=== PATIENT | male | born 1960 | race Caucasian/White ===

== ENCOUNTER 2020-11-11 14:54 | Outpatient (REF) | payer MEDICARE, SELFPAY ==
[2020-11-11 15:47] LABS: Influenza A PCR NEGATIVE (Negative); Influenza B PCR NEGATIVE (Negative); Resp Syncy Virus RNA Qual PCR NEGATIVE (Negative)
[2020-11-11 15:54] LABS: SARS COV2 PCR INHOUSE POSITIVE (Negative)
== END 2020-11-11 14:55 | disposition home or self-care (01) ==
LOC: HO.LNP 14:54
PROVIDERS: Visit Provider Internal Medicine
DX: Z20.822 Contact with and (suspected) exposure to COVID-19 (principal); R05 Cough; R68.83 Chills (without fever); J02.9 Acute pharyngitis, unspecified
CPT/HCPCS: 0241U

== ENCOUNTER 2020-11-14 13:08 | Emergency (ER) | payer MEDICARE, SELFPAY ==
[2020-11-14 13:40] VITALS: BP 114/63; PULSE 97; RESP 20; TEMP 36.8; O2SAT 96; BMI 54.2
[2020-11-14 13:42] VITALS: O2SAT 96
--- NOTE | 2020-11-14 13:46 | XR_ITS ---
EXAMINATION: XR CHEST CLINICAL INFORMATION: Covid 19. Cough COMPARISON: June 06, 2020 TECHNIQUE: Frontal view of the chest was obtained. FINDINGS: Film is lordotic and underpenetrated due to large body habitus. There is some patchy density seen at the left base and laterally however this may represent superimposition of shadows. There is some prominence of the superior left hilum but likely related to vasculature. Right hemithorax unremarkable. No pneumothorax or pleural effusion. Heart normal size. No evidence of pulmonary edema. XR/XR chest 1V IMPRESSION: No confluent parenchymal disease. Patchy density seen about the left hemithorax as described.
--- NOTE | 2020-11-14 14:14 | ECG_ITS ---
Test Reason : SOB Blood Pressure : / mmHG Vent. Rate : 087 BPM Atrial Rate : 087 BPM P-R Int : 124 ms QRS Dur : 088 ms QT Int : 360 ms P-R-T Axes : 008 032 042 degrees QTc Int : 433 ms Normal sinus rhythm Normal ECG When compared with ECG of 06-JUN-2020 15:17, Premature ventricular complexes are no longer Present Referred By: Lizette Leon Electronically Signed By:JEREMY SCHMID MD
--- NOTE | 2020-11-14 14:43 | ED.GENADULT ---
HPI - General Adult General Chief complaint: General Medical Stated complaint: covid+ Time Seen by Provider: 11/14/20 13:46 Source: patient Mode of arrival: wheelchair Limitations: no limitations History of Present Illness HPI narrative: 60 y/o male with history of morbid obesity, EPI on CPAP, DM on insulin, asthma, CHF, GERD, venous stasis who presents with SOB, N/V, abdominal pain, fatigue and malaise for the last 5 days. He was diagnosed with COVID-19 on 11/11/2020. He reports he has a finger pulse ox at home and his O2 levels have been dipping into the 80's, as low as 85% at home. He has to take several deep breaths to get his oxygen to come up to 90%. He reports with compliance with CPAP. He also reports chest discomfort, worse with deep inspiration. He has been unable to eat anything the last 2 days due to vomiting and nausea. He reports subjective fevers and chills at home. MD complaint: COVID symptoms Onset (ago): day(s) (5) Location: head, chest and back Radiation: non-radiation Severity: severe Quality: aching Pain Consistency: constant Relieving factors: rest Exacerbating factors: movement Associated symptoms: denies other symptoms, chest pain, cough, fever/chills, headaches, loss of appetite, malaise, nausea/vomiting, shortness of breath and weakness Treatments prior to arrival: none Related Data Previous Rx's Medication Instructions Recorded azithromycin [Zithromax Z-Yifan] See Rx Instructions .ROUTE 11/14/20 .COMPLEX #6 tab ondansetron HCl [Zofran] 4 mg PO Q8H PRN #15 tab 11/14/20 prednisone 60 mg PO DAILY #15 tab 11/14/20 Allergies Allergy/AdvReac Type Severity Reaction Status Date / Time vancomycin [VANCOMYCIN] AdvReac Severe RENAL Unverified 07/18/20 14:43 FAILURE, RASH Pt states no food/medication Allergy Unknown Uncoded 09/08/17 00:00 a Review of Systems Review of Systems: Constitutional: + Fever, + Chills ENT/Mouth: No sore throat, No Rhinorrhea, No Swallowing Difficulty Eyes: No Eye Pain, No Swelling, No Redness Cardiovascular: No Chest Pain, + SOB, + Orthopnea, + Edema Respiratory: + Cough, No Sputum, No Wheezing, + dyspnea Gastrointestinal: + Nausea, + Vomiting, No Diarrhea, + abdominal Pain, No Hematochezia, No Melena Genitourinary: No Dysuria, No Urinary Frequency, No Hematuria Musculoskeletal: No joint pain, + Myalgias Skin: No Skin Lesions, No rash Neuro: + Weakness, No Numbness, No Dizziness, + Headache Psych: No Anxiety/Panic, No Depression Heme/Lymph: No Bruising, No Lymphadenopathy Endocrine: No Polyuria, No Polydipsia [facility] Past Medical History Medical History (Updated 11/14/20 @ 18:34 by HOMAR Hawkins) Diabetes High cholesterol Social History Social History Alcohol intake: never Smoked in Last 30 Days: No Use of substances other than those prescribed or required for medical reasons: No Advance Directives: No Advance Directives Information Provided: Yes Physical Exam Vital Signs: Vital Signs: Last Vital Signs Temp 98.8 F 11/14/20 16:01 Pulse 77 11/14/20 16:01 Resp 18 11/14/20 16:01 BP 107/77 11/14/20 16:01 Pulse Ox 94 11/14/20 16:01 Body Mass Index 54.2 Appearance: Alert. Oriented X3. Morbidly obese male laying on his side, appears uncomfortable. Eyes: Pupils equal, round and reactive to light. ENT: Pharynx normal. Neck: Normal inspection. Neck supple. CVS: Normal heart rate and rhythm. Pulses normal. Respiratory: No respiratory distress. Breath sounds normal. Abdomen: Obese, Soft with mild epigastric tenderness, +BS x4 Skin: Skin warm and dry. Normal skin color. Normal skin turgor. No rashes. Extremities: 2+ LE edema with chronic venous stasis changes Neuro: Oriented X 3. Non-focal. Unable to assess gait due to generalized weakness. Course Course Course Narrative: 60 y/o male with recent dx of COVID-19 presenting with SOB, hypoxic episodes at home, N/V and abdominal pain. Vital signs are normal on arrival. SPO2 96% on room air. CXR and labs pending. Will need to get ambulatory pulse oximetry. Reevaluation(s) Reevaluation #1: Lactic acid 2.2 - IVF ordered. DDIMER mildly elevated 307 with normal troponin and BNP. DDIMER checked as inflammatory marker for COVID-19 which clinically correlates with mildly elevated CRP. Low suspicion for PE. His biggest complaint is body aches. Nausea has improved after Zofran. Ambulatory pulse oximetry remained normal without desaturations per nursing. Anticipate d/c home. Reevaluation #2: Repeat lactic acid normalize. Patient now tolerating PO. Given he his not hypoxic here,even with ambulation there is no indication for inpatient admission to the hospital at this time. He is stable for discharge with strict return precautions. He will monitor his SpO2 at home and wear his CPAP as directed. Will d/c with prednisone and azitromycin given his history of asthma. He has been counseled extensively on warning symptoms to return, he expressed verbal understanding. Medical Decision Making Lab Data Result diagrams: 11/14/20 15:36 11/14/20 15:36 Labs: Lab Results 11/14/20 11/14/20 11/14/20 Range/Units 15:36 15:36 15:36 WBC 5.5 (4.8-10.8) X10*3/uL RBC 5.61 (4.60-5.80) X10*6/uL Hgb 14.2 (14.0-18.0) g/dl Hct 46.3 (42-52) % MCV 82.5 (80-98) fL MCH 25.3 L (27.0-33.0) pg MCHC 30.7 L (31.0-36.0) g/dl RDW 15.3 (11.0-16.0) % Plt Count 137 L (160-400) X10*3/uL MPV 10.7 (9.4-12.4) fL Immature Gran % (Auto) 0.4 (0.0-0.4) % Neut % (Auto) 65.5 (45-73) % Lymph % (Auto) 24.5 (20-40) % [place] % (Auto) 9.4 (2-11) % Eos % (Auto) 0.0 (0-4) % Baso % (Auto) 0.2 (0-2) % Lymph # (Auto) 1.4 (1.2-4.9) X10*3/uL [place] # (Auto) 0.5 (0.1-1.2) X10*3/uL Eos # (Auto) 0.0 (0.0-0.4) X10*3/uL Baso # (Auto) 0.0 (0.0-0.2) X10*3/uL Abs Immat Gran (auto) 0.02 (0.00-0.03) X10*3/uL Absolute Neuts (auto) 3.6 (2.0-8.3) X10*3/uL Absolute Nucleated RBC 0.000 (0.0-0.012) X10*3/uL Nucleated RBC % (auto) 0.0 (0.0-0.2) /100WBC PT (10.8-13.0) SEC INR (0.9-1.1) APTT (24.1-38.0) SEC D-Dimer NG/ML Sodium 138 (135-145) mmol/L Potassium 4.2 (3.3-5.1) mmol/l Chloride 104 (96-108) mmol/L Carbon Dioxide 23 (22-29) mmol/L Anion Gap 15 (12-20) BUN 18 H (9-16) mg/dL Creatinine 1.03 (0.5-1.4) mg/dL Estim Creat Clear Calc 126.9 Estimated GFR > 60 Random Glucose 153 H (60-115) mg/dL Lactic Acid 2.2 H* (0.5-2.0) mmol/L Lactic Acid Fup @ 2Hr (0.5-2.0) mmol/L Calcium 7.7 L (8.4-10.2) mg/dL Magnesium 2.1 (1.6-2.6) mg/dL Total Bilirubin 0.5 (0.0-1.0) mg/dL Direct Bilirubin 0.3 (0.0-0.5) mg/dL AST 28 (5-37) U/L ALT 21 (0-40) U/L Alkaline Phosphatase 95 (39-117) U/L Troponin I High Sens (<3.5-35.0) ng/L C-Reactive Protein 2.81 H (< or = 0.50) mg/dL B-Natriuretic Peptide (<100) pg/mL Total Protein 6.5 (6.5-8.0) g/dL Albumin 3.6 (3.5-5.0) g/dL Procalcitonin ng/mL 11/14/20 11/14/2011/14/21 Range/Units 15:36 15:36 15:36 WBC (4.8-10.8) X10*3/uL RBC (4.60-5.80) X10*6/uL Hgb (14.0-18.0) g/dl Hct (42-52) % MCV (80-98) fL MCH (27.0-33.0) pg MCHC (31.0-36.0) g/dl RDW (11.0-16.0) % Plt Count (160-400) X10*3/uL MPV (9.4-12.4) fL Immature Gran % (Auto) (0.0-0.4) % Neut % (Auto) (45-73) % Lymph % (Auto) (20-40) % [place] % (Auto) (2-11) % Eos % (Auto) (0-4) % Baso % (Auto) (0-2) % Lymph # (Auto) (1.2-4.9) X10*3/uL [place] # (Auto) (0.1-1.2) X10*3/uL Eos # (Auto) (0.0-0.4) X10*3/uL Baso # (Auto) (0.0-0.2) X10*3/uL Abs Immat Gran (auto) (0.00-0.03) X10*3/uL Absolute Neuts (auto) (2.0-8.3) X10*3/uL Absolute Nucleated RBC (0.0-0.012) X10*3/uL Nucleated RBC % (auto) (0.0-0.2) /100WBC PT 14.5 H (10.8-13.0) SEC INR 1.2 H (0.9-1.1) APTT 34.5 (24.1-38.0) SEC D-Dimer 307 NG/ML Sodium (135-145) mmol/L Potassium (3.3-5.1) mmol/l Chloride (96-108) mmol/L Carbon Dioxide (22-29) mmol/L Anion Gap (12-20) BUN (9-16) mg/dL Creatinine (0.5-1.4) mg/dL Estim Creat Clear Calc Estimated GFR Random Glucose (60-115) mg/dL Lactic Acid (0.5-2.0) mmol/L Lactic Acid Fup @ 2Hr (0.5-2.0) mmol/L Calcium (8.4-10.2) mg/dL Magnesium (1.6-2.6) mg/dL Total Bilirubin (0.0-1.0) mg/dL Direct Bilirubin (0.0-0.5) mg/dL AST (5-37) U/L ALT (0-40) U/L Alkaline Phosphatase (39-117) U/L Troponin I High Sens < 3.5 (<3.5-35.0) ng/L C-Reactive Protein (< or = 0.50) mg/dL B-Natriuretic Peptide 11 (<100) pg/mL Total Protein (6.5-8.0) g/dL Albumin (3.5-5.0) g/dL Procalcitonin 0.06 ng/mL 11/14/20 Range/Units 17:49 WBC (4.8-10.8) X10*3/uL RBC (4.60-5.80) X10*6/uL Hgb (14.0-18.0) g/dl Hct (42-52) % MCV (80-98) fL MCH (27.0-33.0) pg MCHC (31.0-36.0) g/dl RDW (11.0-16.0) % Plt Count (160-400) X10*3/uL MPV (9.4-12.4) fL Immature Gran % (Auto) (0.0-0.4) % Neut % (Auto) (45-73) % Lymph % (Auto) (20-40) % [place] % (Auto) (2-11) % Eos % (Auto) (0-4) % Baso % (Auto) (0-2) % Lymph # (Auto) (1.2-4.9) X10*3/uL [place] # (Auto) (0.1-1.2) X10*3/uL Eos # (Auto) (0.0-0.4) X10*3/uL Baso # (Auto) (0.0-0.2) X10*3/uL Abs Immat Gran (auto) (0.00-0.03) X10*3/uL Absolute Neuts (auto) (2.0-8.3) X10*3/uL Absolute Nucleated RBC (0.0-0.012) X10*3/uL Nucleated RBC % (auto) (0.0-0.2) /100WBC PT (10.8-13.0) SEC INR (0.9-1.1) APTT (24.1-38.0) SEC D-Dimer NG/ML Sodium (135-145) mmol/L Potassium (3.3-5.1) mmol/l Chloride (96-108) mmol/L Carbon Dioxide (22-29) mmol/L Anion Gap (12-20) BUN (9-16) mg/dL Creatinine (0.5-1.4) mg/dL Estim Creat Clear Calc Estimated GFR Random Glucose (60-115) mg/dL Lactic Acid (0.5-2.0) mmol/L Lactic Acid Fup @ 2Hr 1.1 (0.5-2.0) mmol/L Calcium (8.4-10.2) mg/dL Magnesium (1.6-2.6) mg/dL Total Bilirubin (0.0-1.0) mg/dL Direct Bilirubin (0.0-0.5) mg/dL AST (5-37) U/L ALT (0-40) U/L Alkaline Phosphatase (39-117) U/L Troponin I High Sens (<3.5-35.0) ng/L C-Reactive Protein (< or = 0.50) mg/dL B-Natriuretic Peptide (<100) pg/mL Total Protein (6.5-8.0) g/dL Albumin (3.5-5.0) g/dL Procalcitonin ng/mL ECG Data Attestation: I personally reviewed and interpreted this ECG as follows: Interpretation: normal sinus rhythm, HR 87 bpm, normal [place] interval, normal QTc Discharge Plan Discharge Clinical Impression: COVID-19 Patient Disposition: Home, Self-Care Instructions: COVID-19 (Coronavirus Disease 2019) (ED) Additional Instructions: Your vital signs are normal, including walking oxygen level. It is important to closely monitor your temperature and oxygen saturations at home. Use your CPAP at home when you sleep and nap. Take Tylenol and Motrin as needed for fever and body aches. Take over the counter cold and flu medications for your symptoms. If you develop worsening shortness of breath, difficulty breathing or notice your oxygen levels drop into the 80's come back to the ER right away for further evaluation. Take the prescribed medications for your lungs and nausea. Follow up with your doctor this week. Prescriptions: New ondansetron HCl [Zofran] 4 mg tablet 4 mg PO Q8H PRN (Reason: nausea and vomiting) Qty: 15 RF: 0 prednisone 20 mg tablet 60 mg PO DAILY Qty: 15 RF: 0 azithromycin [Zithromax Z-Yifan] 250 mg tablet See Rx Instructions .ROUTE .COMPLEX Qty: 6 RF: 0
[2020-11-14] MEDS: 0.9 % Sodium Chloride 1,000 ML 999 ML IVCONT (15:07)
[2020-11-14] MEDS: ondansetron HCL 4 MG/2 ML VIAL IVPUSH (15:32)
[2020-11-14 15:54] LABS: MANUAL DIFF FLAG NO
[2020-11-14 15:58] LABS: Basophils Percent Auto 0.2 % (0-2); Hematocrit 46.3 % (42-52); Hemoglobin 14.2 g/dl (14.0-18.0); Imm Gran Abs Auto 0.02 X10*3/uL (0.00-0.03); Imm Gran Pct Auto 0.4 % (0.0-0.4); Lymphocytes Absolute Auto 1.4 X10*3/uL (1.2-4.9); Lymphocytes Percent Auto 24.5 % (20-40); Mean Corpuscular HGB Conc 30.7 g/dl (31.0-36.0); Mean Corpuscular Hemoglobin 25.3 pg (27.0-33.0); Mean Corpuscular Volume 82.5 fL (80-98); Mean Platelet Volume 10.7 fL (9.4-12.4); Monocytes Absolute Auto 0.5 X10*3/uL (0.1-1.2); Monocytes Percent Auto 9.4 % (2-11); Neutrophils Absolute Auto 3.6 X10*3/uL (2.0-8.3); Neutrophils Percent Auto 65.5 % (45-73); Platelet Count 137 X10*3/uL (160-400); Red Blood Count 5.61 X10*6/uL (4.60-5.80); Red Cell Distribution Width 15.3 % (11.0-16.0); White Blood Count 5.5 X10*3/uL (4.8-10.8)
[2020-11-14 16:01] VITALS: BP 107/77; PULSE 77; RESP 18; TEMP 37.1; O2SAT 94
[2020-11-14 16:09] LABS: INTERNATIONAL NORM RATIO 1.2 (0.9-1.1); Prothrombin Time 14.5 SEC (10.8-13.0)
[2020-11-14 16:12] LABS: D Dimer 307 NG/ML; Partial Thromboplastin Time 34.5 SEC (24.1-38.0)
[2020-11-14 16:21] LABS: Alanine Aminotransferase 21 U/L (0-40); Albumin Level 3.6 g/dL (3.5-5.0); Alkaline Phosphatase 95 U/L (39-117); Anion Gap 15 (12-20); Aspartate Amino Transferase 28 U/L (5-37); Bilirubin Direct 0.3 mg/dL (0.0-0.5); Bilirubin Total 0.5 mg/dL (0.0-1.0); Blood Urea Nitrogen 18 mg/dL (9-16); C Reactive Protein 2.81 mg/dL (< or = 0.50); Calcium 7.7 mg/dL (8.4-10.2); Carbon Dioxide 23 mmol/L (22-29); Chloride 104 mmol/L (96-108); Creatinine Clr Calc Pharmacy 126.9; Estimated Glomerular Filt Rate > 60; Glucose Random 153 mg/dL (60-115); Magnesium 2.1 mg/dL (1.6-2.6); Potassium 4.2 mmol/l (3.3-5.1); Sodium 138 mmol/L (135-145); Total Protein 6.5 g/dL (6.5-8.0)
[2020-11-14 16:24] LABS: Lactic Acid 2.2 mmol/L (0.5-2.0)
[2020-11-14 16:26] LABS: B Type Natriuretic Peptide 11 pg/mL (<100); Troponin-I High Sensitivity < 3.5 ng/L (<3.5-35.0)
[2020-11-14 16:39] LABS: Procalcitonin 0.06 ng/mL
--- NOTE | 2020-11-14 17:18 | PC.NURSE ---
pt maintained oxygenation while ambulating. riya trimble made aware
[2020-11-14 17:45] LABS: Reflex Lactate? Lactic Acid Added
[2020-11-14 18:22] LABS: ~Lactic Acid-LAB USE ONLY 1.1 mmol/L (0.5-2.0)
--- NOTE | 2020-11-14 18:45 | PC.NURSE ---
po challenge at this time then d.c
== END 2020-11-14 20:32 | disposition home or self-care (01) ==
PROVIDERS: Physician Assistant; Emergency Provider Emergency Medicine Emergency Medical Services; PCP Internal Medicine
DX: U07.1 COVID-19 (principal); Z79.899 Other long term (current) drug therapy
CPT/HCPCS: 36415; 71045; 80048; 80076; 83605; 83735; 83880; 84145; 84484; 85025; 85379; 85610; 85730; 86140; 87040; 93005; 96361; 96374; 99284; 99285; J2405

== ENCOUNTER 2020-11-17 00:04 | Emergency (ER) | payer MEDICARE, SELFPAY ==
[2020-11-17 00:17] VITALS: BP 135/65; PULSE 97; RESP 20; TEMP 36.3; O2SAT 92; BMI 52.3
--- NOTE | 2020-11-17 00:29 | XR_ITS ---
EXAMINATION: XR CHEST CLINICAL INFORMATION: Cough COMPARISON: 11/14/2020 TECHNIQUE: Frontal view of the chest was obtained. FINDINGS: Patchy airspace opacities in both lungs are more pronounced as compared to prior, left side greater than right. Lung volumes are low. No pneumothorax or pleural effusion. Cardiac and mediastinal contours are normal. No acute osseous findings. XR/XR chest 1V IMPRESSION: Increased patchy peripheral airspace opacities in both lungs, left greater than right, as can be seen with viral pneumonia.
--- NOTE | 2020-11-17 00:52 | ED_ITS ---
HPI - General Adult General Chief complaint: General Medical Stated complaint: see stated Time Seen by Provider: 11/17/20 00:24 History of Present Illness HPI narrative: 60-year-old male with history of diabetes who presents for complaints shortness of breath and persistent nausea and vomiting over the past 3 days with the inability to take his medications. He states he continues to rene ve body aches, nausea, vomiting, intermittent episodes nonbloody diarrhea, but otherwise denies chest pain/palpitations or dysuria. Related Data Previous Rx's Medication Instructions Recorded azithromycin [Zithromax Z-Yifan] See Rx Instructions .ROUTE 11/14/20 .COMPLEX #6 tab ondansetron HCl [Zofran] 4 mg PO Q8H PRN #15 tab 11/14/20 prednisone 60 mg PO DAILY #15 tab 11/14/20 diphenhydramine HCl [Benadryl] 25 mg PO Q8H 2 Days #6 cap 11/17/20 metoclopramide HCl [Reglan] 10 mg PO .Q8 2 Days #6 tab 11/17/20 Allergies Allergy/AdvReac Type Severity Reaction Status Date / Time vancomycin [VANCOMYCIN] AdvReac Severe RENAL Verified 11/17/20 00:16 FAILURE, RASH Review of Systems Review of Systems: Pertinent positives and negatives as stated in HPI 10 point review of systems is otherwise negative. PMFSH Past Medical History Source: nursing notes reviewed Medical History Diabetes High cholesterol Social History Social History Alcohol intake: never Advance Directives: No Physical Exam 2 Vital Signs: Vital Signs: Last Vital Signs Temp 96.9 F 11/17/20 04:00 Pulse 82 11/17/20 04:00 Resp 20 11/17/20 04:00 BP 145/75 H 11/17/20 04:00 Pulse Ox 97 11/17/20 04:00 Body Mass Index 52.3 VITAL SIGNS: Reviewed. GENERAL: Well developed, well nourished, in no acute distress. HEAD: Normocephalic/atraumatic, EYES: PERRLA, EOMI intact without pain, no nystagmus/pallor/icterus noted EARS: Ext canals without abnormality NOSE: Nares patent bilateral OROPHARYNX: no oral lesions noted, posterior pharynx clear, and oral mucosa is dry NECK: Supple, no adenopathy LUNGS: Normal breath sounds. No adventitious sounds or accessory muscle use. SpO2<92-97> CARDIOVASCULAR: Regular rate and rhythm without noted murmurs, no JVD or lower extremity edema. ABDOMEN: Obese, Soft, non-tender, non-distended with bowel sounds. No rigidity. EXTREMITIES: No cyanosis, clubbing or edema. SKIN: Inspection of the skin reveals no rashes NEUROLOGIC: Alert and oriented x 4. Course Course Course Narrative: This is a 60-year-old male with history and clinical presentation consistent with significant dehydration in the context of known COVID-19 infection and some concerns for possible component gastroparesis versus symptoms associated with COVID-19. Patient will receive 2 L of IV fluids as well as Zofran. On re-evaluation the Zofran did not adequately control the nausea so followed this up with a Reglan/Benadryl combination with resolution of the nausea and patient was able to tolerate oral intake. On review of all investigations there are no acute changes when compared to lab work from 11/14. The noted lactic acidosis is secondary to dehydration which is illustrated by complete resolution after receiving IV fluids. In addition the small amount of ketone noted is attributable to the dehydration which resolved. Patient was able to maintain oxygen saturation 94% on room air and did not become hypoxic on walk test. All results and findings were discussed with him a t bedside and he was strongly encouraged to continue with the antiemetics prescribed. Medical Decision Making Lab Data Result diagrams: 11/17/20 01:03 11/17/20 01:03 Labs: Lab Results 11/17/20 11/17/20 11/17/20 Range/Units 00:36 00:38 01:03 WBC 7.3 (4.8-10.8) X10*3/uL RBC 5.74 (4.60-5.80) X10*6/uL Hgb 14.5 (14.0-18.0) g/dl Hct 47.2 (42-52) % MCV 82.2 (80-98) fL MCH 25.3 L (27.0-33.0) pg MCHC 30.7 L (31.0-36.0) g/dl RDW 15.6 (11.0-16.0) % Plt Count 157 L (160-400) X10*3/uL MPV 11.0 (9.4-12.4) fL Immature Gran % (Auto) 0.3 (0.0-0.4) % Neut % (Auto) 71.7 (45-73) % Lymph % (Auto) 19.1 L (20-40) % [place] % (Auto) 8.8 (2-11) % Eos % (Auto) 0.0 (0-4) % Baso % (Auto) 0.1 (0-2) % Lymph # (Auto) 1.4 (1.2-4.9) X10*3/uL [place] # (Auto) 0.6 (0.1-1.2) X10*3/uL Eos # (Auto) 0.0 (0.0-0.4) X10*3/uL Baso # (Auto) 0.0 (0.0-0.2) X10*3/uL Abs Immat Gran (auto) 0.02 (0.00-0.03) X10*3/uL Absolute Neuts (auto) 5.2 (2.0-8.3) X10*3/uL Absolute Nucleated RBC 0.000 (0.0-0.012) X10*3/uL Nucleated RBC % (auto) 0.0 (0.0-0.2) /100WBC PT Cancelled INR Cancelled APTT Cancelled Sodium (135-145) mmol/L Potassium (3.3-5.1) mmol/l Chloride (96-108) mmol/L Carbon Dioxide (22-29) mmol/L Anion Gap (12-20) BUN (9-16) mg/dL Creatinine (0.5-1.4) mg/dL Estim Creat Clear Calc Estimated GFR POC Glucose 189 H (60-115) mg/dL Random Glucose (60-115) mg/dL Lactic Acid (0.5-2.0) mmol/L Lactic Acid Fup @ 2Hr (0.5-2.0) mmol/L Calcium (8.4-10.2) mg/dL Total Bilirubin (0.0-1.0) mg/dL Direct Bilirubin (0.0-0.5) mg/dL AST (5-37) U/L ALT (0-40) U/L Alkaline Phosphatase (39-117) U/L Total Protein (6.5-8.0) g/dL Albumin (3.5-5.0) g/dL Acetone, Qual (Negative) 11/17/20 11/17/20 11/17/20 Range/Units 01:03 01:03 03:28 WBC (4.8-10.8) X10*3/uL RBC (4.60-5.80) X10*6/uL Hgb (14.0-18.0) g/dl Hct (42-52) % MCV (80-98) fL MCH (27.0-33.0) pg MCHC (31.0-36.0) g/dl RDW (11.0-16.0) % Plt Count (160-400) X10*3/uL MPV (9.4-12.4) fL Immature Gran % (Auto) (0.0-0.4) % Neut % (Auto) (45-73) % Lymph % (Auto) (20-40) % [place] % (Auto) (2-11) % Eos % (Auto) (0-4) % Baso % (Auto) (0-2) % Lymph # (Auto) (1.2-4.9) X10*3/uL [place] # (Auto) (0.1-1.2) X10*3/uL Eos # (Auto) (0.0-0.4) X10*3/uL Baso # (Auto) (0.0-0.2) X10*3/uL Abs Immat Gran (auto) (0.00-0.03) X10*3/uL Absolute Neuts (auto) (2.0-8.3) X10*3/uL Absolute Nucleated RBC (0.0-0.012) X10*3/uL Nucleated RBC % (auto) (0.0-0.2) /100WBC PT 15.5 H INR 1.3 H APTT Sodium 140 (135-145) mmol/L Potassium 4.7 (3.3-5.1) mmol/l Chloride 103 (96-108) mmol/L Carbon Dioxide 22 (22-29) mmol/L Anion Gap 20 (12-20) BUN 20 H (9-16) mg/dL Creatinine 1.02 (0.5-1.4) mg/dL Estim Creat Clear Calc 125.4 Estimated GFR > 60 POC Glucose (60-115) mg/dL Random Glucose 184 H (60-115) mg/dL Lactic Acid 2.4 H* (0.5-2.0) mmol/L Lactic Acid Fup @ 2Hr (0.5-2.0) mmol/L Calcium 8.3 L D (8.4-10.2) mg/dL Total Bilirubin 0.8 (0.0-1.0) mg/dL Direct Bilirubin 0.5 (0.0-0.5) mg/dL AST 25 (5-37) U/L ALT 19 (0-40) U/L Alkaline Phosphatase 87 (39-117) U/L Total Protein 7.0 (6.5-8.0) g/dL Albumin 3.7 (3.5-5.0) g/dL Acetone, Qual Small H (Negative) 11/17/20 Range/Units 03:28 WBC (4.8-10.8) X10*3/uL RBC (4.60-5.80) X10*6/uL Hgb (14.0-18.0) g/dl Hct (42-52) % MCV (80-98) fL MCH (27.0-33.0) pg MCHC (31.0-36.0) g/dl RDW (11.0-16.0) % Plt Count (160-400) X10*3/uL MPV (9.4-12.4) fL Immature Gran % (Auto) (0.0-0.4) % Neut % (Auto) (45-73) % Lymph % (Auto) (20-40) % [place] % (Auto) (2-11) % Eos % (Auto) (0-4) % Baso % (Auto) (0-2) % Lymph # (Auto) (1.2-4.9) X10*3/uL [place] # (Auto) (0.1-1.2) X10*3/uL Eos # (Auto) (0.0-0.4) X10*3/uL Baso # (Auto) (0.0-0.2) X10*3/uL Abs Immat Gran (auto) (0.00-0.03) X10*3/uL Absolute Neuts (auto) (2.0-8.3) X10*3/uL Absolute Nucleated RBC (0.0-0.012) X10*3/uL Nucleated RBC % (auto) (0.0-0.2) /100WBC PT INR APTT Sodium (135-145) mmol/L Potassium (3.3-5.1) mmol/l Chloride (96-108) mmol/L Carbon Dioxide (22-29) mmol/L Anion Gap (12-20) BUN (9-16) mg/dL Creatinine (0.5-1.4) mg/dL Estim Creat Clear Calc Estimated GFR POC Glucose (60-115) mg/dL Random Glucose (60-115) mg/dL Lactic Acid (0.5-2.0) mmol/L Lactic Acid Fup @ 2Hr 1.3 (0.5-2.0) mmol/L Calcium (8.4-10.2) mg/dL Total Bilirubin (0.0-1.0) mg/dL Direct Bilirubin (0.0-0.5) mg/dL AST (5-37) U/L ALT (0-40) U/L Alkaline Phosphatase (39-117) U/L Total Protein (6.5-8.0) g/dL Albumin (3.5-5.0) g/dL Acetone, Qual (Negative) Discharge Plan Discharge Clinical Impression: COVID-19, Dehydration Patient Disposition: Home, Self-Care Instructions: Dehydration (ED), COVID-19 (Coronavirus Disease 2019) (ED) Additional Instructions: 1. Resume all home medication as prescribed. 2. STOP Zofran (ondansetron). 3. Recommend combining the prescribed Reglan 1 tablet of Benadryl 25 mg and follow-up with your primary care provider for further evaluation. Please do not hesitate to return to the emergency department should you develop any acute worsening, or recurrence of your symptoms. Prescriptions: New metoclopramide HCl [Reglan] 10 mg tablet 10 mg PO .Q8 2 Days Qty: 6 RF: 0 diphenhydramine HCl [Benadryl] 25 mg capsule 25 mg PO Q8H 2 Days Qty: 6 RF: 0 No Action ondansetron HCl [Zofran] 4 mg tablet 4 mg PO Q8H PRN (Reason: nausea and vomiting) Qty: 15 RF: 0 prednisone 20 mg tablet 60 mg PO DAILY Qty: 15 RF: 0 azithromycin [Zithromax Z-Yifan] 250 mg tablet See Rx Instructions .ROUTE .COMPLEX Qty: 6 RF: 0
[2020-11-17 01:11] LABS: Glucose, Whole Blood 189 mg/dL (60-115)
[2020-11-17 01:12] LABS: MANUAL DIFF FLAG NO
[2020-11-17 01:18] LABS: Basophils Percent Auto 0.1 % (0-2); Hematocrit 47.2 % (42-52); Hemoglobin 14.5 g/dl (14.0-18.0); Imm Gran Abs Auto 0.02 X10*3/uL (0.00-0.03); Imm Gran Pct Auto 0.3 % (0.0-0.4); Lymphocytes Absolute Auto 1.4 X10*3/uL (1.2-4.9); Lymphocytes Percent Auto 19.1 % (20-40); Mean Corpuscular HGB Conc 30.7 g/dl (31.0-36.0); Mean Corpuscular Hemoglobin 25.3 pg (27.0-33.0); Mean Corpuscular Volume 82.2 fL (80-98); Monocytes Absolute Auto 0.6 X10*3/uL (0.1-1.2); Monocytes Percent Auto 8.8 % (2-11); Neutrophils Absolute Auto 5.2 X10*3/uL (2.0-8.3); Neutrophils Percent Auto 71.7 % (45-73); Platelet Count 157 X10*3/uL (160-400); Red Blood Count 5.74 X10*6/uL (4.60-5.80); Red Cell Distribution Width 15.6 % (11.0-16.0); White Blood Count 7.3 X10*3/uL (4.8-10.8)
[2020-11-17] MEDS: 0.9 % Sodium Chloride 1,000 ML 999 ML IV ×2 (01:19→03:53)
[2020-11-17 01:44] LABS: Alanine Aminotransferase 19 U/L (0-40); Albumin Level 3.7 g/dL (3.5-5.0); Alkaline Phosphatase 87 U/L (39-117); Anion Gap 20 (12-20); Aspartate Amino Transferase 25 U/L (5-37); Bilirubin Direct 0.5 mg/dL (0.0-0.5); Bilirubin Total 0.8 mg/dL (0.0-1.0); Blood Urea Nitrogen 20 mg/dL (9-16); Calcium 8.3 mg/dL (8.4-10.2); Carbon Dioxide 22 mmol/L (22-29); Chloride 103 mmol/L (96-108); Creatinine Clr Calc Pharmacy 125.4; Estimated Glomerular Filt Rate > 60; Glucose Random 184 mg/dL (60-115); Potassium 4.7 mmol/l (3.3-5.1); Sodium 140 mmol/L (135-145)
[2020-11-17 01:55] LABS: Lactic Acid 2.4 mmol/L (0.5-2.0)
[2020-11-17 01:57] LABS: Acetone, serum QL Small (Negative)
--- NOTE | 2020-11-17 02:16 | PC.NURSE ---
WALKING O2 SAT 94-95%. DR PICHARDO AWARE. PATIENT REQUESTED A WALKER TO GET UP AND GO FOR WALKING O2 SAT TRIAL. DOES NOT USE A WALKER AT HOME. PATIENT VERY NAUSEOUS WHILE AMBULATING. ZOFRAN ORDERED BY DR PICHARDO.
[2020-11-17 02:18] VITALS: BP 132/79; PULSE 99; RESP 20; TEMP 35.9; O2SAT 92
[2020-11-17] MEDS: ondansetron HCL 4 MG/2 ML VIAL IVPUSH (02:25)
--- NOTE | 2020-11-17 03:06 | PC.NURSE ---
PATIENT STARTING PO TRIAL AT THIS TIME.
[2020-11-17 03:08] LABS: Reflex Lactate? Lactic Acid Added
[2020-11-17 03:47] LABS: INTERNATIONAL NORM RATIO 1.3 (0.9-1.1); Prothrombin Time 15.5 SEC (10.8-13.0)
[2020-11-17] MEDS: Metoclopramide HCl 10 MG/2 ML VIAL IVPUSH (03:53)
[2020-11-17] MEDS: diphenhydrAMINE HCL 50 MG/ML VIAL 25 MG IVPUSH (03:54)
[2020-11-17 04:00] VITALS: BP 145/75; PULSE 82; RESP 20; TEMP 36.1; O2SAT 97
[2020-11-17 04:19] LABS: ~Lactic Acid-LAB USE ONLY 1.3 mmol/L (0.5-2.0)
--- NOTE | 2020-11-17 04:42 | PC.NURSE ---
REPORTS FEELING A LITTLE BETTER AT THIS TIME. GIVEN WATER TO START PO CHALLENGE.
--- NOTE | 2020-11-17 05:42 | PC.NURSE ---
TOLERATING PO FLUIDS AND CRACKERS
== END 2020-11-17 06:38 | disposition home or self-care (01) ==
PROVIDERS: Emergency Provider Student in an Organized Health Care Education/Training Program
DX: U07.1 COVID-19 (principal); E86.0 Dehydration; Z79.899 Other long term (current) drug therapy
CPT/HCPCS: 36415; 71045; 80048; 80076; 82009; 82947; 83605; 85025; 85610; 85730; 87040; 96361; 96374; 96375; 99284; J1200; J2405; J2765

== ENCOUNTER 2020-11-20 11:05 | Inpatient (IN) | payer MEDICARE, SELFPAY ==
--- NOTE | 2020-11-20 11:14 | ECG_ITS ---
Test Reason : SOB Blood Pressure : / mmHG Vent. Rate : 088 BPM Atrial Rate : 088 BPM P-R Int : 140 ms QRS Dur : 086 ms QT Int : 372 ms P-R-T Axes : 033 005 037 degrees QTc Int : 450 ms Normal sinus rhythm Normal ECG When compared with ECG of 14-NOV-2020 14:41, No significant change was found Referred By: Florinda Mariscal Electronically Signed By:BUSHRA OCONNOR
--- NOTE | 2020-11-20 11:14 | CT_ITS ---
EXAMINATION: CT ANGIOGRAM OF THE CHEST WITH AND WITHOUT CONTRAST (CT PULMONARY ANGIOGRAM FOR PE) CLINICAL INFORMATION: Reason for Exam chest pain known COVID hx of blood clots in past COMPARISON: None TECHNIQUE: Prior to contrast administration, noncontrast localization images were obtained. Subsequently, multidetector volumetric imaging was performed from the thoracic inlet to below the diaphragms following the administration of 80 mL Omnipaque 350 intravenous contrast. No contrast reaction reported Sagittal, coronal, and MIP oblique sagittal reformatted images were obtained on the CT workstation, uploaded to PACS, and reviewed. This CT examination was performed using dose optimization techniques as appropriate, variously including the following: *Automated exposure control *Adjustment of mA and/or kV according to patient size (this includes techniques or standardized protocols for targeted exams where dose is matched to indication/reason for exam; i.e. extremities or head) *Use of iterative reconstruction technique Total exam dose-length product 589 mGy-cm FINDINGS: QUALITY OF STUDY/CONTRAST BOLUS: Satisfactory. PULMONARY ARTERIES: No central or segmental pulmonary emboli. THORACIC AORTA: No aneurysm or dissection. LUNG: There is peripheral patchy groundglass opacities seen in all segments of both lungs. Addition there is a right lower lobe consolidation posterior basal segment. PLEURA: There is minimal right posterior pleural thickening MEDIASTINUM: Normal heart size. No pericardial effusion. No hilar or mediastinal lymphadenopathy. No evidence of septal bowing or right heart strain. CHEST WALL/AXILLA: No axillary or internal mammary lymphadenopathy. OSSEOUS STRUCTURES: There is mild spondylosis dorsal spine. No lytic process. UPPER ABDOMEN: The liver and spleen appears unremarkable. The gallbladder is surgically removed. There is a gastric lap band noted in fundal region. There is small cysts in the upper pole right kidney. No reflux of contrast into the hepatic veins to suggest elevated right heart pressures. CT/CT angio chest PE protocol IMPRESSION: No evidence of PE. No evidence of aortic aneurysm or dissection. Right lower lobe consolidation/infiltrate. Scattered peripheral based groundglass attenuation seen throughout both lungs suggestive of multilobar infiltrates. Gastric lap band and a left upper pole renal cyst. VTE: negative
--- NOTE | 2020-11-20 11:16 | ED_ITS ---
HPI - SOB/Dyspnea General Chief Complaint: General Medical Stated Complaint: SOB,+COVID,ON HOME O2 Time Seen by Provider: 11/20/20 11:13 Source: patient, EMS and old records reviewed Mode of arrival: EMS Limitations: no limitations History of Present Illness HPI Narrative: 60 y male with obesit, EPI on CPAP, DM, asthma, insulin, GERD, CHF - here with worsening nausea/vomiting and shortness of breath along with ple uritic chest pain x 2 days DX with COVID 11/11/20 MD elicited complaint: shortness of breath, cough, pain with inspiration and chest pain Pertinent past history: asthma and congestive heart failure Onset (ago): day(s) (2) Context: recent illness Timing: constant Severity: moderate Exacerbating factors: lying flat, exertion, coughing and inspiration Relieving factors: oxygen, rest and bronchodilators Known history of: asthma and congestive heart failure Associated symptoms: pain with inspiration, cough, nausea/vomiting and lightheadedness Treatment prior to arrival: oxygen (RA sat with EMS 93%) Related Data Home Medications Medication Instructions Recorded Confirmed albuterol sulfate [Ventolin HFA] 2 puff INHALATION QID PRN 11/20/20 11/20/20 aspirin 81 mg PO DAILY 11/20/20 11/20/20 carvedilol 12.5 mg PO BID 11/20/20 11/20/20 clopidogrel 75 mg PO DAILY 11/20/20 11/20/20 insulin aspart U-100 [Novolog See Rx Instructions .ROUTE .COMPLEX 11/20/20 11/20/20 Flexpen U-100 Insulin] insulin glargine [Basaglar KwikPen 40 unit SUBCUT BEDTIME 11/20/20 11/20/20 U-100 Insulin] metoclopramide HCl [Reglan] 10 mg PO Q8H PRN 11/20/20 11/20/20 morphine 30 mg PO TID 11/20/20 11/20/20 oxycodone 15 mg PO Q4H PRN 11/20/20 11/20/20 pantoprazole 40 mg PO DAILY 11/20/20 11/20/20 simvastatin 40 mg PO BEDTIME 11/20/20 11/20/20 Previous Rx's Medication Instructions Recorded azithromycin [Zithromax Z-Yifan] See Rx Instructions .ROUTE 11/14/20 .COMPLEX #6 tab ondansetron HCl [Zofran] 4 mg PO Q8H PRN #15 tab 11/14/20 cefuroxime axetil 500 mg PO BID 7 Days #28 tab 11/20/20 ondansetron 4 mg PO Q8H PRN #20 tab 11/20/20 prednisone 40 mg PO DAILY 5 Days #10 tab 11/20/20 Allergies Allergy/AdvReac Type Severity Reaction Status Date / Time vancomycin [VANCOMYCIN] AdvReac Severe RENAL Verified 11/17/20 00:16 FAILURE, RASH Review of Systems Review of Systems: Constitutional : No Fever, No Chills ENT/Mouth : No sore throat, No Rhinorrhea, No Swallowing Difficulty Eyes: No Eye Pain, No Swelling, No Redness Cardiovascular : pos Chest Pain, positive SOB, No Orthopnea, positive Edema Respiratory : No Cough, No Sputum, No Wheezing, positive dyspnea Gastrointestinal : pos Nausea, pos Vomiting, No Diarrhea, No abdominal Pain, No Hematochezia, No Melena Genitourinary : No Dysuria, No Urinary Frequency, No Hematuria Musculoskeletal : No joint pain, No Myalgias Skin : No Skin Lesions, No rash Neuro : No Weakness, No Numbness, No Dizziness, No Headache Psych : No Anxiety/Panic, No Depression Heme/Lymph: No Bruising, No Lymphadenopathy Endocrine : No Polyuria, No Polydipsia All other systems reviewed and are negative [facility] Past Medical History Medical History (Updated 11/20/20 @ 14:27 by Florinda Mariscal DO) Asthma Diabetes High cholesterol Obesity Sleep apnea Social History Social History (Updated 11/20/20 @ 11:21 by Florinda Mariscal DO) Alcohol intake: never Smoking Status: Never smoker Advance Directives: No Advance Directives Information Provided: No Physical Exam Vital Signs: Vital Signs: Last Vital Signs Temp 97.3 F 11/20/20 15:33 Pulse 96 11/20/20 15:33 Resp 18 11/20/20 15:33 BP 111/73 11/20/20 15:33 Pulse Ox 92 11/20/20 15:33 Body Mass Index 49.3 Appearance: Alert. Oriented X3. Anxious, nauseated, mild acute distress. Eyes: Pupils equal, round and reactive to light. ENT: Pharynx normal. Neck: Normal inspection. Neck supple. CVS: Normal heart rate and rhythm. Pulses normal. Respiratory: No respiratory distress. Breath sounds normal. Abdomen: Soft and non-tender. Obese Skin: Skin warm and dry. Normal skin color. Normal skin turgor. Extremities: bilateral 1+ pitting lower extremity edema. No calf ttp Neuro: Oriented X 3. No motor deficit. No sensory deficit. Course Course Course Narrative: failed PO challenge will start on zofran lactic acid cleared, able to keep down his PO pain medications no hypoxia here maintaining sat over 95%, at this time no acute findings to need to inpatient can tolerate PO patient agrees to rehab at this time, he honestly cannot care for himself, he is trying to eat crackers now patient is able to keep crackers and liquid down signed out pending PT/CM MDM - SOB/Dyspnea MDM Narrative Medical decision making narrative: 60 yo male with asthma, EPI, DM, obesity here with known COVID 11/11 notes worsening n/v now 2 days of shortness of breath and pleuritic chest pain at this time will need nausea control, labs, CTA for PE, I hear no wheezes at this time. Dispo per results and findings. Lab Data Result diagrams: 11/20/20 11:20 11/20/20 11:20 Labs: Lab Results 11/20/20 11/20/20 11/20/20 Range/Units 11:20 11:20 11:20 WBC 8.2 (4.8-10.8) X10*3/uL RBC 5.73 (4.60-5.80) X10*6/uL Hgb 14.5 (14.0-18.0) g/dl Hct 47.0 (42-52) % MCV 82.0 (80-98) fL MCH 25.3 L (27.0-33.0) pg MCHC 30.9 L (31.0-36.0) g/dl RDW 15.7 (11.0-16.0) % Plt Count 256 D (160-400) X10*3/uL MPV 9.8 (9.4-12.4) fL Immature Gran % (Auto) 0.4 (0.0-0.4) % Neut % (Auto) 66.7 (45-73) % Lymph % (Auto) 23.7 (20-40) % Cochran % (Auto) 8.8 (2-11) % Eos % (Auto) 0.2 (0-4) % Baso % (Auto) 0.2 (0-2) % Lymph # (Auto) 1.9 (1.2-4.9) X10*3/uL Cochran # (Auto) 0.7 (0.1-1.2) X10*3/uL Eos # (Auto) 0.0 (0.0-0.4) X10*3/uL Baso # (Auto) 0.0 (0.0-0.2) X10*3/uL Abs Immat Gran (auto) 0.03 (0.00-0.03) X10*3/uL Absolute Neuts (auto) 5.5 (2.0-8.3) X10*3/uL Absolute Nucleated RBC 0.000 (0.0-0.012) X10*3/uL Nucleated RBC % (auto) 0.0 (0.0-0.2) /100WBC PT 14.8 H (10.8-13.0) SEC INR 1.2 H (0.9-1.1) APTT 31.0 (24.1-38.0) SEC D-Dimer 936 NG/ML Sodium 141 (135-145) mmol/L Potassium 4.0 (3.3-5.1) mmol/l Chloride 105 (96-108) mmol/L Carbon Dioxide 22 (22-29) mmol/L Anion Gap 18 (12-20) BUN 15 (9-16) mg/dL Creatinine 0.82 (0.5-1.4) mg/dL Estim Creat Clear Calc 154.5 Estimated GFR > 60 Random Glucose 165 H (60-115) mg/dL Lactic Acid (0.5-2.0) mmol/L Lactic Acid Fup @ 2Hr (0.5-2.0) mmol/L Calcium 8.1 L (8.4-10.2) mg/dL Magnesium 2.1 (1.6-2.6) mg/dL Ferritin (20-250) ng/mL Total Bilirubin 1.0 (0.0-1.0) mg/dL Direct Bilirubin 0.5 (0.0-0.5) mg/dL AST 35 (5-37) U/L ALT 21 (0-40) U/L Alkaline Phosphatase 74 (39-117) U/L Lactate Dehydrogenase 317 H (118-273) U/L Troponin I High Sens (<3.5-35.0) ng/L B-Natriuretic Peptide (<100) pg/mL Total Protein 6.9 (6.5-8.0) g/dL Albumin 3.4 L (3.5-5.0) g/dL Lipase (8-78) U/L 11/20/20 11/20/20 11/20/20 Range/Units 11:20 11:20 11:20 WBC (4.8-10.8) X10*3/uL RBC (4.60-5.80) X10*6/uL Hgb (14.0-18.0) g/dl Hct (42-52) % MCV (80-98) fL MCH (27.0-33.0) pg MCHC (31.0-36.0) g/dl RDW (11.0-16.0) % Plt Count (160-400) X10*3/uL MPV (9.4-12.4) fL Immature Gran % (Auto) (0.0-0.4) % Neut % (Auto) (45-73) % Lymph % (Auto) (20-40) % Cochran % (Auto) (2-11) % Eos % (Auto) (0-4) % Baso % (Auto) (0-2) % Lymph # (Auto) (1.2-4.9) X10*3/uL Cochran # (Auto) (0.1-1.2) X10*3/uL Eos # (Auto) (0.0-0.4) X10*3/uL Baso # (Auto) (0.0-0.2) X10*3/uL Abs Immat Gran (auto) (0.00-0.03) X10*3/uL Absolute Neuts (auto) (2.0-8.3) X10*3/uL Absolute Nucleated RBC (0.0-0.012) X10*3/uL Nucleated RBC % (auto) (0.0-0.2) /100WBC PT (10.8-13.0) SEC INR (0.9-1.1) APTT (24.1-38.0) SEC D-Dimer NG/ML Sodium (135-145) mmol/L Potassium (3.3-5.1) mmol/l Chloride (96-108) mmol/L Carbon Dioxide (22-29) mmol/L Anion Gap (12-20) BUN (9-16) mg/dL Creatinine (0.5-1.4) mg/dL Estim Creat Clear Calc Estimated GFR Random Glucose (60-115) mg/dL Lactic Acid 3.0 H* (0.5-2.0) mmol/L Lactic Acid Fup @ 2Hr (0.5-2.0) mmol/L Calcium (8.4-10.2) mg/dL Magnesium (1.6-2.6) mg/dL Ferritin 162 (20-250) ng/mL Total Bilirubin (0.0-1.0) mg/dL Direct Bilirubin (0.0-0.5) mg/dL AST (5-37) U/L ALT (0-40) U/L Alkaline Phosphatase (39-117) U/L Lactate Dehydrogenase (118-273) U/L Troponin I High Sens < 3.5 (<3.5-35.0) ng/L B-Natriuretic Peptide 31 (<100) pg/mL Total Protein (6.5-8.0) g/dL Albumin (3.5-5.0) g/dL Lipase 30 (8-78) U/L 11/20/20 Range/Units 13:49 WBC (4.8-10.8) X10*3/uL RBC (4.60-5.80) X10*6/uL Hgb (14.0-18.0) g/dl Hct (42-52) % MCV (80-98) fL MCH (27.0-33.0) pg MCHC (31.0-36.0) g/dl RDW (11.0-16.0) % Plt Count (160-400) X10*3/uL MPV (9.4-12.4) fL Immature Gran % (Auto) (0.0-0.4) % Neut % (Auto) (45-73) % Lymph % (Auto) (20-40) % Cochran % (Auto) (2-11) % Eos % (Auto) (0-4) % Baso % (Auto) (0-2) % Lymph # (Auto) (1.2-4.9) X10*3/uL Cochran # (Auto) (0.1-1.2) X10*3/uL Eos # (Auto) (0.0-0.4) X10*3/uL Baso # (Auto) (0.0-0.2) X10*3/uL Abs Immat Gran (auto) (0.00-0.03) X10*3/uL Absolute Neuts (auto) (2.0-8.3) X10*3/uL Absolute Nucleated RBC (0.0-0.012) X10*3/uL Nucleated RBC % (auto) (0.0-0.2) /100WBC PT (10.8-13.0) SEC INR (0.9-1.1) APTT (24.1-38.0) SEC D-Dimer NG/ML Sodium (135-145) mmol/L Potassium (3.3-5.1) mmol/l Chloride (96-108) mmol/L Carbon Dioxide (22-29) mmol/L Anion Gap (12-20) BUN (9-16) mg/dL Creatinine (0.5-1.4) mg/dL Estim Creat Clear Calc Estimated GFR Random Glucose (60-115) mg/dL Lactic Acid (0.5-2.0) mmol/L Lactic Acid Fup @ 2Hr 1.6 (0.5-2.0) mmol/L Calcium (8.4-10.2) mg/dL Magnesium (1.6-2.6) mg/dL Ferritin (20-250) ng/mL Total Bilirubin (0.0-1.0) mg/dL Direct Bilirubin (0.0-0.5) mg/dL AST (5-37) U/L ALT (0-40) U/L Alkaline Phosphatase (39-117) U/L Lactate Dehydrogenase (118-273) U/L Troponin I High Sens (<3.5-35.0) ng/L B-Natriuretic Peptide (<100) pg/mL Total Protein (6.5-8.0) g/dL Albumin (3.5-5.0) g/dL Lipase (8-78) U/L ECG Data Attestation: I personally reviewed and interpreted this ECG as follows: ECG interpretation date: 11/20/20 ECG interpretation time: 12:00 Interpretation: Rate: 88 Rhythm: NSR Romulus: normal Normal P waves. Normal OTMER. Normal QRS complex. ST T wave : normal no ANISH qTC: normal prior studies: no acute ischemia The study has been interpreted contemporaneously by me. . Discharge Plan Discharge Clinical Impression: COVID-19 Nausea & vomiting Qualifiers: Vomiting type: unspecified Vomiting Intractability: non-intractable Qualified Code(s): R11.2 - Nausea with vomiting, unspecified Instructions: Acute Nausea and Vomiting (ED), COVID-19 (Coronavirus Disease 2019) (ED) Additional Instructions: return to ED for any worsening symptoms or concerns Prescriptions: New cefuroxime axetil 250 mg tablet 500 mg PO BID 7 Days Qty: 28 RF: 0 prednisone 20 mg tablet 40 mg PO DAILY 5 Days Qty: 10 RF: 0 ondansetron 4 mg tablet,disintegrating 4 mg PO Q8H PRN (Reason: nausea and vomiting) Qty: 20 RF: 0 No Action ondansetron HCl [Zofran] 4 mg tablet 4 mg PO Q8H PRN (Reason: nausea and vomiting) Qty: 15 RF: 0 azithromycin [Zithromax Z-Yifan] 250 mg tablet See Rx Instructions .ROUTE .COMPLEX Qty: 6 RF: 0 carvedilol 12.5 mg tablet 12.5 mg PO BID RF: 0 clopidogrel 75 mg tablet 75 mg PO DAILY RF: 0 morphine 30 mg tablet extended release 30 mg PO TID RF: 0 simvastatin 40 mg tablet 40 mg PO BEDTIME RF: 0 oxycodone 15 mg tablet 15 mg PO Q4H PRN (Reason: Pain) RF: 0 pantoprazole 40 mg tablet,delayed release (DR/EC) 40 mg PO DAILY RF: 0 albuterol sulfate [Ventolin HFA] 90 mcg/actuation HFA aerosol inhaler 2 puff inhalation QID PRN (Reason: Shortness Of Breath Or Wheezing) RF: 0 insulin aspart U-100 [Novolog Flexpen U-100 Insulin] 100 unit/mL (3 mL) insuli n pen See Rx Instructions unit .ROUTE .COMPLEX RF: 0 Basaglar KwikPen U-100 Insulin 100 unit/mL (3 mL) insulin pen 40 unit subcut BEDTIME RF: 0 metoclopramide HCl [Reglan] 10 mg tablet 10 mg PO Q8H PRN (Reason: Nausea) RF: 0 aspirin 81 mg Tablet,Delayed Release (Dr/Ec) 81 mg PO DAILY RF: 0 Referrals: Ganga Stanford MD [Primary Care Provider] - 2 days (if not better) Interventions: ED Discharge Assessment Last Done: 11/20/20 15:09
[2020-11-20 11:28] VITALS: BP 122/75; PULSE 96; RESP 22; TEMP 36.8; O2SAT 93; O2SAT 95; BMI 51.5
[2020-11-20] MEDS: Metoclopramide HCl 10 MG/2 ML VIAL IVPUSH (11:32)
[2020-11-20 11:34] LABS: MANUAL DIFF FLAG NO
[2020-11-20 11:37] LABS: Basophils Percent Auto 0.2 % (0-2); Eosinophils Percent Auto 0.2 % (0-4); Hemoglobin 14.5 g/dl (14.0-18.0); Imm Gran Abs Auto 0.03 X10*3/uL (0.00-0.03); Imm Gran Pct Auto 0.4 % (0.0-0.4); Lymphocytes Absolute Auto 1.9 X10*3/uL (1.2-4.9); Lymphocytes Percent Auto 23.7 % (20-40); Mean Corpuscular HGB Conc 30.9 g/dl (31.0-36.0); Mean Corpuscular Hemoglobin 25.3 pg (27.0-33.0); Mean Platelet Volume 9.8 fL (9.4-12.4); Monocytes Absolute Auto 0.7 X10*3/uL (0.1-1.2); Monocytes Percent Auto 8.8 % (2-11); Neutrophils Absolute Auto 5.5 X10*3/uL (2.0-8.3); Neutrophils Percent Auto 66.7 % (45-73); Platelet Count 256 X10*3/uL (160-400); Red Blood Count 5.73 X10*6/uL (4.60-5.80); Red Cell Distribution Width 15.7 % (11.0-16.0); White Blood Count 8.2 X10*3/uL (4.8-10.8)
[2020-11-20 11:43] LABS: INTERNATIONAL NORM RATIO 1.2 (0.9-1.1); Prothrombin Time 14.8 SEC (10.8-13.0)
[2020-11-20 11:46] LABS: D Dimer 936 NG/ML
[2020-11-20 11:58] LABS: Lipase 30 U/L (8-78)
[2020-11-20 12:00] LABS: Alanine Aminotransferase 21 U/L (0-40); Albumin Level 3.4 g/dL (3.5-5.0); Alkaline Phosphatase 74 U/L (39-117); Anion Gap 18 (12-20); Aspartate Amino Transferase 35 U/L (5-37); Bilirubin Direct 0.5 mg/dL (0.0-0.5); Blood Urea Nitrogen 15 mg/dL (9-16); Calcium 8.1 mg/dL (8.4-10.2); Carbon Dioxide 22 mmol/L (22-29); Chloride 105 mmol/L (96-108); Creatinine Clr Calc Pharmacy 154.5; Estimated Glomerular Filt Rate > 60; Glucose Random 165 mg/dL (60-115); Lactate Dehydrogenase 317 U/L (118-273); Magnesium 2.1 mg/dL (1.6-2.6); Sodium 141 mmol/L (135-145); Total Protein 6.9 g/dL (6.5-8.0)
[2020-11-20 12:04] LABS: B Type Natriuretic Peptide 31 pg/mL (<100); Troponin-I High Sensitivity < 3.5 ng/L (<3.5-35.0)
[2020-11-20] MEDS: 0.9 % Sodium Chloride 500 ML IV (12:08)
[2020-11-20 12:19] LABS: Ferritin 162 ng/mL (20-250)
[2020-11-20 12:44] VITALS: BMI 49.3
[2020-11-20] MEDS: iohexoL 350 MG/ML 100 ML INFUS..BTL IV (12:54)
[2020-11-20 13:23] VITALS: BP 103/79; PULSE 97; RESP 22; O2SAT 98
--- NOTE | 2020-11-20 13:27 | PC.NURSE ---
po challenge failed. aware
[2020-11-20 13:30] LABS: Reflex Lactate? Lactic Acid Added
[2020-11-20] MEDS: ondansetron HCL 4 MG/2 ML VIAL IVPUSH (13:35)
[2020-11-20] MEDS: cefTRIAXone sodium 1 GM in 0.9 % Sodium Chloride 50 ML IV (13:46)
[2020-11-20] MEDS: Morphine Sulfate ER 30 MG TABLET.ER PO ×2 (13:58→20:47)
[2020-11-20] MEDS: oxyCODONE HCl Immed Release 15 MG TABLET PO (13:58)
[2020-11-20 14:14] LABS: ~Lactic Acid-LAB USE ONLY 1.6 mmol/L (0.5-2.0)
[2020-11-20 15:33] VITALS: BP 111/73; PULSE 96; RESP 18; TEMP 36.3; O2SAT 92
--- NOTE | 2020-11-20 15:41 | PC.NURSE ---
spoke to patient regarding rehab option. pt agreeable at this time. pt understands that this will not happen overnight. pt encouraged to take PO at this time but is stating he can't. Dr peralta aware of this.
--- NOTE | 2020-11-20 17:36 | PC.NURSE ---
pt transferred to hospital bed at this time for comfort. not requiring any oxygen. now actual vomit since arrival. pt still agrees to rehab at this time. otherwise patient in nad, vitals wnl.
--- NOTE | 2020-11-20 18:37 | MHC.CM.ED ---
Met with pt. Diagnosed with Covid on 11/11/2020. Pending PT evaluation. Will need to stay over night, as PT is gone for the day. Pt agreeable to STR locally if recommended. Pt aware he will need to go home if PT is not recommended. Pt is unsure of transportation home. Referrals broadcasted by Estephania Garner. Will follow for d/c needs
--- NOTE | 2020-11-20 18:42 | MHC.CM.ED ---
Pt lives alone. Uses CPAP and has a cane and a walker. HCP verified and on file, Nikkie Del Cid,[phone]) Will follow for d/c needs
[2020-11-20 19:31] LABS: Glucose, Whole Blood 117 mg/dL (60-115)
[2020-11-20 20:45] VITALS: BP 102/61; PULSE 89; RESP 18; TEMP 36.9; O2SAT 95
[2020-11-20] MEDS: Atorvastatin Calcium 20 MG TABLET PO (20:47)
[2020-11-20 20:48] VITALS: BP 102/61; PULSE 89
[2020-11-20] MEDS: carvediloL 12.5 MG TABLET PO (20:48)
--- NOTE | 2020-11-20 20:53 | PC.NURSE ---
pt unable to tolerate po at this point. ate no dinner. bs 100. held night time lantus. given odt zofran prior to night time med administration/
[2020-11-20 20:55] LABS: Glucose, Whole Blood 100 mg/dL (60-115)
[2020-11-20] MEDS: 0.9 % Sodium Chloride 1,000 ML 999 ML IVCONT (22:48)
[2020-11-20] MEDS: Prochlorperazine Edisylate 10 MG/2 ML VIAL IVPUSH (22:50)
[2020-11-20] MEDS: Pantoprazole Sodium 40 MG/10 ML VIAL IVPUSH (22:50)
--- NOTE | 2020-11-20 23:27 | PC.NURSE ---
report taken from [facility]. patient instructed to drink contrast for study. patient reports still feeling nausous.
[2020-11-21] VITALS (11 sets, daily range): BP systolic 104–126; BP diastolic 47–65; PULSE 70–106; RESP 18–26; TEMP 36.3–36.6; O2SAT 89–98; BMI 49.3
--- NOTE | 2020-11-21 00:09 | PC.NURSE ---
contact made to overnight pharmacy. patient requesting prn oxycodone. due to timing of morphine ER, patient is now at peak. wait until after 2am to medicate to reduce risk of airway depression.
--- NOTE | 2020-11-21 00:50 | CT_ITS ---
EXAMINATION: CT ABDOMEN AND PELVIS WITHOUT CONTRAST CLINICAL INFORMATION: Vomiting status post gastric band surgery 15 days ago COMPARISON: 11/29/2018 TECHNIQUE: Multidetector volumetric imaging was performed from the superior aspect of the liver through the pubic symphysis. Sagittal and coronal reformatted images were obtained on the technologist's workstation. This CT examination was performed using dose optimization techniques as appropriate, variously including the following: *Automated exposure control *Adjustment of mA and/or kV according to patient size (this includes techniques or standardized protocols for targeted exams where dose is matched to indication/reason for exam; i.e. extremities or head) *Use of iterative reconstruction technique DLP: 1697 mGy-cm FINDINGS: LUNG BASES: Redemonstrated right basilar lower lobe consolidation which appears mildly increased in size from prior though overall similar in configuration, suggesting round atelectasis. There are scattered patchy multifocal groundglass opacities bilaterally with a predominantly peripheral distribution. LIVER, GALLBLADDER, AND BILIARY TREE: The liver is normal in size, shape, and attenuation. No focal hepatic lesion or biliary ductal dilatation is present. Patient is status post cholecystectomy. PANCREAS: There is partial fatty atrophy of the pancreas. SPLEEN: Mildly enlarged. ADRENAL GLANDS: Redemonstrated left adrenal nodule measuring approximately 2.6 cm in diameter. Right adrenal gland is unremarkable. KIDNEYS AND URETERS: No hydronephrosis. Residual excreted contrast is noted in the renal calyces and distal ureters. No obstructing calculi seen. Redemonstrated left renal cyst. BLADDER: Minimally distended with excreted contrast material. GASTROINTESTINAL TRACT: Oral contrast material is present in the distal esophagus which is mildly dilated. Gastric band is present across the proximal stomach. The gastric pouch is nondilated. No evidence of bowel obstruction. No significant bowel wall thickening is seen. The appendix is unremarkable. No free fluid or free air is seen. ABDOMINAL WALL: Gastric band port is present in the anterior abdominal wall, and there is some surrounding subcutaneous stranding, similar to prior. LYMPH NODES: Normal. VASCULAR: Unremarkable. PELVIC VISCERA: Unremarkable. OSSEOUS STRUCTURES: Degenerative changes are noted in the spine. CT/CT abdomen pelvis wo con IMPRESSION: 1. Gastric band in place across the proximal stomach. Mildly dilated distal esophagus containing some contrast material. Gastric pouch is nondilated. 2. Scattered multifocal groundglass opacities at the lung bases, favoring an infectious/inflammatory etiology. Clinical correlation is recommended, as this appearance can be seen with Covid pneumonia. 3. Increased size of a rounded region of dense pulmonary opacification in the right lower lobe, the configuration of which suggests rounded atelectasis. 4. Additional chronic findings as noted above.
--- NOTE | 2020-11-21 01:07 | PC.NURSE ---
Md at bedside to do ambulation trial prect. 94% sitting HR 88 on ra 89% standing HR 95 on ra
[2020-11-21] MEDS: cefTRIAXone sodium 1 GM in 0.9 % Sodium Chloride 50 ML IV ×2 (01:28→05:26)
--- NOTE | 2020-11-21 01:43 | PC.NURSE ---
md aware of bleeding from pelvic area on sheets. Per md post exam, hole was noted in scrotum where drainage is occurred.
[2020-11-21] MEDS: Azithromycin 500 MG in 0.9 % Sodium Chloride 250 ML 125 MG IV ×2 (01:59→21:16)
[2020-11-21 03:45] LABS: Procalcitonin 0.07 ng/mL
[2020-11-21] MEDS: oxyCODONE HCl Immed Release 15 MG TABLET PO ×3 (03:51→21:31)
--- NOTE | 2020-11-21 04:42 | P.HPHOSP_ITS ---
History of Present Illness Date of Service: 11/21/20 Chief Complaint: SOB 60-year-old male with past medical history of EPI, diabetes, obesity, HDL, asthma who presents to the hospital with complaints worsening shortness of breath. Patient was diagnosed with COVID-19 about 9 days ago, reports that his symptoms of shortness of breath have been getting worse. He has been checking his O2 and with exertion drops to 85%. He is also complaining of cough but reports getting better, productive of phlegm, low oral intake, nausea vomiting, diarrhea. He has dizziness, lightheadedness, no headache, no change in vision no chest pain. He has urinary symptoms and no lower extremity edema. He reports that his brother is a diagnosed with COVID-19 but he had no contact with them Review of system otherwise negative Patient temp is 97.3?, heart rate of 96, respiratory rate of 18, blood pressure 111/73, satting 92% on room air and dropping to 89% on minimal ambulation. Labs are significant for WBC count of 8.2, hemoglobin of 14.5, sodium of 141, potassium 4.0, lactic acid initially of 3.0 that improved to 1.6 after fluids, CT angiograms negative for PE, shows right lower lobe consolidation/infiltrate. Past medical history: Hyperlipidemia, diabetes, obesity, EPI on CPAP Past surgical history: Ankle surgery, reports history of DVT in surgery for DVT Family history: Cancer Social history: Comes from home, ambulates independently, denies tobacco alcohol or illicit drugs Review of Systems Review of Systems: Yes all other systems are reviewed and are negative [facility] Medical History Asthma Diabetes High cholesterol Obesity Sleep apnea Social History (Updated 11/20/20 @ 11:21 by Florinda Mariscal DO) Alcohol intake: never Smoking Status: Never smoker Advance Directives: No Advance Directives Information Provided: No Meds Allergies Allergy/AdvReac Type Severity Reaction Status Date / Time vancomycin [VANCOMYCIN] AdvReac Severe RENAL Verified 11/17/20 00:16 FAILURE, RASH Home Medications Medication Instructions Recorded Confirmed Type albuterol sulfate [Ventolin HFA] 2 puff INHALATION QID PRN 11/20/20 11/20/20 History aspirin 81 mg PO DAILY 11/20/20 11/20/20 History carvedilol 12.5 mg PO BID 11/20/20 11/20/20 History clopidogrel 75 mg PO DAILY 11/20/20 11/20/20 History insulin aspart U-100 [Novolog See Rx Instructions .ROUTE .COMPLEX 11/20/20 11/20/20 History Flexpen U-100 Insulin] insulin glargine [Basaglar KwikPen 40 unit SUBCUT BEDTIME 11/20/20 11/20/20 History U-100 Insulin] metoclopramide HCl [Reglan] 10 mg PO Q8H PRN 11/20/20 11/20/20 History morphine 30 mg PO TID 11/20/20 11/20/20 History oxycodone 15 mg PO Q4H PRN 11/20/20 11/20/20 History pantoprazole 40 mg PO DAILY 11/20/20 11/20/20 History simvastatin 40 mg PO BEDTIME 11/20/20 11/20/20 History Physical Exam Vital Signs and Narrative: Vital Signs: Last Vital Signs Temp 98.5 F 11/20/20 20:45 Pulse 70 11/21/20 03:54 Resp 20 11/21/20 03:54 BP 104/65 11/21/20 03:54 Pulse Ox 98 11/21/20 01:29 Body Mass Index 49.3 Const: General: cooperative and no acute distress Orientation/consciousness: patient oriented x3 Eyes: General: appearance normal, both eyes and all related structures Resp: Effort & Inspection: normal respiratory effort, able to speak in complete sentences and abnormal respiratory pattern Cardio: Rate: regular rate Rhythm: regular rhythm GI: Palpation (GI): Soft to palpation Auscultation: normal bowel sounds Skin: General skin exam: no rashes or lesions noted Neuro: General: patient oriented x3 Cognition (Neuro): normal cognition Extrem: General: Yes normal to inspection and Yes no pedal edema Results Labs CBC and Chem 7: 11/20/20 11:20 11/20/20 11:20 Labs: Laboratory Results - last 24 hr 11/20/20 11/20/20 11/20/20 11:20 11:20 11:20 MCV 82.0 MCH 25.3 L MCHC 30.9 L RDW 15.7 Plt Count 256 D MPV 9.8 Immature Gran % (Auto) 0.4 Neut % (Auto) 66.7 Lymph % (Auto) 23.7 [place] % (Auto) 8.8 Eos % (Auto) 0.2 Baso % (Auto) 0.2 Lymph # (Auto) 1.9 [place] # (Auto) 0.7 Eos # (Auto) 0.0 Baso # (Auto) 0.0 Abs Immat Gran (auto) 0.03 Absolute Neuts (auto) 5.5 Absolute Nucleated RBC 0.000 Nucleated RBC % (auto) 0.0 PT 14.8 H INR 1.2 H APTT 31.0 D-Dimer 936 Anion Gap 18 Estim Creat Clear Calc 154.5 Estimated GFR > 60 POC Glucose Random Glucose 165 H Lactic Acid Lactic Acid Fup @ 2Hr Calcium 8.1 L Magnesium 2.1 Ferritin Total Bilirubin 1.0 Direct Bilirubin 0.5 AST 35 ALT 21 Alkaline Phosphatase 74 Lactate Dehydrogenase 317 H Troponin I High Sens B-Natriuretic Peptide Total Protein 6.9 Albumin 3.4 L Lipase Procalcitonin 11/20/20 11/20/20 11/20/20 11:20 11:20 11:20 MCV MCH MCHC RDW Plt Count MPV Immature Gran % (Auto) Neut % (Auto) Lymph % (Auto) [place] % (Auto) Eos % (Auto) Baso % (Auto) Lymph # (Auto) [place] # (Auto) Eos # (Auto) Baso # (Auto) Abs Immat Gran (auto) Absolute Neuts (auto) Absolute Nucleated RBC Nucleated RBC % (auto) PT INR APTT D-Dimer Anion Gap Estim Creat Clear Calc Estimated GFR POC Glucose Random Glucose Lactic Acid 3.0 H* Lactic Acid Fup @ 2Hr Calcium Magnesium Ferritin 162 Total Bilirubin Direct Bilirubin AST ALT Alkaline Phosphatase Lactate Dehydrogenase Troponin I High Sens < 3.5 B-Natriuretic Peptide 31 Total Protein Albumin Lipase 30 Procalcitonin 11/20/20 11/20/20 11/20/20 13:49 16:44 20:43 MCV MCH MCHC RDW Plt Count MPV Immature Gran % (Auto) Neut % (Auto) Lymph % (Auto) [place] % (Auto) Eos % (Auto) Baso % (Auto) Lymph # (Auto) [place] # (Auto) Eos # (Auto) Baso # (Auto) Abs Immat Gran (auto) Absolute Neuts (auto) Absolute Nucleated RBC Nucleated RBC % (auto) PT INR APTT D-Dimer Anion Gap Estim Creat Clear Calc Estimated GFR POC Glucose 117 H 100 Random Glucose Lactic Acid Lactic Acid Fup @ 2Hr 1.6 Calcium Magnesium Ferritin Total Bilirubin Direct Bilirubin AST ALT Alkaline Phosphatase Lactate Dehydrogenase Troponin I High Sens B-Natriuretic Peptide Total Protein Albumin Lipase Procalcitonin 11/21/20 01:37 MCV MCH MCHC RDW Plt Count MPV Immature Gran % (Auto) Neut % (Auto) Lymph % (Auto) [place] % (Auto) Eos % (Auto) Baso % (Auto) Lymph # (Auto) [place] # (Auto) Eos # (Auto) Baso # (Auto) Abs Immat Gran (auto) Absolute Neuts (auto) Absolute Nucleated RBC Nucleated RBC % (auto) PT INR APTT D-Dimer Anion Gap Estim Creat Clear Calc Estimated GFR POC Glucose Random Glucose Lactic Acid Lactic Acid Fup @ 2Hr Calcium Magnesium Ferritin Total Bilirubin Direct Bilirubin AST ALT Alkaline Phosphatase Lactate Dehydrogenase Troponin I High Sens B-Natriuretic Peptide Total Protein Albumin Lipase Procalcitonin 0.07 Imaging Radiologist's Impressions: Impressions Chest CTA 11/20/20 11:14 IMPRESSION: No evidence of PE. No evidence of aortic aneurysm or dissection. Right lower lobe consolidation/infiltrate. Scattered peripheral based groundglass attenuation seen throughout both lungs suggestive of multilobar infiltrates. Gastric lap band and a left upper pole renal cyst. VTE: negative Abdomen/Pelvis CT 11/21/20 00:50 IMPRESSION: 1. Gastric band in place across the proximal stomach. Mildly dilated distal esophagus containing some contrast material. Gastric pouch is nondilated. 2. Scattered multifocal groundglass opacities at the lung bases, favoring an infectious/inflammatory etiology. Clinical correlation is recommended, as this appearance can be seen with Covid pneumonia. 3. Increased size of a rounded region of dense pulmonary opacification in the right lower lobe, the configuration of which suggests rounded atelectasis. 4. Additional chronic findings as noted above. Assessment and Plan (1) Pneumonia due to 2019 novel coronavirus: Status: Acute (2) Nausea & vomiting: Qualifiers: Vomiting Intractability: non-intractable Vomiting type: unspecified Qualified Code(s): R11.2 - Nausea with vomiting, unspecified Status: Acute (3) Hypoxia: Status: Acute (4) Lactic acidosis: Status: Acute 60-year-old male with past medical history of asthma, EPI, diabetes who presents to the hospital with complaints of worsening shortness of breath found to be hypoxic secondary to COVID-19 pneumonia # acute hypoxic respiratory failure - secondary to COVID-19 pneumonia versus bacterial, CT angiogram negative for PE - patient was diagnosed with COVID-19 9 days ago with symptoms worsening, satting 89% on ambulation Plan: - IV antibiotics for the right lower lobe consolidation - IV fluids - follow cultures # pneumonia - bacterial versus viral - COVID-19 positive - will start patient on IV antibiotics given the right-sided infiltrate - follow blood cultures, Legionella and strep antigen levels - negative for influenza and RSV - monitor respiratory status # lactic acidosis - resolve - secondary to infection/hypoxia - IV fluid # nausea vomiting -most likel secondary to COVID-19 infection - start him on IV fluids, supportive measures, antiemetics # diabetes mellitus - will start him on low-dose sliding scale insulin - diabetic diet - POC q.i.d. a.c. # EPI - CPAP at bedtime DVT prophylaxis: Heparin subQ
[2020-11-21] MEDS: Lactated Ringers 1,000 ML 100 ML IVCONT (05:26)
--- NOTE | 2020-11-21 05:30 | PC.NURSE ---
pt dropped omprazole on floor
[2020-11-21] MEDS: Omeprazole 20 MG CAPSULE.DR PO (06:09)
[2020-11-21 08:30] LABS: Glucose, Whole Blood 231 mg/dL (60-115)
[2020-11-21] MEDS: dexAMETHasone sod phosphate 4 MG/ML VIAL 6 MG IVPUSH (08:57)
[2020-11-21] MEDS: Insulin Lispro 100 UNIT/ML 3 ML VIAL SUBCUT ×4 (08:58→21:15)
[2020-11-21] MEDS: Morphine Sulfate ER 30 MG TABLET.ER PO ×2 (08:58→17:32)
[2020-11-21] MEDS: 0.9 % Sodium Chloride Flush 3 ML SYRINGE IVFLUSH ×3 (08:58→21:32)
[2020-11-21] MEDS: Clopidogrel Bisulfate 75 MG TABLET PO (08:59)
[2020-11-21] MEDS: carvediloL 12.5 MG TABLET PO ×2 (08:59→21:14)
[2020-11-21] MEDS: Aspirin Enteric Coated 81 MG TABLET.DR PO (08:59)
[2020-11-21 11:47] LABS: Glucose, Whole Blood 230 mg/dL (60-115)
[2020-11-21] MEDS: ondansetron HCL 4 MG/2 ML VIAL IVPUSH (11:51)
[2020-11-21 16:46] LABS: Glucose, Whole Blood 255 mg/dL (60-115)
[2020-11-21 20:04] LABS: Glucose, Whole Blood 326 mg/dL (60-115)
[2020-11-21] MEDS: Atorvastatin Calcium 20 MG TABLET PO (21:14)
[2020-11-21] MEDS: Insulin Glargine,Hum.rec.anlog 100 UNIT/ML 10 ML VIAL 40 UNIT SUBCUT (21:15)
[2020-11-22] VITALS (9 sets, daily range): BP systolic 94–126; BP diastolic 51–80; PULSE 62–74; RESP 18–20; TEMP 36.4–37.1; O2SAT 92–98
[2020-11-22] MEDS: cefTRIAXone sodium 1 GM in 0.9 % Sodium Chloride 50 ML IV (04:49)
[2020-11-22] MEDS: oxyCODONE HCl Immed Release 15 MG TABLET PO ×3 (04:56→21:11)
[2020-11-22 05:05] LABS: MANUAL DIFF FLAG NO
[2020-11-22 05:07] LABS: Basophils Percent Auto 0.1 % (0-2); Hemoglobin 12.7 g/dl (14.0-18.0); Imm Gran Abs Auto 0.08 X10*3/uL (0.00-0.03); Imm Gran Pct Auto 0.8 % (0.0-0.4); Lymphocytes Absolute Auto 1.2 X10*3/uL (1.2-4.9); Mean Corpuscular Hemoglobin 25.5 pg (27.0-33.0); Mean Corpuscular Volume 82.2 fL (80-98); Mean Platelet Volume 10.1 fL (9.4-12.4); Monocytes Absolute Auto 0.8 X10*3/uL (0.1-1.2); Monocytes Percent Auto 7.8 % (2-11); Neutrophils Absolute Auto 8.2 X10*3/uL (2.0-8.3); Neutrophils Percent Auto 79.3 % (45-73); Platelet Count 253 X10*3/uL (160-400); Red Blood Count 4.99 X10*6/uL (4.60-5.80); Red Cell Distribution Width 15.2 % (11.0-16.0); White Blood Count 10.3 X10*3/uL (4.8-10.8)
[2020-11-22 05:59] LABS: Anion Gap 13 (12-20); Blood Urea Nitrogen 16 mg/dL (9-16); Calcium 7.9 mg/dL (8.4-10.2); Carbon Dioxide 25 mmol/L (22-29); Chloride 107 mmol/L (96-108); Creatinine Clr Calc Pharmacy 145.2; Estimated Glomerular Filt Rate > 60; Glucose Random 309 mg/dL (60-115); Potassium 4.3 mmol/l (3.3-5.1); Sodium 141 mmol/L (135-145)
[2020-11-22] MEDS: Omeprazole 20 MG CAPSULE.DR PO (06:22)
[2020-11-22 07:59] LABS: Glucose, Whole Blood 258 mg/dL (60-115)
[2020-11-22] MEDS: Insulin Lispro 100 UNIT/ML 3 ML VIAL SUBCUT ×4 (08:25→21:10)
[2020-11-22] MEDS: Morphine Sulfate ER 30 MG TABLET.ER PO ×3 (08:26→21:11)
[2020-11-22] MEDS: Clopidogrel Bisulfate 75 MG TABLET PO (08:26)
[2020-11-22] MEDS: Aspirin Enteric Coated 81 MG TABLET.DR PO (08:26)
[2020-11-22] MEDS: 0.9 % Sodium Chloride Flush 3 ML SYRINGE IVFLUSH ×3 (08:26→21:10)
[2020-11-22] MEDS: dexAMETHasone sod phosphate 4 MG/ML VIAL 6 MG IVPUSH (08:26)
[2020-11-22] MEDS: carvediloL 12.5 MG TABLET PO ×2 (08:27→21:12)
[2020-11-22] MEDS: ondansetron HCL 4 MG/2 ML VIAL IVPUSH (10:55)
[2020-11-22 11:53] LABS: Glucose, Whole Blood 334 mg/dL (60-115)
--- NOTE | 2020-11-22 14:02 | MHC.CM.PN ---
Patient is requiring O2 at 3 liters via NC. Also on IV ceftriaxone, IV Zithromax and IV decadron. Discharge plan pending PT momo. CM will continue to follow for discharge needs.
--- NOTE | 2020-11-22 15:30 | HO.PM.IMPN ---
Subjective Subjective Date of Service: 11/22/20 Interval History: Patient seen and examined at bedside Patient was reporting shortness of breath Review of Systems Constitutional : No Fever, No Chills ENT/Mouth : No sore throat, No Rhinorrhea, No Swallowing Difficulty Eyes: No Eye Pain, No Swelling, No Redness Cardiovascular : pos Chest Pain, positive SOB, No Orthopnea, positive Edema Respiratory : No Cough, No Sputum, No Wheezing, positive dyspnea Gastrointestinal : pos Nausea, pos Vomiting, No Diarrhea, No abdominal Pain, No Hematochezia, No Melena Genitourinary : No Dysuria, No Urinary Frequency, No Hematuria Musculoskeletal : No joint pain, No Myalgias Skin : No Skin Lesions, No rash Neuro : No Weakness, No Numbness, No Dizziness, No Headache Psych : No Anxiety/Panic, No Depression Heme/Lymph: No Bruising, No Lymphadenopathy Endocrine : No Polyuria, No Polydipsia All other systems reviewed and are negative Physical Exam Vital Signs: Vital Signs: Last Vital Signs Temp 98.0 F 11/22/20 12:29 Pulse 70 11/22/20 12:29 Resp 20 11/22/20 12:29 BP 112/53 L 11/22/20 12:29 Pulse Ox 94 11/22/20 12:29 Body Mass Index 49.3 Const: General: cooperative and no acute distress Orientation/consciousness: patient oriented x3 Eyes: General: appearance normal, both eyes and all related structures Resp: Effort & Inspection: normal respiratory effort, able to speak in complete sentences and abnormal respiratory pattern Cardio: Rate: regular rate Rhythm: regular rhythm GI: Palpation (GI): Soft to palpation Auscultation: normal bowel sounds Skin: General skin exam: no rashes or lesions noted Neuro: General: patient oriented x3 Cognition (Neuro): normal cognition Extrem: General: Yes normal to inspection and Yes no pedal edema Objective Data Current Medications Generic Name Dose Route Start Last Admin Trade Name Freq PRN Reason Stop Dose Admin Acetaminophen 650 mg 11/21/20 04:40 Acetaminophen 325 Mg Tablet PO Q6H PRN Pain, Mild (Pain Scale 1-3) Albuterol Sulfate 2 puff 11/20/20 15:42 Albuterol Sulfate 90 Mcg 8 Gm Inhaler INHALE QID PRN Shortness Of Breath Or Wheezing Aspirin 81 mg 11/21/20 09:00 11/22/20 08:26 Aspirin Enteric Coated 81 Mg Tablet. PO 81 mg DAILY THADDEUS Administration Atorvastatin Calcium 20 mg 11/20/20 21:00 11/21/20 21:14 Atorvastatin Calcium 20 Mg Tablet PO 20 mg BEDTIME THADDEUS Administration Carvedilol 12.5 mg 11/20/20 21:00 11/22/20 08:27 Carvedilol 12.5 Mg Tablet PO 12.5 mg BID THADDEUS Administration Protocol Clopidogrel Bisulfate 75 mg 11/21/20 09:00 11/22/20 08:26 Clopidogrel Bisulfate 75 Mg Tablet PO 75 mg DAILY THADDEUS Administration Dexamethasone Sodium Phosphate 6 mg 11/21/20 09:00 11/22/20 08:26 Dexamethasone Sod Phosphate 4 Mg/Ml Vial IVPUSH 11/30/20 09:01 6 mg DAILY THADDEUS Administration Docusate Sodium 100 mg 11/21/20 04:40 Docusate Sodium 100 Mg Capsule PO DAILY PRN Constipation Ceftriaxone Sodium 1 gm/ 50 mls @ 100 mls/hr 11/21/20 04:45 11/22/20 05:43 Sodium Chloride IV Infused Q24H THADDEUS Infusion Azithromycin 500 mg/ Sodium 250 mls @ 125 mls/hr 11/21/20 21:00 11/21/20 23:42 Chloride IV Infused Q24H THADDEUS Infusion Insulin Glargine 40 unit 11/20/20 21:00 11/21/20 21:15 Insulin Glargine,Hum.Rec.Anlog 100 Unit/Ml 10 Ml Vial SUBCUT 40 unit BEDTIME THADDEUS Administration Insulin Human Lispro 0 unit 11/21/20 07:30 11/22/20 11:51 Insulin Lispro 100 Unit/Ml 3 Ml Vial SUBCUT 8 unit QIDACHS [facility] Administration Protocol Metoclopramide HCl 10 mg 11/20/20 15:42 Metoclopramide Hcl 10 Mg Tablet PO Q8H PRN Nausea Morphine Sulfate 30 mg 11/20/20 21:00 11/22/20 15:20 Morphine Sulfate Er 30 Mg Tablet.Er PO 30 mg TID THADDEUS Administration Omeprazole 20 mg 11/21/20 06:30 11/22/20 06:22 Omeprazole 20 Mg Capsule. PO 20 mg DAILY@0630 THADDEUS Administration Ondansetron HCl 4 mg 11/20/20 15:42 11/20/20 20:50 Ondansetron Odt 4 Mg Tab.Rapdis TRANSLINGU 4 mg Q8H PRN Administration nausea and vomiting Ondansetron HCl 4 mg 11/21/20 04:40 11/22/20 10:55 Ondansetron Hcl 4 Mg/2 Ml Vial IVPUSH 4 mg Q8H PRN Administration Nausea and Vomiting Oxycodone HCl 15 mg 11/20/20 15:42 11/22/20 10:53 Oxycodone Hcl Immed Release 15 Mg Tablet PO 15 mg Q4H PRN Administration Pain Pharmacy Consult 1 each 11/20/20 11:13 Consult Rx Perform Med Rec MISCELLANE ONCE PRN Consult order Sodium Chloride 3 ml 11/21/20 08:00 11/22/20 15:21 0.9 % Sodium Chloride Flush 3 Ml Syringe IVFLUSH 3 ml QSHIFT THADDEUS Administration Labs CBC & Chem 7: 11/22/20 04:49 11/22/20 04:49 Microbiology Microbiology Results: Microbiology 11/20/20 11:35 Blood - Venous Blood Culture - Preliminary No growth after 48 hours. 11/20/20 11:25 Blood - Venous Blood Culture - Preliminary No growth after 48 hours. Assessment and Plan (1) Pneumonia due to 2019 novel coronavirus: Status: Acute (2) Nausea & vomiting: Status: Acute (3) Hypoxia: Status: Acute (4) Lactic acidosis: Status: Acute Assessment and Plan: 60-year-old male with past medical history of asthma, EPI, diabetes who presents to the hospital with complaints of worsening shortness of breath found to be hypoxic secondary to COVID-19 pneumonia Acute hypoxic respiratory failure secondary to COVID-19 pneumonia versus bacterial, CT angiogram negative for PE Continue oxygen supplementation - COVID-19 positive Continue IV antibiotic follow blood cultures - negative for influenza and RSV Continue supportive management - monitor respiratory status Diiabetes mellitus Continue sliding scale insulin Diabetic diet continue POC q.i.d. a.c. EPI - CPAP at bedtime DVT prophylaxis: Heparin subQ
[2020-11-22 16:36] LABS: Glucose, Whole Blood 388 mg/dL (60-115)
[2020-11-22 20:42] LABS: Glucose, Whole Blood 335 mg/dL (60-115)
[2020-11-22] MEDS: Insulin Glargine,Hum.rec.anlog 100 UNIT/ML 10 ML VIAL 40 UNIT SUBCUT (21:09)
[2020-11-22] MEDS: Azithromycin 500 MG in 0.9 % Sodium Chloride 250 ML 125 MG IV (21:10)
[2020-11-22] MEDS: Atorvastatin Calcium 20 MG TABLET PO (21:11)
[2020-11-23] VITALS (8 sets, daily range): BP systolic 109–159; BP diastolic 54–89; PULSE 69–86; RESP 18–20; TEMP 36–36.6; O2SAT 95–99
[2020-11-23] MEDS: oxyCODONE HCl Immed Release 15 MG TABLET PO ×4 (02:28→21:03)
[2020-11-23] MEDS: cefTRIAXone sodium 1 GM in 0.9 % Sodium Chloride 50 ML IV (04:41)
[2020-11-23] MEDS: Omeprazole 20 MG CAPSULE.DR PO (05:41)
[2020-11-23 08:03] LABS: Glucose, Whole Blood 226 mg/dL (60-115)
[2020-11-23] MEDS: Insulin Lispro 100 UNIT/ML 3 ML VIAL SUBCUT ×4 (08:10→20:39)
[2020-11-23] MEDS: Morphine Sulfate ER 30 MG TABLET.ER PO ×3 (08:11→20:39)
[2020-11-23] MEDS: Aspirin Enteric Coated 81 MG TABLET.DR PO (08:11)
[2020-11-23] MEDS: dexAMETHasone sod phosphate 4 MG/ML VIAL 6 MG IVPUSH (08:11)
[2020-11-23] MEDS: Clopidogrel Bisulfate 75 MG TABLET PO (08:11)
[2020-11-23] MEDS: 0.9 % Sodium Chloride Flush 3 ML SYRINGE IVFLUSH ×3 (08:11→20:40)
[2020-11-23] MEDS: carvediloL 12.5 MG TABLET PO ×2 (08:12→20:38)
[2020-11-23] MEDS: Metoclopramide HCl 10 MG TABLET PO (08:19)
--- NOTE | 2020-11-23 11:45 | HO.PM.IMPN ---
Subjective Subjective Date of Service: 11/23/20 Interval History: the patient was seen and evaluated this morning Laying in bed, feels comfortable overall, on 2 L of oxygen Denies any fever, chills but reports mild shortness of breath No reported other overnight events. Systemic review: No fever, chills or weakness No chest pain, palpitation Exertion in shortness of breath or coughing No abdominal pain, nausea or vomiting No urinary symptoms No any rash or wounds Physical Exam Vital Signs: Vital Signs: Last Vital Signs Temp 97.8 F 11/23/20 08:00 Pulse 86 11/23/20 08:12 Resp 18 11/23/20 08:00 BP 123/74 11/23/20 08:12 Pulse Ox 97 11/23/20 08:00 Body Mass Index 49.3 Const: Other: Constitutional : Alert, oriented, obesity, not in distress Neck : Normal inspection, Supple Cardiovascular : RRR, no lower extremity edema Respiratory : Chest wall moving bilaterally, not in distress, on nasal cannula Gastrointestinal: soft, lax, Normal bowel sounds, Non tender Skin : Warm/Dry, No rash Neurological : Alert & oriented x3, No focal deficit Objective Data Current Medications Generic Name Dose Route Start Last Admin Trade Name Freq PRN Reason Stop Dose Admin Acetaminophen 650 mg 11/21/20 04:40 Acetaminophen 325 Mg Tablet PO Q6H PRN Pain, Mild (Pain Scale 1-3) Albuterol Sulfate 2 puff 11/20/20 15:42 Albuterol Sulfate 90 Mcg 8 Gm Inhaler INHALE QID PRN Shortness Of Breath Or Wheezing Aspirin 81 mg 11/21/20 09:00 11/23/20 08:11 Aspirin Enteric Coated 81 Mg Tablet. PO 81 mg DAILY THADDEUS Administration Atorvastatin Calcium 20 mg 11/20/20 21:00 11/22/20 21:11 Atorvastatin Calcium 20 Mg Tablet PO 20 mg BEDTIME THADDEUS Administration Carvedilol 12.5 mg 11/20/20 21:00 11/23/20 08:12 Carvedilol 12.5 Mg Tablet PO 12.5 mg BID THADDEUS Administration Protocol Clopidogrel Bisulfate 75 mg 11/21/20 09:00 11/23/20 08:11 Clopidogrel Bisulfate 75 Mg Tablet PO 75 mg DAILY THADDEUS Administration Dexamethasone Sodium Phosphate 6 mg 11/21/20 09:00 11/23/20 08:11 Dexamethasone Sod Phosphate 4 Mg/Ml Vial IVPUSH 11/30/20 09:01 6 mg DAILY THADDEUS Administration Docusate Sodium 100 mg 11/21/20 04:40 Docusate Sodium 100 Mg Capsule PO DAILY PRN Constipation Ceftriaxone Sodium 1 gm/ 50 mls @ 100 mls/hr 11/21/20 04:45 11/23/20 05:29 Sodium Chloride IV Infused Q24H THADDEUS Infusion Azithromycin 500 mg/ Sodium 250 mls @ 125 mls/hr 11/21/20 21:00 11/22/20 23:27 Chloride IV Infused Q24H THADDEUS Infusion Insulin Glargine 40 unit 11/20/20 21:00 11/22/20 21:09 Insulin Glargine,Hum.Rec.Anlog 100 Unit/Ml 10 Ml Vial SUBCUT 40 unit BEDTIME [facility] Administration Insulin Human Lispro 0 unit 11/21/20 07:30 11/23/20 08:10 Insulin Lispro 100 Unit/Ml 3 Ml Vial SUBCUT 4 unit QIDACHS [facility] Administration Protocol Metoclopramide HCl 10 mg 11/20/20 15:42 11/23/20 08:19 Metoclopramide Hcl 10 Mg Tablet PO 10 mg Q8H PRN Administration Nausea Morphine Sulfate 30 mg 11/20/20 21:00 11/23/20 08:11 Morphine Sulfate Er 30 Mg Tablet.Er PO 30 mg TID [facility] Administration Omeprazole 20 mg 11/21/20 06:30 11/23/20 05:41 Omeprazole 20 Mg Capsule.Dr PO 20 mg DAILY@0630 [facility] Administration Ondansetron HCl 4 mg 11/20/20 15:42 11/20/20 20:50 Ondansetron Odt 4 Mg Tab.Rapdis TRANSLINGU 4 mg Q8H PRN Administration nausea and vomiting Ondansetron HCl 4 mg 11/21/20 04:40 11/22/20 10:55 Ondansetron Hcl 4 Mg/2 Ml Vial IVPUSH 4 mg Q8H PRN Administration Nausea and Vomiting Oxycodone HCl 15 mg 11/20/20 15:42 11/23/20 09:49 Oxycodone Hcl Immed Release 15 Mg Tablet PO 15 mg Q4H PRN Administration Pain Pharmacy Consult 1 each 11/20/20 11:13 Consult Rx Perform Med Rec MISCELLANE ONCE PRN Consult order Sodium Chloride 3 ml 11/21/20 08:00 11/23/20 08:11 0.9 % Sodium Chloride Flush 3 Ml Syringe IVFLUSH 3 ml QSHIFT THADDEUS Administration Labs CBC & Chem 7: 11/22/20 04:49 11/22/20 04:49 Microbiology Microbiology Results: Microbiology 11/20/20 11:35 Blood - Venous Blood Culture - Preliminary No growth after 48 hours. 11/20/20 11:25 Blood - Venous Blood Culture - Preliminary No growth after 48 hours. Assessment and Plan (1) Pneumonia due to 2019 novel coronavirus: Status: Acute (2) Nausea & vomiting: Status: Acute (3) Hypoxia: Status: Acute (4) Lactic acidosis: Status: Acute (5) Acute respiratory failure with hypoxia: Status: Acute Assessment and Plan: 60-year-old male with past medical history of asthma, EPI, diabetes who presents to the hospital with complaints of worsening shortness of breath found to be hypoxic secondary to COVID-19 pneumonia Acute hypoxic respiratory failure 2/2 COVID-[address] angiogram negative for PE, suspicion for bacterial pneumonia\atelactasis Wean oxygen as tolerated Continue IV dexamethasone day 3 Continue IV azithromycin and ceftriaxone Pending blood cultures Continue supportive management History CAD? Continue carvedilol, aspirin and Plavix Diiabetes mellitus Continue sliding scale insulin Lantus 40 units daily Diabetic diet EPI CPAP at bedtime DVT prophylaxis Lovenox
[2020-11-23 11:47] LABS: Glucose, Whole Blood 262 mg/dL (60-115)
[2020-11-23] MEDS: Enoxaparin Sodium 40 MG/0.4 ML SYRINGE SUBCUT (12:30)
[2020-11-23 16:21] LABS: Glucose, Whole Blood 338 mg/dL (60-115)
[2020-11-23 20:07] LABS: Glucose, Whole Blood 291 mg/dL (60-115)
[2020-11-23] MEDS: Azithromycin 500 MG in 0.9 % Sodium Chloride 250 ML 125 MG IV (20:38)
[2020-11-23] MEDS: Atorvastatin Calcium 20 MG TABLET PO (20:39)
[2020-11-23] MEDS: Insulin Glargine,Hum.rec.anlog 100 UNIT/ML 10 ML VIAL 45 UNIT SUBCUT (20:40)
[2020-11-23 23:33] LABS: Strep Pneumo Ag urine Not Detected (Not Detected)
[2020-11-24] VITALS (8 sets, daily range): BP systolic 107–162; BP diastolic 63–91; PULSE 66–77; RESP 18–20; TEMP 36.1–37.1; O2SAT 95–99
[2020-11-24] MEDS: oxyCODONE HCl Immed Release 15 MG TABLET PO ×4 (01:57→22:25)
[2020-11-24] MEDS: cefTRIAXone sodium 1 GM in 0.9 % Sodium Chloride 50 ML IV (05:00)
[2020-11-24] MEDS: Omeprazole 20 MG CAPSULE.DR PO (05:00)
[2020-11-24 07:09] LABS: Glucose, Whole Blood 198 mg/dL (60-115)
[2020-11-24 07:23] LABS: Hematocrit 41.2 % (42-52); Hemoglobin 12.6 g/dl (14.0-18.0); Mean Corpuscular HGB Conc 30.6 g/dl (31.0-36.0); Mean Corpuscular Hemoglobin 25.3 pg (27.0-33.0); Mean Corpuscular Volume 82.7 fL (80-98); Mean Platelet Volume 10.6 fL (9.4-12.4); Platelet Count 249 X10*3/uL (160-400); Red Blood Count 4.98 X10*6/uL (4.60-5.80); Red Cell Distribution Width 15.4 % (11.0-16.0); White Blood Count 10.2 X10*3/uL (4.8-10.8)
[2020-11-24 07:32] LABS: Anion Gap 15 (12-20); Blood Urea Nitrogen 20 mg/dL (9-16); Calcium 7.9 mg/dL (8.4-10.2); Carbon Dioxide 27 mmol/L (22-29); Chloride 106 mmol/L (96-108); Creatinine Clr Calc Pharmacy 156.3; Estimated Glomerular Filt Rate > 60; Glucose Random 225 mg/dL (60-115); Potassium 4.6 mmol/l (3.3-5.1); Sodium 143 mmol/L (135-145)
[2020-11-24] MEDS: 0.9 % Sodium Chloride Flush 3 ML SYRINGE IVFLUSH ×3 (07:38→21:04)
[2020-11-24] MEDS: Aspirin Enteric Coated 81 MG TABLET.DR PO (07:38)
[2020-11-24] MEDS: Insulin Lispro 100 UNIT/ML 3 ML VIAL SUBCUT ×4 (07:38→21:03)
[2020-11-24] MEDS: Morphine Sulfate ER 30 MG TABLET.ER PO ×3 (07:38→21:02)
[2020-11-24] MEDS: dexAMETHasone sod phosphate 4 MG/ML VIAL 6 MG IVPUSH (07:38)
[2020-11-24] MEDS: carvediloL 12.5 MG TABLET PO ×2 (07:39→21:01)
[2020-11-24] MEDS: Clopidogrel Bisulfate 75 MG TABLET PO (07:39)
[2020-11-24] MEDS: Docusate Sodium 100 MG CAPSULE PO (10:45)
[2020-11-24] MEDS: guaiFENesin LA 600 MG TAB.ER.12H PO ×2 (10:45→21:01)
[2020-11-24 11:40] LABS: Glucose, Whole Blood 312 mg/dL (60-115)
[2020-11-24] MEDS: Enoxaparin Sodium 40 MG/0.4 ML SYRINGE SUBCUT (11:51)
--- NOTE | 2020-11-24 12:17 | P.PNIM_ITS ---
Subjective Subjective Date of Service: 11/24/20 Interval History: the patient was seen and evaluated this morning Laying in bed, feels comfortable overall, complaining mainly of cough, on 2 L of oxygen Denies any fever, chills but reports mild shortness of breath No reported other overnight events. Systemic review: No fever, chills or weakness No chest pain, palpitation Exertion in shortness of breath or coughing No abdominal pain, nausea or vomiting No urinary symptoms No any rash or wounds Physical Exam Vital Signs: Vital Signs: Last Vital Signs Temp 98.7 F 11/24/20 11:47 Pulse 75 11/24/20 11:47 Resp 20 11/24/20 11:47 BP 111/63 11/24/20 11:47 Pulse Ox 97 11/24/20 11:47 Body Mass Index 49.3 Const: Other: Constitutional : Alert, oriented, obesity, not in distress Neck : Normal inspection, Supple Cardiovascular : RRR, no lower extremity edema Respiratory : Chest wall moving bilaterally, not in distress, on nasal cannula Gastrointestinal: soft, lax, Normal bowel sounds, Non tender Skin : Warm/Dry, No rash Neurological : Alert & oriented x3, No focal deficit Objective Data Current Medications Generic Name Dose Route Start Last Admin Trade Name Freq PRN Reason Stop Dose Admin Acetaminophen 650 mg 11/21/20 04:40 Acetaminophen 325 Mg Tablet PO Q6H PRN Pain, Mild (Pain Scale 1-3) Albuterol Sulfate 2 puff 11/20/20 15:42 Albuterol Sulfate 90 Mcg 8 Gm Inhaler INHALE QID PRN Shortness Of Breath Or Wheezing Aspirin 81 mg 11/21/20 09:00 11/24/20 07:38 Aspirin Enteric Coated 81 Mg Tablet. PO 81 mg DAILY TAHDDEUS Administration Atorvastatin Calcium 20 mg 11/20/20 21:00 11/23/20 20:39 Atorvastatin Calcium 20 Mg Tablet PO 20 mg BEDTIME THADDEUS Administration Benzonatate 100 mg 11/24/20 15:00 Benzonatate 100 Mg Capsule PO TID THADDEUS Carvedilol 12.5 mg 11/20/20 21:00 11/24/20 07:39 Carvedilol 12.5 Mg Tablet PO 12.5 mg BID THADDEUS Administration Protocol Clopidogrel Bisulfate 75 mg 11/21/20 09:00 11/24/20 07:39 Clopidogrel Bisulfate 75 Mg Tablet PO 75 mg DAILY THADDEUS Administration Dexamethasone Sodium Phosphate 6 mg 11/21/20 09:00 11/24/20 07:38 Dexamethasone Sod Phosphate 4 Mg/Ml Vial IVPUSH 11/30/20 09:01 6 mg DAILY THADDEUS Administration Docusate Sodium 100 mg 11/21/20 04:40 11/24/20 10:45 Docusate Sodium 100 Mg Capsule PO 100 mg DAILY PRN Administration Constipation Enoxaparin Sodium 40 mg 11/23/20 12:00 11/24/20 11:51 Enoxaparin Sodium 40 Mg/0.4 Ml Syringe SUBCUT 40 mg Q24H THADDEUS Administration Guaifenesin 600 mg 11/24/20 09:35 11/24/20 10:45 Guaifenesin La 600 Mg Tab.Er.12h PO 600 mg BID THADDEUS Administration Ceftriaxone Sodium 1 gm/ 50 mls @ 100 mls/hr 11/21/20 04:45 11/24/20 05:42 Sodium Chloride IV Infused Q24H THADDEUS Infusion Azithromycin 500 mg/ Sodium 250 mls @ 125 mls/hr 11/21/20 21:00 11/23/20 22:43 Chloride IV Infused Q24H THADDEUS Infusion Insulin Glargine 45 unit 11/23/20 21:00 11/23/20 20:40 Insulin Glargine,Hum.Rec.Anlog 100 Unit/Ml 10 Ml Vial SUBCUT 45 unit BEDTIME THADDEUS Administration Insulin Human Lispro 0 unit 11/21/20 07:30 11/24/20 11:50 Insulin Lispro 100 Unit/Ml 3 Ml Vial SUBCUT 8 unit [facility]ACHS [facility] Administration Protocol Metoclopramide HCl 10 mg 11/20/20 15:42 11/23/20 08:19 Metoclopramide Hcl 10 Mg Tablet PO 10 mg Q8H PRN Administration Nausea Morphine Sulfate 30 mg 11/20/20 21:00 11/24/20 07:38 Morphine Sulfate Er 30 Mg Tablet.Er PO 30 mg TID THADDEUS Administration Omeprazole 20 mg 11/21/20 06:30 11/24/20 05:00 Omeprazole 20 Mg Capsule.Dr PO 20 mg DAILY@0630 THADDEUS Administration Ondansetron HCl 4 mg 11/20/20 15:42 11/20/20 20:50 Ondansetron Odt 4 Mg Tab.Rapdis TRANSLINGU 4 mg Q8H PRN Administration nausea and vomiting Ondansetron HCl 4 mg 11/21/20 04:40 11/22/20 10:55 Ondansetron Hcl 4 Mg/2 Ml Vial IVPUSH 4 mg Q8H PRN Administration Nausea and Vomiting Oxycodone HCl 15 mg 11/20/20 15:42 11/24/20 10:45 Oxycodone Hcl Immed Release 15 Mg Tablet PO 15 mg Q4H PRN Administration Pain Pharmacy Consult 1 each 11/20/20 11:13 Consult Rx Perform Med Rec MISCELLANE ONCE PRN Consult order Sodium Chloride 3 ml 11/21/20 08:00 11/24/20 07:38 0.9 % Sodium Chloride Flush 3 Ml Syringe IVFLUSH 3 ml QSHIFT THADDEUS Administration Labs CBC & Chem 7: 11/24/20 06:31 11/24/20 06:31 Microbiology Microbiology Results: Microbiology 11/20/20 11:35 Blood - Venous Blood Culture - Preliminary No growth after 48 hours. 11/20/20 11:25 Blood - Venous Blood Culture - Preliminary No growth after 48 hours. Assessment and Plan (1) Pneumonia due to 2019 novel coronavirus: Status: Acute (2) Nausea & vomiting: Status: Acute (3) Hypoxia: Status: Acute (4) Lactic acidosis: Status: Acute (5) Acute respiratory failure with hypoxia: Status: Acute Assessment and Plan: 60-year-old male with past medical history of asthma, EPI, diabetes who presents to the hospital with complaints of worsening shortness of breath found to be hypoxic secondary to COVID-19 pneumonia Acute hypoxic respiratory failure 2/2 COVID-[address] angiogram negative for PE, suspicion for bacterial pneumonia\atelactasis Wean oxygen as tolerated Continue IV dexamethasone day 4 Continue IV azithromycin and ceftriaxone Pending blood cultures Continue supportive management History CAD? Continue carvedilol, aspirin and Plavix Diiabetes mellitus Continue sliding scale insulin Lantus 40 units daily Diabetic diet EPI CPAP at bedtime DVT prophylaxis Lovenox
[2020-11-24] MEDS: Benzonatate 100 MG CAPSULE PO ×2 (15:35→21:25)
[2020-11-24 16:46] LABS: Glucose, Whole Blood 349 mg/dL (60-115)
[2020-11-24 20:38] LABS: Glucose, Whole Blood 331 mg/dL (60-115)
[2020-11-24] MEDS: Atorvastatin Calcium 20 MG TABLET PO (21:02)
[2020-11-24] MEDS: Insulin Glargine,Hum.rec.anlog 100 UNIT/ML 10 ML VIAL 45 UNIT SUBCUT (21:03)
[2020-11-24] MEDS: Azithromycin 500 MG in 0.9 % Sodium Chloride 250 ML 125 MG IV (21:04)
[2020-11-25 03:54] VITALS: BP 137/78; PULSE 72; RESP 18; TEMP 36.5; O2SAT 98
[2020-11-25] MEDS: cefTRIAXone sodium 1 GM in 0.9 % Sodium Chloride 50 ML IV (04:04)
[2020-11-25] MEDS: oxyCODONE HCl Immed Release 15 MG TABLET PO ×4 (04:04→18:09)
[2020-11-25] MEDS: Omeprazole 20 MG CAPSULE.DR PO (04:51)
[2020-11-25 06:18] LABS: Hematocrit 39.9 % (42-52); Hemoglobin 12.3 g/dl (14.0-18.0); Mean Corpuscular HGB Conc 30.8 g/dl (31.0-36.0); Mean Corpuscular Volume 81.1 fL (80-98); Mean Platelet Volume 10.6 fL (9.4-12.4); Platelet Count 234 X10*3/uL (160-400); Red Blood Count 4.92 X10*6/uL (4.60-5.80); Red Cell Distribution Width 15.3 % (11.0-16.0); White Blood Count 11.6 X10*3/uL (4.8-10.8)
[2020-11-25 06:59] LABS: Anion Gap 14 (12-20); Blood Urea Nitrogen 21 mg/dL (9-16); C Reactive Protein 0.29 mg/dL (< or = 0.50); Carbon Dioxide 26 mmol/L (22-29); Chloride 107 mmol/L (96-108); Creatinine Clr Calc Pharmacy 164.6; Estimated Glomerular Filt Rate > 60; Glucose Random 212 mg/dL (60-115); Lactate Dehydrogenase 231 U/L (118-273); Potassium 4.4 mmol/l (3.3-5.1); Sodium 143 mmol/L (135-145)
[2020-11-25 07:11] VITALS: BP 106/57; PULSE 80; RESP 20; TEMP 36.6; O2SAT 95
[2020-11-25 07:20] LABS: Glucose, Whole Blood 193 mg/dL (60-115)
[2020-11-25] MEDS: dexAMETHasone sod phosphate 4 MG/ML VIAL 6 MG IVPUSH (08:23)
[2020-11-25] MEDS: Aspirin Enteric Coated 81 MG TABLET.DR PO (08:25)
[2020-11-25] MEDS: guaiFENesin LA 600 MG TAB.ER.12H PO ×2 (08:25→21:15)
[2020-11-25] MEDS: Morphine Sulfate ER 30 MG TABLET.ER PO ×3 (08:25→21:15)
[2020-11-25] MEDS: carvediloL 12.5 MG TABLET PO ×2 (08:25→21:15)
[2020-11-25] MEDS: Clopidogrel Bisulfate 75 MG TABLET PO (08:25)
[2020-11-25] MEDS: Insulin Lispro 100 UNIT/ML 3 ML VIAL SUBCUT ×4 (08:25→21:16)
[2020-11-25] MEDS: Benzonatate 100 MG CAPSULE PO ×2 (08:25→13:46)
[2020-11-25] MEDS: Mineral Oil/Petrolatum,White 106 GM Tube 1 APPL TOPICAL (08:27)
[2020-11-25] MEDS: 0.9 % Sodium Chloride Flush 3 ML SYRINGE IVFLUSH ×2 (08:27→17:57)
[2020-11-25 11:00] VITALS: BP 140/66; PULSE 78; RESP 20; TEMP 36.6; O2SAT 95
[2020-11-25 11:23] LABS: Glucose, Whole Blood 278 mg/dL (60-115)
[2020-11-25] MEDS: Enoxaparin Sodium 40 MG/0.4 ML SYRINGE SUBCUT (12:04)
--- NOTE | 2020-11-25 13:02 | MHC.CM.PN ---
Patient is on IV Dexamethasone and IV Azithromax and ceftriaxone for COVID 19 infection. Discharge plan is home no services. Family will provide transport. CM will continue to follow for discharge needs.
--- NOTE | 2020-11-25 13:32 | HO.PM.IMPN ---
Subjective Subjective Date of Service: 11/25/20 Interval History: the patient was seen and evaluated this morning Laying in bed, feels comfortable today, had little of from night Weaned off oxygen this morning, Denies any fever, chills but reports mild shortness of breath with exertion No reported other overnight events. Systemic review: No fever, chills or weakness No chest pain, palpitation Exertion in shortness of breath or coughing No abdominal pain, nausea or vomiting No urinary symptoms No any rash or wounds Physical Exam Vital Signs: Vital Signs: Last Vital Signs Temp 98 F 11/25/20 11:00 Pulse 78 11/25/20 11:00 Resp 20 11/25/20 11:00 BP 140/66 H 11/25/20 11:00 Pulse Ox 95 11/25/20 11:00 Body Mass Index 49.3 Const: Other: Constitutional : Alert, oriented, obesity, not in distress Neck : Normal inspection, Supple Cardiovascular : RRR, no lower extremity edema Respiratory : Chest wall moving bilaterally, not in distress, on room air Gastrointestinal: soft, lax, Normal bowel sounds, Non tender Skin : Warm/Dry, No rash Neurological : Alert & oriented x3, No focal deficit Objective Data Current Medications Generic Name Dose Route Start Last Admin Trade Name Freq PRN Reason Stop Dose Admin Acetaminophen 650 mg 11/21/20 04:40 Acetaminophen 325 Mg Tablet PO Q6H PRN Pain, Mild (Pain Scale 1-3) Albuterol Sulfate 2 puff 11/20/20 15:42 Albuterol Sulfate 90 Mcg 8 Gm Inhaler INHALE QID PRN Shortness Of Breath Or Wheezing Aspirin 81 mg 11/21/20 09:00 11/25/20 08:25 Aspirin Enteric Coated 81 Mg Tablet. PO 81 mg DAILY THADDEUS Administration Atorvastatin Calcium 20 mg 11/20/20 21:00 11/24/20 21:02 Atorvastatin Calcium 20 Mg Tablet PO 20 mg BEDTIME THADDEUS Administration Benzonatate 100 mg 11/24/20 15:00 11/25/20 08:25 Benzonatate 100 Mg Capsule PO 100 mg TID THADDEUS Administration Carvedilol 12.5 mg 11/20/20 21:00 11/25/20 08:25 Carvedilol 12.5 Mg Tablet PO 12.5 mg BID THADDEUS Administration Protocol Clopidogrel Bisulfate 75 mg 11/21/20 09:00 11/25/20 08:25 Clopidogrel Bisulfate 75 Mg Tablet PO 75 mg DAILY THADDEUS Administration Dexamethasone Sodium Phosphate 6 mg 11/21/20 09:00 11/25/20 08:23 Dexamethasone Sod Phosphate 4 Mg/Ml Vial IVPUSH 11/30/20 09:01 6 mg DAILY THADDEUS Administration Docusate Sodium 100 mg 11/21/20 04:40 11/24/20 10:45 Docusate Sodium 100 Mg Capsule PO 100 mg DAILY PRN Administration Constipation Enoxaparin Sodium 40 mg 11/23/20 12:00 11/25/20 12:04 Enoxaparin Sodium 40 Mg/0.4 Ml Syringe SUBCUT 40 mg Q24H THADDEUS Administration Guaifenesin 600 mg 11/24/20 09:35 11/25/20 08:25 Guaifenesin La 600 Mg Tab.Er.12h PO 600 mg BID THADDEUS Administration Ceftriaxone Sodium 1 gm/ 50 mls @ 100 mls/hr 11/21/20 04:45 11/25/20 04:51 Sodium Chloride IV Infused Q24H THADDEUS Infusion Azithromycin 500 mg/ Sodium 250 mls @ 125 mls/hr 11/21/20 21:00 11/24/20 23:00 Chloride IV Infused Q24H THADDEUS Infusion Insulin Glargine 45 unit 11/23/20 21:00 11/24/20 21:03 Insulin Glargine,Hum.Rec.Anlog 100 Unit/Ml 10 Ml Vial SUBCUT 45 unit BEDTIME THADDEUS Administration Insulin Human Lispro 0 unit 11/21/20 07:30 11/25/20 12:04 Insulin Lispro 100 Unit/Ml 3 Ml Vial SUBCUT 6 unit QIDACHS THADDEUS Administration Protocol Metoclopramide HCl 10 mg 11/20/20 15:42 11/23/20 08:19 Metoclopramide Hcl 10 Mg Tablet PO 10 mg Q8H PRN Administration Nausea Morphine Sulfate 30 mg 11/20/20 21:00 11/25/20 08:25 Morphine Sulfate Er 30 Mg Tablet.Er PO 30 mg TID THADDEUS Administration Multi-Ingred Cream/Lotion/Oil/Oint 1 appl 11/24/20 21:00 11/25/20 08:27 Mineral Oil/Petrolatum,White 106 Gm Tube TOPICAL 1 appl BID THADDEUS Administration Omeprazole 20 mg 11/21/20 06:30 11/25/20 04:51 Omeprazole 20 Mg Capsule.Dr PO 20 mg DAILY@0630 THADDEUS Administration Ondansetron HCl 4 mg 11/20/20 15:42 11/20/20 20:50 Ondansetron Odt 4 Mg Tab.Rapdis TRANSLINGU 4 mg Q8H PRN Administration nausea and vomiting Ondansetron HCl 4 mg 11/21/20 04:40 11/22/20 10:55 Ondansetron Hcl 4 Mg/2 Ml Vial IVPUSH 4 mg Q8H PRN Administration Nausea and Vomiting Oxycodone HCl 15 mg 11/20/20 15:42 11/25/20 08:24 Oxycodone Hcl Immed Release 15 Mg Tablet PO 15 mg Q4H PRN Administration Pain Pharmacy Consult 1 each 11/20/20 11:13 Consult Rx Perform Med Rec MISCELLANE ONCE PRN Consult order Sodium Chloride 3 ml 11/21/20 08:00 11/25/20 08:27 0.9 % Sodium Chloride Flush 3 Ml Syringe IVFLUSH 3 ml QSHIFT THADDEUS Administration Labs CBC & Chem 7: 11/25/20 05:43 11/25/20 05:43 Microbiology Microbiology Results: Microbiology 11/20/20 11:35 Blood - Venous Blood Culture - Preliminary No growth after 48 hours. 11/20/20 11:25 Blood - Venous Blood Culture - Preliminary No growth after 48 hours. Assessment and Plan (1) Pneumonia due to 2019 novel coronavirus: Status: Acute (2) Nausea & vomiting: Status: Acute (3) Hypoxia: Status: Acute (4) Lactic acidosis: Status: Acute (5) Acute respiratory failure with hypoxia: Status: Acute Assessment and Plan: 60-year-old male with past medical history of asthma, EPI, diabetes who presents to the hospital with complaints of worsening shortness of breath found to be hypoxic secondary to COVID-19 pneumonia Acute hypoxic respiratory failure 2/2 COVID-[address] angiogram negative for PE, suspicion for bacterial pneumonia\atelactasis Weaned off oxygen this morning, continue to monitor for 24 hours Continue IV dexamethasone day 5 Continue IV azithromycin and ceftriaxone Pending blood cultures Continue supportive management History CAD? Continue carvedilol, aspirin and Plavix Diiabetes mellitus Continue sliding scale insulin Lantus 40 units daily Diabetic diet EPI CPAP at bedtime DVT prophylaxis Lovenox
[2020-11-25] MEDS: Docusate Sodium 100 MG CAPSULE PO (13:49)
[2020-11-25 15:47] VITALS: BP 143/82; PULSE 76; RESP 18; TEMP 36.8; O2SAT 96
[2020-11-25 16:51] LABS: Glucose, Whole Blood 318 mg/dL (60-115)
[2020-11-25 20:00] VITALS: BP 134/68; PULSE 77; RESP 20; TEMP 36.7; O2SAT 96
[2020-11-25 21:00] LABS: Glucose, Whole Blood 319 mg/dL (60-115)
[2020-11-25] MEDS: Azithromycin 500 MG in 0.9 % Sodium Chloride 250 ML 125 MG IV (21:14)
[2020-11-25] MEDS: Insulin Glargine,Hum.rec.anlog 100 UNIT/ML 10 ML VIAL 45 UNIT SUBCUT (21:15)
[2020-11-25] MEDS: Atorvastatin Calcium 20 MG TABLET PO (21:15)
[2020-11-25 23:43] VITALS: BP 138/89; PULSE 67; RESP 18; TEMP 36.5; O2SAT 97
[2020-11-26] MEDS: 0.9 % Sodium Chloride Flush 3 ML SYRINGE IVFLUSH ×3 (00:58→16:08)
[2020-11-26 03:51] VITALS: BP 146/79; PULSE 71; RESP 18; TEMP 36.4; O2SAT 96
[2020-11-26 04:27] LABS: Legionella Ag Urine Not Detected (Not Detected)
[2020-11-26] MEDS: cefTRIAXone sodium 1 GM in 0.9 % Sodium Chloride 50 ML IV (05:50)
[2020-11-26] MEDS: Omeprazole 20 MG CAPSULE.DR PO (05:51)
[2020-11-26] MEDS: oxyCODONE HCl Immed Release 15 MG TABLET PO ×2 (05:54→12:12)
[2020-11-26 07:06] VITALS: BP 158/90; PULSE 76; RESP 19; TEMP 36.1; O2SAT 97
[2020-11-26 07:07] LABS: Anion Gap 12 (12-20); Blood Urea Nitrogen 22 mg/dL (9-16); Calcium 8.1 mg/dL (8.4-10.2); Carbon Dioxide 29 mmol/L (22-29); Chloride 106 mmol/L (96-108); Creatinine Clr Calc Pharmacy 164.6; Estimated Glomerular Filt Rate > 60; Glucose Random 231 mg/dL (60-115); Potassium 5.4 mmol/l (3.3-5.1); Sodium 142 mmol/L (135-145)
[2020-11-26 07:22] LABS: Glucose, Whole Blood 196 mg/dL (60-115)
[2020-11-26] MEDS: guaiFENesin LA 600 MG TAB.ER.12H PO (08:01)
[2020-11-26] MEDS: Aspirin Enteric Coated 81 MG TABLET.DR PO (08:01)
[2020-11-26] MEDS: Benzonatate 100 MG CAPSULE PO ×2 (08:01→16:08)
[2020-11-26] MEDS: Clopidogrel Bisulfate 75 MG TABLET PO (08:01)
[2020-11-26] MEDS: carvediloL 12.5 MG TABLET PO (08:01)
[2020-11-26] MEDS: Morphine Sulfate ER 30 MG TABLET.ER PO ×2 (08:01→16:08)
[2020-11-26] MEDS: dexAMETHasone sod phosphate 4 MG/ML VIAL 6 MG IVPUSH (08:03)
[2020-11-26] MEDS: Mineral Oil/Petrolatum,White 106 GM Tube 1 APPL TOPICAL (08:03)
[2020-11-26] MEDS: Insulin Lispro 100 UNIT/ML 3 ML VIAL SUBCUT ×2 (08:03→12:13)
--- NOTE | 2020-11-26 10:49 | P.DS_ITS ---
DS: Providers Provider Date of Service: 11/26/20 Date of admission: 11/21/20 04:40 Primary care physician: Ganga Stanford MD DS: Diagnosis Discharge Diagnosis (1) Pneumonia due to 2019 novel coronavirus: Status: Acute (2) Nausea & vomiting: Status: Acute (3) Hypoxia: Status: Acute (4) Lactic acidosis: Status: Acute (5) Acute respiratory failure with hypoxia: Status: Acute DS: Medications Discharge Medications Home Medications: Home Medications Medication Instructions Recorded Confirmed Basaglar KwikPen U-100 Insulin 40 unit SUBCUT BEDTIME 11/20/20 11/20/20 albuterol sulfate [Ventolin HFA] 2 puff INHALATION QID PRN 11/20/20 11/20/20 aspirin 81 mg PO DAILY 11/20/20 11/20/20 carvedilol 12.5 mg PO BID 11/20/20 11/20/20 clopidogrel 75 mg PO DAILY 11/20/20 11/20/20 insulin aspart U-100 [Novolog See Rx Instructions .ROUTE .COMPLEX 11/20/20 11/20/20 Flexpen U-100 Insulin] metoclopramide HCl [Reglan] 10 mg PO Q8H PRN 11/20/20 11/20/20 morphine 30 mg PO TID 11/20/20 11/20/20 oxycodone 15 mg PO Q4H PRN 11/20/20 11/20/20 pantoprazole 40 mg PO DAILY 11/20/20 11/20/20 simvastatin 40 mg PO BEDTIME 11/20/20 11/20/20 Previous Rx's Medication Instructions Recorded ondansetron HCl [Zofran] 4 mg PO Q8H PRN #15 tab 11/14/20 ondansetron 4 mg PO Q8H PRN #20 tab 11/20/20 benzonatate 100 mg PO TID #30 cap 11/26/20 dexamethasone 6 mg PO DAILY #4 tab 11/26/20 DS: Summary Hospital Course Hospital Course: Admission note HPI 60-year-old male with past medical history of EPI, diabetes, obesity, HDL, asthma who presents to the hospital with complaints worsening shortness of breath. Patient was diagnosed with COVID-19 about 9 days ago, reports that his symptoms of shortness of breath have been getting worse. He has been checking his O2 and with exertion drops to 85%. He is also complaining of cough but reports getting better, productive of phlegm, low oral intake, nausea vomiting, diarrhea. He has dizziness, lightheadedness, no headache, no change in vision no chest pain. He has urinary symptoms and no lower extremity edema. He reports that his brother is a diagnosed with COVID-19 but he had no contact with them Review of system otherwise negative Patient temp is 97.3?, heart rate of 96, respiratory rate of 18, blood pressure 111/73, satting 92% on room air and dropping to 89% on minimal ambulation. Labs are significant for WBC count of 8.2, hemoglobin of 14.5, sodium of 141, potassium 4.0, lactic acid initially of 3.0 that improved to 1.6 after fluids, CT angiograms negative for PE, shows right lower lobe consolidation/infiltrate. Hospital course Admitted to the hospital for evaluation of acute hypoxic respiratory failure secondary to COVID-19 and suspected underlying pneumonia. He was treated with IV dexamethasone, IV azithromycin and ceftriaxone with cough medicine as CTA was negative for PE but suspicion for atelectasis. Blood cultures remain negative during the hospital stay. He was weaned off the oxygen and tolerated ambulation on room air with maintaining oxygen 90s. He finished total of 5 days of antibiotics. To be discharged on dexamethasone to finish total of 10 days of steroids. Time Spent with Patient Time attestation: Total time spent providing and/or coordinating discharge services: Discharge coordination time: Greater than 30 minutes Physical Exam Vital Signs: Vital Signs: Last Vital Signs Temp 97 F 11/26/20 07:06 Pulse 76 11/26/20 07:06 Resp 19 11/26/20 07:06 BP 158/90 H 11/26/20 07:06 Pulse Ox 97 11/26/20 07:06 Body Mass Index 49.3 Const: Other: Constitutional : Alert, oriented, obesity, not in distress Neck : Normal inspection, Supple Cardiovascular : RRR, no lower extremity edema Respiratory : Chest wall moving bilaterally, not in distress, on room air Gastrointestinal: soft, lax, Normal bowel sounds, Non tender Skin : Warm/Dry, No rash Neurological : Alert & oriented x3, No focal deficit DS: Data Data Completed and Pending Labs on day of discharge: Laboratory Tests 11/20/20 11/20/20 11/20/20 11:20 11:20 11:20 WBC 8.2 RBC 5.73 Hgb 14.5 Hct 47.0 MCV 82.0 MCH 25.3 L MCHC 30.9 L RDW 15.7 Plt Count 256 D MPV 9.8 Immature Gran % (Auto) 0.4 Neut % (Auto) 66.7 Lymph % (Auto) 23.7 [place] % (Auto) 8.8 Eos % (Auto) 0.2 Baso % (Auto) 0.2 Lymph # (Auto) 1.9 [place] # (Auto) 0.7 Eos # (Auto) 0.0 Baso # (Auto) 0.0 Abs Immat Gran (auto) 0.03 Absolute Neuts (auto) 5.5 Absolute Nucleated RBC 0.000 Nucleated RBC % (auto) 0.0 PT 14.8 H INR 1.2 H APTT 31.0 D-Dimer 936 Sodium 141 Potassium 4.0 Chloride 105 Carbon Dioxide 22 Anion Gap 18 BUN 15 Creatinine 0.82 Estim Creat Clear Calc 154.5 Estimated GFR > 60 POC Glucose Random Glucose 165 H Lactic Acid Lactic Acid Fup @ 2Hr Calcium 8.1 L Magnesium 2.1 Ferritin Total Bilirubin 1.0 Direct Bilirubin 0.5 AST 35 ALT 21 Alkaline Phosphatase 74 Lactate Dehydrogenase 317 H Troponin I High Sens C-Reactive Protein B-Natriuretic Peptide Total Protein 6.9 Albumin 3.4 L Lipase Procalcitonin Ur L.pneumophila Ag Ur Strep pneumoniae Ag 11/20/20 11/20/20 11/20/20 11:20 11:20 11:20 WBC RBC Hgb Hct MCV MCH MCHC RDW Plt Count MPV Immature Gran % (Auto) Neut % (Auto) Lymph % (Auto) Hutch[place] % (Auto) Eos % (Auto) Baso % (Auto) Lymph # (Auto) [place] # (Auto) Eos # (Auto) Baso # (Auto) Abs Immat Gran (auto) Absolute Neuts (auto) Absolute Nucleated RBC Nucleated RBC % (auto) PT INR APTT D-Dimer Sodium Potassium Chloride Carbon Dioxide Anion Gap BUN Creatinine Estim Creat Clear Calc Estimated GFR POC Glucose Random Glucose Lactic Acid 3.0 H* Lactic Acid Fup @ 2Hr Calcium Magnesium Ferritin 162 Total Bilirubin Direct Bilirubin AST ALT Alkaline Phosphatase Lactate Dehydrogenase Troponin I High Sens < 3.5 C-Reactive Protein B-Natriuretic Peptide 31 Total Protein Albumin Lipase 30 Procalcitonin Ur L.pneumophila Ag Ur Strep pneumoniae Ag 11/20/20 11/20/20 11/20/20 13:49 16:44 20:43 WBC RBC Hgb Hct MCV MCH MCHC RDW Plt Count MPV Immature Gran % (Auto) Neut % (Auto) Lymph % (Auto) [place] % (Auto) Eos % (Auto) Baso % (Auto) Lymph # (Auto) [place] # (Auto) Eos # (Auto) Baso # (Auto) Abs Immat Gran (auto) Absolute Neuts (auto) Absolute Nucleated RBC Nucleated RBC % (auto) PT INR APTT D-Dimer Sodium Potassium Chloride Carbon Dioxide Anion Gap BUN Creatinine Estim Creat Clear Calc Estimated GFR POC Glucose 117 H 100 Random Glucose Lactic Acid Lactic Acid Fup @ 2Hr 1.6 Calcium Magnesium Ferritin Total Bilirubin Direct Bilirubin AST ALT Alkaline Phosphatase Lactate Dehydrogenase Troponin I High Sens C-Reactive Protein B-Natriuretic Peptide Total Protein Albumin Lipase Procalcitonin Ur L.pneumophila Ag Ur Strep pneumoniae Ag 11/21/20 11/21/20 11/21/20 01:37 08:26 11:40 WBC RBC Hgb Hct MCV MCH MCHC RDW Plt Count MPV Immature Gran % (Auto) Neut % (Auto) Lymph % (Auto) [place] % (Auto) Eos % (Auto) Baso % (Auto) Lymph # (Auto) [place] # (Auto) Eos # (Auto) Baso # (Auto) Abs Immat Gran (auto) Absolute Neuts (auto) Absolute Nucleated RBC Nucleated RBC % (auto) PT INR APTT D-Dimer Sodium Potassium Chloride Carbon Dioxide Anion Gap BUN Creatinine Estim Creat Clear Calc Estimated GFR POC Glucose 231 H 230 H Random Glucose Lactic Acid Lactic Acid Fup @ 2Hr Calcium Magnesium Ferritin Total Bilirubin Direct Bilirubin AST ALT Alkaline Phosphatase Lactate Dehydrogenase Troponin I High Sens C-Reactive Protein B-Natriuretic Peptide Total Protein Albumin Lipase Procalcitonin 0.07 Ur L.pneumophila Ag Ur Strep pneumoniae Ag 11/21/20 11/21/20 11/21/20 15:46 16:42 19:59 WBC RBC Hgb Hct MCV MCH MCHC RDW Plt Count MPV Immature Gran % (Auto) Neut % (Auto) Lymph % (Auto) [place] % (Auto) Eos % (Auto) Baso % (Auto) Lymph # (Auto) [place] # (Auto) Eos # (Auto) Baso # (Auto) Abs Immat Gran (auto) Absolute Neuts (auto) Absolute Nucleated RBC Nucleated RBC % (auto) PT INR APTT D-Dimer Sodium Potassium Chloride Carbon Dioxide Anion Gap BUN Creatinine Estim Creat Clear Calc Estimated GFR POC Glucose 255 H 326 H Random Glucose Lactic Acid Lactic Acid Fup @ 2Hr Calcium Magnesium Ferritin Total Bilirubin Direct Bilirubin AST ALT Alkaline Phosphatase Lactate Dehydrogenase Troponin I High Sens C-Reactive Protein B-Natriuretic Peptide Total Protein Albumin Lipase Procalcitonin Ur L.pneumophila Ag Not Detected Ur Strep pneumoniae Ag Not Detected 11/22/20 11/22/20 11/22/20 04:49 04:49 07:37 WBC 10.3 RBC 4.99 Hgb 12.7 L Hct 41.0 L MCV 82.2 MCH 25.5 L MCHC 31.0 RDW 15.2 Plt Count 253 MPV 10.1 Immature Gran % (Auto) 0.8 H Neut % (Auto) 79.3 H Lymph % (Auto) 12.0 L Hutchinson % (Auto) 7.8 Eos % (Auto) 0.0 Baso % (Auto) 0.1 Lymph # (Auto) 1.2 [place]inson # (Auto) 0.8 Eos # (Auto) 0.0 Baso # (Auto) 0.0 Abs Immat Gran (auto) 0.08 H Absolute Neuts (auto) 8.2 Absolute Nucleated RBC 0.000 Nucleated RBC % (auto) 0.0 PT INR APTT D-Dimer Sodium 141 Potassium 4.3 Chloride 107 Carbon Dioxide 25 Anion Gap 13 BUN 16 Creatinine 0.85 Estim Creat Clear Calc 145.2 Estimated GFR > 60 POC Glucose 258 H Random Glucose 309 H D Lactic Acid Lactic Acid Fup @ 2Hr Calcium 7.9 L Magnesium Ferritin Total Bilirubin Direct Bilirubin AST ALT Alkaline Phosphatase Lactate Dehydrogenase Troponin I High Sens C-Reactive Protein B-Natriuretic Peptide Total Protein Albumin Lipase Procalcitonin Ur L.pneumophila Ag Ur Strep pneumoniae Ag 11/22/20 11/22/20 11/22/20 11:36 16:31 20:33 WBC RBC Hgb Hct MCV MCH MCHC RDW Plt Count MPV Immature Gran % (Auto) Neut % (Auto) Lymph % (Auto) Hutch[place] % (Auto) Eos % (Auto) Baso % (Auto) Lymph # (Auto) [place] # (Auto) Eos # (Auto) Baso # (Auto) Abs Immat Gran (auto) Absolute Neuts (auto) Absolute Nucleated RBC Nucleated RBC % (auto) PT INR APTT D-Dimer Sodium Potassium Chloride Carbon Dioxide Anion Gap BUN Creatinine Estim Creat Clear Calc Estimated GFR POC Glucose 334 H 388 H* 335 H Random Glucose Lactic Acid Lactic Acid Fup @ 2Hr Calcium Magnesium Ferritin Total Bilirubin Direct Bilirubin AST ALT Alkaline Phosphatase Lactate Dehydrogenase Troponin I High Sens C-Reactive Protein B-Natriuretic Peptide Total Protein Albumin Lipase Procalcitonin Ur L.pneumophila Ag Ur Strep pneumoniae Ag 11/23/20 11/23/20 11/23/20 08:00 11:43 16:17 WBC RBC Hgb Hct MCV MCH MCHC RDW Plt Count MPV Immature Gran % (Auto) Neut % (Auto) Lymph % (Auto) [place] % (Auto) Eos % (Auto) Baso % (Auto) Lymph # (Auto) [place] # (Auto) Eos # (Auto) Baso # (Auto) Abs Immat Gran (auto) Absolute Neuts (auto) Absolute Nucleated RBC Nucleated RBC % (auto) PT INR APTT D-Dimer Sodium Potassium Chloride Carbon Dioxide Anion Gap BUN Creatinine Estim Creat Clear Calc Estimated GFR POC Glucose 226 H 262 H 338 H Random Glucose Lactic Acid Lactic Acid Fup @ 2Hr Calcium Magnesium Ferritin Total Bilirubin Direct Bilirubin AST ALT Alkaline Phosphatase Lactate Dehydrogenase Troponin I High Sens C-Reactive Protein B-Natriuretic Peptide Total Protein Albumin Lipase Procalcitonin Ur L.pneumophila Ag Ur Strep pneumoniae Ag 11/23/20 11/24/20 11/24/20 20:03 06:31 06:31 WBC 10.2 RBC 4.98 Hgb 12.6 L Hct 41.2 L MCV 82.7 MCH 25.3 L MCHC 30.6 L RDW 15.4 Plt Count 249 MPV 10.6 Immature Gran % (Auto) Neut % (Auto) Lymph % (Auto) [place] % (Auto) Eos % (Auto) Baso % (Auto) Lymph # (Auto) [place] # (Auto) Eos # (Auto) Baso # (Auto) Abs Immat Gran (auto) Absolute Neuts (auto) Absolute Nucleated RBC 0.000 Nucleated RBC % (auto) 0.0 PT INR APTT D-Dimer Sodium 143 Potassium 4.6 Chloride 106 Carbon Dioxide 27 Anion Gap 15 BUN 20 H Creatinine 0.79 Estim Creat Clear Calc 156.3 Estimated GFR > 60 POC Glucose 291 H Random Glucose 225 H Lactic Acid Lactic Acid Fup @ 2Hr Calcium 7.9 L Magnesium Ferritin Total Bilirubin Direct Bilirubin AST ALT Alkaline Phosphatase Lactate Dehydrogenase Troponin I High Sens C-Reactive Protein B-Natriuretic Peptide Total Protein Albumin Lipase Procalcitonin Ur L.pneumophila Ag Ur Strep pneumoniae Ag 11/24/20 11/24/20 11/24/20 07:01 11:36 16:35 WBC RBC Hgb Hct MCV MCH MCHC RDW Plt Count MPV Immature Gran % (Auto) Neut % (Auto) Lymph % (Auto) [place] % (Auto) Eos % (Auto) Baso % (Auto) Lymph # (Auto) [place] # (Auto) Eos # (Auto) Baso # (Auto) Abs Immat Gran (auto) Absolute Neuts (auto) Absolute Nucleated RBC Nucleated RBC % (auto) PT INR APTT D-Dimer Sodium Potassium Chloride Carbon Dioxide Anion Gap BUN Creatinine Estim Creat Clear Calc Estimated GFR POC Glucose 198 H 312 H 349 H Random Glucose Lactic Acid Lactic Acid Fup @ 2Hr Calcium Magnesium Ferritin Total Bilirubin Direct Bilirubin AST ALT Alkaline Phosphatase Lactate Dehydrogenase Troponin I High Sens C-Reactive Protein B-Natriuretic Peptide Total Protein Albumin Lipase Procalcitonin Ur L.pneumophila Ag Ur Strep pneumoniae Ag 11/24/20 11/25/20 11/25/20 20:29 05:43 05:43 WBC 11.6 H RBC 4.92 Hgb 12.3 L Hct 39.9 L MCV 81.1 MCH 25.0 L MCHC 30.8 L RDW 15.3 Plt Count 234 MPV 10.6 Immature Gran % (Auto) Neut % (Auto) Lymph % (Auto) [place] % (Auto) Eos % (Auto) Baso % (Auto) Lymph # (Auto) [place] # (Auto) Eos # (Auto) Baso # (Auto) Abs Immat Gran (auto) Absolute Neuts (auto) Absolute Nucleated RBC 0.000 Nucleated RBC % (auto) 0.0 PT INR APTT D-Dimer Sodium 143 Potassium 4.4 Chloride 107 Carbon Dioxide 26 Anion Gap 14 BUN 21 H Creatinine 0.75 Estim Creat Clear Calc 164.6 Estimated GFR > 60 POC Glucose 331 H Random Glucose 212 H Lactic Acid Lactic Acid Fup @ 2Hr Calcium 8.0 L Magnesium Ferritin Total Bilirubin Direct Bilirubin AST ALT Alkaline Phosphatase Lactate Dehydrogenase 231 Troponin I High Sens C-Reactive Protein 0.29 B-Natriuretic Peptide Total Protein Albumin Lipase Procalcitonin Ur L.pneumophila Ag Ur Strep pneumoniae Ag 11/25/20 11/25/20 11/25/20 07:11 11:00 16:40 WBC RBC Hgb Hct MCV MCH MCHC RDW Plt Count MPV Immature Gran % (Auto) Neut % (Auto) Lymph % (Auto) [place] % (Auto) Eos % (Auto) Baso % (Auto) Lymph # (Auto) [place] # (Auto) Eos # (Auto) Baso # (Auto) Abs Immat Gran (auto) Absolute Neuts (auto) Absolute Nucleated RBC Nucleated RBC % (auto) PT INR APTT D-Dimer Sodium Potassium Chloride Carbon Dioxide Anion Gap BUN Creatinine Estim Creat Clear Calc Estimated GFR POC Glucose 193 H 278 H 318 H Random Glucose Lactic Acid Lactic Acid Fup @ 2Hr Calcium Magnesium Ferritin Total Bilirubin Direct Bilirubin AST ALT Alkaline Phosphatase Lactate Dehydrogenase Troponin I High Sens C-Reactive Protein B-Natriuretic Peptide Total Protein Albumin Lipase Procalcitonin Ur L.pneumophila Ag Ur Strep pneumoniae Ag 11/25/20 11/26/20 11/26/20 20:56 05:42 07:05 WBC RBC Hgb Hct MCV MCH MCHC RDW Plt Count MPV Immature Gran % (Auto) Neut % (Auto) Lymph % (Auto) [place] % (Auto) Eos % (Auto) Baso % (Auto) Lymph # (Auto) [place] # (Auto) Eos # (Auto) Baso # (Auto) Abs Immat Gran (auto) Absolute Neuts (auto) Absolute Nucleated RBC Nucleated RBC % (auto) PT INR APTT D-Dimer Sodium 142 Potassium 5.4 H D Chloride 106 Carbon Dioxide 29 Anion Gap 12 BUN 22 H Creatinine 0.75 Estim Creat Clear Calc 164.6 Estimated GFR > 60 POC Glucose 319 H 196 H Random Glucose 231 H Lactic Acid Lactic Acid Fup @ 2Hr Calcium 8.1 L Magnesium Ferritin Total Bilirubin Direct Bilirubin AST ALT Alkaline Phosphatase Lactate Dehydrogenase Troponin I High Sens C-Reactive Protein B-Natriuretic Peptide Total Protein Albumin Lipase Procalcitonin Ur L.pneumophila Ag Ur Strep pneumoniae Ag Discharge Plan Discharge Patient Disposition: Home, Self-Care Referrals: Ganga Stanford MD [Primary Care Provider] - 2 days (if not better) Discharge Medications: New ondansetron 4 mg tablet,disintegrating 4 mg PO Q8H PRN (Reason: nausea and vomiting) Qty: 20 RF: 0 benzonatate 100 mg Capsule 100 mg PO TID Qty: 30 RF: 0 dexamethasone 6 mg tablet 6 mg PO DAILY Qty: 4 RF: 0 Continued ondansetron HCl [Zofran] 4 mg tablet 4 mg PO Q8H PRN (Reason: nausea and vomiting) Qty: 15 RF: 0 carvedilol 12.5 mg tablet 12.5 mg PO BID RF: 0 clopidogrel 75 mg tablet 75 mg PO DAILY RF: 0 morphine 30 mg tablet extended release 30 mg PO TID RF: 0 simvastatin 40 mg tablet 40 mg PO BEDTIME RF: 0 oxycodone 15 mg tablet 15 mg PO Q4H PRN (Reason: Pain) RF: 0 pantoprazole 40 mg tablet,delayed release (DR/EC) 40 mg PO DAILY RF: 0 albuterol sulfate [Ventolin HFA] 90 mcg/actuation HFA aerosol inhaler 2 puff inhalation QID PRN (Reason: Shortness Of Breath Or Wheezing) RF: 0 insulin aspart U-100 [Novolog Flexpen U-100 Insulin] 100 unit/mL (3 mL) insulin pen See Rx Instructions unit .ROUTE .COMPLEX RF: 0 Basaglar KwikPen U-100 Insulin 100 unit/mL (3 mL) insulin pen 40 unit subcut BEDTIME RF: 0 metoclopramide HCl [Reglan] 10 mg tablet 10 mg PO Q8H PRN (Reason: Nausea) RF: 0 aspirin 81 mg Tablet,Delayed Release (Dr/Ec) 81 mg PO DAILY RF: 0 Discontinued azithromycin [Zithromax Z-Yifan] 250 mg tablet See Rx Instructions .ROUTE .COMPLEX Qty: 6 RF: 0 Discharge Orders: Discharge Order (Routine); Ordered 11/26/20 Ordered By: Grecia Felder Diet: advance to usual diet Activity on Discharge: As tolerated Patient Instructions: Acute Nausea and Vomiting (ED), COVID-19 (Coronavirus Disease 2019) (ED) Stand Alone Forms: Patient Portal Discharge page Visit Report Forms: Patient Portal Discharge page Care Plan Goals: Read below Health Concerns: Read below Plan of Treatment: You were admitted to the hospital for treatment of COVID-19 infection. Your requiring oxygen at time of presentation which has improved over the course of treatment in the hospital as you were able to ambulate on room air. You were treated with IV steroids, IV antibiotics and bronchodilator treatment with good response over the course of hospital stay. You finished antibiotic treatment. Continue dexamethasone as prescribed Use cough medication as needed Keep yourself isolated for the next week
--- NOTE | 2020-11-26 10:58 | MHC.CM.PN ---
Patient will be discharged home today no services. Nurse, patient are aware.
[2020-11-26 11:01] VITALS: BP 119/71; PULSE 85; RESP 20; TEMP 36.6; O2SAT 96
[2020-11-26 11:13] LABS: Glucose, Whole Blood 313 mg/dL (60-115)
[2020-11-26] MEDS: Sodium Polystyrene Sulfon/Sorb 15 GM/60 ML ORAL.SUSP 30 GM PO (11:18)
== END 2020-11-26 18:39 | disposition home or self-care (01) | DRG 177 ==
LOC: HO.ED 11-21 01:09 → HO.EDOVER 11-21 04:52 → HO.IMC 11-21 05:04
PROVIDERS: Internal Medicine; Admitting Provider Internal Medicine; Emergency Provider Emergency Medicine; PCP Internal Medicine; Visit Provider Student in an Organized Health Care Education/Training Program
DX: U07.1 COVID-19 (principal); J12.82 Pneumonia due to coronavirus disease 2019; J96.01 Acute respiratory failure with hypoxia; E87.2 Acidosis; E11.9 Type 2 diabetes mellitus without complications; J45.909 Unspecified asthma, uncomplicated; G47.33 Obstructive sleep apnea (adult) (pediatric); Z98.84 Bariatric surgery status; Z79.02 Long term (current) use of antithrombotics/antiplatelets; Z79.82 Long term (current) use of aspirin; Z79.891 Long term (current) use of opiate analgesic; Z79.899 Other long term (current) drug therapy
CPT/HCPCS: 36415; 71275; 74176; 80048; 80076; 82728; 82947; 83605; 83615; 83690; 83735; 83880; 84145; 84484; 85025; 85027; 85379; 85610; 85730; 86140; 87040; 87449; 87899; 93005; 96361; 96365; 96375; 99285; J0456; J0696; J1100; J1650; J2405; J2765; Q9967

== ENCOUNTER 2020-12-13 17:14 | Outpatient (REF) | payer MEDICARE, SELFPAY ==
--- NOTE | ~2020-12-13 | XR_ITS ---
EXAMINATION: CHEST 2 VIEWS CLINICAL INFORMATION: S/P COVID . COMPARISON: 11/17/2020. TECHNIQUE: PA and lateral views of the chest obtained. FINDINGS: The lungs are mildly hypoexpanded. There is improved aeration with improved peripheral patchy airspace disease when compared to the prior study. I do not appreciate any persistent dense consolidation. No significant effusion, edema, or pneumothorax. Cardiac and mediastinal silhouettes within normal limits for size. No acute bony abnormality. XR/XR chest 2V IMPRESSION: Hypoexpanded with improving patchy peripheral airspace disease when compared to the prior study
[2020-12-13 17:58] LABS: MANUAL DIFF FLAG NO
[2020-12-13 18:01] LABS: Basophils Percent Auto 0.4 % (0-2); Eosinophils Absolute Auto 0.2 X10*3/uL (0.0-0.4); Eosinophils Percent Auto 2.4 % (0-4); Hematocrit 43.3 % (42-52); Hemoglobin 13.2 g/dl (14.0-18.0); Imm Gran Abs Auto 0.02 X10*3/uL (0.00-0.03); Imm Gran Pct Auto 0.2 % (0.0-0.4); Lymphocytes Absolute Auto 2.7 X10*3/uL (1.2-4.9); Mean Corpuscular HGB Conc 30.5 g/dl (31.0-36.0); Mean Corpuscular Hemoglobin 25.9 pg (27.0-33.0); Mean Corpuscular Volume 84.9 fL (80-98); Monocytes Absolute Auto 0.7 X10*3/uL (0.1-1.2); Monocytes Percent Auto 8.8 % (2-11); Neutrophils Absolute Auto 4.6 X10*3/uL (2.0-8.3); Neutrophils Percent Auto 55.2 % (45-73); Platelet Count 162 X10*3/uL (160-400); Red Cell Distribution Width 16.2 % (11.0-16.0); White Blood Count 8.3 X10*3/uL (4.8-10.8)
[2020-12-13 18:27] LABS: Alanine Aminotransferase 16 U/L (0-40); Albumin Level 3.4 g/dL (3.5-5.0); Alkaline Phosphatase 107 U/L (39-117); Anion Gap 15 (12-20); Aspartate Amino Transferase 16 U/L (5-37); Bilirubin Total 0.3 mg/dL (0.0-1.0); Blood Urea Nitrogen 12 mg/dL (9-16); Calcium 8.3 mg/dL (8.4-10.2); Carbon Dioxide 25 mmol/L (22-29); Chloride 108 mmol/L (96-108); Estimated Glomerular Filt Rate > 60; Glucose Random 219 mg/dL (60-115); Potassium 4.9 mmol/L (3.3-5.1); Sodium 143 mmol/L (135-145); Total Protein 6.3 g/dL (6.5-8.0)
[2020-12-14 08:15] LABS: Estimated Average Glucose 214 mg/dL; Hemoglobin A1c % 9.1 %
== END 2020-12-13 17:15 | disposition home or self-care (01) ==
LOC: HO.LAB 17:14
PROVIDERS: PCP Internal Medicine; Visit Provider Internal Medicine
DX: J18.9 Pneumonia, unspecified organism (principal); E11.9 Type 2 diabetes mellitus without complications; I10 Essential (primary) hypertension; Z86.16 Personal history of COVID-19
CPT/HCPCS: 36415; 71046; 80053; 83036; 85025

== ENCOUNTER 2021-03-05 14:10 | Outpatient (REF) | payer MEDICARE, SELFPAY ==
[2021-03-05 15:01] LABS: MANUAL DIFF FLAG NO
[2021-03-05 15:05] LABS: Basophils Percent Auto 0.3 % (0-2); Eosinophils Percent Auto 1.5 % (0-4); Hematocrit 42.9 % (42-52); Hemoglobin 13.1 g/dl (14.0-18.0); Imm Gran Abs Auto 0.03 X10*3/uL (0.00-0.03); Imm Gran Pct Auto 0.3 % (0.0-0.4); Lymphocytes Percent Auto 36.3 % (20-40); Mean Corpuscular HGB Conc 30.5 g/dl (31.0-36.0); Mean Corpuscular Hemoglobin 26.5 pg (27.0-33.0); Mean Corpuscular Volume 86.7 fL (80-98); Monocytes Percent Auto 8.5 % (2-11); Neutrophils Absolute Auto 5.8 X10*3/uL (2.0-8.3); Neutrophils Percent Auto 53.1 % (45-73); Platelet Count 222 X10*3/uL (160-400); Red Blood Count 4.95 X10*6/uL (4.60-5.80); Red Cell Distribution Width 14.8 % (11.0-16.0)
[2021-03-05 15:06] LABS: Eosinophils Absolute Auto 0.2 X10*3/uL (0.0-0.4); Monocytes Absolute Auto 0.9 X10*3/uL (0.1-1.2)
[2021-03-05 15:20] LABS: Alanine Aminotransferase 10 U/L (0-40); Albumin Level 3.6 g/dL (3.5-5.0); Alkaline Phosphatase 108 U/L (39-117); Anion Gap 12 (12-20); Aspartate Amino Transferase 13 U/L (5-37); Bilirubin Total 0.4 mg/dL (0.0-1.0); Blood Urea Nitrogen 19 mg/dL (9-16); Calcium 8.8 mg/dL (8.4-10.2); Carbon Dioxide 28 mmol/L (22-29); Chloride 107 mmol/L (96-108); Estimated Glomerular Filt Rate > 60; Glucose Random 253 mg/dL (60-115); Potassium 4.8 mmol/L (3.3-5.1); Rheumatoid Factor < 15.0 IU/mL (<15.0); Sodium 142 mmol/L (135-145); Total Protein 6.7 g/dL (6.5-8.0)
[2021-03-05 15:24] LABS: Estimated Average Glucose 217 mg/dL; Hemoglobin A1c % 9.2 %
[2021-03-06 13:12] LABS: Anti Nuclear Antibody Screen NEGATIVE (NEGATIVE)
== END 2021-03-05 14:11 | disposition home or self-care (01) ==
LOC: HO.LAB 14:10
PROVIDERS: PCP Internal Medicine; Visit Provider Internal Medicine
DX: I10 Essential (primary) hypertension (principal); E11.9 Type 2 diabetes mellitus without complications; M79.10 Myalgia, unspecified site; K21.9 Gastro-esophageal reflux disease without esophagitis; R60.9 Edema, unspecified; Z86.16 Personal history of COVID-19
CPT/HCPCS: 36415; 80053; 83036; 85025; 86038; 86039; 86140; 86431

== ENCOUNTER 2021-03-11 02:12 | Emergency (ER) | payer MEDICARE, SELFPAY ==
--- NOTE | ~2021-03-11 | XR_ITS ---
EXAMINATION: XR CHEST CLINICAL INFORMATION: Shortness of breath COMPARISON: 12/13/2020 TECHNIQUE: Frontal view of the chest was obtained. FINDINGS: Cardiac leads overlie the chest. Persistent mild elevation of the right hemidiaphragm. No consolidation, edema, or effusion. No pneumothorax. The cardiomediastinal silhouette is within normal limits. No osseous abnormality. XR/XR chest 1V IMPRESSION: No acute pulmonary finding.
[2021-03-11 02:22] VITALS: BP 134/58; PULSE 82; RESP 20; TEMP 36.8; O2SAT 96; BMI 51.5
--- NOTE | 2021-03-11 02:34 | ECG_ITS ---
Test Reason : DYSPNEA Blood Pressure : / mmHG Vent. Rate : 082 BPM Atrial Rate : 082 BPM P-R Int : 128 ms QRS Dur : 070 ms QT Int : 372 ms P-R-T Axes : 023 013 048 degrees QTc Int : 434 ms Sinus rhythm with Premature ventricular complexes or Fusion complexes Low voltage QRS Junctional ST depression, probably normal Borderline ECG When compared with ECG of 20-NOV-2020 11:27, Fusion complexes are now Present Premature ventricular complexes are now Present Non-specific change in ST segment in Inferior leads Referred By: Precious Wood Electronically Signed By:Julio Grigsby
[2021-03-11 03:18] LABS: Basophils Percent Auto 0.3 % (0-2); Eosinophils Absolute Auto 0.1 X10*3/uL (0.0-0.4); Eosinophils Percent Auto 1.2 % (0-4); Hematocrit 44.2 % (42-52); Hemoglobin 13.8 g/dl (14.0-18.0); Imm Gran Abs Auto 0.02 X10*3/uL (0.00-0.03); Imm Gran Pct Auto 0.2 % (0.0-0.4); Lymphocytes Absolute Auto 3.2 X10*3/uL (1.2-4.9); Lymphocytes Percent Auto 32.2 % (20-40); MANUAL DIFF FLAG NO; Mean Corpuscular HGB Conc 31.2 g/dl (31.0-36.0); Mean Corpuscular Hemoglobin 26.7 pg (27.0-33.0); Mean Corpuscular Volume 85.7 fL (80-98); Mean Platelet Volume 9.9 fL (9.4-12.4); Monocytes Absolute Auto 0.9 X10*3/uL (0.1-1.2); Monocytes Percent Auto 9.4 % (2-11); Neutrophils Absolute Auto 5.6 X10*3/uL (2.0-8.3); Neutrophils Percent Auto 56.7 % (45-73); Platelet Count 222 X10*3/uL (160-400); Red Blood Count 5.16 X10*6/uL (4.60-5.80); Red Cell Distribution Width 14.6 % (11.0-16.0); White Blood Count 9.8 X10*3/uL (4.8-10.8)
[2021-03-11 03:20] LABS: Venous Blood Gas Refer to POC result
[2021-03-11 03:21] LABS: VBG HCO3 25 mmol/L (22-26); VBG pCO2 45 mmHg; VBG pH 7.34 (7.32-7.43); VBG pO2 59 mmHg
[2021-03-11 03:24] LABS: Prothrombin Time 12.1 SEC (10.8-13.0)
[2021-03-11 03:42] LABS: Alanine Aminotransferase 13 U/L (0-40); Albumin Level 3.7 g/dL (3.5-5.0); Alkaline Phosphatase 105 U/L (39-117); Anion Gap 13 (12-20); Aspartate Amino Transferase 13 U/L (5-37); Bilirubin Total 0.5 mg/dL (0.0-1.0); Blood Urea Nitrogen 23 mg/dL (9-16); Calcium 8.6 mg/dL (8.4-10.2); Carbon Dioxide 27 mmol/L (22-29); Chloride 104 mmol/L (96-108); Creatinine Clr Calc Pharmacy 105.6; Estimated Glomerular Filt Rate > 60; Glucose Random 254 mg/dL (60-115); Potassium 4.6 mmol/L (3.3-5.1); Sodium 139 mmol/L (135-145); Total Protein 6.8 g/dL (6.5-8.0)
[2021-03-11 03:45] LABS: B Type Natriuretic Peptide 13 pg/mL (<100); Troponin-I High Sensitivity < 3.5 ng/L (<3.5-35.0)
--- NOTE | 2021-03-11 04:26 | ED.CHESTPAIN ---
HPI - Chest Pain General Chief Complaint: Dyspnea Stated Complaint: trouble breathing Time Seen by Provider: 03/11/21 02:33 Source: patient Mode of arrival: ambulatory History of Present Illness HPI narrative: 60-year-old male complains of left-sided chest wall pain that radiates into the back patient denies any associated fevers, chills, cough and states that the pain gets worse with deep inspiration. He denies sleeping on that side and denies any pushing or pulling activities involving that side, and denies any falls. Related Data Home Medications Medication Instructions Recorded Confirmed Basaglar KwikPen U-100 Insulin 40 unit SUBCUT BEDTIME 11/20/20 11/20/20 albuterol sulfate [Ventolin HFA] 2 puff INHALATION QID PRN 11/20/20 11/20/20 aspirin 81 mg PO DAILY 11/20/20 11/20/20 carvedilol 12.5 mg PO BID 11/20/20 11/20/20 clopidogrel 75 mg PO DAILY 11/20/20 11/20/20 insulin aspart U-100 [Novolog See Rx Instructions .ROUTE .COMPLEX 11/20/20 11/20/20 Flexpen U-100 Insulin] metoclopramide HCl [Reglan] 10 mg PO Q8H PRN 11/20/20 11/20/20 morphine 30 mg PO TID 11/20/20 11/20/20 oxycodone 15 mg PO Q4H PRN 11/20/20 11/20/20 pantoprazole 40 mg PO DAILY 11/20/20 11/20/20 simvastatin 40 mg PO BEDTIME 11/20/20 11/20/20 Previous Rx's Medication Instructions Recorded ondansetron HCl [Zofran] 4 mg PO Q8H PRN #15 tab 11/14/20 ondansetron 4 mg PO Q8H PRN #20 tab 11/20/20 benzonatate 100 mg PO TID #30 cap 11/26/20 dexamethasone 6 mg PO DAILY #4 tab 11/26/20 Allergies Allergy/AdvReac Type Severity Reaction Status Date / Time vancomycin [VANCOMYCIN] AdvReac Severe RENAL Verified 03/11/21 02:27 FAILURE, RASH Review of Systems Review of Systems: Pertinent positives and negatives as stated in HPI 10 point review of systems is otherwise negative. PMFSH Past Medical History Source: nursing notes reviewed Medical History Asthma COVID-19 Diabetes High cholesterol Obesity Sleep apnea Social History Social History Household Members: None Housing: House Alcohol intake: never Smoking Status: Never smoker Advance Directives: No Physical Exam Vital Signs: Vital Signs: Last Vital Signs Temp 98.2 F 03/11/21 02:22 Pulse 77 03/11/21 04:42 Resp 20 03/11/21 02:22 BP 134/58 L 03/11/21 02:22 Pulse Ox 96 03/11/21 02:22 Body Mass Index 51.5 VITAL SIGNS: Reviewed. GENERAL: Well developed, well nourished, in no acute distress. HEAD: Normocephalic/atraumatic, EYES: PERRLA, EOMI OROPHARYNX: no oral lesions noted, posterior pharynx clear NECK: Supple, no adenopathy LUNGS: Normal breath sounds. No adventitious sounds or accessory muscle use. SpO2<96> CARDIOVASCULAR: Regular rate and rhythm without noted murmurs, no JVD or lower 1+extremity edema. ABDOMEN: Obese, Soft, non-tender, non-distended with bowel sounds. MUSCULOSKELETAL: No tenderness, deformities, or effusions noted on gross inspection. EXTREMITIES: No cyanosis, clubbing or edema. SKIN: Inspection of the skin reveals no rashes NEUROLOGIC: Alert and oriented x 4. Strength and sensation to light touch were grossly intact x 4. Course Course Course Narrative: 60-year-old male with history and clinical presentation consistent with suspected costochondritis but will rule out cardiopulmonary etiologies. Review of all investigations without acute findings, EKG and serial troponins negative for evidence of cardiac ischemia on chest x-ray. All results and findings discussed with patient at bedside he was discharged in stable condition. MDM - Chest Pain Lab Data Result diagrams: 03/11/21 03:12 03/11/21 03:12 Labs: Lab Results 03/11/21 03/11/21 03/11/21 Range/Units 03:12 03:12 03:12 WBC 9.8 (4.8-10.8) X10*3/uL RBC 5.16 (4.60-5.80) X10*6/uL Hgb 13.8 L (14.0-18.0) g/dl Hct 44.2 (42-52) % MCV 85.7 (80-98) fL MCH 26.7 L (27.0-33.0) pg MCHC 31.2 (31.0-36.0) g/dl RDW 14.6 (11.0-16.0) % Plt Count 222 (160-400) X10*3/uL MPV 9.9 (9.4-12.4) fL Immature Gran % (Auto) 0.2 (0.0-0.4) % Neut % (Auto) 56.7 (45-73) % Lymph % (Auto) 32.2 (20-40) % [place] % (Auto) 9.4 (2-11) % Eos % (Auto) 1.2 (0-4) % Baso % (Auto) 0.3 (0-2) % Lymph # (Auto) 3.2 (1.2-4.9) X10*3/uL [place] # (Auto) 0.9 (0.1-1.2) X10*3/uL Eos # (Auto) 0.1 (0.0-0.4) X10*3/uL Baso # (Auto) 0.0 (0.0-0.2) X10*3/uL Abs Immat Gran (auto) 0.02 (0.00-0.03) X10*3/uL Absolute Neuts (auto) 5.6 (2.0-8.3) X10*3/uL Absolute Nucleated RBC 0.000 (0.0-0.012) X10*3/uL Nucleated RBC % (auto) 0.0 (0.0-0.2) /100WBC PT (10.8-13.0) SEC INR (0.9-1.1) VBG pH (7.32-7.43) VBG pCO2 mmHg VBG pO2 mmHg VBG HCO3 (22-26) mmol/L VBG O2 Saturation % Sodium 139 (135-145) mmol/L Potassium 4.6 (3.3-5.1) mmol/L Chloride 104 (96-108) mmol/L Carbon Dioxide 27 (22-29) mmol/L Anion Gap 13 (12-20) BUN 23 H (9-16) mg/dL Creatinine 1.20 (0.5-1.4) mg/dL Estim Creat Clear Calc 105.6 Estimated GFR > 60 Random Glucose 254 H (60-115) mg/dL Calcium 8.6 (8.4-10.2) mg/dL Total Bilirubin 0.5 (0.0-1.0) mg/dL AST 13 (5-37) U/L ALT 13 (0-40) U/L Alkaline Phosphatase 105 (39-117) U/L Troponin I High Sens < 3.5 (<3.5-35.0) ng/L B-Natriuretic Peptide 13 (<100) pg/mL Total Protein 6.8 (6.5-8.0) g/dL Albumin 3.7 (3.5-5.0) g/dL 03/11/21 03/11/21 03/11/21 Range/Units 03:12 03:14 06:23 WBC (4.8-10.8) X10*3/uL RBC (4.60-5.80) X10*6/uL Hgb (14.0-18.0) g/dl Hct (42-52) % MCV (80-98) fL MCH (27.0-33.0) pg MCHC (31.0-36.0) g/dl RDW (11.0-16.0) % Plt Count (160-400) X10*3/uL MPV (9.4-12.4) fL Immature Gran % (Auto) (0.0-0.4) % Neut % (Auto) (45-73) % Lymph % (Auto) (20-40) % [place] % (Auto) (2-11) % Eos % (Auto) (0-4) % Baso % (Auto) (0-2) % Lymph # (Auto) (1.2-4.9) X10*3/uL [place] # (Auto) (0.1-1.2) X10*3/uL Eos # (Auto) (0.0-0.4) X10*3/uL Baso # (Auto) (0.0-0.2) X10*3/uL Abs Immat Gran (auto) (0.00-0.03) X10*3/uL Absolute Neuts (auto) (2.0-8.3) X10*3/uL Absolute Nucleated RBC (0.0-0.012) X10*3/uL Nucleated RBC % (auto) (0.0-0.2) /100WBC PT 12.1 (10.8-13.0) SEC INR 1.0 (0.9-1.1) VBG pH 7.34 (7.32-7.43) VBG pCO2 45 mmHg VBG pO2 59 mmHg VBG HCO3 25 (22-26) mmol/L VBG O2 Saturation 87.0 % Sodium (135-145) mmol/L Potassium (3.3-5.1) mmol/L Chloride (96-108) mmol/L Carbon Dioxide (22-29) mmol/L Anion Gap (12-20) BUN (9-16) mg/dL Creatinine (0.5-1.4) mg/dL Estim Creat Clear Calc Estimated GFR Random Glucose (60-115) mg/dL Calcium (8.4-10.2) mg/dL Total Bilirubin (0.0-1.0) mg/dL AST (5-37) U/L ALT (0-40) U/L Alkaline Phosphatase (39-117) U/L Troponin I High Sens < 3.5 (<3.5-35.0) ng/L B-Natriuretic Peptide (<100) pg/mL Total Protein (6.5-8.0) g/dL Albumin (3.5-5.0) g/dL ECG Data ECG #1: Attestation: I personally reviewed and interpreted this ECG as follows: Prior ECG tracings: available for review (11/20/2020 no acute changes on comparison) Interpretation: Sinus rhythm with PVCs, HR -82, no evidence of acute ischemia, HI/QRS/QTC are within normal limits. Discharge Plan Discharge Clinical Impression: Chest pain, atypical Patient Disposition: Home, Self-Care Instructions: Costochondritis (ED), Chest Wall Pain (ED) Additional Instructions: 1. Resume all home medications as prescribed. 2. Follow-up with your primary care provider in the next 1-2 days for re-evaluation. 3. Tylenol 1000 mg, orally, every 6 hours as needed for pain control. Do not exceed 4000 mg within 24 hours. 4. Lidocaine patch, these are available in every [facility], apply to area of maximal tenderness as directed on the outside packaging. Return to the emergency room for any acute worsening of your symptoms. Prescriptions: No Action ondansetron HCl [Zofran] 4 mg tablet 4 mg PO Q8H PRN (Reason: nausea and vomiting) Qty: 15 RF: 0 carvedilol 12.5 mg tablet 12.5 mg PO BID RF: 0 clopidogrel 75 mg tablet 75 mg PO DAILY RF: 0 morphine 30 mg tablet extended release 30 mg PO TID RF: 0 simvastatin 40 mg tablet 40 mg PO BEDTIME RF: 0 oxycodone 15 mg tablet 15 mg PO Q4H PRN (Reason: Pain) RF: 0 pantoprazole 40 mg tablet,delayed release (DR/EC) 40 mg PO DAILY RF: 0 albuterol sulfate [Ventolin HFA] 90 mcg/actuation HFA aerosol inhaler 2 puff inhalation QID PRN (Reason: Shortness Of Breath Or Wheezing) RF: 0 insulin aspart U-100 [Novolog Flexpen U-100 Insulin] 100 unit/mL (3 mL) insulin pen See Rx Instructions unit .ROUTE .COMPLEX RF: 0 Basaglar KwikPen U-100 Insulin 100 unit/mL (3 mL) insulin pen 40 unit subcut BEDTIME RF: 0 metoclopramide HCl [Reglan] 10 mg tablet 10 mg PO Q8H PRN (Reason: Nausea) RF: 0 aspirin 81 mg Tablet,Delayed Release (Dr/Ec) 81 mg PO DAILY RF: 0 ondansetron 4 mg tablet,disintegrating 4 mg PO Q8H PRN (Reason: nausea and vomiting) Qty: 20 RF: 0 benzonatate 100 mg Capsule 100 mg PO TID Qty: 30 RF: 0 dexamethasone 6 mg tablet 6 mg PO DAILY Qty: 4 RF: 0 Referrals: Ganga Stanford MD [Primary Care Provider] - 2 days (Re-evaluation)
[2021-03-11] MEDS: Albuterol/Iprat 2.5/0.5MG 3 ML AMPUL.NEB INHALE (04:41)
[2021-03-11 04:42] VITALS: PULSE 77; O2SAT 98
--- NOTE | 2021-03-11 06:32 | PC.NURSE ---
Repeat troponin level drawn by JERO Montejo and sent to lab for analysis. Results pending. Vitals have remained stable throughout stay. Will continue to monitor.
[2021-03-11 06:52] LABS: Troponin-I High Sensitivity < 3.5 ng/L (<3.5-35.0)
[2021-03-11 07:28] VITALS: BP 114/65; PULSE 82; RESP 16; TEMP 36.9; O2SAT 97
== END 2021-03-11 07:55 | disposition home or self-care (01) ==
PROVIDERS: Emergency Provider Student in an Organized Health Care Education/Training Program; PCP Internal Medicine
DX: R07.89 Other chest pain (principal); E11.9 Type 2 diabetes mellitus without complications; E78.00 Pure hypercholesterolemia, unspecified; J45.909 Unspecified asthma, uncomplicated; Z86.16 Personal history of COVID-19; Z79.82 Long term (current) use of aspirin; Z79.899 Other long term (current) drug therapy; Z79.4 Long term (current) use of insulin; Z79.02 Long term (current) use of antithrombotics/antiplatelets
CPT/HCPCS: 36415; 71045; 80053; 83880; 84484; 85025; 85610; 93005; 94640; 99284

== ENCOUNTER 2021-05-12 10:40 | Outpatient (REF) | payer MEDICARE, SELFPAY ==
--- NOTE | ~2021-05-12 | CT_ITS ---
EXAMINATION: CT CHEST WITHOUT CONTRAST CLINICAL INFORMATION: Follow-up lung lesion COMPARISON: Previous chest x-rays most recent March [address] scans, most recent chest CTA November 2020 TECHNIQUE: Multidetector volumetric CT imaging of the chest was done. Axial MIP volume rendering provided. Sagittal and coronal reformatted images were obtained. This CT examination was performed using dose optimization techniques as appropriate, variously including the following: *Automated exposure control *Adjustment of mA and/or kV according to patient size (this includes techniques or standardized protocols for targeted exams where dose is matched to indication/reason for exam; i.e. extremities or head) *Use of iterative reconstruction technique DLP: 473 mGy-cm FINDINGS: LUNGS: There is a 2.2 x 3 cm peripheral or subpleural right lower lobe nodule. This is adjacent to an area of pleural thickening and has a peripheral central bronchovascular appearance suggestive of round atelectasis. This is new from oldest exam from 2008. This is in increased in size compared to May 2017 exam but unchanged compared to more recent older exams from December 2019 and November 2020. The lungs are otherwise clear. The previously identified peripheral infiltrates on November 2020 exam have resolved.. MEDIASTINUM: The esophagus is slightly dilated. The proximal and mid thoracic esophagus is air filled. There is question of mild wall thickening of the distal thoracic esophagus. There are small mediastinal lymph nodes that are stable. There are no enlarged lymph nodes. The heart does not appear enlarged. There is no coronary artery calcification. The thoracic aorta is normal in caliber. PLEURA: There is no pleural effusion.. There is mild right pleural thickening adjacent to the right lower lobe. AXILLA: No lymphadenopathy. UPPER ABDOMEN: There is a gastric lap band. There is soft tissue swelling seen surrounding the reservoir that is unchanged. There is an adjacent right ventral hernia containing fat. There is fatty infiltration of the pancreas. The liver is low in attenuation suggestive of fatty infiltration. There is a 3 cm left renal cyst. OSSEOUS STRUCTURES: There are degenerative changes of the spine. CT/CT chest wo con IMPRESSION: Stable right lower lobe nodule from recent CT scans. There is adjacent right pleural thickening and this may represent round atelectasis. Previously identified multifocal peripheral infiltrates November 2020 Result. Gastric lap band. Slightly dilated air-filled proximal and mid thoracic esophagus. Question mild wall thickening of the distal thoracic esophagus.
== END 2021-05-12 10:41 | disposition home or self-care (01) ==
LOC: HO.CT 10:40
PROVIDERS: Visit Provider Internal Medicine
DX: R91.1 Solitary pulmonary nodule (principal)
CPT/HCPCS: 71250

== ENCOUNTER 2021-06-24 16:06 | Emergency (ER) | payer MEDICARE, SELFPAY ==
--- NOTE | 2021-06-24 | ECG_ITS ---
Test Reason : SHORTNESS OF BREATH Blood Pressure : / mmHG Vent. Rate : 083 BPM Atrial Rate : 083 BPM P-R Int : 154 ms QRS Dur : 086 ms QT Int : 360 ms P-R-T Axes : 039 001 026 degrees QTc Int : 423 ms Normal sinus rhythm Low voltage QRS Possible Inferior infarct , age undetermined Cannot rule out Anterior infarct , age undetermined Abnormal ECG When compared with ECG of 11-MAR-2021 02:51, Fusion complexes are no longer Present Premature ventricular complexes are no longer Present Borderline criteria for Inferior infarct are now Present Referred By: Generic ED Physician Electronically Signed By:NITESH PAINTING
--- NOTE | ~2021-06-24 | XR_ITS ---
EXAMINATION: XR CHEST CLINICAL INFORMATION: Shortness of breath. COMPARISON: Most recent CT chest dated 05/12/2021. TECHNIQUE: Frontal view of the chest was obtained. FINDINGS: The lungs are clear. The cardiomediastinal silhouette is normal in size. There is no pleural effusion or pneumothorax. No acute osseous abnormality. XR/XR chest 1V IMPRESSION: No acute cardiopulmonary findings.
[2021-06-24 16:19] VITALS: BP 148/52; PULSE 102; RESP 19; TEMP 36.7; O2SAT 95; BMI 51.5
--- NOTE | 2021-06-24 17:25 | ED_ITS ---
HPI - Chest Pain General Chief Complaint: Chest Pain Stated Complaint: sob,cp Time Seen by Provider: 06/24/21 17:25 Source: patient Mode of arrival: wheelchair Limitations: no limitations History of Present Illness HPI narrative: Patient comes to the emergency room complaining of shortness of breath and chest pain. Patient states that the shortness of breath has been gradually been getting worse with exertion over the last couple of weeks. Patient does not use oxygen at home, uses an inhaler, states that his legs have gradually become more swollen than usual. Patient does not take any diuretics. Patient states that this afternoon patient started having chest pain approximately 6 hours ago, lasted for about 3 hours. Patient took a cold shower and then the pain decreased. Now, states the CP is 11/10 currently. MD complaint: chest pain Related Data Home Medications Medication Instructions Recorded Confirmed albuterol sulfate 90 mcg/actuation 2 puff INHALATION QID PRN 11/20/20 11/20/20 aerosol inhaler (Ventolin HFA) aspirin 81 mg tablet,delayed 81 mg PO DAILY 11/20/20 11/20/20 release carvedilol 12.5 mg tablet 12.5 mg PO BID 11/20/20 11/20/20 clopidogrel 75 mg tablet 75 mg PO DAILY 11/20/20 11/20/20 insulin aspart U-100 100 unit/mL See Rx Instructions .ROUTE .COMPLEX 11/20/20 11/20/20 (3 mL) subcutaneous pen (Novolog Flexpen U-100 Insulin aspart) insulin glargine 100 unit/mL (3 40 unit SUBCUT BEDTIME 11/20/20 11/20/20 mL) subcutaneous pen (Basaglar KwikPen U-100 Insulin) metoclopramide HCl 10 mg tablet 10 mg PO Q8H PRN 11/20/20 11/20/20 (Reglan) morphine 30 mg tablet,extended 30 mg PO TID 11/20/20 11/20/20 release oxycodone 15 mg tablet 15 mg PO Q4H PRN 11/20/20 11/20/20 pantoprazole 40 mg tablet,delayed 40 mg PO DAILY 11/20/20 11/20/20 release simvastatin 40 mg tablet 40 mg PO BEDTIME 11/20/20 11/20/20 Previous Rx's Medication Instructions Recorded ondansetron HCl 4 mg tablet 4 mg PO Q8H PRN #15 tab 11/14/20 (Zofran) ondansetron 4 mg disintegrating 4 mg PO Q8H PRN #20 tab 11/20/20 tablet benzonatate 100 mg capsule 100 mg PO TID #30 cap 11/26/20 dexamethasone 6 mg tablet 6 mg PO DAILY #4 tab 11/26/20 Allergies Allergy/AdvReac Type Severity Reaction Status Date / Time vancomycin [VANCOMYCIN] AdvReac Severe RENAL Verified 06/24/21 16:19 FAILURE, RASH Review of Systems Review of Systems: Constitutional : No Weight loss, No Fever, No Chills, No Night Sweats, No Fatigue, No Malaise ENT/Mouth : No Hearing loss, No Ear Pain, No Nasal Congestion, No Sinus Pain, No Hoarseness, No sore throat, No Rhinorrhea, No Swallowing Difficulty Eyes: No Eye Pain, No Swelling, No Redness, No Foreign Body, No Discharge, No Vision Changes Cardiovascular : Chest pain lasting for about 3 hours, now 11/10, complaining of worsening shortness of breath with exertion, chronic orthopnea, complaining of palpitations , complaining of worsening lower extremity edema Respiratory : No Cough, No Sputum, complaining of wheezing earlier today, resolved with albuterol Gastrointestinal : No Nausea, No Vomiting, No Diarrhea, No Constipation, No abdominal Pain, No Hematochezia, No Melena Genitourinary : no irregular bleeding, No Dysuria, No Urinary Frequency, No Hematuria, No Urinary Incontinence, No Urgency, No Flank Pain, No Urinary Flow Changes, No Hesitancy Musculoskeletal : No joint pain, No Myalgias, No Joint Swelling Skin : No Skin Lesions, No rash Neuro : No Weakness, No Numbness, No Paresthesias, No Loss of Consciousness, No Dizziness, No Headache Psych : No Anxiety/Panic, No Depression, No SI/HI/AH/VH, No Social Issues, Heme/Lymph: No Bruising, No Bleeding,No Lymphadenopathy Endocrine : No Polyuria, No Polydipsia, No Temperature Intolerance [facility] Past Medical History Medical History Asthma Back pain Cardiac arrest COVID-19 Diabetes High cholesterol Obesity Septic shock Sleep apnea Social History Social History Household Members: None Housing: House Do you presently have visiting nurse or other home services: No Alcohol intake: never Advance Directives: No Advance Directives Information Provided: No Physical Exam Vital Signs: Vital Signs: Last Vital Signs Temp 98.0 F 06/24/21 16:19 Pulse 71 06/24/21 19:33 Resp 16 06/24/21 19:33 BP 136/77 06/24/21 19:33 Pulse Ox 99 06/24/21 19:33 Body Mass Index 51.5 Const: Other: Appearance: Alert. Oriented X3. No acute distress. Eyes: Pupils equal, round and reactive to light. ENT: Pharynx normal. Neck: Normal inspection. Neck supple. No lymph nodes noted. No crepitus CVS: Normal heart rate and rhythm. Pulses normal. Normal S1 and S2 Respiratory: No respiratory distress. Breath sounds normal. No Wheezing. No rales Abdomen: Soft and nontender. No rigidity. No distention. good BS x4 Skin: Skin warm and dry. Normal skin color. Normal skin turgor. Extremities: +pitting edema, No Lacerations. No Rash Neuro: Oriented X 3. No motor deficit. No sensory deficit. Moving all extermities. No slurred speech. Course Course Course Narrative: I discussed the labs with the patient, no acute findings. Patient's BNP and troponin negative. Patient was walked around the emergency room, his oxygen saturation remained 97%, patient states that he did not feel short of breath or had palpitations. I discussed with the patient and given that he has increased lower extremity edema, we could start him on a low-dose Lasix. Patient states that he has an appointment with his PCP tomorrow, they c an discuss starting a diuretic tomorrow . MDM - Chest Pain Lab Data Result diagrams: 06/24/21 17:48 06/24/21 17:48 Labs: Lab Results 06/24/21 06/24/21 06/24/21 Range/Units 17:48 17:48 17:48 WBC 11.7 H (4.8-10.8) X10*3/uL RBC 5.32 (4.60-5.80) X10*6/uL Hgb 14.9 (14.0-18.0) g/dl Hct 46.0 (42-52) % MCV 86.5 (80-98) fL MCH 28.0 (27.0-33.0) pg MCHC 32.4 (31.0-36.0) g/dl RDW 14.3 (11.0-16.0) % Plt Count 220 (160-400) X10*3/uL MPV 9.8 (9.4-12.4) fL Immature Gran % (Auto) 0.2 (0.0-0.4) % Neut % (Auto) 60.6 (45-73) % Lymph % (Auto) 29.3 (20-40) % [place] % (Auto) 8.3 (2-11) % Eos % (Auto) 1.4 (0-4) % Baso % (Auto) 0.2 (0-2) % Lymph # (Auto) 3.4 (1.2-4.9) X10*3/uL [place] # (Auto) 1.0 (0.1-1.2) X10*3/uL Eos # (Auto) 0.2 (0.0-0.4) X10*3/uL Baso # (Auto) 0.0 (0.0-0.2) X10*3/uL Abs Immat Gran (auto) 0.02 (0.00-0.03) X10*3/uL Absolute Neuts (auto) 7.1 (2.0-8.3) X10*3/uL Absolute Nucleated RBC 0.000 (0.0-0.012) X10*3/uL Nucleated RBC % (auto) 0.0 (0.0-0.2) /100WBC PT (9.9-13.0) SEC INR (0.9-1.1) Sodium 143 (135-145) mmol/L Potassium 4.3 (3.3-5.1) mmol/L Chloride 106 (96-108) mmol/L Carbon Dioxide 24 (22-29) mmol/L Anion Gap 17 (12-20) BUN 16 (9-16) mg/dL Creatinine 1.03 (0.5-1.4) mg/dL Estim Creat Clear Calc 123.0 Estimated GFR > 60 Random Glucose 181 H (60-115) mg/dL Calcium 9.7 D (8.4-10.2) mg/dL Total Bilirubin 0.6 (0.0-1.0) mg/dL Direct Bilirubin 0.3 (0.0-0.5) mg/dL AST 20 D (5-37) U/L ALT 24 (0-40) U/L Alkaline Phosphatase 113 (39-117) U/L Troponin I High Sens < 3.5 (<3.5-35.0) ng/L B-Natriuretic Peptide (<100) pg/mL Total Protein 7.7 (6.5-8.0) g/dL Albumin 4.0 (3.5-5.0) g/dL 06/24/21 06/24/21 Range/Units 17:48 17:48 WBC (4.8-10.8) X10*3/uL RBC (4.60-5.80) X10*6/uL Hgb (14.0-18.0) g/dl Hct (42-52) % MCV (80-98) fL MCH (27.0-33.0) pg MCHC (31.0-36.0) g/dl RDW (11.0-16.0) % Plt Count (160-400) X10*3/uL MPV (9.4-12.4) fL Immature Gran % (Auto) (0.0-0.4) % Neut % (Auto) (45-73) % Lymph % (Auto) (20-40) % [place] % (Auto) (2-11) % Eos % (Auto) (0-4) % Baso % (Auto) (0-2) % Lymph # (Auto) (1.2-4.9) X10*3/uL [place] # (Auto) (0.1-1.2) X10*3/uL Eos # (Auto) (0.0-0.4) X10*3/uL Baso # (Auto) (0.0-0.2) X10*3/uL Abs Immat Gran (auto) (0.00-0.03) X10*3/uL Absolute Neuts (auto) (2.0-8.3) X10*3/uL Absolute Nucleated RBC (0.0-0.012) X10*3/uL Nucleated RBC % (auto) (0.0-0.2) /100WBC PT 12.4 (9.9-13.0) SEC INR 1.1 (0.9-1.1) Sodium (135-145) mmol/L Potassium (3.3-5.1) mmol/L Chloride (96-108) mmol/L Carbon Dioxide (22-29) mmol/L Anion Gap (12-20) BUN (9-16) mg/dL Creatinine (0.5-1.4) mg/dL Estim Creat Clear Calc Estimated GFR Random Glucose (60-115) mg/dL Calcium (8.4-10.2) mg/dL Total Bilirubin (0.0-1.0) mg/dL Direct Bilirubin (0.0-0.5) mg/dL AST (5-37) U/L ALT (0-40) U/L Alkaline Phosphatase (39-117) U/L Troponin I High Sens (<3.5-35.0) ng/L B-Natriuretic Peptide 23 (<100) pg/mL Total Protein (6.5-8.0) g/dL Albumin (3.5-5.0) g/dL Imaging Data Chest x-ray: Radiologist's impression: The lungs are clear. The cardiomediastinal silhouette is normal in size. There is no pleural effusion or pneumothorax. No acute osseous abnormality. XR/XR chest 1V IMPRESSION: No acute cardiopulmonary findings. ECG Data ECG #1: Attestation: I personally reviewed and interpreted this ECG as follows: (Normal sinus rhythm, heart rate 83, no life enrichment assistant depression alleviation, noted in vision, QTC 423) Discharge Plan Discharge Clinical Impression: Atypical chest pain, Bilateral lower extremity edema Patient Disposition: Home, Self-Care Instructions: Chest Pain (ED), Leg Edema (ED) Prescriptions: No Action ondansetron HCl [Zofran] 4 mg tablet 4 mg PO Q8H PRN (Reason: nausea and vomiting) Qty: 15 RF: 0 carvedilol 12.5 mg tablet 12.5 mg PO BID RF: 0 clopidogrel 75 mg tablet 75 mg PO DAILY RF: 0 morphine 30 mg tablet extended release 30 mg PO TID RF: 0 simvastatin 40 mg tablet 40 mg PO BEDTIME RF: 0 oxycodone 15 mg tablet 15 mg PO Q4H PRN (Reason: Pain) RF: 0 pantoprazole 40 mg tablet,delayed release (DR/EC) 40 mg PO DAILY RF: 0 albuterol sulfate [Ventolin HFA] 90 mcg/actuation HFA aerosol inhaler 2 puff inhalation QID PRN (Reason: Shortness Of Breath Or Wheezing) RF: 0 insulin aspart U-100 [Novolog Flexpen U-100 Insulin] 100 unit/mL (3 mL) insulin pen See Rx Instructions unit .ROUTE .COMPLEX RF: 0 Basaglar KwikPen U-100 Insulin 100 unit/mL (3 mL) insulin pen 40 unit subcut BEDTIME RF: 0 metoclopramide HCl [Reglan] 10 mg tablet 10 mg PO Q8H PRN (Reason: Nausea) RF: 0 aspirin 81 mg Tablet,Delayed Release (Dr/Ec) 81 mg PO DAILY RF: 0 ondansetron 4 mg tablet,disintegrating 4 mg PO Q8H PRN (Reason: nausea and vomiting) Qty: 20 RF: 0 benzonatate 100 mg Capsule 100 mg PO TID Qty: 30 RF: 0 dexamethasone 6 mg tablet 6 mg PO DAILY Qty: 4 RF: 0
[2021-06-24 17:49] VITALS: BP 135/89; PULSE 84; RESP 16; O2SAT 98
[2021-06-24] MEDS: Aspirin Enteric Coated 325 MG TABLET.DR PO (17:49)
[2021-06-24 17:52] LABS: MANUAL DIFF FLAG NO
[2021-06-24 17:56] LABS: Basophils Percent Auto 0.2 % (0-2); Eosinophils Absolute Auto 0.2 X10*3/uL (0.0-0.4); Eosinophils Percent Auto 1.4 % (0-4); Hemoglobin 14.9 g/dl (14.0-18.0); Imm Gran Abs Auto 0.02 X10*3/uL (0.00-0.03); Imm Gran Pct Auto 0.2 % (0.0-0.4); Lymphocytes Absolute Auto 3.4 X10*3/uL (1.2-4.9); Lymphocytes Percent Auto 29.3 % (20-40); Mean Corpuscular HGB Conc 32.4 g/dl (31.0-36.0); Mean Corpuscular Volume 86.5 fL (80-98); Mean Platelet Volume 9.8 fL (9.4-12.4); Monocytes Percent Auto 8.3 % (2-11); Neutrophils Absolute Auto 7.1 X10*3/uL (2.0-8.3); Neutrophils Percent Auto 60.6 % (45-73); Platelet Count 220 X10*3/uL (160-400); Red Blood Count 5.32 X10*6/uL (4.60-5.80); Red Cell Distribution Width 14.3 % (11.0-16.0); White Blood Count 11.7 X10*3/uL (4.8-10.8)
[2021-06-24 17:59] LABS: INTERNATIONAL NORM RATIO 1.1 (0.9-1.1); Prothrombin Time 12.4 SEC (9.9-13.0)
[2021-06-24 18:18] LABS: Alanine Aminotransferase 24 U/L (0-40); Alkaline Phosphatase 113 U/L (39-117); Anion Gap 17 (12-20); Aspartate Amino Transferase 20 U/L (5-37); Bilirubin Direct 0.3 mg/dL (0.0-0.5); Bilirubin Total 0.6 mg/dL (0.0-1.0); Blood Urea Nitrogen 16 mg/dL (9-16); Calcium 9.7 mg/dL (8.4-10.2); Carbon Dioxide 24 mmol/L (22-29); Chloride 106 mmol/L (96-108); Estimated Glomerular Filt Rate > 60; Glucose Random 181 mg/dL (60-115); Potassium 4.3 mmol/L (3.3-5.1); Sodium 143 mmol/L (135-145); Total Protein 7.7 g/dL (6.5-8.0)
[2021-06-24 18:24] LABS: B Type Natriuretic Peptide 23 pg/mL (<100); Troponin-I High Sensitivity < 3.5 ng/L (<3.5-35.0)
[2021-06-24 19:33] VITALS: BP 136/77; PULSE 71; RESP 16; O2SAT 99
== END 2021-06-24 20:20 | disposition home or self-care (01) ==
PROVIDERS: Emergency Provider Emergency Medicine; PCP Internal Medicine
DX: R07.89 Other chest pain (principal); R60.0 Localized edema; R06.02 Shortness of breath; J45.909 Unspecified asthma, uncomplicated; I10 Essential (primary) hypertension; E11.9 Type 2 diabetes mellitus without complications; E78.5 Hyperlipidemia, unspecified; Z79.899 Other long term (current) drug therapy; Z79.82 Long term (current) use of aspirin; Z79.4 Long term (current) use of insulin; Z79.02 Long term (current) use of antithrombotics/antiplatelets
CPT/HCPCS: 36415; 71045; 80048; 80076; 83880; 84484; 85025; 85610; 93005; 99283; 99285

== ENCOUNTER 2021-07-17 03:16 | Inpatient (IN) | payer MEDICARE, SELFPAY ==
[2021-07-17] VITALS (18 sets, daily range): BP systolic 100–140; BP diastolic 50–97; PULSE 81–96; RESP 14–22; TEMP 36.4–37.6; O2SAT 90–100; BMI 53.5; BMI 56.3
--- NOTE | ~2021-07-17 | XR_ITS ---
EXAMINATION: XR CHEST CLINICAL INFORMATION: Chest pain COMPARISON: 06/24/2021 TECHNIQUE: Frontal view of the chest was obtained. FINDINGS: Lung volumes are symmetric. No focal consolidation is seen. No evidence of pneumothorax, pleural effusion, or pulmonary edema. The cardiomediastinal contour is unremarkable. No acute osseous findings are seen. XR/XR chest 1V IMPRESSION: No acute cardiopulmonary findings.
--- NOTE | ~2021-07-17 | CT_ITS ---
EXAMINATION: CT ABDOMEN AND PELVIS WITHOUT CONTRAST CLINICAL INFORMATION: Abdominal wall abscess COMPARISON: 11/21/2020 TECHNIQUE: Multidetector volumetric imaging was performed from the superior aspect of the liver through the pubic symphysis. Sagittal and coronal reformatted images were obtained on the technologist's workstation. This CT examination was performed using dose optimization techniques as appropriate, variously including the following: *Automated exposure control *Adjustment of mA and/or kV according to patient size (this includes techniques or standardized protocols for targeted exams where dose is matched to indication/reason for exam; i.e. extremities or head) *Use of iterative reconstruction technique DLP: 726 mGy-cm FINDINGS: LUNG BASES: Region of rounded opacification in the basilar right lower lobe is redemonstrated, suggestive of rounded atelectasis. LIVER, GALLBLADDER, AND BILIARY TREE: The liver is normal in size, shape, and attenuation. No focal hepatic lesion or biliary ductal dilatation is present. Patient is status post cholecystectomy. PANCREAS: There is partial fatty atrophy of the pancreas. SPLEEN: Unremarkable. ADRENAL GLANDS: Stable left adrenal nodule. Right adrenal gland is unremarkable. KIDNEYS AND URETERS: The kidneys are normal in size, shape, and attenuation. Redemonstrated left upper pole renal cyst. No hydronephrosis, hydroureter, or calculi seen. BLADDER: Unremarkable. GASTROINTESTINAL TRACT: Lap band is present across the proximal stomach. No evidence of bowel obstruction or abnormal wall thickening. Mild sigmoid colon diverticulosis noted. The appendix is unremarkable. No free fluid or free air is seen. ABDOMINAL WALL: Gastric band port in the anterior abdominal wall; adjacent stranding is similar to 11/21/2020. LYMPH NODES: Normal. VASCULAR: Unremarkable. PELVIC VISCERA: Unremarkable. OSSEOUS STRUCTURES: Degenerative changes are noted in the spine. CT/CT abdomen pelvis wo con IMPRESSION: No acute findings identified. Gastric band port in the anterior abdominal wall with adjacent stranding, similar to 11/21/2020. Chronic findings as described above.
--- NOTE | 2021-07-17 03:55 | ED.CHESTPAIN ---
HPI - Chest Pain General Chief Complaint: Chest Pain Stated Complaint: chest pain Time Seen by Provider: 07/17/21 03:55 Source: patient Mode of arrival: ambulatory Limitations: no limitations History of Present Illness HPI narrative: Patient diabetic had a small abscess on abdominal wall status post I&D 3 days ago is getting worse with surrounding erythema and increased pus discharge faul smelling with fever and chills and all body aches on arrival patient temperature 100.9 degrees patient is on dicloxacillin patient was complaining of body aches back pain radiating to the front tiredness falling sleep , patient had gastric band placed 15 years ago and is not functional Related Data Home Medications Medication Instructions Recorded Confirmed albuterol sulfate 90 mcg/actuation 2 puff INHALATION QID PRN 11/20/20 07/01/21 aerosol inhaler (Ventolin HFA) aspirin 81 mg tablet,delayed 81 mg PO DAILY 11/20/20 07/01/21 release carvedilol 12.5 mg tablet 12.5 mg PO BID 11/20/20 07/01/21 clopidogrel 75 mg tablet 75 mg PO DAILY 11/20/20 07/01/21 insulin aspart U-100 100 unit/mL See Rx Instructions .ROUTE .COMPLEX 11/20/20 07/01/21 (3 mL) subcutaneous pen (Novolog Flexpen U-100 Insulin aspart) insulin glargine 100 unit/mL (3 40 unit SUBCUT BEDTIME 11/20/20 07/01/21 mL) subcutaneous pen (Basaglar KwikPen U-100 Insulin) metoclopramide HCl 10 mg tablet 10 mg PO Q8H PRN 11/20/20 07/01/21 (Reglan) morphine 30 mg tablet,extended 30 mg PO TID 11/20/20 07/01/21 release oxycodone 15 mg tablet 15 mg PO Q4H PRN 11/20/20 07/01/21 pantoprazole 40 mg tablet,delayed 40 mg PO DAILY 11/20/20 07/01/21 release simvastatin 40 mg tablet 40 mg PO BEDTIME 11/20/20 07/01/21 Previous Rx's Medication Instructions Recorded ondansetron 4 mg disintegrating 4 mg PO Q8H PRN #20 tab 11/20/20 tablet Allergies Allergy/AdvReac Type Severity Reaction Status Date / Time vancomycin [VANCOMYCIN] AdvReac Severe RENAL Verified 07/01/21 09:29 FAILURE, RASH Review of Systems Review of Systems: Yes all other systems are reviewed and are negative [facility] Past Medical History Medical History Asthma Back pain Cardiac arrest COVID-19 COVID-19 vaccine series completed Diabetes GERD (gastroesophageal reflux disease) High cholesterol HTN (hypertension) Hx of deep venous thrombosis Hx of hyperlipidemia Leg swelling Myocardial infarct, old Obesity Septic shock Sleep apnea Surgical History History of ankle surgery History of esophagogastroduodenoscopy (EGD) History of umbilical hernia repair Hx of cholecystectomy Hx of colonoscopy Personal history of gastric banding Social History Social History Household Members: None Housing: House Are you a primary behavioral health care coordinator to a significant other at home: No Do you presently have visiting nurse or other home services: No Alcohol intake: never Patient Tobacco Use Status: Never used Tobacco Use of substances other than those prescribed or required for medical reasons: No Advance Directives: Yes Advance Directives Information Provided: Yes Advance Directives on File: Yes Advance Directives Date on File: 11/20/20 Physical Exam Vital Signs: Vital Signs: Last Vital Signs Temp 99.2 F 07/17/21 05:31 Pulse 94 07/17/21 05:36 Resp 20 07/17/21 05:36 BP 124/97 H 07/17/21 05:36 Pulse Ox 95 07/17/21 05:15 Body Mass Index 53.5 Const: General: comfortable and no acute distress Orientation/consciousness: patient oriented x3 HENMT: Head: Yes normocephalic and Yes atraumatic Eyes: General: appearance normal, both eyes and all related structures Resp: Effort & Inspection: normal respiratory effort Auscultation: clear to auscultation bilaterally Cardio: Jugular venous distension: no JVD Palpation: normal PMI Rate: regular rate Rhythm: regular rhythm Heart sounds: S1 normal heart sound present and S2 normal heart sound present GI: Palpation (GI): Soft to palpation Auscultation: normal bowel sounds Abdomen image: 1. Abscess status post I&D with purulent discharge surrounding erythema Gastric band port intact and nontender : General: Yes no CVA tenderness Back/Spine/Pelvis: Back: no CVA tenderness Skin: General skin exam: erythema (Abdominal wall) Neuro: General: patient oriented x3 and gait normal MDM - Chest Pain MDM Narrative Medical decision making narrative: Patient's abdominal wall cellulitis with open wound no fluid collection patient has a gastric band placed ( >15 yrs )long time ago and port is adjacent to inflammatory area case discussed with Dr. Huff advised admit to medical service medical treatment at this time. Called [facility] also not accepting any stable transfer. Will admit to medical service Medical Records Data Attestation: I reviewed the patient's medical records. Lab Data Attestation: I reviewed the patient's lab results. Result diagrams: 07/17/21 04:21 07/17/21 04:21 Labs: Lab Results 07/17/21 07/17/21 07/17/21 Range/Units 04:11 04:21 04:21 WBC 14.9 H (4.8-10.8) X10*3/uL RBC 4.86 (4.60-5.80) X10*6/uL Hgb 13.7 L (14.0-18.0) g/dl Hct 42.4 (42-52) % MCV 87.2 (80-98) fL MCH 28.2 (27.0-33.0) pg MCHC 32.3 (31.0-36.0) g/dl RDW 14.1 (11.0-16.0) % Plt Count 196 (160-400) X10*3/uL MPV 9.7 (9.4-12.4) fL Immature Gran % (Auto) 0.3 (0.0-0.4) % Neut % (Auto) 82.3 H (45-73) % Lymph % (Auto) 11.3 L (20-40) % [place] % (Auto) 5.6 (2-11) % Eos % (Auto) 0.2 (0-4) % Baso % (Auto) 0.3 (0-2) % Lymph # (Auto) 1.7 (1.2-4.9) X10*3/uL [place] # (Auto) 0.8 (0.1-1.2) X10*3/uL Eos # (Auto) 0.0 (0.0-0.4) X10*3/uL Baso # (Auto) 0.0 (0.0-0.2) X10*3/uL Abs Immat Gran (auto) 0.05 H (0.00-0.03) X10*3/uL Absolute Neuts (auto) 12.3 H (2.0-8.3) X10*3/uL Absolute Nucleated RBC 0.000 (0.0-0.012) X10*3/uL Nucleated RBC % (auto) 0.0 (0.0-0.2) /100WBC Sodium 139 (135-145) mmol/L Potassium 4.2 (3.3-5.1) mmol/L Chloride 105 (96-108) mmol/L Carbon Dioxide 27 (22-29) mmol/L Anion Gap 11 L (12-20) BUN 17 H (9-16) mg/dL Creatinine 1.07 (0.5-1.4) mg/dL Estim Creat Clear Calc 121.2 Estimated GFR > 60 Random Glucose 254 H D (60-115) mg/dL Lactic Acid (0.5-2.0) mmol/L Calcium 8.7 D (8.4-10.2) mg/dL Total Bilirubin 0.8 (0.0-1.0) mg/dL Direct Bilirubin 0.3 (0.0-0.5) mg/dL AST 13 (5-37) U/L ALT 19 (0-40) U/L Alkaline Phosphatase 100 (39-117) U/L Troponin I High Sens (<3.5-35.0) ng/L Total Protein 6.5 (6.5-8.0) g/dL Albumin 3.6 (3.5-5.0) g/dL COVID-19 ([facility]) Negative (Negative) COVID-19 Clin Com See Note 07/17/21 07/17/21 Range/Units 04:21 04:21 WBC (4.8-10.8) X10*3/uL RBC (4.60-5.80) X10*6/uL Hgb (14.0-18.0) g/dl Hct (42-52) % MCV (80-98) fL MCH (27.0-33.0) pg MCHC (31.0-36.0) g/dl RDW (11.0-16.0) % Plt Count (160-400) X10*3/uL MPV (9.4-12.4) fL Immature Gran % (Auto) (0.0-0.4) % Neut % (Auto) (45-73) % Lymph % (Auto) (20-40) % [place] % (Auto) (2-11) % Eos % (Auto) (0-4) % Baso % (Auto) (0-2) % Lymph # (Auto) (1.2-4.9) X10*3/uL [place] # (Auto) (0.1-1.2) X10*3/uL Eos # (Auto) (0.0-0.4) X10*3/uL Baso # (Auto) (0.0-0.2) X10*3/uL Abs Immat Gran (auto) (0.00-0.03) X10*3/uL Absolute Neuts (auto) (2.0-8.3) X10*3/uL Absolute Nucleated RBC (0.0-0.012) X10*3/uL Nucleated RBC % (auto) (0.0-0.2) /100WBC Sodium (135-145) mmol/L Potassium (3.3-5.1) mmol/L Chloride (96-108) mmol/L Carbon Dioxide (22-29) mmol/L Anion Gap (12-20) BUN (9-16) mg/dL Creatinine (0.5-1.4) mg/dL Estim Creat Clear Calc Estimated GFR Random Glucose (60-115) mg/dL Lactic Acid 1.2 (0.5-2.0) mmol/L Calcium (8.4-10.2) mg/dL Total Bilirubin (0.0-1.0) mg/dL Direct Bilirubin (0.0-0.5) mg/dL AST (5-37) U/L ALT (0-40) U/L Alkaline Phosphatase (39-117) U/L Troponin I High Sens < 3.5 (<3.5-35.0) ng/L Total Protein (6.5-8.0) g/dL Albumin (3.5-5.0) g/dL COVID-19 ([facility]) (Negative) COVID-19 Clin Com Imaging Data CT scan - abdomen: Radiologist's impression: [address] [address] [address] Scan Report Signed Patient: Mason Martin SR MR#: [id number] : 1960 Acct:[id number] Age/Sex: 60 / M ADM Date: 07/17/21 Loc: HO.ED Attending Dr: Ordering Physician: Josr Chandler MD Date of Service: 07/17/21 Procedure(s): CT abdomen pelvis wo con Accession Number(s): [id number] cc: Josr Chandler MD~ EXAMINATION: CT ABDOMEN AND PELVIS WITHOUT CONTRAST? CLINICAL INFORMATION: Abdominal wall abscess? COMPARISON: 11/21/2020? TECHNIQUE: Multidetector volumetric imaging was performed from the superior aspect of the liver through the pubic symphysis. Sagittal and coronal reformatted images were obtained on the technologist's workstation.? This CT examination was performed using dose optimization techniques as appropriate, variously including the following: *Automated exposure control *Adjustment of mA and/or kV according to patient size (this includes techniques or standardized protocols for targeted exams where dose is matched to indication/reason for exam; i.e. extremities or head) *Use of iterative reconstruction technique DLP: 726 mGy-cm FINDINGS: LUNG BASES: Region of rounded opacification in the basilar right lower lobe is redemonstrated, suggestive of rounded atelectasis.? LIVER, GALLBLADDER, AND BILIARY TREE: The liver is normal in size, shape, and attenuation. No focal hepatic lesion or biliary ductal dilatation is present. Patient is status post cholecystectomy.? PANCREAS: There is partial fatty atrophy of the pancreas.? SPLEEN: Unremarkable.? ADRENAL GLANDS: Stable left adrenal nodule. Right adrenal gland is unremarkable.? KIDNEYS AND URETERS: The kidneys are normal in size, shape, and attenuation. Redemonstrated left upper pole renal cyst. No hydronephrosis, hydroureter, or calculi seen. BLADDER: Unremarkable.? GASTROINTESTINAL TRACT: Lap band is present across the proximal stomach. No evidence of bowel obstruction or abnormal wall thickening. Mild sigmoid colon diverticulosis noted. The appendix is unremarkable. No free fluid or free air is seen.? ABDOMINAL WALL: Gastric band port in the anterior abdominal wall; adjacent stranding is similar to 11/21/2020.? LYMPH NODES: Normal. VASCULAR: Unremarkable. PELVIC VISCERA: Unremarkable.? OSSEOUS STRUCTURES: Degenerative changes are noted in the spine.? CT/CT abdomen pelvis wo con IMPRESSION: No acute findings identified. Gastric band port in the anterior abdominal wall with adjacent stranding, similar to 11/21/2020. Chronic findings as described above. Dictated By: NY HAYNES MD Signed By: <Electronically signed by NY HAYNES MD in OV> 07/17/21 0636 Discharge Plan Discharge Clinical Impression: Cellulitis Qualifiers: Site of cellulitis: trunk Site of cellulitis of trunk: abdominal wall Qualified Code(s): L03.311 - Cellulitis of abdominal wall Patient Disposition: Admitted As Inpatient
--- NOTE | 2021-07-17 04:04 | ECG_ITS ---
Test Reason : CP Blood Pressure : / mmHG Vent. Rate : 089 BPM Atrial Rate : 089 BPM P-R Int : 154 ms QRS Dur : 084 ms QT Int : 338 ms P-R-T Axes : 050 007 039 degrees QTc Int : 411 ms Normal sinus rhythm Low voltage QRS Abnormal ECG When compared with ECG of 24-JUN-2021 16:31, No significant change was found Referred By: Josr Chandler Electronically Signed By:NITESH PAINTING
[2021-07-17] MEDS: 0.9 % Sodium Chloride 1,000 ML 999 ML IVCONT ×2 (04:25)
[2021-07-17 04:28] LABS: Basophils Percent Auto 0.3 % (0-2); Eosinophils Percent Auto 0.2 % (0-4); Hematocrit 42.4 % (42-52); Hemoglobin 13.7 g/dl (14.0-18.0); Imm Gran Abs Auto 0.05 X10*3/uL (0.00-0.03); Imm Gran Pct Auto 0.3 % (0.0-0.4); Lymphocytes Absolute Auto 1.7 X10*3/uL (1.2-4.9); Lymphocytes Percent Auto 11.3 % (20-40); Mean Corpuscular HGB Conc 32.3 g/dl (31.0-36.0); Mean Corpuscular Hemoglobin 28.2 pg (27.0-33.0); Mean Corpuscular Volume 87.2 fL (80-98); Mean Platelet Volume 9.7 fL (9.4-12.4); Monocytes Absolute Auto 0.8 X10*3/uL (0.1-1.2); Monocytes Percent Auto 5.6 % (2-11); Neutrophils Absolute Auto 12.3 X10*3/uL (2.0-8.3); Neutrophils Percent Auto 82.3 % (45-73); Platelet Count 196 X10*3/uL (160-400); Red Blood Count 4.86 X10*6/uL (4.60-5.80); Red Cell Distribution Width 14.1 % (11.0-16.0); White Blood Count 14.9 X10*3/uL (4.8-10.8)
[2021-07-17 04:29] LABS: MANUAL DIFF FLAG NO
[2021-07-17] MEDS: Piperacillin Sodium/Tazobactam 4.5 GM in 0.9 % Sodium Chloride 100 ML IV ×4 (04:29→23:52)
[2021-07-17 04:39] LABS: Lactic Acid 1.2 mmol/L (0.5-2.0)
[2021-07-17 04:44] LABS: Alanine Aminotransferase 19 U/L (0-40); Albumin Level 3.6 g/dL (3.5-5.0); Alkaline Phosphatase 100 U/L (39-117); Anion Gap 11 (12-20); Aspartate Amino Transferase 13 U/L (5-37); Bilirubin Direct 0.3 mg/dL (0.0-0.5); Bilirubin Total 0.8 mg/dL (0.0-1.0); Blood Urea Nitrogen 17 mg/dL (9-16); Calcium 8.7 mg/dL (8.4-10.2); Carbon Dioxide 27 mmol/L (22-29); Chloride 105 mmol/L (96-108); Creatinine Clr Calc Pharmacy 121.2; Estimated Glomerular Filt Rate > 60; Glucose Random 254 mg/dL (60-115); Potassium 4.2 mmol/L (3.3-5.1); Sodium 139 mmol/L (135-145); Total Protein 6.5 g/dL (6.5-8.0)
[2021-07-17 04:44] LABS: COVID-19 Test Negative (Negative); IDNOW Serial# 9DD0AD1C
[2021-07-17] MEDS: Acetaminophen 325 MG TABLET 650 MG PO (04:48)
[2021-07-17 04:49] LABS: Troponin-I High Sensitivity < 3.5 ng/L (<3.5-35.0)
--- NOTE | 2021-07-17 04:58 | PC.NURSE ---
pt a&o, denies any sob or chest pain at this time. pt has low grade temperature. IV placed, labs drawn and sent. Pt is placed on the monitor. Provider is aware. Medicated per MAR
--- NOTE | 2021-07-17 05:30 | PC.NURSE ---
Pt is sleeping medication per Mar.
--- NOTE | 2021-07-17 07:02 | PC.NURSE ---
Assumed care of patient. Pt is resting comfortably at this time and does not appear to be in any distress. pt has NS and vanco infusing. IV pump continually giving downstream occlusion error. IV repositioned and secured with noted improvement. Pt remains on continuous cardiac monitoring. Pt is waiting for bed assignment.
[2021-07-17] MEDS: HYDROmorphone HCl 1 MG/ML SYRINGE IVPUSH (07:48)
[2021-07-17 07:52] LABS: Glucose, Whole Blood 148 mg/dL (60-115)
--- NOTE | 2021-07-17 10:39 | PHA.MEDREC ---
Pharmacy Consult ? Medication Reconciliation Pharmacy has completed the medication reconciliation. Patient states that he takes an over the counter iron tablet, He wasn't sure about the dosage. Lizette Pool, PharmD [phone]
--- NOTE | 2021-07-17 10:52 | PM.IMHP ---
History of Present Illness Date of Service: 07/17/21 Chief Complaint: Fever chills 60-year-old gentleman, with past medical history significant for obstructive sleep apnea on CPAP, history of diabetes, obesity status post gastric band procedure 15 years ago, noted to have redness and swelling on anterior abdominal wall associated with fever chills, his primary care physician Dr. Stanford ordered antibiotics, later on he noted a small opening in the middle of redness therefore was seen by General surgery and underwent I&D 3 days ago, but since last night at 20:00 he started with fever chills headache and generalized body ache therefore came to emergency room for further evaluation where he was noted to be febrile T-max 100.9 degrees, CT abdomen and pelvis showed no abdominal wall thickening, no acute findings were noted, patient gastric band port in the anterior abdominal wall with adjust since surrounding was noted that has been unchanged since November 2020 that seems to be a chronic finding, patient treated with IV vancomycin and Zosyn and now being admitted to medical floor, ED physician discussed case with Dr. Huff he advised admit to medical service for medical treatment at this time.ED called [facility] they are not accepting any stable transfer.? Review of Systems Review of Systems: General no headache no dizziness no fever chills. CVS no chest pain, no palpitation. Respiratory no cough no sputum production, no respiratory distress. Gastrointestinal no nausea no vomiting, no abdominal pain Musculoskeletal chronic back pain on narcotic Skin no redness other than mentioned above. Yes all other systems are reviewed and are negative [facility] Medical History Asthma Back pain Cardiac arrest COVID-19 COVID-19 vaccine series completed Diabetes GERD (gastroesophageal reflux disease) High cholesterol HTN (hypertension) Hx of deep venous thrombosis Hx of hyperlipidemia Leg swelling Myocardial infarct, old Obesity Septic shock Sleep apnea Pertinent family history: Father due to metastatic bone disease question primary Mother and sister have diabetes mellitus One brother of lung cancer Surgical History History of ankle surgery History of esophagogastroduodenoscopy (EGD) History of umbilical hernia repair Hx of cholecystectomy Hx of colonoscopy Personal history of gastric banding Social History Household Members: None Housing: House Are you a primary care director rn to a significant other at home: No Do you presently have visiting nurse or other home services: No Alcohol intake: never Patient Tobacco Use Status: Never used Tobacco Use of substances other than those prescribed or required for medical reasons: No Advance Directives: Yes Advance Directives Information Provided: Yes Advance Directives on File: Yes Advance Directives Date on File: 11/20/20 Meds Allergies Allergy/AdvReac Type Severity Reaction Status Date / Time vancomycin [VANCOMYCIN] AdvReac Severe RENAL Verified 07/01/21 09:29 FAILURE, RASH Active Medications: Current Medications Generic Name Dose Route Start Last Admin Trade Name Freq PRN Reason Stop Dose Admin Acetaminophen 650 mg 07/17/21 10:42 Acetaminophen 325 Mg Tablet PO Q6H PRN Pain, Mild (Pain Scale 1-3) Albuterol Sulfate 2 puff 07/17/21 10:48 Albuterol Sulfate 90 Mcg 8 Gm Inhaler INHALE QID PRN Shortness Of Breath Or Wheezing Aspirin 81 mg 07/18/21 09:00 Aspirin Enteric Coated 81 Mg Tablet.Dr PO DAILY [facility] Atorvastatin Calcium 20 mg 07/17/21 21:00 Atorvastatin Calcium 20 Mg Tablet PO BEDTIME [facility] Carvedilol 12.5 mg 07/17/21 21:00 Carvedilol 12.5 Mg Tablet PO BID [facility] Protocol Dextrose 25 gm 07/17/21 10:49 Dextrose 50 % 25 Gm/50 Ml Vial IVPUSH Q15M PRN per Hypoglycemia Standing Ord. Protocol Glucose 15 gm 07/17/21 10:49 Glucose Gel 15 Gm Gel..Gram. PO Q15M PRN per Hypoglycemia Standing Ord. Protocol Piperacillin Sod/Tazobactam 50 mls @ 100 mls/hr 07/17/21 10:45 Sod 3.375 gm/ Sodium Chloride IV Q6H [facility] Vancomycin HCl 1,250 mg/ 250 mls @ 166.667 mls/hr 07/17/21 10:45 Sodium Chloride IV Q8H [facility] Insulin Human Lispro 0 unit 07/17/21 11:30 Insulin Lispro 100 Unit/Ml 3 Ml Vial SUBCUT QIDACHS [facility] Protocol Magnesium Hydroxide 30 ml 07/17/21 10:42 Milk Of Magnesia 30 Ml Oral.Susp PO DAILY PRN Constipation Melatonin 6 mg 07/17/21 10:42 Melatonin 3 Mg Tablet PO BEDTIME PRN Insomnia Morphine Sulfate 30 mg 07/17/21 15:00 Morphine Sulfate Er 30 Mg Tablet.Er PO TID [facility] Omeprazole 40 mg 07/17/21 16:30 Omeprazole 40 Mg Capsule.Dr PO BID@0630,7070 [facility] Ondansetron HCl 4 mg 07/17/21 10:42 Ondansetron Hcl 4 Mg/2 Ml Vial IVPUSH Q8H PRN Nausea and Vomiting Oxycodone HCl 15 mg 07/17/21 10:48 Oxycodone Hcl Immed Release 15 Mg Tablet PO Q4H PRN Pain Pharmacy Consult 1 each 07/17/21 04:05 Consult Rx Vancomycin Dosing MISCELLANE DAILY PRN Consult order Pharmacy Consult 1 each 07/17/21 10:19 Consult Rx Perform Med Rec MISCELLANE ONCE PRN Consult order Pharmacy Consult 1 each 07/17/21 10:42 Consult Rx Vancomycin Dosing MISCELLANE DAILY PRN Consult order Senna 17.2 mg 07/17/21 10:48 Sennosides 8.6 Mg Tablet PO BID PRN Constipation Sodium Chloride 3 ml 07/17/21 16:00 0.9 % Sodium Chloride Flush 3 Ml Syringe IVFLUSH QSHIFT [facility] Home Medications Medication Instructions Recorded Confirmed Last Taken Type albuterol sulfate 90 mcg/actuation 2 puff INHALATION QID PRN 11/20/20 07/17/21 07/17/21 History aerosol inhaler (Ventolin HFA) aspirin 81 mg tablet,delayed 81 mg PO DAILY 11/20/20 07/17/21 07/16/21 History release carvedilol 12.5 mg tablet 12.5 mg PO BID 11/20/20 07/17/21 07/16/21 History clopidogrel 75 mg tablet 75 mg PO DAILY 11/20/20 07/17/21 07/16/21 History insulin aspart U-100 100 unit/mL See Rx Instructions .ROUTE .COMPLEX 11/20/20 07/17/21 07/16/21 History (3 mL) subcutaneous pen (Novolog Flexpen U-100 Insulin aspart) insulin glargine 100 unit/mL (3 40 unit SUBCUT BEDTIME 11/20/20 07/17/21 07/16/21 History mL) subcutaneous pen (Basaglar KwikPen U-100 Insulin) morphine 30 mg tablet,extended 30 mg PO TID 11/20/20 07/17/21 07/16/21 History release oxycodone 15 mg tablet 15 mg PO Q4H PRN 11/20/20 07/17/21 07/16/21 History pantoprazole 40 mg tablet,delayed 40 mg PO BID 11/20/20 07/17/21 07/16/21 History release simvastatin 40 mg tablet 40 mg PO BEDTIME 11/20/20 07/17/21 07/16/21 History ferrous sulfate 325 mg (65 mg 325 mg PO DAILY 07/17/21 07/17/21 07/16/21 History iron) tablet (Iron (ferrous sulfate)) sennosides 8.6 mg tablet (senna) 17.2 mg PO BID PRN 07/17/21 07/17/21 07/16/21 History Physical Exam Vital Signs and Narrative: Vital Signs: Last Vital Signs Temp 98.9 F 07/17/21 07:47 Pulse 94 07/17/21 10:16 Resp 18 07/17/21 10:16 BP 127/85 07/17/21 10:16 Pulse Ox 95 07/17/21 10:16 Body Mass Index 53.5 General resting comfortably in no acute distress. Neck supple no JVD. CVS regular rate rhythm Respiratory lungs clear to auscultation, no respiratory distress, no wheeze, no rhonchi. Gastrointestinal abdomen obese, small pea size opening with mild surrounding erythema, no fluctuation, no drainage, no induration, bowel sounds audible, no guarding , no rigidity. Extremities chronic edema and skin discoloration due to chronic venous stasis Neuro nonfocal, speech clear. Skin no rash Psych appropriate affect Results Labs CBC and Chem 7: 07/17/21 04:21 07/17/21 04:21 Labs: Laboratory Results - last 24 hr 07/17/21 07/17/21 07/17/21 04:11 04:21 04:21 MCV 87.2 MCH 28.2 MCHC 32.3 RDW 14.1 Plt Count 196 MPV 9.7 Immature Gran % (Auto) 0.3 Neut % (Auto) 82.3 H Lymph % (Auto) 11.3 L [place] % (Auto) 5.6 Eos % (Auto) 0.2 Baso % (Auto) 0.3 Lymph # (Auto) 1.7 [place] # (Auto) 0.8 Eos # (Auto) 0.0 Baso # (Auto) 0.0 Abs Immat Gran (auto) 0.05 H Absolute Neuts (auto) 12.3 H Absolute Nucleated RBC 0.000 Nucleated RBC % (auto) 0.0 Anion Gap 11 L Estim Creat Clear Calc 121.2 Estimated GFR > 60 POC Glucose Random Glucose 254 H D Lactic Acid Calcium 8.7 D Total Bilirubin 0.8 Direct Bilirubin 0.3 AST 13 ALT 19 Alkaline Phosphatase 100 Troponin I High Sens Total Protein 6.5 Albumin 3.6 COVID-19 ([facility]) Negative COVID-19 Clin Com See Note 07/17/21 07/17/21 07/17/21 04:21 04:21 07:40 MCV MCH MCHC RDW Plt Count MPV Immature Gran % (Auto) Neut % (Auto) Lymph % (Auto) [place] % (Auto) Eos % (Auto) Baso % (Auto) Lymph # (Auto) [place] # (Auto) Eos # (Auto) Baso # (Auto) Abs Immat Gran (auto) Absolute Neuts (auto) Absolute Nucleated RBC Nucleated RBC % (auto) Anion Gap Estim Creat Clear Calc Estimated GFR POC Glucose 148 H Random Glucose Lactic Acid 1.2 Calcium Total Bilirubin Direct Bilirubin AST ALT Alkaline Phosphatase Troponin I High Sens < 3.5 Total Protein Albumin COVID-19 ([facility]) COVID-19 Clin Com Imaging Radiologist's Impressions: Impressions Abdomen/Pelvis CT 07/17/21 04:04 IMPRESSION: No acute findings identified. Gastric band port in the anterior abdominal wall with adjacent stranding, similar to 11/21/2020. Chronic findings as described above. Chest X-Ray 07/17/21 04:04 IMPRESSION: No acute cardiopulmonary findings. Assessment and Plan (1) Abdominal wall cellulitis: Status: Acute (2) Sepsis: Status: Acute 60-year-old gentleman presented to [facility] due to fever chills generalized body ache, after being recently diagnosed to have small abscess with surrounding cellulitis of anterior abdominal wall is status post I and D and on by mouth dicloxacillin Abdominal wall abscess,cellulitis/sepsis Patient failed outpatient antibiotic treatment, meet sepsis criteria since noted to have low-grade fever, leukocytosis and tachycardia, normal lactic acid Patient prior gastric banding port close to abscess, CT abdomen showed no acute finding. Will place patient on IV vancomycin and Zosyn. Follow blood cultures, BMP and CBC. Obtain ID and surgery consult. Diabetes mellitus Stable blood sugars, placed on diabetic diet insulin sliding scale, will reduce dose of Lantus from 40-25 Morbid obesity Ordered low-calorie diets long we recommend to lose weight Obstructive sleep apnea will continue CPAP not on home oxygen Asthma stable continue home inhalers Status post cardiac arrest Continue home medications beta-sam aspirin and Plavix DVT prophylaxis compression boots Code status full code Quality Stroke Does the patient have a stroke diagnosis?: No VTE Prior VTE?: No VTE Risk Level:: Medical - moderate - high VTE Device Contraindication: N/A - Device Ordered VTE Drug Contraindication: Treatment Not Indicated
--- NOTE | 2021-07-17 11:02 | PHA.PROG ---
Admission Date/Time: Indication: CELLULITIS Weight in k.169 kg Adjusted body weight in K KG [place] body weight in K.6 KG Obesity Dosing Indication % IBW: Serum Creatinine - Last 168 Hours 07/17/21 04:21 Creatinine 1.07 Estimated CrCl and GFR - Last 168 Hours 07/17/21 04:21 Estim Creat Clear Calc 121.2 Estimated GFR > 60 Vancomycin Loading Dose: 2000 MG Current Vancomycin Dosing Regimen: 1000 MG Q12H Vancomycin Monitoring using AUC goal of 400 - 600 range with trough as surrogate marker: PREDICTED AUC 446, TROUGH 12.3 Date and Time for next Vancomycin Level to be drawn: 07/18/21 @1500 Pharmacist Comments on Vancomycin Plan: USED OBESE MODEL IN [employer]. MONITOR CR AND VANCO TROUGH. Vancomycin dosing will take advantage of [employer] [facility] as a clinical decision support tool that uses Bayesian modeling to calculate individual patient's pharmacokinetic parameters and forecast the patient's drug concentration time course with the target goal AUC 24 range of 400 - 600 mg/L/hr.
[2021-07-17] MEDS: oxyCODONE HCl Immed Release 15 MG TABLET PO (12:05)
[2021-07-17 13:33] LABS: Glucose, Whole Blood 192 mg/dL (60-115)
--- NOTE | 2021-07-17 14:34 | P.CONCA_ITS ---
History of Present Illness History of Present Illness Date of Service: 07/17/21 Requesting physician: Shelia Sena Consult reason: pre-op evaluation Chief complaint: cellulitis/sepsis Narrative: Seen at 1415. Mason is a 60 yo male with PMH of morbid obesity, HTN, HLD, DM, EPI with CPAP use, DVT 1992 and on Plavix, gastric band 2005 that is n onfunctional. He believes he may have had an OH back in 2016 when he was admitted here for sepsis and had respiratory arrest however records reviewed and no Hx of OH was identified in labs. He presented [place] [facility] [place] for chills, body aches, subjective fever. He described having and I+D of small abdominal wall abcess 3 days ago and still has an open wound with redness and drainage. CT scan of abdomen showed no acute findings. CXR was normal. EKG shows NSR, no acute ST/ T wave abn, rate 89. Troponin was normal. He did meet criteria for sepsis with elevated temperature, Leukocytosis, tachycardia, normal lactic acid. He has been started on IV antibiotics. Surgery has evaluated him and plans to do upper endoscopy with gastric band removal on him later today. Today he is observed sitting on stretcher in ED. He denies chills or feeling feverish at present. He has some generalized aches. He describes having some Left upper chest aching last evening which he relates the herniated discs in his neck that radiate pain down the side of his neck and into upper chest at times. He only notices this discomfort at rest. He has no exertional CPs. He will get sob with activity, which is not new and is unchanged in the last year. No palpitations, dizziness, presyncope, syncope, PND, orthopnea. He has chronic swelling in his lower legs and wears compression stockings daily. He reports nightly compliance with his CPAP mask. 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 Able to climb the 6 stairs into his house with report of knee pains from arthritis. He does not have to climb stairs otherwise. No routine exercise in last 1.5 years. Takes all meds as directed. Review of Systems Review of Systems: as above Yes all other systems are reviewed and are negative PMFSH Past Medical History Medical History Asthma Back pain Cardiac arrest COVID-19 COVID-19 vaccine series completed Diabetes GERD (gastroesophageal reflux disease) High cholesterol HTN (hypertension) Hx of deep venous thrombosis Hx of hyperlipidemia Leg swelling Myocardial infarct, old Obesity Septic shock Sleep apnea Family History Pertinent family history: No known family hx of OH/ CAD ( parents or siblings) Surgical History Surgical History History of ankle surgery History of esophagogastroduodenoscopy (EGD) History of umbilical hernia repair Hx of cholecystectomy Hx of colonoscopy Personal history of gastric banding Social History Social History Household Members: None Housing: House Are you a primary nanny caregiver to a significant other at home: No Do you presently have visiting nurse or other home services: No Alcohol intake: never Patient Tobacco Use Status: Never used Tobacco Use of substances other than those prescribed or required for medical reasons: No Advance Directives: Yes Advance Directives Information Provided: Yes Advance Directives on File: Yes Advance Directives Date on File: 11/20/20 Meds Allergies Allergy/AdvReac Type Severity Reaction Status Date / Time vancomycin [VANCOMYCIN] AdvReac Severe RENAL Verified 07/01/21 09:29 FAILURE, RASH Active Medications: Current Medications Generic Name Dose Route Start Last Admin Trade Name Freq PRN Reason Stop Dose Admin Acetaminophen 650 mg 07/17/21 10:42 Acetaminophen 325 Mg Tablet PO Q6H PRN Pain, Mild (Pain Scale 1-3) Albuterol Sulfate 2 puff 07/17/21 10:48 Albuterol Sulfate 90 Mcg 8 Gm Inhaler INHALE QID PRN Shortness Of Breath Or Wheezing Aspirin 81 mg 07/18/21 09:00 Aspirin Enteric Coated 81 Mg Tablet.Dr PO DAILY [facility] Atorvastatin Calcium 20 mg 07/17/21 21:00 Atorvastatin Calcium 20 Mg Tablet PO BEDTIME [facility] Carvedilol 12.5 mg 07/17/21 21:00 Carvedilol 12.5 Mg Tablet PO BID [facility] Protocol Dextrose 25 gm 07/17/21 10:49 Dextrose 50 % 25 Gm/50 Ml Vial IVPUSH Q15M PRN per Hypoglycemia Standing Ord. Protocol Glucose 15 gm 07/17/21 10:49 Glucose Gel 15 Gm Gel..Gram. PO Q15M PRN per Hypoglycemia Standing Ord. Protocol Vancomycin HCl 1,000 mg/ 270 mls @ 270 mls/hr 07/17/21 16:00 Sodium Chloride IV Q12H [facility] Piperacillin Sod/Tazobactam 100 mls @ 200 mls/hr 07/17/21 11:30 07/17/21 12:45 Sod 4.5 gm/ Sodium Chloride IV Infused Q6H [facility] Infusion Insulin Glargine 25 unit 07/17/21 21:00 Insulin Glargine,Hum.Rec.Anlog 100 Unit/Ml 10 Ml Vial SUBCUT BEDTIME [facility] Insulin Human Lispro 0 unit 07/17/21 11:30 07/17/21 14:02 Insulin Lispro 100 Unit/Ml 3 Ml Vial SUBCUT Not Given QIDACHS [facility] Protocol Magnesium Hydroxide 30 ml 07/17/21 10:42 Milk Of Magnesia 30 Ml Oral.Susp PO DAILY PRN Constipation Melatonin 6 mg 07/17/21 10:42 Melatonin 3 Mg Tablet PO BEDTIME PRN Insomnia Morphine Sulfate 30 mg 07/17/21 15:00 Morphine Sulfate Er 30 Mg Tablet.Er PO TID [facility] Omeprazole 40 mg 07/17/21 16:30 Omeprazole 40 Mg Capsule.Dr PO BID@0630,1630 [facility] Ondansetron HCl 4 mg 07/17/21 10:42 Ondansetron Hcl 4 Mg/2 Ml Vial IVPUSH Q8H PRN Nausea and Vomiting Oxycodone HCl 15 mg 07/17/21 10:48 07/17/21 12:05 Oxycodone Hcl Immed Release 15 Mg Tablet PO 15 mg Q4H PRN Administration Pain Pharmacy Consult 1 each 07/17/21 10:19 Consult Rx Perform Med Rec MISCELLANE ONCE PRN Consult order Pharmacy Consult 1 each 07/17/21 10:42 Consult Rx Vancomycin Dosing MISCELLANE DAILY PRN Consult order Senna 17.2 mg 07/17/21 10:48 Sennosides 8.6 Mg Tablet PO BID PRN Constipation Sodium Chloride 3 ml 07/17/21 16:00 0.9 % Sodium Chloride Flush 3 Ml Syringe IVFLUSH QSHIFT [facility] Home Medications Medication Instructions Recorded Confirmed Last Taken Type albuterol sulfate 90 mcg/actuation 2 puff INHALATION QID PRN 11/20/20 07/17/21 07/17/21 History aerosol inhaler (Ventolin HFA) aspirin 81 mg tablet,delayed 81 mg PO DAILY 11/20/20 07/17/21 07/16/21 History release carvedilol 12.5 mg tablet 12.5 mg PO BID 11/20/20 07/17/21 07/16/21 History clopidogrel 75 mg tablet 75 mg PO DAILY 11/20/20 07/17/21 07/16/21 History insulin aspart U-100 100 unit/mL See Rx Instructions .ROUTE .COMPLEX 11/20/20 07/17/21 07/16/21 History (3 mL) subcutaneous pen (Novolog Flexpen U-100 Insulin aspart) insulin glargine 100 unit/mL (3 40 unit SUBCUT BEDTIME 11/20/20 07/17/21 07/16/21 History mL) subcutaneous pen (Basaglar KwikPen U-100 Insulin) morphine 30 mg tablet,extended 30 mg PO TID 11/20/20 07/17/21 07/16/21 History release oxycodone 15 mg tablet 15 mg PO Q4H PRN 11/20/20 07/17/21 07/16/21 History pantoprazole 40 mg tablet,delayed 40 mg PO BID 11/20/20 07/17/21 07/16/21 History release simvastatin 40 mg tablet 40 mg PO BEDTIME 11/20/20 07/17/21 07/16/21 History ferrous sulfate 325 mg (65 mg 325 mg PO DAILY 07/17/21 07/17/21 07/16/21 History iron) tablet (Iron (ferrous sulfate)) sennosides 8.6 mg tablet (senna) 17.2 mg PO BID PRN 07/17/21 07/17/21 07/16/21 History Physical Exam Vital Signs: Vital Signs: Last Vital Signs Temp 98.9 F 07/17/21 07:47 Pulse 94 07/17/21 10:16 Resp 18 07/17/21 10:16 BP 127/85 07/17/21 10:16 Pulse Ox 95 07/17/21 10:16 Body Mass Index 53.5 Const: Other: Morbidly obese middle age male General: cooperative, no acute distress, alert and awake Orientation/consciousness: patient oriented x3 Neck: Neck: Yes normal visual inspection and Yes no JVD Chest: Other: tenderness to palpation of left upper chest Resp: Effort & Inspection: normal respiratory effort, able to speak in complete sentences and not labored Auscultation: clear to auscultation bilaterally, no crackles, no rales, no rhonchi and no wheezes Cardio: Rate: regular rate Rhythm: regular rhythm Heart sounds: S1 n ormal heart sound present and S2 normal heart sound present Peripheral pulses: Peripheral pulses 2+ throughout GI: Other: Obese, round, nontender - does have open skin area, with redness/ drainage to left of gastric band port Neuro: General: patient oriented x3 Extrem: Other: Bilateral lower extremety edema, tight, nonpitting with compression stockings in use. Results Labs and Meds Result diagrams: 07/17/21 04:21 07/17/21 04:21 Lab results: Laboratory Results - last 24 hr 07/17/21 07/17/21 07/17/21 04:11 04:21 04:21 WBC 14.9 H RBC 4.86 Hgb 13.7 L Hct 42.4 MCV 87.2 MCH 28.2 MCHC 32.3 RDW 14.1 Plt Count 196 MPV 9.7 Immature Gran % (Auto) 0.3 Neut % (Auto) 82.3 H Lymph % (Auto) 11.3 L [place] % (Auto) 5.6 Eos % (Auto) 0.2 Baso % (Auto) 0.3 Lymph # (Auto) 1.7 [place] # (Auto) 0.8 Eos # (Auto) 0.0 Baso # (Auto) 0.0 Abs Immat Gran (auto) 0.05 H Absolute Neuts (auto) 12.3 H Absolute Nucleated RBC 0.000 Nucleated RBC % (auto) 0.0 Sodium 139 Potassium 4.2 Chloride 105 Carbon Dioxide 27 Anion Gap 11 L BUN 17 H Creatinine 1.07 Estim Creat Clear Calc 121.2 Estimated GFR > 60 POC Glucose Random Glucose 254 H D Lactic Acid Calcium 8.7 D Total Bilirubin 0.8 Direct Bilirubin 0.3 AST 13 ALT 19 Alkaline Phosphatase 100 Troponin I High Sens Total Protein 6.5 Albumin 3.6 COVID-19 ([facility]) Negative COVID-19 Clin Com See Note 07/17/21 07/17/21 07/17/21 04:21 04:21 07:40 WBC RBC Hgb Hct MCV MCH MCHC RDW Plt Count MPV Immature Gran % (Auto) Neut % (Auto) Lymph % (Auto) [place] % (Auto) Eos % (Auto) Baso % (Auto) Lymph # (Auto) [place] # (Auto) Eos # (Auto) Baso # (Auto) Abs Immat Gran (auto) Absolute Neuts (auto) Absolute Nucleated RBC Nucleated RBC % (auto) Sodium Potassium Chloride Carbon Dioxide Anion Gap BUN Creatinine Estim Creat Clear Calc Estimated GFR POC Glucose 148 H Random Glucose Lactic Acid 1.2 Calcium Total Bilirubin Direct Bilirubin AST ALT Alkaline Phosphatase Troponin I High Sens < 3.5 Total Protein Albumin COVID-19 ([facility]) COVID-19 Clin Com 07/17/21 13:29 WBC RBC Hgb Hct MCV MCH MCHC RDW Plt Count MPV Immature Gran % (Auto) Neut % (Auto) Lymph % (Auto) [place] % (Auto) Eos % (Auto) Baso % (Auto) Lymph # (Auto) [place] # (Auto) Eos # (Auto) Baso # (Auto) Abs Immat Gran (auto) Absolute Neuts (auto) Absolute Nucleated RBC Nucleated RBC % (auto) Sodium Potassium Chloride Carbon Dioxide Anion Gap BUN Creatinine Estim Creat Clear Calc Estimated GFR POC Glucose 192 H Random Glucose Lactic Acid Calcium Total Bilirubin Direct Bilirubin AST ALT Alkaline Phosphatase Troponin I High Sens Total Protein Albumin COVID-19 ([facility]) COVID-19 Clin Com Imaging Radiologist's impression: Impressions Abdomen/Pelvis CT 07/17/21 04:04 IMPRESSION: No acute findings identified. Gastric band port in the anterior abdominal wall with adjacent stranding, similar to 11/21/2020. Chronic findings as described above. Chest X-Ray 07/17/21 04:04 IMPRESSION: No acute cardiopulmonary findings. Assessment and Plan (1) Preop cardiovascular exam: Status: Acute Preop for upper endoscopy and removal of gastric band under general anesthesia today. This pt has several cardiac risk factors but no known hx of CAD, confirmed prior OH, CHF. All troponins and BNPs from today back to 2009 have been normal. No hx of cardiac angiogram. Last echo 01/25/2015 shows EF 55- 60%, LA mildly dilated, no significant valve abn. No report of anginal sounding chest discomfort. He does have some reproduceable atypical left chest dis comfort. He does have stable sob with exertion, which could be from deconditioning, obesity. Activity level limited by knee pain from arthritis. Unable to confirm at least a 4 MET workload. His EKG is completely normal and does no show evidence of prior OH. He decribes having a laproscopic cholecys tectomy procedure back in 2016 without an known cardiac complications. His surgery is planned for today, due to findings of sepsis and concern for gastric band erosion. Case fully discussed with Dr Grigsby. Pt is an intermediate cardiac risk to proceed with surgery. Continue his usual Carvedilol and statin. He is on aspirin or plavix but not for any known cardiac reasons. He tells me the plavix is due to prior DVT back in 1992. They may be held from our perspective. We will follow. (2) Sepsis: Status: Acute (3) Abdominal wall cellulitis: Status: Acute (4) Morbid obesity: Status: Acute Procedures Date of Service Date of Service: 07/17/21
[2021-07-17 14:45] LABS: INTERNATIONAL NORM RATIO 1.2 (0.9-1.1)
--- NOTE | 2021-07-17 15:36 | MHC.CM.PN ---
Met with patient in regards to discharge planning. Patient takes care of his mother, ambulates with a cane and has a CPAP for EPI. PCP verified. Copy of HCP verified to be on file. Patient received 2nd Pfizer vaccine in May. IMM explained and signed. Family will provide transportation home when medically stable. Continue to monitor for d/c needs.
[2021-07-17] MEDS: Omeprazole 40 MG CAPSULE.DR PO (16:04)
[2021-07-17] MEDS: Metoclopramide HCl 10 MG/2 ML VIAL IVPUSH (16:04)
[2021-07-17] MEDS: Morphine Sulfate ER 30 MG TABLET.ER PO ×2 (16:04→23:32)
[2021-07-17] MEDS: vancomycin HCL 1,000 MG in 0.9 % Sodium Chloride 250 ML 270 MG IV (16:04)
--- NOTE | 2021-07-17 16:42 | P.CONGS_ITS ---
History of Present Illness Consult details Consult date: 07/17/21 Requesting physician: Shelia Sena Narrative: 60-year-old male patient with history of morbid obesity, diabetes mellitus, sleep apnea, status post lap band approximately 15 years ago performed at [facility] presenting with an area of redness and swelling in the abdomen in the left upper quadrant. He was initially evaluated by his PCP and placed on oral antibiotics. He was seen by General surgery at [facility] and underwent approximately 3 days prior. He returned to the [place] [facility] because of increased fever, chills and diffuse body aches. He was found to have a open draining wound in the left upper quadrant from the previous incision and drainage. CT of the abdomen and pelvis revealed the lap band in place with a port slightly medial to the I and D site. The patient was admitted to the hospitalist service for IV antibiotics. Review of Systems Review of Systems: Yes all other systems are reviewed and are negative Constitutional: Constitutional: Reports body ache(s), Reports chills, Reports fever(s) and Reports malaise Cardiovascular: Cardiovascular: Reports dyspnea Respiratory: Respiratory: Denies chest congestion, Denies cough and Reports dyspnea Gastrointestinal: Gastrointestinal: Reports as per HPI, Reports abdominal pain, Denies constipation and Denies diarrhea Integumentary/Breasts: Skin/Breast: Reports as per HPI [facility] Past Medical History Medical History Asthma Back pain Cardiac arrest COVID-19 COVID-19 vaccine series completed Diabetes GERD (gastroesophageal reflux disease) High cholesterol HTN (hypertension) Hx of deep venous thrombosis Hx of hyperlipidemia Leg swelling Myocardial infarct, old Obesity Septic shock Sleep apnea Surgical History Surgical History History of ankle surgery History of esophagogastroduodenoscopy (EGD) History of umbilical hernia repair Hx of cholecystectomy Hx of colonoscopy Personal history of gastric banding Social History Social History Household Members: None Housing: House Are you a primary child caregiver private home to a significant other at home: No Do you presently have visiting nurse or other home services: No Alcohol intake: never Patient Tobacco Use Status: Never used Tobacco Use of substances other than those prescribed or required for medical reasons: No Advance Directives: Yes Advance Directives Information Provided: Yes Advance Directives on File: Yes Advance Directives Date on File: 11/20/20 service: No Current occupational status: retired Meds Allergies Allergy/AdvReac Type Severity Reaction Status Date / Time vancomycin [VANCOMYCIN] AdvReac Severe RENAL Verified 07/01/21 09:29 FAILURE, RASH Active Medications: Current Medications Generic Name Dose Route Start Last Admin Trade Name Freq PRN Reason Stop Dose Admin Acetaminophen 650 mg 07/17/21 10:42 Acetaminophen 325 Mg Tablet PO Q6H PRN Pain, Mild (Pain Scale 1-3) Albuterol Sulfate 2 puff 07/17/21 10:48 Albuterol Sulfate 90 Mcg 8 Gm Inhaler INHALE QID PRN Shortness Of Breath Or Wheezing Aspirin 81 mg 07/18/21 09:00 Aspirin Enteric Coated 81 Mg Tablet.Dr PO DAILY [facility] Atorvastatin Calcium 20 mg 07/17/21 21:00 Atorvastatin Calcium 20 Mg Tablet PO BEDTIME [facility] Carvedilol 12.5 mg 07/17/21 21:00 Carvedilol 12.5 Mg Tablet PO BID [facility] Protocol Dextrose 25 gm 07/17/21 10:49 Dextrose 50 % 25 Gm/50 Ml Vial IVPUSH Q15M PRN per Hypoglycemia Standing Ord. Protocol Glucose 15 gm 07/17/21 10:49 Glucose Gel 15 Gm Gel..Gram. PO Q15M PRN per Hypoglycemia Standing Ord. Protocol Vancomycin HCl 1,000 mg/ 270 mls @ 270 mls/hr 07/17/21 16:00 07/17/21 16:04 Sodium Chloride IV 270 mls/hr Q12H [facility] Administration Piperacillin Sod/Tazobactam 100 mls @ 200 mls/hr 07/17/21 11:30 07/17/21 12:45 Sod 4.5 gm/ Sodium Chloride IV Infused Q6H [facility] Infusion Insulin Glargine 25 unit 07/17/21 21:00 Insulin Glargine,Hum.Rec.Anlog 100 Unit/Ml 10 Ml Vial SUBCUT BEDTIME [facility] Insulin Human Lispro 0 unit 07/17/21 11:30 07/17/21 14:53 Insulin Lispro 100 Unit/Ml 3 Ml Vial SUBCUT Not Given QIDACHS [facility] Protocol Magnesium Hydroxide 30 ml 07/17/21 10:42 Milk Of Magnesia 30 Ml Oral.Susp PO DAILY PRN Constipation Melatonin 6 mg 07/17/21 10:42 Melatonin 3 Mg Tablet PO BEDTIME PRN Insomnia Morphine Sulfate 30 mg 07/17/21 15:00 07/17/21 16:04 Morphine Sulfate Er 30 Mg Tablet.Er PO 30 mg TID [facility] Administration Omeprazole 40 mg 07/17/21 16:30 07/17/21 16:04 Omeprazole 40 Mg Capsule.Dr PO 40 mg BID@0630,1630 [facility] Administration Ondansetron HCl 4 mg 07/17/21 10:42 Ondansetron Hcl 4 Mg/2 Ml Vial IVPUSH Q8H PRN Nausea and Vomiting Oxycodone HCl 15 mg 07/17/21 10:48 07/17/21 12:05 Oxycodone Hcl Immed Release 15 Mg Tablet PO 15 mg Q4H PRN Administration Pain Pharmacy Consult 1 each 07/17/21 10:19 Consult Rx Perform Med Rec MISCELLANE ONCE PRN Consult order Pharmacy Consult 1 each 07/17/21 10:42 Consult Rx Vancomycin Dosing MISCELLANE DAILY PRN Consult order Senna 17.2 mg 07/17/21 10:48 Sennosides 8.6 Mg Tablet PO BID PRN Constipation Sodium Chloride 3 ml 07/17/21 16:00 07/17/21 16:04 0.9 % Sodium Chloride Flush 3 Ml Syringe IVFLUSH Not Given QSHIFT [facility] Home Medications Medication Instructions Recorded Confirmed Last Taken Type albuterol sulfate 90 mcg/actuation 2 puff INHALATION QID PRN 11/20/20 07/17/21 07/17/21 History aerosol inhaler (Ventolin HFA) aspirin 81 mg tablet,delayed 81 mg PO DAILY 11/20/20 07/17/21 07/16/21 History release carvedilol 12.5 mg tablet 12.5 mg PO BID 11/20/20 07/17/21 07/16/21 History clopidogrel 75 mg tablet 75 mg PO DAILY 11/20/20 07/17/21 07/16/21 History insulin aspart U-100 100 unit/mL See Rx Instructions .ROUTE .COMPLEX 11/20/20 07/17/21 07/16/21 History (3 mL) subcutaneous pen (Novolog Flexpen U-100 Insulin aspart) insulin glargine 100 unit/mL (3 40 unit SUBCUT BEDTIME 11/20/20 07/17/21 07/16/21 History mL) subcutaneous pen (Basaglar KwikPen U-100 Insulin) morphine 30 mg tablet,extended 30 mg PO TID 11/20/20 07/17/21 07/16/21 History release oxycodone 15 mg tablet 15 mg PO Q4H PRN 11/20/20 07/17/21 07/16/21 History pantoprazole 40 mg tablet,delayed 40 mg PO BID 11/20/20 07/17/21 07/16/21 History release simvastatin 40 mg tablet 40 mg PO BEDTIME 11/20/20 07/17/21 07/16/21 History ferrous sulfate 325 mg (65 mg 325 mg PO DAILY 07/17/21 07/17/21 07/16/21 History iron) tablet (Iron (ferrous sulfate)) sennosides 8.6 mg tablet (senna) 17.2 mg PO BID PRN 07/17/21 07/17/21 07/16/21 History Physical Exam 2 Vital Signs: Vital Signs: Last Vital Signs Temp 98.9 F 07/17/21 15:59 Pulse 81 07/17/21 15:59 Resp 20 07/17/21 15:59 BP 117/70 07/17/21 15:59 Pulse Ox 95 07/17/21 15:59 Body Mass Index 53.5 Const: General: alert and awake Nutritional Appearance: obese Orientation/consciousness: patient oriented x3 Limitations: no limitations HENMT: Head: Yes normocephalic and Yes atraumatic Ears: hearing grossly normal bilaterally Resp: Effort & Inspection: normal respiratory effort Auscultation: clear to auscultation bilaterally GI: Other: Obese, soft, abdominal wound in the left upper quadrant with an incision measuring approximately 1 cm with serous drainage noted. Port is palpable slightly medial to this and is not exposed by the incision. No erythema is noted in the surrounding skin. Percussion: Yes normal to percussion Auscultation: normal bowel sounds Rectal Exam - Male: Yes deferred Abdomen image: 1. I and D site 2. Port Skin: Other: Open wound is noted in abdomen above General skin exam: no ra shes or lesions noted Neuro: General: patient oriented x3 Extrem: General: No cyanosis Results Labs Result diagrams: 07/17/21 04:21 07/17/21 04:21 Labs: Abnormal lab results 07/17/21 07/17/21 07/17/21 Range/Units 04:21 04:21 07:40 WBC 14.9 H (4.8-10.8) X10*3/uL Hgb 13.7 L (14.0-18.0) g/dl Neut % (Auto) 82.3 H (45-73) % Lymph % (Auto) 11.3 L (20-40) % Abs Immat Gran (auto) 0.05 H (0.00-0.03) X10*3/uL Absolute Neuts (auto) 12.3 H (2.0-8.3) X10*3/uL PT (9.9-13.0) SEC INR (0.9-1.1) Anion Gap 11 L (12-20) BUN 17 H (9-16) mg/dL POC Glucose 148 H (60-115) mg/dL Random Glucose 254 H D (60-115) mg/dL 07/17/21 07/17/21 Range/Units 13:29 14:27 WBC (4.8-10.8) X10*3/uL Hgb (14.0-18.0) g/dl Neut % (Auto) (45-73) % Lymph % (Auto) (20-40) % Abs Immat Gran (auto) (0.00-0.03) X10*3/uL Absolute Neuts (auto) (2.0-8.3) X10*3/uL PT 14.0 H (9.9-13.0) SEC INR 1.2 H (0.9-1.1) Anion Gap (12-20) BUN (9-16) mg/dL POC Glucose 192 H (60-115) mg/dL Random Glucose (60-115) mg/dL Short CBC 07/17/21 Range/Units 04:21 WBC 14.9 H (4.8-10.8) X10*3/uL Hgb 13.7 L (14.0-18.0) g/dl Hct 42.4 (42-52) % Plt Count 196 (160-400) X10*3/uL BMP 07/17/21 04:21 Sodium 139 Potassium 4.2 Chloride 105 Carbon Dioxide 27 BUN 17 H Creatinine 1.07 Calcium 8.7 D Liver Function 07/17/21 Range/Units 04:21 Total Bilirubin 0.8 (0.0-1.0) mg/dL Direct Bilirubin 0.3 (0.0-0.5) mg/dL AST 13 (5-37) U/L ALT 19 (0-40) U/L Alkaline Phosphatase 100 (39-117) U/L Albumin 3.6 (3.5-5.0) g/dL All other labs normal. Assessment and Plan (1) Abdominal wall cellulitis: Status: Acute (2) Morbid obesity: Status: Acute 60-year-old male patient with morbid obesity status post lap band procedure presenting with an abdominal wall infection, status post incision and drainage performed at [facility]. He presented with increased fever and chills, diffuse body aches. [facility] refused transfer. Examination the wound does reveal an incision site in the left upper quadrant which is open and draining. No undrained abscess is appreciated. There is no erythema in the abdominal wall. Recommend consultation with weight management service to discuss removal of the probable infected lap band port/tubing. Wound appears to be adequately drained at this time. Procedures Date of Service Date of Service: 07/17/21
--- NOTE | 2021-07-17 17:04 | PM.CNGS ---
History of Present Illness Consult details Consult date: 07/17/21 Reason for consult: abdominal pain Requesting physician: Shelia Sena Narrative: This is a 60-year-old gentleman who is about 15 years status post gastric banding with Dr. Whitehead at [facility]. Patient has not been followed up from a bariatric standpoint in many many years. Patient reports he never lost any way after surgery as a had a very difficult time accessing the gastric band port. Patient reports about 2 weeks ago he noticed an area of redness on the skin adjacent to the subcutaneous port which is located in epigastric region of the abdomen. He reported some mild tenderness to palpation of this area. He reports about a week ago he developed a pimple on the skin at this red area which eventually opened up and drained purulence on its own. He was seen [address] Hopkins at [facility] who thought this was just an abscess and opened it further in the office and drained more purulence. Patient had no radiologic studies performed at that time. Patient reports last evening he began to feel very poorly which included a subjective fever although he did not check the temperature, significant chills and rigors to the point where he had on 2 coats and still was cold. He also reports feeling dizzy and having headache and significant nausea. Given these symptoms the patient came to the emergency department and was found to have a white blood cell count of 14. Patient underwent a CT scan abdomen pelvis that showed a gastric band placed about the stomach superiorly and evidence of stroke fat stranding surrounding the gastric band port epigastric portion of the abdomen which was unchanged from a previous CT scan performed November of 2020. Patient was admitted to the Medicine Service with these CT scan findings and then a bariatric surgery consult was obtained given his history of gastric banding. Patient reports feeling improved since he has been given pain medication and antibiotics in the emergency department. Review of Systems Review of Systems: Yes all other systems are reviewed and are negative Constitutional: Constitutional: Reports chills, Reports difficulty sleeping, Reports fatigue, Reports fever(s), Reports headache(s) and Reports lethargy Eyes: Eyes: Denies blurry vision, Denies change in vision, Denies itchy eyes and Denies loss of vision ENT: Denies dysphagia, Reports headache(s), Denies lip swelling and Reports neck pain Cardiovascular: Cardiovascular: Denies chest pain, Reports pedal edema, Reports leg edema, Reports lightheadedness and Reports dyspnea on exertion Respiratory: Respiratory: Denies hemoptysis, Denies excessive phlegm production and Reports dyspnea on exertion Gastrointestinal: Gastrointestinal: Denies melena, Denies hematochezia, Reports constipation, Denies dysphagia, Reports heartburn and Reports vomiting Genitourinary: Genitourinary: Denies difficulty urinating, Denies dysuria, Denies flank pain, Denies urinary frequency, Denies urinary hesitancy and Denies urinary incontinence Musculoskeletal: Musculoskeletal: Reports back pain, Reports arthralgias, Reports neck pain and Reports numbness (Bilateral hands and fingers) Integumentary/Breasts: Skin/Breast: Denies bleeding lesions, Denies breast swelling, Denies breast pain, Denies change in hair and Denies change in pigmentation Neurologic: Reports headache(s), Denies loss of vision, Denies memory loss and Reports numbness (Bilateral hands and fingers) Psychiatric: Psychiatric: Denies anxiety, Denies depression and Denies memory loss Endocrine: Endocrine: Denies cold intolerance, Reports fatigue, Denies polyphagia, Denies polydipsia and Denies polyuria Hematologic/Lymphatic: Hematologic/Lymphatic: Reports easy bleeding, Reports easy bruising and Denies lymphadenopathy Allergic/Immunologic: Allergic/Immunologic: Denies itchy eyes and Denies lip swelling PMFSH Past Medical History Medical History (Updated 07/17/21 @ 17:20 by Ruby Altamirano MD) Asthma Back pain Cardiac arrest COVID-19 COVID-19 vaccine series completed Diabetes GERD (gastroesophageal reflux disease) High cholesterol HTN (hypertension) Hx of deep venous thrombosis Hx of hyperlipidemia Leg swelling Myocardial infarct, old Obesity Septic shock Sleep apnea Surgical History Surgical History (Updated 07/17/21 @ 17:20 by Ruby Altamirano MD) History of ankle surgery History of arthroscopy of both knees History of esophagogastroduodenoscopy (EGD) History of umbilical hernia repair Hx of cholecystectomy Hx of colonoscopy Personal history of gastric banding Social History Social History (Updated 07/17/21 @ 17:21 by Ruby Altamirano MD) Household Members: None Housing: House Are you a primary child care teacher to a significant other at home: Yes (his mother) Do you presently have visiting nurse or other home services: No Alcohol intake: never Patient Tobacco Use Status: Never used Tobacco Use of substances other than those prescribed or required for medical reasons: No Advance Directives: Yes Advance Directives Information Provided: Yes Advance Directives on File: Yes Advance Directives Date on File: 11/20/20 service: No Current occupational status: retired Meds Allergies Allergy/AdvReac Type Severity Reaction Status Date / Time vancomycin [VANCOMYCIN] AdvReac Severe RENAL Verified 07/01/21 09:29 FAILURE, RASH Active Medications: Current Medications Generic Name Dose Route Start Last Admin Trade Name Freq PRN Reason Stop Dose Admin Acetaminophen 650 mg 07/17/21 10:42 Acetaminophen 325 Mg Tablet PO Q6H PRN Pain, Mild (Pain Scale 1-3) Albuterol Sulfate 2 puff 07/17/21 10:48 Albuterol Sulfate 90 Mcg 8 Gm Inhaler INHALE QID PRN Shortness Of Breath Or Wheezing Aspirin 81 mg 07/18/21 09:00 Aspirin Enteric Coated 81 Mg Tablet. PO DAILY [facility] Atorvastatin Calcium 20 mg 07/17/21 21:00 Atorvastatin Calcium 20 Mg Tablet PO BEDTIME [facility] Carvedilol 12.5 mg 07/17/21 21:00 Carvedilol 12.5 Mg Tablet PO BID [facility] Protocol Dextrose 25 gm 07/17/21 10:49 Dextrose 50 % 25 Gm/50 Ml Vial IVPUSH Q15M PRN per Hypoglycemia Standing Ord. Protocol Glucose 15 gm 07/17/21 10:49 Glucose Gel 15 Gm Gel..Gram. PO Q15M PRN per Hypoglycemia Standing Ord. Protocol Vancomycin HCl 1,000 mg/ 270 mls @ 270 mls/hr 07/17/21 16:00 07/17/21 16:04 Sodium Chloride IV 270 mls/hr Q12H [facility] Administration Piperacillin Sod/Tazobactam 100 mls @ 200 mls/hr 07/17/21 11:30 07/17/21 12:45 Sod 4.5 gm/ Sodium Chloride IV Infused Q6H [facility] Infusion Insulin Glargine 25 unit 07/17/21 21:00 Insulin Glargine,Hum.Rec.Anlog 100 Unit/Ml 10 Ml Vial SUBCUT BEDTIME [facility] Insulin Human Lispro 0 unit 07/17/21 11:30 07/17/21 14:53 Insulin Lispro 100 Unit/Ml 3 Ml Vial SUBCUT Not Given QIDACHS [facility] Protocol Magnesium Hydroxide 30 ml 07/17/21 10:42 Milk Of Magnesia 30 Ml Oral.Susp PO DAILY PRN Constipation Melatonin 6 mg 07/17/21 10:42 Melatonin 3 Mg Tablet PO BEDTIME PRN Insomnia Morphine Sulfate 30 mg 07/17/21 15:00 07/17/21 16:04 Morphine Sulfate Er 30 Mg Tablet.Er PO 30 mg TID [facility] Administration Omeprazole 40 mg 07/17/21 16:30 07/17/21 16:04 Omeprazole 40 Mg Capsule.Dr PO 40 mg BID@0630,1630 [facility] Administration Ondansetron HCl 4 mg 07/17/21 10:42 Ondansetron Hcl 4 Mg/2 Ml Vial IVPUSH Q8H PRN Nausea and Vomiting Oxycodone HCl 15 mg 07/17/21 10:48 07/17/21 12:05 Oxycodone Hcl Immed Release 15 Mg Tablet PO 15 mg Q4H PRN Administration Pain Pharmacy Consult 1 each 07/17/21 10:19 Consult Rx Perform Med Rec MISCELLANE ONCE PRN Consult order Pharmacy Consult 1 each 07/17/21 10:42 Consult Rx Vancomycin Dosing MISCELLANE DAILY PRN Consult order Senna 17.2 mg 07/17/21 10:48 Sennosides 8.6 Mg Tablet PO BID PRN Constipation Sodium Chloride 3 ml 07/17/21 16:00 07/17/21 16:04 0.9 % Sodium Chloride Flush 3 Ml Syringe IVFLUSH Not Given QSHIFT [facility] Home Medications Medication Instructions Recorded Confirmed Last Taken Type albuterol sulfate 90 mcg/actuation 2 puff INHALATION QID PRN 11/20/20 07/17/21 07/17/21 History aerosol inhaler (Ventolin HFA) aspirin 81 mg tablet,delayed 81 mg PO DAILY 11/20/20 07/17/21 07/16/21 History release carvedilol 12.5 mg tablet 12.5 mg PO BID 11/20/20 07/17/21 07/16/21 History clopidogrel 75 mg tablet 75 mg PO DAILY 11/20/20 07/17/21 07/16/21 History insulin aspart U-100 100 unit/mL See Rx Instructions .ROUTE .COMPLEX 11/20/20 07/17/21 07/16/21 History (3 mL) subcutaneous pen (Novolog Flexpen U-100 Insulin aspart) insulin glargine 100 unit/mL (3 40 unit SUBCUT BEDTIME 11/20/20 07/17/21 07/16/21 History mL) subcutaneous pen (Basaglar KwikPen U-100 Insulin) morphine 30 mg tablet,extended 30 mg PO TID 11/20/20 07/17/21 07/16/21 History release oxycodone 15 mg tablet 15 mg PO Q4H PRN 11/20/20 07/17/21 07/16/21 History pantoprazole 40 mg tablet,delayed 40 mg PO BID 11/20/20 07/17/21 07/16/21 History release simvastatin 40 mg tablet 40 mg PO BEDTIME 11/20/20 07/17/21 07/16/21 History ferrous sulfate 325 mg (65 mg 325 mg PO DAILY 07/17/21 07/17/21 07/16/21 History iron) tablet (Iron (ferrous sulfate)) sennosides 8.6 mg tablet (senna) 17.2 mg PO BID PRN 07/17/21 07/17/21 07/16/21 History Physical Exam Vital Signs: Vital Signs: Last Vital Signs Temp 98.9 F 07/17/21 15:59 Pulse 81 07/17/21 15:59 Resp 20 07/17/21 15:59 BP 117/70 07/17/21 15:59 Pulse Ox 95 07/17/21 15:59 Body Mass Index 53.5 Const: General: cooperative, healthy appearing, comfortable and no acute distress Nutritional Appearance: obese Orientation/consciousness: patient oriented x3 HENMT: Head: Yes normal to inspection, Yes normocephalic and Yes atraumatic Ears: hearing grossly normal bilaterally Mouth: Normal oral and palatal mucosa present Throat: Yes posterior oropharynx normal Eyes: General: appearance normal, both eyes and all related structures Conjunctivae: conjunctivae normal Sclerae: sclerae normal EOM: EOMs intact bilaterally Neck: Neck: Yes normal visual inspection and Yes no lymphadenopathy Thyroid: Thyroid normal Chest: Chest palpation & inspection: normal inspection of the chest Resp: Effort & Inspection: normal respiratory effort and able to speak in complete sentences Auscultation: clear to auscultation bilaterally Cardio: Rate: regular rate Heart sounds: S1 normal heart sound present, S2 normal heart sound present, no click, no gallops and no murmurs GI: Other: Abdomen is obese soft nondistended. There is a 1 cm area of the incision and drainage site with drainage of what appears to be an old hematoma as well as some purulence. This is located in the mid epigastrium. Just to the right of this area it is the palpable subcutaneous gastric band port which is tender to palpation including the surrounding tissues around it. There is slight erythema at the site of incision and drainage. The rest of the abdomen is nontender. Neuro: General: patient oriented x3 Extrem: Other: Bilateral lower extremities have 3+ pitting edema with hemosiderin deposition of the anterior shins bilaterally. There are compression stockings in place on bilateral lower extremities to the knee. There is mild tenderness to palpation of the entire lower extremity below the knee. Psych: Appearance: grossly normal Speech and movement: Normal speech and movement present Affect: normal affect Attitude: cooperative Results Labs Result diagrams: 07/17/21 04:21 07/17/21 04:21 Labs: Abnormal lab results 07/17/21 07/17/21 07/17/21 Range/Units 04:21 04:21 07:40 WBC 14.9 H (4.8-10.8) X10*3/uL Hgb 13.7 L (14.0-18.0) g/dl Neut % (Auto) 82.3 H (45-73) % Lymph % (Auto) 11.3 L (20-40) % Abs Immat Gran (auto) 0.05 H (0.00-0.03) X10*3/uL Absolute Neuts (auto) 12.3 H (2.0-8.3) X10*3/uL PT (9.9-13.0) SEC INR (0.9-1.1) Anion Gap 11 L (12-20) BUN 17 H (9-16) mg/dL POC Glucose 148 H (60-115) mg/dL Random Glucose 254 H D (60-115) mg/dL 07/17/21 07/17/21 Range/Units 13:29 14:27 WBC (4.8-10.8) X10*3/uL Hgb (14.0-18.0) g/dl Neut % (Auto) (45-73) % Lymph % (Auto) (20-40) % Abs Immat Gran (auto) (0.00-0.03) X10*3/uL Absolute Neuts (auto) (2.0-8.3) X10*3/uL PT 14.0 H (9.9-13.0) SEC INR 1.2 H (0.9-1.1) Anion Gap (12-20) BUN (9-16) mg/dL POC Glucose 192 H (60-115) mg/dL Random Glucose (60-115) mg/dL Short CBC 07/17/21 Range/Units 04:21 WBC 14.9 H (4.8-10.8) X10*3/uL Hgb 13.7 L (14.0-18.0) g/dl Hct 42.4 (42-52) % Plt Count 196 (160-400) X10*3/uL BMP 07/17/21 04:21 Sodium 139 Potassium 4.2 Chloride 105 Carbon Dioxide 27 BUN 17 H Creatinine 1.07 Calcium 8.7 D Liver Function 07/17/21 Range/Units 04:21 Total Bilirubin 0.8 (0.0-1.0) mg/dL Direct Bilirubin 0.3 (0.0-0.5) mg/dL AST 13 (5-37) U/L ALT 19 (0-40) U/L Alkaline Phosphatase 100 (39-117) U/L Albumin 3.6 (3.5-5.0) g/dL All other labs normal. Imaging Abdomen CT scan report/results: report reviewed and image reviewed Assessment and Plan (1) Gastric band erosion: Status: Acute This is a 60-year-old gentleman with a 15 year history of a gastric banding who has not been having any bariatric follow-up in several years. Patient reports having several week history of tenderness surrounding the gastric band port and about 2 weeks ago developed seeing some erythema of the skin which progressed to a pustule and eventually open to drain purulence. Patient presented to the emergency department overnight with significant chills and rigors at home weakness dizziness and nausea with vomiting. Patient has signs and symptoms that are concerning for gastric band erosion as he has a abscess surrounding the gastric band port which has drained on its own. This often occurs when there is a gastric band erosion in the gastric band has burrowed into the stomach and there gastric contents that travel along the gastric band tubing out to the port site. The best way to evaluate this would be a endoscopy. If they gastric band erosion is found the treatment would be removal of gastric band with placement of drains and removal of gastric band port as well. Risks benefits and alternatives were discussed with the patient he agrees to proceed with the proposed procedure. Patient also has a history of cardiac arrest and has not been followed by a manager business process. We have asked for a cardiac consultation and clearance prior to the urgent surgery that is planned for today. I spent about 60 minutes with this patient which also includes documentation and reviewing blood work radiologic studies discussing this case with the cardiology nurse practitioner as well as the anesthesiologist. Procedures Date of Service Date of Service: 07/17/21
--- NOTE | 2021-07-17 19:11 | HO.ANESPROP2 ---
[facility] Active Problems Active Problems: All Active Problems (Updated 07/17/21 @ 17:20 by Ruby Altamirano MD) Gastric band erosion (Acute) Morbid obesity (Acute) Preop cardiovascular exam (Acute) Sepsis (Acute) Abdominal wall cellulitis (Acute) COVID-19 (Acute) Pneumonia due to 2019 novel coronavirus (Acute) Cellulitis (Acute) Past Medical History Medical History (Updated 07/17/21 @ 17:20 by Ruby Altamirano MD) Asthma Back pain Cardiac arrest COVID-19 COVID-19 vaccine series completed Diabetes GERD (gastroesophageal reflux disease) High cholesterol HTN (hypertension) Hx of deep venous thrombosis Hx of hyperlipidemia Leg swelling Myocardial infarct, old Obesity Septic shock Sleep apnea Surgical History Surgical History (Updated 07/17/21 @ 17:20 by Ruby Altamirano MD) History of ankle surgery History of arthroscopy of both knees History of esophagogastroduodenoscopy (EGD) History of umbilical hernia repair Hx of cholecystectomy Hx of colonoscopy Personal history of gastric banding Social History Social History (Updated 07/17/21 @ 17:21 by Ruby Altamirano MD) Household Members: None Housing: House Are you a primary healthcare analyst to a significant other at home: Yes (his mother) Do you presently have visiting nurse or other home services: No Alcohol intake: never Patient Tobacco Use Status: Never used Tobacco Advance Directives Date on File: 11/20/20 service: No Current occupational status: retired Meds Allergies Allergy/AdvReac Type Severity Reaction Status Date / Time vancomycin [VANCOMYCIN] AdvReac Severe RENAL Verified 07/01/21 09:29 FAILURE, RASH Active Medications: Current Medications Generic Name Dose Route Start Last Admin Trade Name Freq PRN Reason Stop Dose Admin Acetaminophen 650 mg 07/17/21 10:42 Acetaminophen 325 Mg Tablet PO Q6H PRN Pain, Mild (Pain Scale 1-3) Albuterol Sulfate 2 puff 07/17/21 10:48 Albuterol Sulfate 90 Mcg 8 Gm Inhaler INHALE QID PRN Shortness Of Breath Or Wheezing Aspirin 81 mg 07/18/21 09:00 Aspirin Enteric Coated 81 Mg Tablet. PO DAILY [facility] Atorvastatin Calcium 20 mg 07/17/21 21:00 Atorvastatin Calcium 20 Mg Tablet PO BEDTIME [facility] Carvedilol 12.5 mg 07/17/21 21:00 Carvedilol 12.5 Mg Tablet PO BID [facility] Protocol Dextrose 25 gm 07/17/21 10:49 Dextrose 50 % 25 Gm/50 Ml Vial IVPUSH Q15M PRN per Hypoglycemia Standing Ord. Protocol Glucose 15 gm 07/17/21 10:49 Glucose Gel 15 Gm Gel..Gram. PO Q15M PRN per Hypoglycemia Standing Ord. Protocol Vancomycin HCl 1,000 mg/ 270 mls @ 270 mls/hr 07/17/21 16:00 07/17/21 17:51 Sodium Chloride IV Infused Q12H [facility] Infusion Piperacillin Sod/Tazobactam 100 mls @ 200 mls/hr 07/17/21 11:30 07/17/21 18:24 Sod 4.5 gm/ Sodium Chloride IV Infused Q6H [facility] Infusion Cefotetan Disodium 2 gm/ 50 mls @ 100 mls/hr 07/17/21 18:53 Sodium Chloride IV 07/17/21 19:22 ONCE ONE Insulin Glargine 25 unit 07/17/21 21:00 Insulin Glargine,Hum.Rec.Anlog 100 Unit/Ml 10 Ml Vial SUBCUT BEDTIME [facility] Insulin Human Lispro 0 unit 07/17/21 11:30 07/17/21 14:53 Insulin Lispro 100 Unit/Ml 3 Ml Vial SUBCUT Not Given QIDACHS [facility] Protocol Magnesium Hydroxide 30 ml 07/17/21 10:42 Milk Of Magnesia 30 Ml Oral.Susp PO DAILY PRN Constipation Melatonin 6 mg 07/17/21 10:42 Melatonin 3 Mg Tablet PO BEDTIME PRN Insomnia Morphine Sulfate 30 mg 07/17/21 15:00 07/17/21 16:04 Morphine Sulfate Er 30 Mg Tablet.Er PO 30 mg TID [facility] Administration Omeprazole 40 mg 07/17/21 16:30 07/17/21 16:04 Omeprazole 40 Mg Capsule.Dr PO 40 mg BID@0630,1630 [facility] Administration Ondansetron HCl 4 mg 07/17/21 10:42 Ondansetron Hcl 4 Mg/2 Ml Vial IVPUSH Q8H PRN Nausea and Vomiting Oxycodone HCl 15 mg 07/17/21 10:48 07/17/21 12:05 Oxycodone Hcl Immed Release 15 Mg Tablet PO 15 mg Q4H PRN Administration Pain Pharmacy Consult 1 each 07/17/21 10:19 Consult Rx Perform Med Rec MISCELLANE ONCE PRN Consult order Pharmacy Consult 1 each 07/17/21 10:42 Consult Rx Vancomycin Dosing MISCELLANE DAILY PRN Consult order Senna 17.2 mg 07/17/21 10:48 Sennosides 8.6 Mg Tablet PO BID PRN Constipation Sodium Chloride 3 ml 07/17/21 16:00 07/17/21 16:04 0.9 % Sodium Chloride Flush 3 Ml Syringe [facility]USH [facility] Medications Medication Instructions Recorded Confirmed Last Taken Type albuterol sulfate 90 mcg/actuation 2 puff INHALATION QID PRN 11/20/20 07/17/21 07/17/21 History aerosol inhaler (Ventolin HFA) aspirin 81 mg tablet,delayed 81 mg PO DAILY 11/20/20 07/17/21 07/16/21 History release carvedilol 12.5 mg tablet 12.5 mg PO BID 11/20/20 07/17/21 07/16/21 History clopidogrel 75 mg tablet 75 mg PO DAILY 11/20/20 07/17/21 07/16/21 History insulin aspart U-100 100 unit/mL See Rx Instructions .ROUTE .COMPLEX 11/20/20 07/17/21 07/16/21 History (3 mL) subcutaneous pen (Novolog Flexpen U-100 Insulin aspart) insulin glargine 100 unit/mL (3 40 unit SUBCUT BEDTIME 11/20/20 07/17/21 07/16/21 History mL) subcutaneous pen (Basaglar KwikPen U-100 Insulin) morphine 30 mg tablet,extended 30 mg PO TID 11/20/20 07/17/21 07/16/21 History release oxycodone 15 mg tablet 15 mg PO Q4H PRN 11/20/20 07/17/21 07/16/21 History pantoprazole 40 mg tablet,delayed 40 mg PO BID 11/20/20 07/17/21 07/16/21 History release simvastatin 40 mg tablet 40 mg PO BEDTIME 11/20/20 07/17/21 07/16/21 History ferrous sulfate 325 mg (65 mg 325 mg PO DAILY 07/17/21 07/17/21 07/16/21 History iron) tablet (Iron (ferrous sulfate)) sennosides 8.6 mg tablet (senna) 17.2 mg PO BID PRN 07/17/21 07/17/21 07/16/21 History Exam Exam Date and Time: July 17, [id number] Height,Weight and Vital Signs: Height 6 ft Weight 179.169 kg Last Vital Signs Temp 98.9 F 07/17/21 15:59 Pulse 81 07/17/21 15:59 Resp 20 07/17/21 15:59 BP 117/70 07/17/21 15:59 Pulse Ox 95 07/17/21 15:59 Pertinent Lab Results Pertinent Lab Results: Laboratory Tests 07/17/21 07/17/21 07/17/21 04:11 04:21 04:21 WBC 14.9 H RBC 4.86 Hgb 13.7 L Hct 42.4 MCV 87.2 MCH 28.2 MCHC 32.3 RDW 14.1 Plt Count 196 MPV 9.7 Immature Gran % (Auto) 0.3 Neut % (Auto) 82.3 H Lymph % (Auto) 11.3 L [place] % (Auto) 5.6 Eos % (Auto) 0.2 Baso % (Auto) 0.3 Lymph # (Auto) 1.7 [place] # (Auto) 0.8 Eos # (Auto) 0.0 Baso # (Auto) 0.0 Abs Immat Gran (auto) 0.05 H Absolute Neuts (auto) 12.3 H Absolute Nucleated RBC 0.000 Nucleated RBC % (auto) 0.0 PT INR Sodium 139 Potassium 4.2 Chloride 105 Carbon Dioxide 27 Anion Gap 11 L BUN 17 H Creatinine 1.07 Estim Creat Clear Calc 121.2 Estimated GFR > 60 POC Glucose Random Glucose 254 H D Lactic Acid Calcium 8.7 D Total Bilirubin 0.8 Direct Bilirubin 0.3 AST 13 ALT 19 Alkaline Phosphatase 100 Troponin I High Sens Total Protein 6.5 Albumin 3.6 COVID-19 ([facility]) Negative COVID-19 Clin Com See Note Blood Type Antibody Screen 07/17/21 07/17/21 07/17/21 04:21 04:21 07:40 WBC RBC Hgb Hct MCV MCH MCHC RDW Plt Count MPV Immature Gran % (Auto) Neut % (Auto) Lymph % (Auto) [place] % (Auto) Eos % (Auto) Baso % (Auto) Lymph # (Auto) [place] # (Auto) Eos # (Auto) Baso # (Auto) Abs Immat Gran (auto) Absolute Neuts (auto) Absolute Nucleated RBC Nucleated RBC % (auto) PT INR Sodium Potassium Chloride Carbon Dioxide Anion Gap BUN Creatinine Estim Creat Clear Calc Estimated GFR POC Glucose 148 H Random Glucose Lactic Acid 1.2 Calcium Total Bilirubin Direct Bilirubin AST ALT Alkaline Phosphatase Troponin I High Sens < 3.5 Total Protein Albumin COVID-19 ([facility]) COVID-19 Clin Com Blood Type Antibody Screen 07/17/21 07/17/21 07/17/21 13:29 14:27 15:16 WBC RBC Hgb Hct MCV MCH MCHC RDW Plt Count MPV Immature Gran % (Auto) Neut % (Auto) Lymph % (Auto) [place] % (Auto) Eos % (Auto) Baso % (Auto) Lymph # (Auto) [place] # (Auto) Eos # (Auto) Baso # (Auto) Abs Immat Gran (auto) Absolute Neuts (auto) Absolute Nucleated RBC Nucleated RBC % (auto) PT 14.0 H INR 1.2 H Sodium Potassium Chloride Carbon Dioxide Anion Gap BUN Creatinine Estim Creat Clear Calc Estimated GFR POC Glucose 192 H Random Glucose Lactic Acid Calcium Total Bilirubin Direct Bilirubin AST ALT Alkaline Phosphatase Troponin I High Sens Total Protein Albumin COVID-19 ([facility]) COVID-19 Clin Com Blood Type A Positive Antibody Screen NEGATIVE Airway Mallampati Class: III TM Dist: >3cm Neck ROM: Full Partial: Upper Loose/Missing/Broken Teeth: Upper
--- NOTE | 2021-07-17 21:36 | PM.OP ---
Brief Operative Note Date of Service: 07/17/21 Pre-op diagnosis: Gastric band erosion Post-op diagnosis: other (Gastric band port site infection, no evidence of gastric band erosion) Procedure: Esophagogastroduodenoscopy, laparoscopic removal of gastric band and port with ERIKA drain placement Implants: ERIKA drain placement Surgeon: Ruby Altamirano MD Anesthesia: GETA Was an Costume Rental Clerk used for this Procedure?: No Costume Rental Clerk: Bran Rincon Estimated blood loss (mL): 10 Pathology: none sent Condition: stable Disposition: PACU
[2021-07-17] MEDS: ondansetron HCL 4 MG/2 ML VIAL IVPUSH (21:57)
--- NOTE | 2021-07-17 22:04 | PC.NURSE ---
oxygen removed and incentive spirometer used, history of sleep apnea.
--- NOTE | 2021-07-17 22:27 | PC.NURSE ---
text nursing supervisor audit clerks for room assignment
--- NOTE | 2021-07-17 22:33 | OP_ITS ---
SURGEON: Ruby Altamirano MD PREOPERATIVE DIAGNOSIS: POSTOPERATIVE DIAGNOSIS: PROCEDURE PERFORMED: ESTIMATED BLOOD LOSS: About 10 mL. COMPLICATIONS: None. ANESTHESIA: General endotracheal. ASSISTANTS: Bran Rincon PA-C. SPECIMENS: Culture of the gastric band port pocket for microbiology. PREPROCEDURE DIAGNOSIS: Gastric band erosion. POSTPROCEDURE DIAGNOSIS: Gastric band port infection without evidence of gastric band erosion. PROCEDURES PERFORMED: 1. Esophagogastroduodenoscopy. 2. Removal of gastric band and port component. CONDITION: Postprocedure, fair. DESCRIPTION OF PROCEDURE: The patient was brought into the operating room, placed on operating table in supine position. Normal DVT prophylaxis was instituted. The patient received 2 g of IV cefotetan preoperatively. General anesthesia was induced. The abdomen was prepped and draped in normal sterile fashion using ChloraPrep. Next, a safety time-out was performed. Next, an endoscopy was performed. I placed the gastroscope into posterior oropharynx, passed down the esophagus, evaluating esophageal mucosa which was normal. The GE junction was located at 44 cm from the incisors. The gastric band was located about 2 cm distal to this at 46 cm from the incisors. There was no evidence of gastric band within the inside of the stomach. There was no evidence of gastric band erosion or slippage or excess fluid or food within the stomach. The gastroscope was passed distally and retroflexed. The gastric band could be seen at the proximal stomach, completely covered by mucosa. The gastroscope was flattened out and the remainder of the gastric mucosa was evaluated and was normal. Gastroscope was passed to the pre-pyloric region through the pylorus down to the 3rd portion of duodenum, all of which was normal. All of these portions of the upper endoscopy were documented using photo documentation. The gastroscope was retracted back into the stomach. Stomach was desufflated and gastroscope was removed without difficulty. Next, we performed a laparoscopy. We instilled local anesthetic into the abdominal wall in the left upper quadrant. I used a #11 scalpel to make a 5 mm left upper quadrant transverse surgical incision in the left upper quadrant. A Veress needle was placed intraabdominal. Free pops were heard going to the fascia. A saline drop test was used to confirm that the Veress needle was intraabdominal. The abdominal cavity was insufflated to 15 mmHg. Next, the Optiview technique was used to place a 5 mm port in the patient's left upper quadrant. A 5 mm 30 degree laparoscope was introduced into the abdomen. The abdominal cavity was surveyed. There was some omental adhesions in the upper abdomen, right upper quadrant, and left upper quadrant. We then performed a tap block on the patient's right side of the abdomen using the same local anesthetic. We then placed a 5 mm port in the patient's right upper quadrant laterally. We used the LigaSure to take down some of the omental adhesions in the upper abdomen, both in the left upper quadrant and the right upper quadrant. We placed a Ryan liver retractor in the subxiphoid position under direct vision and used it to hold up the left lobe of the liver to the anterior abdominal wall. We secured this to the bed using liver retractor rizvi. We then placed a 15 mm port in the epigastrium just superior to the palpated gastric band port site. We then placed one additional 5 mm port in the patient's left upper quadrant lateral to the placement of the first port. We also performed a tap block on the left side of the abdomen. We placed the patient in reverse Trendelenburg positioning. We then took down the remainder of the omental adhesions to the abdominal wall and could easily see the gastric band tubing, riding along the abdominal wall in the left upper quadrant. We could visualize the gastric band, which appeared to be in normal condition without any abnormalities or fibrinous exudate or abscesses. We used the LigaSure to take down the adhesions overlying the gastric band to open up the capsule overlying the gastric band. We used the laparoscopic scissors to cut the buckle on the gastric band and unbuckle it. We also cut the gastric band tubing and then we were able to remove the gastric band in its entirety from the gastric band tunnel. We removed the gastric band from the abdominal cavity through the 15 mm port site. We evaluated the gastric band in its entirety. There was no evidence of oxidation in the gastric band balloon and the gastric band silicone was normal and clear. We then decided to place a 10 mm Fitz-Orozco drain in the prior gastric band tunnel, located superiorly underneath the liver. We brought the tubing out of the right upper quadrant 5 mm port site and secured the tube into the abdominal wall using the 3-0 nylon suture. We used a laparoscopic suture passer to close the 15 mm port site using a [id number] 0 PDS suture. There was no residual fascial defect. We instilled local anesthetic into the fascial closure site and then tied the suture down at a pressure of about 10 mmHg. We then removed the Deandre liver retractor. We deflated the abdomen and removed the last 2 ports from the left upper quadrant. We then reapproximated all skin incisions using a 4-0 Monocryl subcuticular stitch. We placed the Fitz-Orozco drain to bulb suction. We then packed the previous I and D site in the medial left upper quadrant using about 1 cm to 2 cm of half-inch iodoform packing. We placed a dry sterile dressing over this I and D site and a tegaderm. The patient tolerated the procedure well and was awakened in stable condition prior to extubation and transferred to recovery room. There were no complications. FINDINGS: No evidence of gastric band slippage or erosion. On endoscopy, gastric band was in good position at the proximal stomach, covered by mucosa. There was no evidence of gastric band component within the stomach. The gastric mucosa was normal in appearance. The gastric band on laparoscopy was in normal position without any evidence of fibrinous exudate or purulence. MD KIM Miranda/ROLLY / [id number] MTDElena
[2021-07-17] MEDS: cefoTEtan disodium 2 GM in 0.9 % Sodium Chloride 50 ML IV (23:20)
[2021-07-17] MEDS: 0.9 % Sodium Chloride Flush 3 ML SYRINGE IVFLUSH (23:31)
[2021-07-17] MEDS: Atorvastatin Calcium 20 MG TABLET PO (23:32)
[2021-07-17] MEDS: carvediloL 12.5 MG TABLET PO (23:32)
[2021-07-17] MEDS: Insulin Glargine,Hum.rec.anlog 100 UNIT/ML 10 ML VIAL 25 UNIT SUBCUT (23:33)
[2021-07-18] VITALS: BP 134/66; PULSE 84; RESP 18; TEMP 36.9; O2SAT 94
[2021-07-18 00:15] LABS: INTERNATIONAL NORM RATIO 1.2 (0.9-1.1); Prothrombin Time 14.1 SEC (9.9-13.0)
[2021-07-18] MEDS: vancomycin HCL 1,000 MG in 0.9 % Sodium Chloride 250 ML 250 MG IV (03:34)
[2021-07-18] MEDS: Acetaminophen 325 MG TABLET 650 MG PO ×2 (03:38→10:31)
[2021-07-18] MEDS: oxyCODONE HCl Immed Release 15 MG TABLET PO ×2 (03:38→10:31)
[2021-07-18 04:00] VITALS: BP 122/59; PULSE 76; RESP 18; TEMP 36.8; O2SAT 93
[2021-07-18] MEDS: Piperacillin Sodium/Tazobactam 4.5 GM in 0.9 % Sodium Chloride 100 ML IV ×2 (04:35→10:31)
[2021-07-18] MEDS: Omeprazole 40 MG CAPSULE.DR PO (04:38)
[2021-07-18 06:21] LABS: MANUAL DIFF FLAG NO
[2021-07-18 06:24] LABS: Basophils Percent Auto 0.2 % (0-2); Hemoglobin 12.8 g/dl (14.0-18.0); Imm Gran Abs Auto 0.04 X10*3/uL (0.00-0.03); Imm Gran Pct Auto 0.4 % (0.0-0.4); Lymphocytes Absolute Auto 1.4 X10*3/uL (1.2-4.9); Lymphocytes Percent Auto 12.6 % (20-40); Mean Corpuscular HGB Conc 31.2 g/dl (31.0-36.0); Mean Corpuscular Hemoglobin 27.9 pg (27.0-33.0); Mean Corpuscular Volume 89.5 fL (80-98); Monocytes Absolute Auto 0.5 X10*3/uL (0.1-1.2); Monocytes Percent Auto 4.7 % (2-11); Neutrophils Absolute Auto 9.4 X10*3/uL (2.0-8.3); Neutrophils Percent Auto 82.1 % (45-73); Platelet Count 190 X10*3/uL (160-400); Red Blood Count 4.58 X10*6/uL (4.60-5.80); Red Cell Distribution Width 13.9 % (11.0-16.0); White Blood Count 11.4 X10*3/uL (4.8-10.8)
[2021-07-18 06:42] LABS: Anion Gap 14 (12-20); Blood Urea Nitrogen 14 mg/dL (9-16); Calcium 7.7 mg/dL (8.4-10.2); Carbon Dioxide 25 mmol/L (22-29); Chloride 106 mmol/L (96-108); Creatinine Clr Calc Pharmacy 121.6; Estimated Glomerular Filt Rate > 60; Glucose Random 323 mg/dL (60-115); Potassium 4.8 mmol/L (3.3-5.1); Sodium 140 mmol/L (135-145)
--- NOTE | 2021-07-18 06:50 | HO.POSTANES ---
Post Anesthesia Evaluation Post Anesthesia Evaluation Vital Signs: Vital Signs Temp Pulse Resp BP Pulse Ox 07/18/21 04:00 98.3 F 76 18 122/59 L 93 07/18/21 00:00 98.5 F 84 18 134/66 94 07/17/21 22:43 98.9 F 88 18 127/75 94 07/17/21 22:25 84 18 140/72 H 91 L 07/17/21 22:10 89 18 138/70 92 07/17/21 21:55 90 22 H 140/86 H 99 07/17/21 21:40 90 22 H 120/81 99 07/17/21 21:35 88 22 H 109/85 99 07/17/21 21:30 87 22 H 116/91 H 100 07/17/21 21:25 97.8 F 86 22 H 130/85 97 07/17/21 19:36 97.6 F 86 20 100/72 98 Anesthesia: General Endotracheal-GETA Mental Status: Awake Pain Control: Satisfactory Nausea/Vomiting: None Hydration: Adequate Anesthesia-Related Issues: No Anes. Related Issues
[2021-07-18 08:00] VITALS: BP 128/64; PULSE 82; RESP 19; TEMP 36.6; O2SAT 93
[2021-07-18 08:09] LABS: Glucose, Whole Blood 319 mg/dL (60-115)
[2021-07-18] MEDS: Morphine Sulfate ER 30 MG TABLET.ER PO (08:25)
[2021-07-18] MEDS: carvediloL 12.5 MG TABLET PO (08:25)
[2021-07-18] MEDS: Aspirin Enteric Coated 81 MG TABLET.DR PO (08:25)
[2021-07-18] MEDS: 0.9 % Sodium Chloride Flush 3 ML SYRINGE IVFLUSH (08:26)
[2021-07-18] MEDS: Insulin Lispro 100 UNIT/ML 3 ML VIAL SUBCUT ×2 (08:26→11:38)
--- NOTE | 2021-07-18 08:47 | PM.PNGS ---
Subjective Subjective Date of Service: 07/18/21 Patient reports: feels better Interval history: POD #1 s/p laparoscopic removal of gastric band. Pt tolerated the procedure well last evening and a drain was left in place. approx 20 mL of serosang in collection bulb overnight. WBC has decreased and he likely will be able to be discharged home today from bariatric surgery perspective with a 10 day course of oral abx and follow up with Dr Altamirano in 1 week for drain removal. Physical Exam Vital Signs: Vital Signs: Last Vital Signs Temp 97.9 F 07/18/21 08:00 Pulse 82 07/18/21 08:00 Resp 19 07/18/21 08:00 BP 128/64 07/18/21 08:00 Pulse Ox 93 07/18/21 08:00 Oxygen Flow Rate 3 07/18/21 00:44 Body Mass Index 56.3 Const: General: cooperative, comfortable and no acute distress Nutritional Appearance: obese Orientation/consciousness: patient oriented x3 Resp: Effort & Inspection: normal respiratory effort Auscultation: clear to auscultation bilaterally Cardio: Rate: regular rate Rhythm: regular rhythm GI: Inspection: Yes incision (serous drainage at the exit of the drain. Other incisions c/d/i) Palpation (GI): Soft to palpation and nontender Auscultation: normal bowel sounds Neuro: General: patient oriented x3 Procedures Date of Service Date of Service: 07/18/21 Progress Note: A&P Assessment and plan (1) Abdominal wall cellulitis: Status: Acute Assessment and Plan: Kendy-gastric port abscess.. Intra-operative culture of port site pending. Gastric band and port removed yesterday with drain left in place. POD #1. Recc: 10 days Augmentin 875 mg BID and follow up with Dr Altamirano in the office in 1 week for drain removal. No showers or submersion in water until directed by Dr Altamirano. Sponge bath ok. May resume previous diet. (2) Morbid obesity: Status: Acute Assessment and Plan: Certainly woud benefit from involvement in a weight management program. Previously operated on by Dr Whitehead (now at [facility]) for lap banding in 2005. He may follow up with us here if he wishes. Fall Risk Details Current Medications: Current Medications Generic Name Dose Route Start Last Admin Trade Name Freq PRN Reason Stop Dose Admin Acetaminophen 650 mg 07/17/21 10:42 07/18/21 03:38 Acetaminophen 325 Mg Tablet PO 650 mg Q6H PRN Administration Pain, Mild (Pain Scale 1-3) Albuterol Sulfate 2 puff 07/17/21 10:48 Albuterol Sulfate 90 Mcg 8 Gm Inhaler INHALE QID PRN Shortness Of Breath Or Wheezing Aspirin 81 mg 07/18/21 09:00 07/18/21 08:25 Aspirin Enteric Coated 81 Mg Tablet.Dr PO 81 mg DAILY THADDESU Administration Atorvastatin Calcium 20 mg 07/17/21 21:00 07/17/21 23:32 Atorvastatin Calcium 20 Mg Tablet PO 20 mg BEDTIME THADDEUS Administration Carvedilol 12.5 mg 07/17/21 21:00 07/18/21 08:25 Carvedilol 12.5 Mg Tablet PO 12.5 mg BID THADDEUS Administration Protocol Dextrose 25 gm 07/17/21 10:49 Dextrose 50 % 25 Gm/50 Ml Vial IVPUSH Q15M PRN per Hypoglycemia Standing Ord. Protocol Glucose 15 gm 07/17/21 10:49 Glucose Gel 15 Gm Gel..Gram. PO Q15M PRN per Hypoglycemia Standing Ord. Protocol Hydromorphone HCl 0.5 mg 07/17/21 19:15 Hydromorphone Hcl 0.5 Mg/0.5 Ml Syringe IVPUSH Q5M PRN Pain, Severe (Pain Scale 7-10) Protocol Vancomycin HCl 1,000 mg/ 270 mls @ 270 mls/hr 07/17/21 16:00 07/18/21 04:39 Sodium Chloride IV Infused Q12H THADDEUS Infusion Piperacillin Sod/Tazobactam 100 mls @ 200 mls/hr 07/17/21 11:30 07/18/21 05:28 Sod 4.5 gm/ Sodium Chloride IV Infused Q6H THADDEUS Infusion Insulin Glargine 25 unit 07/17/21 21:00 07/17/21 23:33 Insulin Glargine,Hum.Rec.Anlog 100 Unit/Ml 10 Ml Vial SUBCUT 25 unit BEDTIME THADDEUS Administration Insulin Human Lispro 0 unit 07/17/21 11:30 07/18/21 08:26 Insulin Lispro 100 Unit/Ml 3 Ml Vial SUBCUT 8 unit QIDACHS THADDEUS Administration Protocol Magnesium Hydroxide 30 ml 07/17/21 10:42 Milk Of Magnesia 30 Ml Oral.Susp PO DAILY PRN Constipation Melatonin 6 mg 07/17/21 10:42 Melatonin 3 Mg Tablet PO BEDTIME PRN Insomnia Morphine Sulfate 30 mg 07/17/21 15:00 07/18/21 08:25 Morphine Sulfate Er 30 Mg Tablet.Er PO 30 mg TID THADDEUS Administration Omeprazole 40 mg 07/17/21 16:30 07/18/21 04:38 Omeprazole 40 Mg Capsule.Dr PO 40 mg BID@0630,1630 THADDEUS Administration Ondansetron HCl 4 mg 07/17/21 10:42 Ondansetron Hcl 4 Mg/2 Ml Vial IVPUSH Q8H PRN Nausea and Vomiting Oxycodone HCl 15 mg 07/17/21 10:48 07/18/21 03:38 Oxycodone Hcl Immed Release 15 Mg Tablet PO 15 mg Q4H PRN Administration Pain Pharmacy Consult 1 each 07/17/21 10:19 Consult Rx Perform Med Rec MISCELLANE ONCE PRN Consult order Pharmacy Consult 1 each 07/17/21 10:42 Consult Rx Vancomycin Dosing MISCELLANE DAILY PRN Consult order Senna 17.2 mg 07/17/21 10:48 Sennosides 8.6 Mg Tablet PO BID PRN Constipation Sodium Biphosphate/Sodium Phosphate 133 ml 07/17/21 22:01 Sodium Phosphate,Winn-Dibasic 133 Ml Enema OR ONCE PRN Poor Colonoscopy Prep Results Sodium Chloride 3 ml 07/17/21 16:00 07/18/21 08:26 0.9 % Sodium Chloride Flush 3 Ml Syringe IVFLUSH 3 ml QSHIFT THADDEUS Administration Time Spent With Patient Time: Total time spent is greater than 50% in coordination of care (as documented) at patient's floor/unit and/or counseling patient: Time with patient: 15 - 24 minutes Quality Stroke Does the patient have a stroke diagnosis?: No VTE Prior VTE?: No VTE Risk Level:: Medical - moderate - high VTE Device Contraindication: N/A - Device Ordered VTE Drug Contraindication: Treatment Not Indicated
--- NOTE | 2021-07-18 09:57 | PM.PNCARD ---
Subjective Subjective Date of Service: 07/18/21 <KARMEN Rangel - Last Filed: 07/18/21 10:43> 07/18/21 <Julio Grigsby MD - Last Filed: 07/18/21 12:07> Principal diagnosis: Sepsis, abd wall abcess, s/p gastric band removal <KARMEN Rangel - Last Filed: 07/18/21 10:43> Interval history: Cardiology follow up post op. Seen at 0900. Today he reports feeling better than yesterday. He has minor abdominal soreness. No fever or chills. No chest pains, sob, palpitations, dizziness. <KARMEN Rangel - Last Filed: 07/18/21 10:43> Review of Systems Review of Systems as above <KARMEN Rangel - Last Filed: 07/18/21 10:43> Yes all other systems are reviewed and are negative <KARMEN Rangel - Last Filed: 07/18/21 10:43> Physical Exam Vital Signs: Last Vital Signs Temp 97.9 F 07/18/21 08:00 Pulse 82 07/18/21 08:00 Resp 19 07/18/21 08:00 BP 128/64 07/18/21 08:00 Pulse Ox 93 07/18/21 08:00 Oxygen Flow Rate 3 07/18/21 00:44 Body Mass Index 56.3 <KARMEN Rangel - Last Filed: 07/18/21 10:43> Const General: cooperative, no acute distress, alert and awake <KARMEN Rangel - Last Filed: 07/18/21 10:43> Orientation/consciousness: patient oriented x3 <KARMEN Rangel - Last Filed: 07/18/21 10:43> Neck Neck: Yes normal visual inspection and Yes no JVD <KAREMN Rangel Last Filed: 07/18/21 10:43> Resp Effort & Inspection: normal respiratory effort, able to speak in complete sentences and not labored <KARMEN aRngel - Last Filed: 07/18/21 10:43> Auscultation: clear to auscultation bilaterally, no rales, no rhonchi and no wheezes <Kely Geovanna [facility] - Last Filed: 07/18/21 10:43> Cardio Palpation: normal PMI <[facility] Geovanna [facility] Last Filed: 07/18/21 10:43> Rate: regular rate <[facility] Last Filed: 07/18/21 10:43> Rhythm: regular rhythm <[facility] Last Filed: 07/18/21 10:43> Heart sounds: S1 normal heart sound present and S2 normal heart sound present [facility] Last Filed: 07/18/21 10:43> GI Inspection: Yes normal to inspection <[facility] Last Filed: 07/18/21 10:43> Neuro General: patient oriented x3 [facility] Last Filed: 07/18/21 10:43> Extrem Other: Nonpitting lower leg edema, Venous stasis changes to each lower leg [facility] - Last Filed: 07/18/21 10:43> Results Labs and Meds Result diagrams: : 07/18/21 05:16 07/18/21 05:16 <Kely Geovanna [facility] - Last Filed: 07/18/21 10:43> Lab results: Laboratory Results - last 24 hr 07/17/21 07/17/21 07/17/21 13:29 14:27 15:16 WBC RBC Hgb Hct MCV MCH MCHC RDW Plt Count MPV Immature Gran % (Auto) Neut % (Auto) Lymph % (Auto) [place] % (Auto) Eos % (Auto) Baso % (Auto) Lymph # (Auto) [place] # (Auto) Eos # (Auto) Baso # (Auto) Abs Immat Gran (auto) Absolute Neuts (auto) Absolute Nucleated RBC Nucleated RBC % (auto) PT 14.0 H INR 1.2 H Sodium Potassium Chloride Carbon Dioxide Anion Gap BUN Creatinine Estim Creat Clear Calc Estimated GFR POC Glucose 192 H Random Glucose Calcium Blood Type A Positive Antibody Screen NEGATIVE 07/17/21 07/18/21 07/18/21 23:59 05:16 05:16 WBC 11.4 H RBC 4.58 L Hgb 12.8 L Hct 41.0 L MCV 89.5 MCH 27.9 MCHC 31.2 RDW 13.9 Plt Count 190 MPV 11.0 Immature Gran % (Auto) 0.4 Neut % (Auto) 82.1 H Lymph % (Auto) 12.6 L [place] % (Auto) 4.7 Eos % (Auto) 0.0 Baso % (Auto) 0.2 Lymph # (Auto) 1.4 [place] # (Auto) 0.5 Eos # (Auto) 0.0 Baso # (Auto) 0.0 Abs Immat Gran (auto) 0.04 H Absolute Neuts (auto) 9.4 H Absolute Nucleated RBC 0.000 Nucleated RBC % (auto) 0.0 PT 14.1 H INR 1.2 H Sodium 140 Potassium 4.8 Chloride 106 Carbon Dioxide 25 Anion Gap 14 BUN 14 Creatinine 1.10 Estim Creat Clear Calc 121.6 Estimated GFR > 60 POC Glucose Random Glucose 323 H Calcium 7.7 L D Blood Type Antibody Screen 07/18/21 08:05 WBC RBC Hgb Hct MCV MCH MCHC RDW Plt Count MPV Immature Gran % (Auto) Neut % (Auto) Lymph % (Auto) [place] % (Auto) Eos % (Auto) Baso % (Auto) Lymph # (Auto) [place] # (Auto) Eos # (Auto) Baso # (Auto) Abs Immat Gran (auto) Absolute Neuts (auto) Absolute Nucleated RBC Nucleated RBC % (auto) PT INR Sodium Potassium Chloride Carbon Dioxide Anion Gap BUN Creatinine Estim Creat Clear Calc Estimated GFR POC Glucose 319 H Random Glucose Calcium Blood Type Antibody Screen <KARMEN Rangel - Last Filed: 07/18/21 10:43> Progress Note: A&P Assessment and plan (1) Postoperative state: Status: Acute <KARMEN Rangel - Last Filed: 07/18/21 10:43> Assessment and Plan: Seen for preop EGD, gastric band removal yesterday. Underwent procedure without any known cardiac complications. Vitals stable. Does report some vague atypical chest discomfort that he had prior to surgery as well. Troponin and EKG were normal yesterday. We will sign off. <KARMEN Rangel - Last Filed: 07/18/21 10:43> (2) Chest discomfort: Status: Acute <KARMEN Rangel - Last Filed: 07/18/21 10:43> Assessment and Plan: Atypical <KARMEN Rangel - Last Filed: 07/18/21 10:43> (3) Morbid obesity: Status: Acute <KARMEN Rangel - Last Filed: 07/18/21 10:43> (4) Sepsis: Status: Acute <KARMEN Rangel - Last Filed: 07/18/21 10:43> Assessment and Plan: Being managed by hospitalist and being followed by surgery as well <KARMEN Rangel - Last Filed: 07/18/21 10:43> Fall Risk Details Current Medications: Current Medications Acetaminophen (Acetaminophen 325 Mg Tablet) 650 mg PO Q6H PRN PRN Reason: Pain, Mild (Pain Scale 1-3) Last Admin: 07/18/21 03:38 Dose: 650 mg Documented by: Albuterol Sulfate (Albuterol Sulfate 90 Mcg 8 Gm Inhaler) 2 puff INHALE QID PRN PRN Reason: Shortness Of Breath Or Wheezing Aspirin (Aspirin Enteric Coated 81 Mg Tablet.) 81 mg PO DAILY COUNT INCLUDES THE [facility] Last Admin: 07/18/21 08:25 Dose: 81 mg Documented by: Atorvastatin Calcium (Atorvastatin Calcium 20 Mg Tablet) 20 mg PO BEDTIME COUNT INCLUDES THE [facility] Last Admin: 07/17/21 23:32 Dose: 20 mg Documented by: Carvedilol (Carvedilol 12.5 Mg Tablet) 12.5 mg PO BID COUNT INCLUDES THE [facility]; Protocol Last Admin: 07/18/21 08:25 Dose: 12.5 mg Documented by: Dextrose (Dextrose 50 % 25 Gm/50 Ml Vial) 25 gm IVPUSH Q15M PRN; Protocol PRN Reason: per Hypoglycemia Standing Ord. Glucose (Glucose Gel 15 Gm Gel..Gram.) 15 gm PO Q15M PRN; Protocol PRN Reason: per Hypoglycemia Standing Ord. Hydromorphone HCl (Hydromorphone Hcl 0.5 Mg/0.5 Ml Syringe) 0.5 mg IVPUSH Q5M PRN; Protocol PRN Reason: Pain, Severe (Pain Scale 7-10) Vancomycin HCl 1,000 mg/ (Sodium Chloride) 270 mls @ 270 mls/hr IV Q12H COUNT INCLUDES THE [facility] Last Infusion: 07/18/21 04:39 Dose: Infused Documented by: Piperacillin Sod/Tazobactam (Sod 4.5 gm/ Sodium Chloride) 100 mls @ 200 mls/hr IV Q6H COUNT INCLUDES THE [facility] Last Infusion: 07/18/21 05:28 Dose: Infused Documented by: Insulin Glargine (Insulin Glargine,Hum.Rec.Anlog 100 Unit/Ml 10 Ml Vial) 25 unit SUBCUT BEDTIME COUNT INCLUDES THE [facility] Last Admin: 07/17/21 23:33 Dose: 25 unit Documented by: Insulin Human Lispro (Insulin Lispro 100 Unit/Ml 3 Ml Vial) 0 unit SUBCUT QIDACHS COUNT INCLUDES THE [facility]; Protocol Last Admin: 07/18/21 08:26 Dose: 8 unit Documented by: Magnesium Hydroxide (Milk Of Magnesia 30 Ml Oral.Susp) 30 ml PO DAILY PRN PRN Reason: Constipation Melatonin (Melatonin 3 Mg Tablet) 6 mg PO BEDTIME PRN PRN Reason: Insomnia Morphine Sulfate (Morphine Sulfate Er 30 Mg Tablet.Er) 30 mg PO TID COUNT INCLUDES THE [facility] Last Admin: 07/18/21 08:25 Dose: 30 mg Documented by: Omeprazole (Omeprazole 40 Mg Capsule.Dr) 40 mg PO BID@0630,1630 COUNT INCLUDES THE [facility] Last Admin: 07/18/21 04:38 Dose: 40 mg Documented by: Ondansetron HCl (Ondansetron Hcl 4 Mg/2 Ml Vial) 4 mg IVPUSH Q8H PRN PRN Reason: Nausea and Vomiting Oxycodone HCl (Oxycodone Hcl Immed Release 15 Mg Tablet) 15 mg PO Q4H PRN PRN Reason: Pain Last Admin: 07/18/21 03:38 Dose: 15 mg Documented by: Pharmacy Consult (Consult Rx Perform Med Rec) 1 each MISCELLANE ONCE PRN PRN Reason: Consult order Pharmacy Consult (Consult Rx Vancomycin Dosing) 1 each MISCELLANE DAILY PRN PRN Reason: Consult order Senna (Sennosides 8.6 Mg Tablet) 17.2 mg PO BID PRN PRN Reason: Constipation Sodium Biphosphate/Sodium Phosphate (Sodium Phosphate,Cook-Dibasic 133 Ml Enema) 133 ml [place] ONCE PRN PRN Reason: Poor Colonoscopy Prep Results Sodium Chloride (0.9 % Sodium Chloride Flush 3 Ml Syringe) 3 ml IVFLUSH QSHIFT COUNT INCLUDES THE [facility] Last Admin: 07/18/21 08:26 Dose: 3 ml Documented by: <KARMEN Rangel - Last Filed: 07/18/21 10:43> Time Spent With Patient Time: Total time spent is greater than 50% in coordination of care (as documented) at patient's floor/unit and/or counseling patient: <KARMEN Rangel Last Filed: 07/18/21 10:43> Time with patient: less than 15 minutes <KARMEN Rangel - Last Filed: 07/18/21 10:43> Progress Note: Quality Stroke Does the patient have a stroke diagnosis?: No <KARMEN Rangel Last Filed: 07/18/21 10:43> Procedures Date of Service Date of Service: 07/18/21 <KARMEN Rangel Last Filed: 07/18/21 10:43>
--- NOTE | 2021-07-18 11:32 | MHC.CLN ---
NUTRITION DIET=DIABETIC 1500 KCAL. PROVIDES 18.5 KCAL/KG IBW. LOWER KCAL DIET PER MD TO PROMOTE WEIGHT LOSS.
--- NOTE | 2021-07-18 11:43 | P.DS_ITS ---
DS: Providers Provider Date of Service: 07/18/21 Date of admission: 07/17/21 10:42 Primary care physician: None Physician Consults: 07/17/21 10:47 Consult to Infectious Diseases Stat Consulting Provider: Monica Acosta Reason for consultation: abd wall cellulitis Has provider been notified: No 07/17/21 12:30 Consult to Bariatric Surgery Routine Consulting Provider: Jeferson Wilson Reason for consultation: history of lap band, abdominal wall cellulitis; I&D of lap band site Has provider been notified: No 07/17/21 13:00 Consult to Cardiology Stat Consulting Provider: Julio Grigsby Reason for consultation: preop clearance for removal of band DS: Diagnosis Discharge Diagnosis (1) Morbid obesity: Status: Acute (2) Sepsis: Status: Acute (3) Gastric band erosion: Status: Acute (4) Abdominal wall cellulitis: Status: Acute DS: Summary Hospital Course Hospital Course: Patient was admitted for sepsis due to abdominal wall abscess/cellulitis. He underwent an incision and drainage, cultures are negative to date. He was given IV vancomycin Zosyn with resolution of sepsis. He was seen by bariatric surgery who removed associated gastric band. Patient was seen by infectious disease recommended p.o. Augmentin on discharge. Patient is doing well postoperatively and will be discharged home. He will follow up with surgery on 07/25. Time Spent with Patient Time attestation: Total time spent providing and/or coordinating discharge services: Discharge coordination time: Greater than 30 minutes Quality: Stroke Does the patient have a stroke diagnosis?: No Physical Exam Vital Signs: Vital Signs: Last Vital Signs Temp 97.9 F 07/18/21 08:00 Pulse 82 07/18/21 08:00 Resp 19 07/18/21 08:00 BP 128/64 07/18/21 08:00 Pulse Ox 93 07/18/21 08:00 Oxygen Flow Rate 3 07/18/21 00:44 Body Mass Index 56.3 GI incision (serous drainage at the exit of the drain.? Other incisions c/d/i) ?Soft to palpation and nontender ?normal bowel sounds General: AO X 3, no acute distress Resp: CTA bilateral, no accessory muscles used CVS: S1,S2,RRR Neuro: motor grossly intact, alert Psych: appropriate affect, appropriate insight DS: Data Data Completed and Pending Labs on day of discharge: Laboratory Results - last 24 hr 07/17/21 07/17/21 07/17/21 13:29 14:27 15:16 WBC RBC Hgb Hct MCV MCH MCHC RDW Plt Count MPV Immature Gran % (Auto) Neut % (Auto) Lymph % (Auto) [place] % (Auto) Eos % (Auto) Baso % (Auto) Lymph # (Auto) [place] # (Auto) Eos # (Auto) Baso # (Auto) Abs Immat Gran (auto) Absolute Neuts (auto) Absolute Nucleated RBC Nucleated RBC % (auto) PT 14.0 H INR 1.2 H Sodium Potassium Chloride Carbon Dioxide Anion Gap BUN Creatinine Estim Creat Clear Calc Estimated GFR POC Glucose 192 H Random Glucose Calcium Blood Type A Positive Antibody Screen NEGATIVE 07/17/21 07/18/21 07/18/21 23:59 05:16 05:16 WBC 11.4 H RBC 4.58 L Hgb 12.8 L Hct 41.0 L MCV 89.5 MCH 27.9 MCHC 31.2 RDW 13.9 Plt Count 190 MPV 11.0 Immature Gran % (Auto) 0.4 Neut % (Auto) 82.1 H Lymph % (Auto) 12.6 L [place] % (Auto) 4.7 Eos % (Auto) 0.0 Baso % (Auto) 0.2 Lymph # (Auto) 1.4 [place] # (Auto) 0.5 Eos # (Auto) 0.0 Baso # (Auto) 0.0 Abs Immat Gran (auto) 0.04 H Absolute Neuts (auto) 9.4 H Absolute Nucleated RBC 0.000 Nucleated RBC % (auto) 0.0 PT 14.1 H INR 1.2 H Sodium 140 Potassium 4.8 Chloride 106 Carbon Dioxide 25 Anion Gap 14 BUN 14 Creatinine 1.10 Estim Creat Clear Calc 121.6 Estimated GFR > 60 POC Glucose Random Glucose 323 H Calcium 7.7 L D Blood Type Antibody Screen 07/18/21 08:05 WBC RBC Hgb Hct MCV MCH MCHC RDW Plt Count MPV Immature Gran % (Auto) Neut % (Auto) Lymph % (Auto) [place] % (Auto) Eos % (Auto) Baso % (Auto) Lymph # (Auto) [place] # (Auto) Eos # (Auto) Baso # (Auto) Abs Immat Gran (auto) Absolute Neuts (auto) Absolute Nucleated RBC Nucleated RBC % (auto) PT INR Sodium Potassium Chloride Carbon Dioxide Anion Gap BUN Creatinine Estim Creat Clear Calc Estimated GFR POC Glucose 319 H Random Glucose Calcium Blood Type Antibody Screen Preliminary micro results at discharge 07/17/21 20:30 Routine Culture - Preliminary Abdomen - Abdominal No growth to date. 07/17/21 04:21 Blood Culture - Preliminary Blood - Venous No growth after 24 hours. 07/17/21 04:21 Blood Culture - Preliminary Blood - Venous No growth after 24 hours. Discharge Plan Discharge Patient Disposition: Home, Self-Care Discharge Diagnosis: andominal wall cellulitis, gastric band erosion Referrals: Physician,None [Primary Care Provider] - 1 Week Discharge Medications: New amoxicillin-pot clavulanate [Augmentin] 875-125 mg tablet 1 tab PO BID Qty: 14 RF: 0 Continued sennosides [senna] 8.6 mg Tablet 17.2 mg PO BID PRN (Reason: Constipation) RF: 0 ferrous sulfate [Iron (ferrous sulfate)] 325 mg (65 mg iron) Tablet 325 mg PO DAILY RF: 0 carvedilol 12.5 mg tablet 12.5 mg PO BID RF: 0 clopidogrel 75 mg tablet 75 mg PO DAILY RF: 0 morphine 30 mg tablet extended release 30 mg PO TID RF: 0 simvastatin 40 mg tablet 40 mg PO BEDTIME RF: 0 oxycodone 15 mg tablet 15 mg PO Q4H PRN (Reason: Pain) RF: 0 pantoprazole 40 mg tablet,delayed release (DR/EC) 40 mg PO BID RF: 0 albuterol sulfate [Ventolin HFA] 90 mcg/actuation HFA aerosol inhaler 2 puff inhalation QID PRN (Reason: Shortness Of Breath Or Wheezing) RF: 0 insulin aspart U-100 [Novolog Flexpen U-100 Insulin] 100 unit/mL (3 mL) insulin pen See Rx Instructions unit .ROUTE .COMPLEX RF: 0 Basaglar KwikPen U-100 Insulin 100 unit/mL (3 mL) insulin pen 40 unit subcut BEDTIME RF: 0 aspirin 81 mg Tablet,Delayed Release (Dr/Ec) 81 mg PO DAILY RF: 0 Discharge Orders: Discharge Order (Routine); Ordered 07/18/21 Ordered By: Mike Alfaro Diet: advance to usual diet Activity on Discharge: No heavy lifting Stand Alone Forms: Patient Portal Discharge page Activity Restrictions/Additional Instructions: No heavy lifting greater than 5 lbs for the next 4 weeks. Sponge bath for the next week and no submersion in water. Keep a log of drainage output per 24 hours and bring with you to your follow up appointment with Dr Altamirano. Daily dressing change to wound site. Follow up with Dr Altamirano in 1 week on 07/25/21 at 1:15 pm. , please call the office with any concerns, Care Plan Goals: recovery Health Concerns: abdominal wall abscess/cellulitis Plan of Treatment: 7 days augmentin, follow up surgery Assessment: see above
--- NOTE | 2021-07-18 11:51 | MHC.CM.PN ---
PT CLEARED TO DC HOME TODAY WITH NO SERVICES
[2021-07-18 12:16] LABS: Glucose, Whole Blood 304 mg/dL (60-115)
--- NOTE | 2021-07-18 14:37 | P.CNID_ITS ---
History of Present Illness Data of Consult Service Date: 07/18/21 Requesting physician: Mike Alfaro Primary Care Provider: None Physician HPI Reason for consult: abdominal wall cellulitis He presents to hospital with redness RLQ for last day He had gastric bypass Cultures negative Review of Systems Review of Systems: Yes all other systems are reviewed and are negative [facility] Past Medical History Medical History Asthma Back pain Cardiac arrest COVID-19 COVID-19 vaccine series completed Diabetes GERD (gastroesophageal reflux disease) High cholesterol HTN (hypertension) Hx of deep venous thrombosis Hx of hyperlipidemia Leg swelling Myocardial infarct, old Obesity Septic shock Sleep apnea Surgical History Surgical History History of ankle surgery History of arthroscopy of both knees History of esophagogastroduodenoscopy (EGD) History of removal of laparoscopic gastric banding device History of umbilical hernia repair Hx of cholecystectomy Hx of colonoscopy Personal history of gastric banding Social History Social History Household Members: Family Household Members Other:: 1 Housing: House Are you a primary career services coordinator to a significant other at home: Yes (his mother) Do you presently have visiting nurse or other home services: No Alcohol intake: never Patient Tobacco Use Status: Never used Tobacco Advance Directives Date on File: 11/20/20 service: No Current occupational status: retired Meds Allergies Allergy/AdvReac Type Severity Reaction Status Date / Time vancomycin [VANCOMYCIN] AdvReac Severe RENAL Verified 07/25/21 13:34 FAILURE, RASH Active Medications: Current Medications Acetaminophen (Acetaminophen 325 Mg Tablet) 650 mg PO Q6H PRN PRN Reason: Pain, Mild (Pain Scale 1-3) Last Admin: 07/18/21 10:31 Dose: 650 mg Documented by: Albuterol Sulfate (Albuterol Sulfate 90 Mcg 8 Gm Inhaler) 2 puff INHALE QID PRN PRN Reason: Shortness Of Breath Or Wheezing Aspirin (Aspirin Enteric Coated 81 Mg Tablet.) 81 mg PO DAILY [facility] Last Admin: 07/18/21 08:25 Dose: 81 mg Documented by: Atorvastatin Calcium (Atorvastatin Calcium 20 Mg Tablet) 20 mg PO BEDTIME [facility] Last Admin: 07/17/21 23:32 Dose: 20 mg Documented by: Carvedilol (Carvedilol 12.5 Mg Tablet) 12.5 mg PO BID [facility]; Protocol Last Admin: 07/18/21 08:25 Dose: 12.5 mg Documented by: Dextrose (Dextrose 50 % 25 Gm/50 Ml Vial) 25 gm IVPUSH Q15M PRN; Protocol PRN Reason: per Hypoglycemia Standing Ord. Glucose (Glucose Gel 15 Gm Gel..Gram.) 15 gm PO Q15M PRN; Protocol PRN Reason: per Hypoglycemia Standing Ord. Hydromorphone HCl (Hydromorphone Hcl 0.5 Mg/0.5 Ml Syringe) 0.5 mg IVPUSH Q5M PRN; Protocol PRN Reason: Pain, Severe (Pain Scale 7-10) Vancomycin HCl 1,000 mg/ (Sodium Chloride) 270 mls @ 270 mls/hr IV Q12H [facility] Last Infusion: 07/18/21 04:39 Dose: Infused Documented by: Piperacillin Sod/Tazobactam (Sod 4.5 gm/ Sodium Chloride) 100 mls @ 200 mls/hr IV Q6H [facility] Last Infusion: 07/18/21 11:04 Dose: Infused Documented by: Insulin Glargine (Insulin Glargine,Hum.Rec.Anlog 100 Unit/Ml 10 Ml Vial) 25 unit SUBCUT BEDTIME [facility] Last Admin: 07/17/21 23:33 Dose: 25 unit Documented by: Insulin Human Lispro (Insulin Lispro 100 Unit/Ml 3 Ml Vial) 0 unit SUBCUT QIDACHS [facility]; Protocol Last Admin: 07/18/21 11:38 Dose: 8 unit Documented by: Magnesium Hydroxide (Milk Of Magnesia 30 Ml Oral.Susp) 30 ml PO DAILY PRN PRN Reason: Constipation Melatonin (Melatonin 3 Mg Tablet) 6 mg PO BEDTIME PRN PRN Reason: Insomnia Morphine Sulfate (Morphine Sulfate Er 30 Mg Tablet.Er) 30 mg PO TID [facility] Last Admin: 07/18/21 08:25 Dose: 30 mg Documented by: Omeprazole (Omeprazole 40 Mg Capsule.Dr) 40 mg PO BID@0630,1630 [facility] Last Admin: 07/18/21 04:38 Dose: 40 mg Documented by: Ondansetron HCl (Ondansetron Hcl 4 Mg/2 Ml Vial) 4 mg IVPUSH Q8H PRN PRN Reason: Nausea and Vomiting Oxycodone HCl (Oxycodone Hcl Immed Release 15 Mg Tablet) 15 mg PO Q4H PRN PRN Reason: Pain Last Admin: 07/18/21 10:31 Dose: 15 mg Documented by: Pharmacy Consult (Consult Rx Perform Med Rec) 1 each MISCELLANE ONCE PRN PRN Reason: Consult order Pharmacy Consult (Consult Rx Vancomycin Dosing) 1 each MISCELLANE DAILY PRN PRN Reason: Consult order Senna (Sennosides 8.6 Mg Tablet) 17.2 mg PO BID PRN PRN Reason: Constipation Sodium Biphosphate/Sodium Phosphate (Sodium Phosphate,[place]-Dibasic 133 Ml Enema) 133 ml [place] ONCE PRN PRN Reason: Poor Colonoscopy Prep Results Sodium Chloride (0.9 % Sodium Chloride Flush 3 Ml Syringe) 3 ml IVFLUSH QSHIFT [facility] Last Admin: 07/18/21 08:26 Dose: 3 ml Documented by: Home Medications Medication Instructions Recorded Confirmed Last Taken Type albuterol sulfate 90 mcg/actuation 2 puff INHALATION QID PRN 11/20/20 07/17/21 07/17/21 History aerosol inhaler (Ventolin HFA) aspirin 81 mg tablet,delayed 81 mg PO DAILY 11/20/20 07/17/21 07/16/21 History release carvedilol 12.5 mg tablet 12.5 mg PO BID 11/20/20 07/17/21 07/16/21 History clopidogrel 75 mg tablet 75 mg PO DAILY 11/20/20 07/17/21 07/16/21 History insulin aspart U-100 100 unit/mL See Rx Instructions .ROUTE .COMPLEX 11/20/20 07/17/21 07/16/21 History (3 mL) subcutaneous pen (Novolog Flexpen U-100 Insulin aspart) insulin glargine 100 unit/mL (3 40 unit SUBCUT BEDTIME 11/20/20 07/17/21 07/16/21 History mL) subcutaneous pen (Basaglar KwikPen U-100 Insulin) morphine 30 mg tablet,extended 30 mg PO TID 11/20/20 07/17/21 07/16/21 History release oxycodone 15 mg tablet 15 mg PO Q4H PRN 11/20/20 07/17/21 07/16/21 History pantoprazole 40 mg tablet,delayed 40 mg PO BID 11/20/20 07/17/21 07/16/21 History release simvastatin 40 mg tablet 40 mg PO BEDTIME 11/20/20 07/17/21 07/16/21 History ferrous sulfate 325 mg (65 mg 325 mg PO DAILY 07/17/21 07/17/21 07/16/21 History iron) tablet (Iron (ferrous sulfate)) sennosides 8.6 mg tablet (senna) 17.2 mg PO BID PRN 07/17/21 07/17/21 07/16/21 History Physical Exam Vital Signs: Vital Signs: Last Vital Signs Temp 97.9 F 07/18/21 08:00 Pulse 82 07/18/21 08:00 Resp 19 07/18/21 08:00 BP 128/64 07/18/21 08:00 Pulse Ox 93 07/18/21 08:00 Oxygen Flow Rate 3 07/18/21 00:44 Body Mass Index 56.3 Const: General: cooperative HENMT: Head: Yes normal to inspection Mouth: Normal oral and palatal mucosa present Eyes: General: appearance normal, both eyes and all related structures Resp: Effort & Inspection: normal respiratory effort Cardio: Rate: regular rate Rhythm: regular rhythm GI: Other: serosanguinous fluid abdominal drain Palpation (GI): Soft to palpation and nontender Skin: General skin exam: no rashes or lesions noted Results Labs CBC & Chem 7: 07/18/21 05:16 07/18/21 05:16 Labs: Short CBC 07/18/21 Range/Units 05:16 WBC 11.4 H (4.8-10.8) X10*3/uL Hgb 12.8 L (14.0-18.0) g/dl Hct 41.0 L (42-52) % Plt Count 190 (160-400) X10*3/uL BMP 07/18/21 05:16 Sodium 140 Potassium 4.8 Chloride 106 Carbon Dioxide 25 BUN 14 Creatinine 1.10 Calcium 7.7 L D Microbiology Microbiology Results: Microbiology 07/17/21 20:30 Abdomen - Abdominal Gram Stain - Final 07/17/21 20:30 Abdomen - Abdominal Routine Culture - Preliminary No growth to date. 07/17/21 04:21 Blood - Venous Blood Culture - Preliminary No growth after 24 hours. 07/17/21 04:21 Blood - Venous Blood Culture - Preliminary No growth after 24 hours. Assessment and Plan (1) Gastric band erosion: Status: Deleted (2) Morbid obesity: Status: Acute (3) Sepsis: Status: Acute (4) Abdominal wall cellulitis: Status: Acute Cellulitis resolved No bacteremia or organisms isolated Po Augmentin for a week
[2021-07-18 15:39] LABS: Vancomycin Trough 8.4 mcg/mL (10.0-20.0)
--- NOTE | 2021-07-18 15:46 | PHA.PROG ---
Admission Date/Time: July 17, 2021 10:42 Indication: Cellulitis Weight in k.5 kg Adjusted body weight in K Hurley body weight in K.6 Obesity Dosing Indication % IBW: Yes - 242 Serum Creatinine - Last 168 Hours 07/17/21 07/18/21 04:21 05:16 Creatinine 1.07 1.10 Estimated CrCl and GFR - Last 168 Hours 07/17/21 07/18/21 04:21 05:16 Estim Creat Clear Calc 121.2 121.6 Estimated GFR > 60 > 60 Vancomycin Loading Dose: 2000 mg Current Vancomycin Dosing Regimen: 1000 mg Q12H Date and Time for next Vancomycin Level to be drawn: 07/19 @ 1500 Vancomycin Trough 8.4 mcg/mL (10.0-20.0) L 07/18/21 14:37 Pharmacist Comments on Vancomycin Plan: Vanco trough and AUC is subtherapetic at 8.4 and 352, respectively Increase vanco frequency to 1000mg Q8H. Expected AUC of 527 with a trough of 13.7. Next trough drawn 07/19 @ 1500 Continue monitoring SCr daily Pushpa Coates PharmD ext [phone] Vancomycin dosing will take advantage of Branch as a clinical decision support tool that uses Bayesian modeling to calculate individual patient's pharmacokinetic parameters and forecast the patient's drug concentration time course with the target goal AUC 24 range of 400 - 600 mg/L/hr.
== END 2021-07-18 17:00 | disposition home or self-care (01) | DRG 987 ==
LOC: HO.ED 06:52 → HO.EDOVER 11:09 → HO.S3 22:27
PROVIDERS: Internal Medicine; Surgery; Admitting Provider Hospitalist; Emergency Provider Internal Medicine; Visit Provider Internal Medicine
PROC: 0DP64CZ Removal of Extraluminal Device from Stomach, Percutaneous Endoscopic Approach (ICD-10-PCS; principal; 2021-07-17 19:30)
DX: T85.79XA Infection and inflammatory reaction due to other internal prosthetic devices, implants and grafts, initial encounter (principal); A41.9 Sepsis, unspecified organism; L03.311 Cellulitis of abdominal wall; Z68.43 Body mass index [BMI] 50.0-59.9, adult; K21.9 Gastro-esophageal reflux disease without esophagitis; G47.33 Obstructive sleep apnea (adult) (pediatric); Z99.89 Dependence on other enabling machines and devices; Z20.822 Contact with and (suspected) exposure to COVID-19; E66.01 Morbid (severe) obesity due to excess calories; J45.909 Unspecified asthma, uncomplicated; I11.0 Hypertensive heart disease with heart failure; E78.5 Hyperlipidemia, unspecified; E11.9 Type 2 diabetes mellitus without complications; I50.9 Heart failure, unspecified; I25.2 Old myocardial infarction; Z98.84 Bariatric surgery status; Z79.4 Long term (current) use of insulin; Z79.02 Long term (current) use of antithrombotics/antiplatelets; Z79.82 Long term (current) use of aspirin; Z79.891 Long term (current) use of opiate analgesic; Z79.899 Other long term (current) drug therapy
CPT/HCPCS: 36415; 71045; 74176; 80048; 80076; 80202; 82947; 83605; 84484; 85025; 85610; 86850; 86900; 86901; 87040; 87071; 87077; 87186; 87205; 87635; 93005; 99285; J1100; J1170; J2250; J2405; J2543; J2765; J3010; J3370

== ENCOUNTER → 2021-07-25 13:22 | Outpatient (BNVA) | payer MEDICARE, SELFPAY | PROVIDERS: Referring Provider Internal Medicine; Visit Provider Surgery | DX: S31.109D Unspecified open wound of abdominal wall, unspecified quadrant without penetration into peritoneal cavity, subsequent encounter (principal); L08.9 Local infection of the skin and subcutaneous tissue, unspecified; Z98.84 Bariatric surgery status | CPT/HCPCS: 99212 ==

== ENCOUNTER 2022-01-12 13:39 | Outpatient (REF) | payer MEDICARE, SELFPAY ==
--- NOTE | ~2022-01-12 | CT_ITS ---
EXAMINATION: CT CHEST WITHOUT CONTRAST CLINICAL INFORMATION: Recheck lung nodules. Rounded atelectasis on the last CT abdomen exam. COMPARISON: CT abdomen and pelvis 07/17/[address] chest 05/12/2021. TECHNIQUE: Multidetector volumetric CT imaging of the chest was done. Axial MIP volume rendering provided. Sagittal and coronal reformatted images were obtained. This CT examination was performed using dose optimization techniques as appropriate, variously including the following: *Automated exposure control *Adjustment of mA and/or kV according to patient size (this includes techniques or standardized protocols for targeted exams where dose is matched to indication/reason for exam; i.e. extremities or head) *Use of iterative reconstruction technique DLP: 453 mGy-cm FINDINGS: ENCYCLOPEDIA RESEARCH WORKER: Unremarkable. LUNGS: The lungs are expanded with a known round atelectasis/consolidation in the right lung base measuring 3.4 x 2.4 cm axial image 42/4, similar to previous study. Prominent central bronchovascular changes are seen with parenchymal density similar to previous study. Rest of the lungs are well-expanded and clear. MEDIASTINUM: The thyroid lobes are symmetric and normal. The central trachea and the bronchi are widely patent. The heart size and great vessels are normal caliber. No abnormal mediastinal or hilar lymph nodes seen. There is no pericardial effusion. PLEURA: There is minimal right posterior pleural thickening. No pleural effusion seen. AXILLA: No lymphadenopathy. UPPER ABDOMEN: Visualized liver, spleen, pancreas and bilateral adrenal glands are unremarkable. Gallbladder has been surgically removed. OSSEOUS STRUCTURES: No aggressive lytic or sclerotic process seen. Mild ventral spondylosis is noted. CT/CT chest wo con IMPRESSION: Rounded atelectasis/consolidation right lung base similar to previous study, stable. There are no new findings. Fleischner guidelines were followed.
== END 2022-01-12 13:40 | disposition home or self-care (01) ==
LOC: HO.CT 13:39
PROVIDERS: PCP Internal Medicine; Visit Provider Internal Medicine
DX: R91.1 Solitary pulmonary nodule (principal)
CPT/HCPCS: 71250

== ENCOUNTER 2022-02-11 15:16 | Outpatient (REF) | payer MEDICARE, SELFPAY ==
[2022-02-11 16:07] LABS: Influenza A PCR NEGATIVE (Negative); Influenza B PCR NEGATIVE (Negative); Resp Syncy Virus RNA Qual PCR NEGATIVE (Negative); SARS COV2 PCR INHOUSE NEGATIVE (Negative)
== END 2022-02-11 15:17 | disposition home or self-care (01) ==
LOC: HO.LNP 15:16
PROVIDERS: Visit Provider Internal Medicine
DX: Z13.89 Encounter for screening for other disorder (principal)
CPT/HCPCS: 0241U; 87071; 87147

== ENCOUNTER 2022-02-11 15:54 | Outpatient (REF) | payer MEDICARE, SELFPAY ==
--- NOTE | ~2022-02-11 | XR_ITS ---
EXAMINATION: XR SINUSES CLINICAL INFORMATION: Cough congestion/sinus pain. COMPARISON: None TECHNIQUE: 3 views of the sinuses were obtained. FINDINGS: The paranasal sinuses are well expanded and clear. The bony sinus sumner are intact. The nasal septum is deviated to the right. The mastoid sinuses are well-aerated and clear. XR/XR sinus min 3V IMPRESSION: Unremarkable sinus exam.
--- NOTE | ~2022-02-11 | XR_ITS ---
EXAMINATION: XR CHEST CLINICAL INFORMATION: Chest congestion COMPARISON: CT chest 01/12/2022 TECHNIQUE: 2 views of the chest were obtained. FINDINGS: No significant abnormality is noted involving the heart, lungs, mediastinum, bony thorax or soft tissues. XR/XR chest 2V IMPRESSION: Unremarkable chest examination.
[2022-02-11 16:19] LABS: MANUAL DIFF FLAG NO
[2022-02-11 17:00] LABS: Basophils Percent Auto 0.2 % (0-2); Eosinophils Absolute Auto 0.1 X10*3/uL (0.0-0.4); Eosinophils Percent Auto 1.2 % (0-4); Hematocrit 44.5 % (42.0-52.0); Hemoglobin 13.8 g/dl (14.0-18.0); Imm Gran Abs Auto 0.03 X10*3/uL (0.00-0.03); Imm Gran Pct Auto 0.3 % (0.0-0.4); Lymphocytes Absolute Auto 2.5 X10*3/uL (1.2-4.9); Lymphocytes Percent Auto 24.7 % (20-40); Mean Corpuscular Hemoglobin 26.5 pg (27.0-33.0); Mean Corpuscular Volume 85.6 fL (80.0-98.0); Mean Platelet Volume 10.2 fL (9.4-12.4); Monocytes Absolute Auto 1.3 X10*3/uL (0.1-1.2); Monocytes Percent Auto 12.6 % (2-11); Neutrophils Absolute Auto 6.2 x10*3/uL (2.0-8.3); Platelet Count 194 X10*3/uL (160-400); Red Cell Distribution Width 13.7 % (11.0-16.0); White Blood Count 10.2 X10*3/uL (4.8-10.8)
[2022-02-11 17:04] LABS: Estimated Average Glucose 255 mg/dL; Hemoglobin A1c % 10.5 %
[2022-02-11 17:35] LABS: Alanine Aminotransferase 19 U/L (0-40); Albumin Level 3.5 g/dL (3.5-5.0); Alkaline Phosphatase 113 U/L (39-117); Anion Gap 13 (12-20); Aspartate Amino Transferase 19 U/L (5-37); Bilirubin Total 0.6 mg/dL (0.0-1.0); Blood Urea Nitrogen 14 mg/dL (9-16); C Reactive Protein 3.18 mg/dL (< or = 0.50); Carbon Dioxide 25 mmol/L (22-29); Chloride 106 mmol/L (96-108); Estimated Glomerular Filt Rate > 60; Glucose Random 203 mg/dL (60-115); Potassium 4.7 mmol/L (3.3-5.1); Sodium 139 mmol/L (135-145); Total Protein 6.7 g/dL (6.5-8.0)
[2022-02-11 17:50] LABS: Appearance Urine CLEAR; Color Urine YELLOW; Glucose Urine UA 100 MG/DL (NEG); Leukocyte Esterase Urine NEG (NEG); Nitrite Urine NEG (NEG); PH 5.5 (5.0-8.0); Specific Gravity - Urine >= 1.030 (1.005-1.025); Urine Blood NEG (NEG); Urine Ketones 5 MG/DL (NEG); Urine Protein TRACE MG/DL (NEG-TRACE)
[2022-02-11 18:01] LABS: Amphetamine Screen Urine Not Detected (Not Detect); Barbiturates, Urine Not Detected (Not Detect); Benzodiazepines Screen Urine Not Detected (Not Detect); Cannabinoid Screen Urine Not Detected (Not Detect); Cocaine Screen Urine Not Detected (Not Detect); Fentanyl, urine Not Detected (Not Detect); Opiate Screen Urine POSITIVE (Not Detect); Phencyclidine Screen Urine Not Detected (Not Detect)
== END 2022-02-11 15:55 | disposition home or self-care (01) ==
LOC: HO.XRAY 15:54
PROVIDERS: PCP Internal Medicine; Visit Provider Internal Medicine
DX: E11.9 Type 2 diabetes mellitus without complications (principal); K21.9 Gastro-esophageal reflux disease without esophagitis; G47.33 Obstructive sleep apnea (adult) (pediatric); R60.9 Edema, unspecified; M54.9 Dorsalgia, unspecified; R05.9 Cough, unspecified; R09.89 Other specified symptoms and signs involving the circulatory and respiratory systems; J32.9 Chronic sinusitis, unspecified; Z20.822 Contact with and (suspected) exposure to COVID-19
CPT/HCPCS: 0241U; 70220; 71046; 80053; 80307; 81003; 82043; 83036; 85025; 86140; 87071; 87147

== ENCOUNTER 2022-02-27 09:46 | Day surgery (SDC) | payer MEDICARE, SELFPAY ==
[2022-02-23 15:56] VITALS: BMI 52.4
--- NOTE | 2022-02-26 13:14 | P.CONAN_ITS ---
Documented by User: Alessandra Sloan NP 02/26/22 13:21 HPI - Anesthesia Eval Consult details Narrative: 61yo M for Upper Endoscopy with Balloon Dilitation and colonoscopy Pt eval by PCP 02/11 for MAC, productive cough. Re-eval by PC 02/26 for optimization prior to procedure pending *High BMI, High dose chronic opioids, EPI* Plavix for hx DVT Case reviewed with Dr Maria by Queenie Osborn RN hx of septic lap band removed 07/2021 with GA-ETT 7.5 PMFSH Active Problems Active Problems: All Active Problems (Updated 02/23/22 @ 16:00 by Genesis Guerrier, JERO) COVID-19 (Acute) Pneumonia due to 2019 novel coronavirus (Acute) Abdominal wall cellulitis (Acute) Sepsis (Acute) Morbid obesity (Acute) Chronic abdominal wound infection (Acute) History of removal of laparoscopic gastric banding device (Acute) Past Medical History Medical History Asthma Back pain Cardiac arrest COVID-19 COVID-19 vaccine series completed Diabetes GERD (gastroesophageal reflux disease) High cholesterol HTN (hypertension) Hx of deep venous thrombosis Hx of hyperlipidemia Leg swelling Myocardial infarct, old Obesity PONV (postoperative nausea and vomiting) Septic shock Sleep apnea Surgical History Surgical History History of ankle surgery History of arthroscopy of both knees History of esophagogastroduodenoscopy (EGD) History of removal of laparoscopic gastric banding device History of umbilical hernia repair Hx of cholecystectomy Hx of colonoscopy Personal history of gastric banding Social History Social History Household Members: Family Household Members Other:: mother Housing: House Are you a primary pediatric acute care unit nurse to a significant other at home: Yes (for mother, sister also helps and will dos) Do you presently have visiting nurse or other home services: No Alcohol intake: never Patient Tobacco Use Status: Never used Tobacco Have you been hit, kicked, punched, or otherwise hurt by someone within the past year? If so, by whom?: No Are you DNR?: No Advance Directives: Yes Advance Directives Information Provided: Yes Advance Directives on File: Yes Advance Directives Date on File: 11/20/20 Recently lost weight without trying: No Poor oral hygiene: No (upper partial) service: No Current occupational status: retired Meds Allergies Allergy/AdvReac Type Severity Reaction Status Date / Time vancomycin [VANCOMYCIN] AdvReac Severe RENAL Verified 02/23/22 15:54 FAILURE, RASH Home Medications Medication Instructions Recorded Confirmed Last Taken Type albuterol sulfate 90 mcg/actuation 2 puff INHALATION QID PRN 11/20/20 02/23/22 07/17/21 History aerosol inhaler (Ventolin HFA) aspirin 81 mg tablet,delayed 81 mg PO DAILY 11/20/20 02/23/22 07/16/21 History release carvedilol 12.5 mg tablet 12.5 mg PO BID 11/20/20 02/23/22 07/16/21 History clopidogrel 75 mg tablet 75 mg PO DAILY 11/20/20 02/23/22 07/16/21 History insulin aspart U-100 100 unit/mL See Rx Instructions .ROUTE .COMPLEX 11/20/20 02/23/22 07/16/21 History (3 mL) subcutaneous pen (Novolog Flexpen U-100 Insulin aspart) insulin glargine 100 unit/mL (3 40 unit SUBCUT BEDTIME 11/20/20 02/23/22 07/16/21 History mL) subcutaneous pen (Basaglar KwikPen U-100 Insulin) morphine 30 mg tablet,extended 30 mg PO TID 11/20/20 02/23/22 07/16/21 History release oxycodone 15 mg tablet 15 mg PO Q4H PRN 11/20/20 02/23/22 07/16/21 History pantoprazole 40 mg tablet,delayed 40 mg PO BID 11/20/20 02/23/22 07/16/21 History release simvastatin 40 mg tablet 40 mg PO BEDTIME 11/20/20 02/23/22 07/16/21 History ferrous sulfate 325 mg (65 mg 325 mg PO DAILY 07/17/21 02/23/22 07/16/21 History iron) tablet (Iron (ferrous sulfate)) sennosides 8.6 mg tablet (senna) 17.2 mg PO BID PRN 07/17/21 02/23/22 07/16/21 History Exam Exam Date and Time: February 26, 2022 1314 Height,Weight and Vital Signs: Height 6 ft Weight 175.54 kg Pertinent Lab Results Pertinent Lab Results: Laboratory Tests 02/11/22 02/11/22 16:18 16:18 WBC 10.2 Hgb 13.8 L Hct 44.5 Plt Count 194 Sodium 139 Potassium 4.7 Chloride 106 Carbon Dioxide 25 BUN 14 Creatinine 1.04 Narrative Narrative: EKG 07/2021 Vent. Rate : 089 BPM ? ? Atrial Rate : 089 BPM ?? P-R Int : 154 ms? QRS Dur : 084 ms ? ? QT Int : 338 ms ? ? ? P-R-T Axes : 050 007 039 degrees ?? QTc Int : 411 ms ? Normal sinus rhythm Low voltage QRS Abnormal ECG When compared with ECG of 24-JUN-2021 16:31, No significant change was found XR chest 2V 01/2022 IMPRESSION: Unremarkable chest examination. Assessment and Plan Assessment Anesthesia Assessment: Chart Reviewed Documented by User: Precious Peralta MD 02/27/22 11:13 PMFSH Past Medical History Medical History Asthma Back pain Cardiac arrest COVID-19 COVID-19 vaccine series completed Diabetes GERD (gastroesophageal reflux disease) High cholesterol HTN (hypertension) Hx of deep venous thrombosis Hx of hyperlipidemia Leg swelling Myocardial infarct, old Obesity PONV (postoperative nausea and vomiting) Septic shock Sleep apnea Surgical History Surgical History History of ankle surgery History of arthroscopy of both knees History of esophagogastroduodenoscopy (EGD) History of removal of laparoscopic gastric banding device History of umbilical hernia repair Hx of cholecystectomy Hx of colonoscopy Personal history of gastric banding History of Problems with Anesthesia: Yes (PONV) Social History Social History Household Members: Family Household Members Other:: mother Housing: House Are you a primary pediatric acute care unit nurse to a significant other at home: Yes (for mother, sister also helps and will dos) Do you presently have visiting nurse or other home services: No Alcohol intake: never Patient Tobacco Use Status: Never used Tobacco Have you been hit, kicked, punched, or otherwise hurt by someone within the past year? If so, by whom?: No Are you DNR?: No Advance Directives: Yes Advance Directives Information Provided: Yes Advance Directives on File: Yes Advance Directives Date on File: 11/20/20 Recently lost weight without trying: No Poor oral hygiene: No (upper partial) service: No Current occupational status: retired Meds Allergies Allergy/AdvReac Type Severity Reaction Status Date / Time vancomycin [VANCOMYCIN] AdvReac Severe RENAL Verified 02/23/22 15:54 FAILURE, RASH Home Medications Medication Instructions Recorded Confirmed Last Taken Type albuterol sulfate 90 mcg/actuation 2 puff INHALATION QID PRN 11/20/20 02/23/22 07/17/21 History aerosol inhaler (Ventolin HFA) aspirin 81 mg tablet,delayed 81 mg PO DAILY 11/20/20 02/23/22 07/16/21 History release carvedilol 12.5 mg tablet 12.5 mg PO BID 11/20/20 02/23/22 07/16/21 History clopidogrel 75 mg tablet 75 mg PO DAILY 11/20/20 02/23/22 07/16/21 History insulin aspart U-100 100 unit/mL See Rx Instructions .ROUTE .COMPLEX 11/20/20 02/23/22 07/16/21 History (3 mL) subcutaneous pen (Novolog Flexpen U-100 Insulin aspart) insulin glargine 100 unit/mL (3 40 unit SUBCUT BEDTIME 11/20/20 02/23/22 07/16/21 History mL) subcutaneous pen (Basaglar KwikPen U-100 Insulin) morphine 30 mg tablet,extended 30 mg PO TID 11/20/20 02/23/22 07/16/21 History release oxycodone 15 mg tablet 15 mg PO Q4H PRN 11/20/20 02/23/22 07/16/21 History pantoprazole 40 mg tablet,delayed 40 mg PO BID 11/20/20 02/23/22 07/16/21 History release simvastatin 40 mg tablet 40 mg PO BEDTIME 11/20/20 02/23/22 07/16/21 History ferrous sulfate 325 mg (65 mg 325 mg PO DAILY 07/17/21 02/23/22 07/16/21 History iron) tablet (Iron (ferrous sulfate)) sennosides 8.6 mg tablet (senna) 17.2 mg PO BID PRN 07/17/21 02/23/22 07/16/21 History Exam Airway Mallampati Class: III TM Dist: >3cm Neck ROM: Limited Loose/Missing/Broken Teeth: Yes, Upper and Lower Heart: RRR Lungs: CTA Assessment and Plan Assessment Anesthesia Assessment: Anesthesia Plan Discussed Final Anesthetic Review History of Problems with Anesthesia: Yes (PONV) NPO: Yes ASA Class: III Final Preanesthetic Review: Meds/Allgs Chart Reviewed, Consent Obtained/Reviewed and Anes Risks/Benef Reviewed Patient Risk: Intermediate Procedure Risk: Intermediate Anesthetic Plan Anesthetic Plan: GA Disposition: Standard PACU
[2022-02-27] VITALS (13 sets, daily range): BP systolic 117–152; BP diastolic 63–86; PULSE 65–97; RESP 18–20; TEMP 36.1–36.6; O2SAT 92–98
--- NOTE | 2022-02-27 08:49 | HP_ITS ---
DATE OF SERVICE: 02/27/2022 HISTORY OF PRESENT ILLNESS: The patient is a 61-year-old male seen today for a periodic office check. Patient is scheduled for colonoscopy and endoscopy tomorrow. He has been off Plavix, but is continuing to have aspirin and is only going to hold that 1 day. He has a history of morbid obesity, gastroesophageal reflux disease, history of gastric sleeve procedure in the past, venous stasis disease, edema, gli-urrtaij-qiqekynnv diabetes, long-term use of insulin, obstructive sleep apnea, gastroesophageal reflux disease, chronic neck and back pain. He lists an allergy to vancomycin and also has a history of colon polyps, osteoarthritis of the knees. His procedure is actually a lap band in the past. He has no specific complaints today. REVIEW OF SYSTEMS: Dry cough, dyspnea with exertion. No chest pain or palpitations. Some peripheral edema. Venous stasis changes. Gastroesophageal reflux disease. No significant weight changes. Osteoarthritis in the knees. PHYSICAL EXAMINATION: GENERAL: He is awake and alert, in no distress. VITAL SIGNS: Temperature 98.1, pulse 83, respirations 12, pressure 118/70, O2 saturation 96% on room air. HEART: Sounds S1 and S2. LUNGS: Clear, but distant. ABDOMEN: Obese, soft. Positive bowel sounds. Palpable lap band device. EXTREMITIES: 2+ edema. Venous stasis in the lower extremities. ASSESSMENT AND PLAN: He is going to hold the aspirin on the day of the procedure, but he has been taking right along. Otherwise his Plavix has been on hold for 4 or 5 days now. He is medically stable for the proposed procedure. I will be available for any medical issues. MD RONY Rodriguez/NBAL / [phone]
[2022-02-27] MEDS: Albuterol Sulfate (0.083%) 2.5 MG/3 ML VIAL.NEB INHALE (10:29)
[2022-02-27 10:39] LABS: Glucose, Whole Blood 195 mg/dL (60-115)
[2022-02-27] MEDS: Lactated Ringers 1,000 ML 100 ML IVCONT (10:59)
--- NOTE | 2022-02-27 13:04 | PM.OP ---
Brief Operative Note Date of Service: 02/27/22 Pre-op diagnosis: GERD, Dysphagia, Screening Post-op diagnosis: other (GERD, Gastritis, Diverticulosis) Procedure: EGD and Colonoscopy to the cecum and TI Surgeon: Francois Gómez Anesthesia: GETA Was an Laboratory Animal Caretaker used for this Procedure?: No Estimated blood loss (mL): 0 Pathology: none sent Condition: stable Disposition: PACU
--- NOTE | 2022-03-06 10:33 | OP_ITS ---
SURGEON: Francois Gómez MD INDICATIONS: The patient presents for evaluation of gastroesophageal reflux, dysphagia, personal history of tubular adenomas of the colon, and colorectal cancer screening. Full consent obtained from him for both procedures, including risks of bleeding and perforation. PREOPERATIVE DIAGNOSIS: POSTOPERATIVE DIAGNOSIS: PROCEDURE PERFORMED: ESTIMATED BLOOD LOSS: COMPLICATIONS: ANESTHESIA: Monitored anesthesia care. ASSISTANTS: SPECIMENS: PROCEDURES: Esophagogastroduodenoscopy and colonoscopy to the cecum and terminal ileum. PREOPERATIVE DIAGNOSES: Gastroesophageal reflux, dysphagia, personal history of tubular adenomas of the colon, and colorectal cancer screening. POSTOPERATIVE DIAGNOSES: Gastroesophageal reflux, dysphagia, personal history of tubular adenomas of the colon, colorectal cancer screening, gastritis, and diverticulosis. DESCRIPTION OF PROCEDURE: The patient was placed in the left lateral decubitus position. The Olympus video gastroscope was passed into the posterior oropharynx and upper esophagus under direct vision. The scope was passed slowly to the distal esophagus. The gastroesophageal junction appeared at 38 cm. There was no sign of any stricture, ring, nor narrowing. The distal esophagus did appear to be somewhat consistent with some scarring, but there was no sign of any ulceration, mass, nor any narrowing. The scope easily passed into the stomach. There was a small hiatal hernia. The scope was advanced to the pylorus and the duodenum was cannulated to the descending portion. The duodenum including the bulb appeared normal without mass or ulceration. The scope was withdrawn back into the stomach. The gastric antrum and body had some areas of mild gastritis with erythema and edema. Biopsies were not obtained as he is asymptomatic and he has to go back on a blood thinner. There was good peristalsis. The scope was retroflexed, visualizing the proximal stomach carefully which appeared normal, without any sign of mass or ulceration. The scope was straightened and withdrawn back to the esophagus. I did not dilate the gastroesophageal junction given no evidence of any particular narrowing and the changes of some chronic scarring in the distal esophagus. The proximal esophagus appeared normal without any signs of rings nor stricture. The scope was withdrawn from the patient. He was turned around for colonoscopy. The digital rectal exam revealed no abnormalities. The Olympus video pediatric colonoscope was entered into the rectum and advanced easily to the cecum. Once in the cecum, I did identify normal-appearing cecal pouch with appendiceal orifice and a normal-appearing ileocecal valve. The terminal ileum was cannulated and appeared normal. Scope withdrawn back in the colon. The scope was then slowly withdrawn assessing all mucosal surfaces carefully. Preparation in various parts of the colon was somewhat limited due to liquid and some solid stool. I did not visualize any sign of polyps, colitis, nor angiodysplasia. There was a mild amount of sigmoid diverticulosis. In the rectum, scope was retroflexed visualizing some small internal hemorrhoids, but no other pathology. The rectal mucosa appeared normal. The scope was straightened and withdrawn from the patient. He tolerated the procedure well and was returned to the recovery area in stable condition. IMPRESSION: 1. Small hiatal hernia. 2. Gastritis. 3. Some scarring in distal esophagus, but without any sign of stricture nor ulceration. 4. Diverticulosis. 5. Internal hemorrhoids. PLAN: Given the somewhat limited colon due to the prep, I would recommend a repeat colonoscopy within 3 years with a 2-day preparation to allow for a better clean out. Given his previous colonoscopy and otherwise negative findings today, I don't think a colonoscopy needs to be repeated sooner than that. He was advised to continue his PPI long-term. He was advised to resume his aspirin, clopidogrel, and iron today. If things are stable, he will see me on a p.r.n. basis. MD TORRIE Turcios/ROLLY / [id number] MTDElena
== END 2022-02-27 15:01 | disposition home or self-care (01) ==
PROVIDERS: PCP Internal Medicine; Visit Provider Internal Medicine
PROC: (CPT 43235; principal; 2022-02-27 10:50)
DX: Z12.11 Encounter for screening for malignant neoplasm of colon (principal); Z86.010 Personal history of colon polyps; K57.30 Diverticulosis of large intestine without perforation or abscess without bleeding; K64.8 Other hemorrhoids; R13.19 Other dysphagia; K21.9 Gastro-esophageal reflux disease without esophagitis; K29.60 Other gastritis without bleeding; K22.89 Other specified disease of esophagus; K44.9 Diaphragmatic hernia without obstruction or gangrene; I10 Essential (primary) hypertension; E78.5 Hyperlipidemia, unspecified; I25.2 Old myocardial infarction; G47.33 Obstructive sleep apnea (adult) (pediatric); J45.909 Unspecified asthma, uncomplicated; E11.9 Type 2 diabetes mellitus without complications; Z79.4 Long term (current) use of insulin; Z79.82 Long term (current) use of aspirin; Z79.899 Other long term (current) drug therapy; Z99.89 Dependence on other enabling machines and devices; Z98.84 Bariatric surgery status; Z90.49 Acquired absence of other specified parts of digestive tract; Z88.1 Allergy status to other antibiotic agents; Z86.16 Personal history of COVID-19
CPT/HCPCS: 43235; G0105; 82947; 94640; J0330; J1100; J2405; J3010

== ENCOUNTER 2022-08-07 11:00 | Outpatient (REF) | payer MEDICARE, SELFPAY ==
[2022-08-07 13:30] LABS: MANUAL DIFF FLAG NO
[2022-08-07 13:36] LABS: Basophils Percent Auto 0.4 % (0-2); Eosinophils Absolute Auto 0.1 X10*3/uL (0.0-0.4); Eosinophils Percent Auto 1.3 % (0-4); Hematocrit 46.1 % (42.0-52.0); Hemoglobin 14.4 g/dl (14.0-18.0); Imm Gran Abs Auto 0.06 X10*3/uL (0.00-0.03); Imm Gran Pct Auto 0.6 % (0.0-0.4); Lymphocytes Percent Auto 28.3 % (20-40); Mean Corpuscular HGB Conc 31.2 g/dl (31.0-36.0); Mean Corpuscular Hemoglobin 26.1 pg (27.0-33.0); Mean Corpuscular Volume 83.7 fL (80.0-98.0); Mean Platelet Volume 10.1 fL (9.4-12.4); Monocytes Percent Auto 9.4 % (2-11); Neutrophils Absolute Auto 6.3 x10*3/uL (2.0-8.3); Platelet Count 294 X10*3/uL (160-400); Red Blood Count 5.51 X10*6/uL (4.60-5.80); Red Cell Distribution Width 13.8 % (11.0-16.0); White Blood Count 10.5 X10*3/uL (4.8-10.8)
[2022-08-07 13:47] LABS: Alanine Aminotransferase 18 U/L (0-40); Albumin Level 3.8 g/dL (3.5-5.0); Alkaline Phosphatase 105 U/L (39-117); Anion Gap 14 (12-20); Aspartate Amino Transferase 16 U/L (5-37); Bilirubin Total 0.2 mg/dL (0.0-1.0); Blood Urea Nitrogen 19 mg/dL (9-16); Calcium 9.1 mg/dL (8.4-10.2); Carbon Dioxide 29 mmol/L (22-29); Chloride 105 mmol/L (96-108); Estimated Glomerular Filt Rate > 60; Glucose Random 185 mg/dL (60-115); Potassium 5.3 mmol/L (3.3-5.1); Sodium 143 mmol/L (135-145); Total Protein 6.9 g/dL (6.5-8.0)
[2022-08-07 13:48] LABS: Estimated Average Glucose 272 mg/dL; Hemoglobin A1c % 11.1 %
[2022-08-07 14:13] LABS: Creatinine Urine 332.22 mg/dL; Microalbum/Creatinine Ratio Ur 10.8 ug/mg cr
== END 2022-08-07 11:01 | disposition home or self-care (01) ==
LOC: HO.10HDL 11:00
PROVIDERS: Visit Provider Internal Medicine
DX: E11.9 Type 2 diabetes mellitus without complications (principal); K21.9 Gastro-esophageal reflux disease without esophagitis; G47.33 Obstructive sleep apnea (adult) (pediatric); M19.90 Unspecified osteoarthritis, unspecified site
CPT/HCPCS: 36415; 80053; 82043; 83036; 85025

== ENCOUNTER 2022-08-20 13:20 | Outpatient (REF) | payer MEDICARE, SELFPAY ==
--- NOTE | ~2022-08-20 | CT_ITS ---
EXAMINATION: CT CHEST WITHOUT CONTRAST CLINICAL INFORMATION: Follow-up pulmonary nodule COMPARISON: Previous chest CT scans most recent December 2021 TECHNIQUE: Multidetector volumetric CT imaging of the chest was done. Axial MIP volume rendering provided. Sagittal and coronal reformatted images were obtained. This CT examination was performed using dose optimization techniques as appropriate, variously including the following: *Automated exposure control *Adjustment of mA and/or kV according to patient size (this includes techniques or standardized protocols for targeted exams where dose is matched to indication/reason for exam; i.e. extremities or head) *Use of iterative reconstruction technique DLP: 454 mGy-cm FINDINGS: SENIOR CYTOGENETICS LABORATORY DIRECTOR: Slight elevation of the right hemidiaphragm similar to previous exam LUNGS: There is round masslike consolidation seen in the right lower lobe. This measures approximately 3.5 x 4.5 cm in transverse and AP dimension. This contains air bronchograms. This has a central oral bronchovascular appearance and is suggestive of round atelectasis. Similar to December 2021 exam. There are several small clustered left upper lobe nodules largest measuring 3 mm axial image 339 series 7. This is a new finding. Clustered appearance favors airways disease. The lungs are otherwise clear. MEDIASTINUM: The esophagus is slightly dilated and fluid-filled. This can be seen on multiple prior exams. The mediastinum is otherwise normal. CORONARY ARTERY CALCIFICATION: Mild PLEURA: Mild focal right pleural thickening adjacent to the right lower lobe. No pleural effusion. AXILLA: No lymphadenopathy. UPPER ABDOMEN: Postcholecystectomy. Question small right upper ventral hernia versus postsurgical changes from previous gastric lap band. This is only partially visualized. Stable 2 x 2.2 cm left adrenal nodule. Hounsfield units without contrast measure 17 which is not characteristic of a benign lipid rich adenoma. This is stable from old chest CTA May 2017 suggesting a benign process. 2 cm cyst in the upper pole of the left kidney. OSSEOUS STRUCTURES: Degenerative changes of the spine. CT/CT chest wo IV con IMPRESSION: Elevated right hemidiaphragm. Stable round masslike consolidation in the right lower lobe adjacent pleural thickening. This probably represents round atelectasis. Several new clustered semisolid left upper lobe nodules, largest measuring 3 mm probably representing tree-in-bud appearance or airways disease. Fleischner guidelines were followed.
== END 2022-08-20 13:21 | disposition home or self-care (01) ==
LOC: HO.CT 13:20
PROVIDERS: PCP Internal Medicine; Visit Provider Internal Medicine
DX: R91.1 Solitary pulmonary nodule (principal)
CPT/HCPCS: 71250

== ENCOUNTER 2022-09-15 08:09 | Inpatient (IN) | payer MEDICARE, SELFPAY ==
--- NOTE | ~2022-09-15 | CT_ITS ---
EXAMINATION: CT PELVIS WITH CONTRAST CLINICAL INFORMATION: Deep infection left gluteal cleft. COMPARISON: None TECHNIQUE: Helical scanning was performed with submillimeter collimation through the pelvis with the use of oral contrast and during bolus intravenous injection of 100 mL of Omnipaque 350 intravenous contrast. Sagittal and coronal multiplanar 2-D reconstructions were obtained. This CT examination was performed using dose optimization techniques as appropriate, variously including the following: *Automated exposure control *Adjustment of mA and/or kV according to patient size (this includes techniques or standardized protocols for targeted exams where dose is matched to indication/reason for exam; i.e. extremities or head) *Use of iterative reconstruction technique DLP: 922 mGy-cm FINDINGS: PELVIS: There is a induration and thickening of bilateral gluteal soft tissues along the intergluteal margin without air-fluid level or gas seen to suspect any collection or abscess. There is no free air. Visualized rectum, sigmoid colon and rest the colon is unremarkable except for minimal small diverticula. There are small shotty bilateral inguinal lymph nodes largest left inguinal lymph node measures 2.2 cm on coronal view 86/5.. OSSEOUS STRUCTURES: No aggressive lytic or sclerotic process seen. The SI joints are symmetrical and normal. CT/CT pelvis w IV con IMPRESSION: Diffuse thickening and aeration of bilateral gluteal soft tissues along the intergluteal margin but no underlying air-fluid collection, free air to suspect any abscess. There is no fistulous connection to the anus or rectum seen either.
[2022-09-15 08:11] VITALS: BP 149/94; PULSE 100; RESP 20; TEMP 36.6; O2SAT 97; BMI 51.5
--- NOTE | 2022-09-15 09:10 | ED.GENADULT ---
HPI - General Adult General Chief complaint: Skin/Abscess/Foreign Body Stated complaint: Rectal Bleeding Time Seen by Provider: 09/15/22 09:05 Source: patient Mode of arrival: ambulatory Limitations: no limitations History of Present Illness HPI narrative: Patient is a 62 year old assigned male at with a history of DM presenting to the emergency department today with leaking from his rectum. Patient states that he has gotten infections on his bottom before that have needed to be surgically opened and he believes he has another one. Patient denies any dizziness, lightheadedness, abdominal pain, nausea, vomiting, fever, chills, blurry vision, double vision, loss of vision, chest pain, difficulty breathing, shortness of breath, back pain, night sweats, pain with urination, increased urinary frequency, increased urinary urgency, blood in his urine or stool, syncope or a near syncopal episode, recent trauma or falls, bowel incontinence, bladder incontinence, bowel retention, bladder retention, or any other complaints at this time. Onset (ago): day(s) (4) Radiation: non-radiation Severity: mild Severity scale (1-10): 4 Relieving factors: none Exacerbating factors: none Associated symptoms: denies other symptoms Treatments prior to arrival: none Related Data Home Medications Medication Instructions Recorded Confirmed albuterol sulfate 90 mcg/actuation 2 puff inhalation QID PRN 11/20/20 09/15/22 aerosol inhaler (Ventolin HFA) Shortness Of Breath Or Wheezing aspirin 81 mg tablet,delayed 81 mg PO DAILY 11/20/20 09/15/22 release carvedilol 12.5 mg tablet 12.5 mg PO BID 11/20/20 09/15/22 clopidogrel 75 mg tablet 75 mg PO DAILY 11/20/20 09/15/22 insulin aspart U-100 100 unit/mL See Rx Instructions .Route .COMPLEX 11/20/20 09/15/22 (3 mL) subcutaneous pen (Novolog Flexpen U-100 Insulin aspart) insulin glargine 100 unit/mL (3 50 unit subcut BEDTIME 11/20/20 09/15/22 mL) subcutaneous pen (Basaglar KwikPen U-100 Insulin) morphine 30 mg tablet,extended 30 mg PO BID 11/20/20 09/15/22 release oxycodone 15 mg tablet 15 mg PO Q4H PRN Pain 11/20/20 09/15/22 pantoprazole 40 mg tablet,delayed 40 mg PO BID 11/20/20 09/15/22 release simvastatin 40 mg tablet 40 mg PO BEDTIME 11/20/20 09/15/22 nystatin 100,000 unit/gram topical 1 applic topical BID 09/15/22 09/15/22 cream Allergies Allergy/AdvReac Type Severity Reaction Status Date / Time vancomycin [VANCOMYCIN] AdvReac Severe RENAL Verified 02/23/22 15:54 FAILURE, RASH Review of Systems Constitutional: Constitutional: Reports no additional constitutional complaints, Denies chills, Denies fever(s) and Denies night sweats Eyes: Eyes: Reports no additional eye complaints, Denies blurry vision, Denies change in vision, Denies diplopia, Denies eye discharge, Denies loss of vision and Denies eye pain ENT: Denies dizziness Cardiovascular: Cardiovascular: Reports no additional cardiovascular complaints, Denies chest pain, Denies lightheadedness, Denies Loss of Consciousness and Denies dyspnea Respiratory: Respiratory: Reports no additional respiratory complaints and Denies dyspnea Gastrointestinal: Gastrointestinal: Reports no additional gastrointestinal complaints, Denies abdominal pain, Denies melena, Denies hematochezia, Denies change in bowel habits and Denies change in stool character Genitourinary: Genitourinary: Reports no additional male genitourinary complaints, Denies hematuria, Denies oliguria, Denies difficulty urinating, Denies dysuria, Denies urinary frequency, Denies urinary hesitancy, Denies urinary incontinence and Denies urinary urgency Musculoskeletal: Musculoskeletal: Reports no additional musculoskeletal complaints, Denies numbness and Denies tingling Integumentary/Breasts: Comments: buttock swelling Neurologic: Denies dizziness, Denies loss of vision, Denies numbness and Denies tingling Psychiatric: Psychiatric: Reports no additional psychiatric complaints Endocrine: Endocrine: Reports no additional endocrine complaints Hematologic/Lymphatic: Hematologic/Lymphatic: Reports no additional hematologic/lymphatic complaints Allergic/Immunologic: Allergic/Immunologic: Reports no additional allergic/immunologic complaints PMFSH Past Medical History Attestation statement: The following information was validated with the patient. Source: old records reviewed Medical History Asthma Back pain Cardiac arrest Cellulitis, gluteal COVID-19 COVID-19 vaccine series completed Diabetes GERD (gastroesophageal reflux disease) High cholesterol HTN (hypertension) Hx of deep venous thrombosis Hx of hyperlipidemia Leg swelling Myocardial infarct, old Obesity PONV (postoperative nausea and vomiting) Septic shock Sleep apnea Surgical History History of ankle surgery History of arthroscopy of both knees History of esophagogastroduodenoscopy (EGD) History of removal of laparoscopic gastric banding device History of umbilical hernia repair Hx of cholecystectomy Hx of colonoscopy Personal history of gastric banding Social History Social History Household Members: Family Household Members Other:: mother Housing: House Are you a primary special needs caregiver to a significant other at home: Yes (for mother, sister also helps and will dos) Do you presently have visiting nurse or other home services: No Alcohol intake: never Patient Tobacco Use Status: Never used Tobacco Advance Directives: Yes Advance Directives on File: Yes Advance Directives Date on File: 11/20/20 service: No Current occupational status: retired Physical Exam ED Vital Signs: Vital Signs - 24 hr 09/15/22 08:11 09/15/22 16:11 Temperature 97.8 F Pulse Rate 100 95 Respiratory Rate 20 18 Blood Pressure 149/94 H 125/59 L Pulse Oximetry 97 95 Oxygen Delivery Method Room Air Room Air BMI result Body Mass Index 51.5 Const General: cooperative, no acute distress, alert and awake Nutritional Appearance: well nourished and obese morbidly obese Orientation/consciousness: patient oriented x3 Limitations: no limitations [facility] Head: Yes normal to inspection and Yes atraumatic Ears: hearing grossly normal bilaterally and external ears normal General nose exam: Normal external nose present, no nasal discharge noted and no epistaxis Face and sinus: Yes normal facial exam, No abrasion and No laceration Mouth: Normal oral and palatal mucosa present, no drooling and no muffled voice Eyes General: appearance normal, both eyes and all related structures Periorbital: periorbital findings normal Eyelids: Yes eyelids normal Conjunctivae: conjunctivae normal Pupils: Equal, round and reactive pupils present EOM: EOMs intact bilaterally Neck Neck: Yes normal visual inspection, Yes full ROM and Yes no lymphadenopathy Chest Chest palpation & inspection: normal inspection of the chest Resp Effort & Inspection: normal respiratory effort and able to speak in complete sentences GI Inspection: Yes normal to inspection Skin Other: Neuro General: patient oriented x3 and moves all extremities Cranial nerves: Yes Equal, round and reactive pupils present Cognition (Neuro): normal cognition Motor exam (neuro): 5/5 motor strength present throughout Sensory Exam: Normal double simultaneous stimulation for sensation Coordination: [id number] test normal Extrem General: Yes normal to inspection, Yes full ROM and Yes capillary refill normal Psych Appearance: grossly normal Mental Status: mental status grossly normal Affect: normal affect Attitude: cooperative Thought process: Normal thought process present Thought content: Normal thought content present Insight: Good insight present (Psych) Medications Administered Discontinued Medications Generic Name Dose Route Start Last Admin Trade Name Freq PRN Reason Stop Dose Admin Piperacillin Sod/Tazobactam 50 mls @ 100 mls/hr 09/15/22 13:20 09/15/22 14:31 Sod 3.375 gm/ Sodium Chloride IV 09/15/22 13:49 Infused ONCE ONE Infusion Iohexol 100 ml 09/15/22 13:54 09/15/22 13:55 Iohexol 350 Mg/Ml 100 Ml Infus..Btl IV 09/15/22 13:55 85 ml ONCE ONE Administration Iohexol 100 ml 09/15/22 14:03 09/15/22 14:04 Iohexol 350 Mg/Ml 100 Ml Infus..Btl IV 09/15/22 14:04 85 ml ONCE ONE Administration Lidocaine HCl 5 ml 09/15/22 11:11 09/15/22 11:23 Lidocaine Hcl 1 % Mpf 5 Ml Vial SUBCUT 09/15/22 11:12 5 ml ONCE ONE Administration Medical Decision Making [facility] Narrative Medical decision making narrative: Patient is a 62 year old assigned male at with a history of DM presenting to the emergency department today with gluteal pain. Patient's physical exam was as documented previously in this chart. Patient has obvious infection in bilateral gluteal tissue. Patient's blood work showed an elevated WBC count of 16, BUN of 21, and initial lactic acid of 2.2. Patient's pelvic CT showed diffuse thickening and aeration of bilatreal gluteal soft tissues along the intergluteal margin but no underlying air-fluid collection or free air to suspect abscess. I spoke to the surgical team who recommended medical admission with their consultation. I spoke to the hospitalist team who agreed to admission. Patient's clinical presentation is not consistent with sepsis. I explained my physical exam findings as well as all test results to the patient. I answered all questions asked by the patient. Patient was given IV fluids and IV Zosyn. Patient verbalized agreement and understanding with this treatment plan and admission. Medical Records Medical records reviewed: Yes I reviewed the patient's medical records. Lab Data Lab results reviewed: Yes I reviewed the patient's lab results. Result diagrams: 09/15/22 12:54 09/15/22 12:54 Labs: Lab Results 09/15/22 09/15/22 09/15/22 Range/Units 12:54 12:54 12:54 WBC 16.0 H (4.8-10.8) X10*3/uL RBC 5.21 (4.60-5.80) X10*6/uL Hgb 13.6 L (14.0-18.0) g/dl Hct 43.4 (42.0-52.0) % MCV 83.3 (80.0-98.0) fL MCH 26.1 L (27.0-33.0) pg MCHC 31.3 (31.0-36.0) g/dl RDW 14.4 (11.0-16.0) % Plt Count 295 (160-400) X10*3/uL MPV 9.6 (9.4-12.4) fL Immature Gran % (Auto) 0.3 (0.0-0.4) % Neut % (Auto) 69.8 (45-73) % Lymph % (Auto) 20.2 (20-40) % [place] % (Auto) 8.8 (2-11) % Eos % (Auto) 0.5 (0-4) % Baso % (Auto) 0.4 (0-2) % Lymph # (Auto) 3.2 (1.2-4.9) X10*3/uL [place] # (Auto) 1.4 H (0.1-1.2) X10*3/uL Eos # (Auto) 0.1 (0.0-0.4) X10*3/uL Baso # (Auto) 0.1 (0.0-0.2) X10*3/uL Abs Immat Gran (auto) 0.05 H (0.00-0.03) X10*3/uL Absolute Neuts (auto) 11.1 H (2.0-8.3) x10*3/uL Absolute Nucleated RBC 0.000 (0.0-0.012) X10*3/uL Nucleated RBC % (auto) 0.0 (0.0-0.2) /100WBC ESR (0-15) MM/HR Sodium 140 (135-145) mmol/L Potassium 4.2 D (3.3-5.1) mmol/L Chloride 103 (96-108) mmol/L Carbon Dioxide 26 (22-29) mmol/L Anion Gap 15 (12-20) BUN 21 H (9-16) mg/dL Creatinine 1.03 (0.5-1.4) mg/dL Estim Creat Clear Calc 119.9 Estimated GFR > 60 Random Glucose 241 H (60-115) mg/dL Lactic Acid 2.2 H* (0.5-2.0) mmol/L Calcium 8.7 (8.4-10.2) mg/dL Total Bilirubin 0.6 (0.0-1.0) mg/dL AST 19 (5-37) U/L ALT 16 (0-40) U/L Alkaline Phosphatase 113 (39-117) U/L C-Reactive Protein 21.43 H (< or = 0.50) mg/dL Total Protein 6.8 (6.5-8.0) g/dL Albumin 3.4 L (3.5-5.0) g/dL COVID-19 ([facility]) (Negative) COVID-19 Clin Com 09/15/22 09/15/22 Range/Units 12:55 14:20 WBC (4.8-10.8) X10*3/uL RBC (4.60-5.80) X10*6/uL Hgb (14.0-18.0) g/dl Hct (42.0-52.0) % MCV (80.0-98.0) fL MCH (27.0-33.0) pg MCHC (31.0-36.0) g/dl RDW (11.0-16.0) % Plt Count (160-400) X10*3/uL MPV (9.4-12.4) fL Immature Gran % (Auto) (0.0-0.4) % Neut % (Auto) (45-73) % Lymph % (Auto) (20-40) % [place] % (Auto) (2-11) % Eos % (Auto) (0-4) % Baso % (Auto) (0-2) % Lymph # (Auto) (1.2-4.9) X10*3/uL [place] # (Auto) (0.1-1.2) X10*3/uL Eos # (Auto) (0.0-0.4) X10*3/uL Baso # (Auto) (0.0-0.2) X10*3/uL Abs Immat Gran (auto) (0.00-0.03) X10*3/uL Absolute Neuts (auto) (2.0-8.3) x10*3/uL Absolute Nucleated RBC (0.0-0.012) X10*3/uL Nucleated RBC % (auto) (0.0-0.2) /100WBC ESR 77 H (0-15) MM/HR Sodium (135-145) mmol/L Potassium (3.3-5.1) mmol/L Chloride (96-108) mmol/L Carbon Dioxide (22-29) mmol/L Anion Gap (12-20) BUN (9-16) mg/dL Creatinine (0.5-1.4) mg/dL Estim Creat Clear Calc Estimated GFR Random Glucose (60-115) mg/dL Lactic Acid (0.5-2.0) mmol/L Calcium (8.4-10.2) mg/dL Total Bilirubin (0.0-1.0) mg/dL AST (5-37) U/L ALT (0-40) U/L Alkaline Phosphatase (39-117) U/L C-Reactive Protein (< or = 0.50) mg/dL Total Protein (6.5-8.0) g/dL Albumin (3.5-5.0) g/dL COVID-19 ([facility]) Negative (Negative) COVID-19 Clin Com See Note Imaging Data Pelvis CT: Attestation: I personally reviewed and interpreted this imaging study as follows: My impression: Infection of the gluteal tissue Radiologist's impression: EXAMINATION: CT PELVIS WITH CONTRAST CLINICAL INFORMATION: Deep infection left gluteal cleft.? COMPARISON: None? TECHNIQUE: Helical scanning was performed with submillimeter collimation through the pelvis with the use of oral contrast and during bolus intravenous injection of 100 mL of Omnipaque 350 intravenous contrast. Sagittal and coronal multiplanar 2-D reconstructions were obtained. This CT examination was performed using dose optimization techniques as appropriate, variously including the following: *Automated exposure control *Adjustment of mA and/or kV according to patient size (this includes techniques or standardized protocols for targeted exams where dose is matched to indication/reason for exam; i.e. extremities or head) *Use of iterative reconstruction technique DLP: 922 mGy-cm FINDINGS: PELVIS: There is a induration and thickening of bilateral gluteal soft tissues along the intergluteal margin without air-fluid level or gas seen to suspect any collection or abscess. There is no free air. Visualized rectum, sigmoid colon and rest the colon is unremarkable except for minimal small diverticula. There are small shotty bilateral inguinal lymph nodes largest left inguinal lymph node measures 2.2 cm on coronal view 86/5..? OSSEOUS STRUCTURES: No aggressive lytic or sclerotic process seen. The SI joints are symmetrical and normal. CT/CT pelvis w IV con IMPRESSION: Diffuse thickening and aeration of bilateral gluteal soft tissues along the intergluteal margin but no underlying air-fluid collection, free air to suspect any abscess. There is no fistulous connection to the anus or rectum seen either.? Dictated By: Larry Toribio MD Signed By: Electronically signed by Larry Toribio MD 09/15/22 1421 Critical Care Time Critical Care Time Critical Care Time: Yes Total Critical Care Time: 30 Attestation: I spent 30 minutes of Critical Care Time with this patient. This does not include time spent on separately reported billable procedures. Discharge Plan Discharge Clinical Impression: Cellulitis, gluteal Patient Disposition: Admitted As Inpatient Prescriptions: No Action carvedilol 12.5 mg tablet 12.5 mg PO BID clopidogrel 75 mg tablet 75 mg PO DAILY morphine 30 mg tablet extended release 30 mg PO BID simvastatin 40 mg tablet 40 mg PO BEDTIME oxycodone 15 mg tablet 15 mg PO Q4H PRN (Reason: Pain) pantoprazole 40 mg tablet,delayed release (DR/EC) 40 mg PO BID albuterol sulfate [Ventolin HFA] 90 mcg/actuation HFA aerosol inhaler 2 puff inhalation QID PRN (Reason: Shortness Of Breath Or Wheezing) Rx Instructions: Taken today with EMT insulin aspart U-100 [Novolog Flexpen U-100 Insulin] 100 unit/mL (3 mL) insulin pen See Rx Instructions .ROUTE .COMPLEX Label Comments: patient reports low blood sugar at home. has not taken insulin since discharge Rx Instructions: Patient is on sliding scale three times a day before meals. For blood sugars: 150-200: 4units 201-250: 6units 251-300: 8units 301-350: 10units 351-400: 15units 401-450: 20units >450 call insulin glargine [Basaglar KwikPen U-100 Insulin] 100 unit/mL (3 mL) insulin pen 50 unit subcut BEDTIME aspirin 81 mg Tablet,Delayed Release (Dr/Ec) 81 mg PO DAILY nystatin 100,000 unit/gram cream 1 applic topical BID
[2022-09-15] MEDS: Lidocaine HCl 1 % MPF 5 ML VIAL SUBCUT (11:23)
[2022-09-15 13:04] LABS: MANUAL DIFF FLAG NO
[2022-09-15 13:08] LABS: Basophils Absolute Auto 0.1 X10*3/uL (0.0-0.2); Basophils Percent Auto 0.4 % (0-2); Eosinophils Absolute Auto 0.1 X10*3/uL (0.0-0.4); Eosinophils Percent Auto 0.5 % (0-4); Hematocrit 43.4 % (42.0-52.0); Hemoglobin 13.6 g/dl (14.0-18.0); Imm Gran Abs Auto 0.05 X10*3/uL (0.00-0.03); Imm Gran Pct Auto 0.3 % (0.0-0.4); Lymphocytes Absolute Auto 3.2 X10*3/uL (1.2-4.9); Lymphocytes Percent Auto 20.2 % (20-40); Mean Corpuscular HGB Conc 31.3 g/dl (31.0-36.0); Mean Corpuscular Hemoglobin 26.1 pg (27.0-33.0); Mean Corpuscular Volume 83.3 fL (80.0-98.0); Mean Platelet Volume 9.6 fL (9.4-12.4); Monocytes Absolute Auto 1.4 X10*3/uL (0.1-1.2); Monocytes Percent Auto 8.8 % (2-11); Neutrophils Absolute Auto 11.1 x10*3/uL (2.0-8.3); Neutrophils Percent Auto 69.8 % (45-73); Platelet Count 295 X10*3/uL (160-400); Red Blood Count 5.21 X10*6/uL (4.60-5.80); Red Cell Distribution Width 14.4 % (11.0-16.0)
[2022-09-15 13:21] LABS: Alanine Aminotransferase 16 U/L (0-40); Albumin Level 3.4 g/dL (3.5-5.0); Alkaline Phosphatase 113 U/L (39-117); Anion Gap 15 (12-20); Aspartate Amino Transferase 19 U/L (5-37); Bilirubin Total 0.6 mg/dL (0.0-1.0); Blood Urea Nitrogen 21 mg/dL (9-16); C Reactive Protein 21.43 mg/dL (< or = 0.50); Calcium 8.7 mg/dL (8.4-10.2); Carbon Dioxide 26 mmol/L (22-29); Chloride 103 mmol/L (96-108); Creatinine Clr Calc Pharmacy 119.9; Estimated Glomerular Filt Rate > 60; Glucose Random 241 mg/dL (60-115); Potassium 4.2 mmol/L (3.3-5.1); Sodium 140 mmol/L (135-145); Total Protein 6.8 g/dL (6.5-8.0)
[2022-09-15 13:22] LABS: Lactic Acid 2.2 mmol/L (0.5-2.0)
[2022-09-15 13:45] LABS: Erythrocyte Sedimentation Rate 77 MM/HR (0-15)
[2022-09-15] MEDS: iohexoL 350 MG/ML 100 ML INFUS..BTL IV ×2 (13:55→14:04)
[2022-09-15] MEDS: Piperacillin Sodium/Tazobactam 3.375 GM in 0.9 % Sodium Chloride 50 ML IV ×2 (13:57→21:33)
--- NOTE | 2022-09-15 14:13 | PHA.MEDREC ---
Pharmacy Consult ? Medication Reconciliation Pharmacy has completed the medication reconciliation. Patient was poor historian, luckily patient came in with pocket list that was up to date.
[2022-09-15 14:48] LABS: COVID-19 Test Negative (Negative); IDNOW Serial# 16C4AD1C
[2022-09-15 15:02] LABS: Reflex Lactate? Lactic Acid Added
--- NOTE | 2022-09-15 15:32 | P.CONGS_ITS ---
History of Present Illness Consult details Consult date: 09/15/22 Narrative: 62-year-old male with multiple medical problems including morbid obesity, diabetes, hypertension, obstructive sleep apnea, on anti-platelet treatment for what he says is a valve disease, with history of DVTs, who came to the ER today because of pain in the area. He says that this is mostly on the right side than on the left. He says that he had noticed this starting about 4-5 days ago had persisted. He denies any drainage. He does have a history of I and D's in the past. He was here in the hospital last July, because of an abdominal wall this an abscess which had previously been drained as well in [facility]. He denies any fever or chills. Review of Systems Constitutional: Constitutional: Denies chills and Denies fever(s) Cardiovascular: Cardiovascular: Denies chest pain, Denies dyspnea and Reports dyspnea on exertion Respiratory: Respiratory: Denies cough, Denies dyspnea and Reports dyspnea on exertion Gastrointestinal: Gastrointestinal: Denies hematochezia and Denies change in bowel habits Genitourinary: Genitourinary: Denies hematuria and Denies difficulty urinating Musculoskeletal: Musculoskeletal: Denies back pain and Denies limited range of motion Neurologic: Denies focal weakness and Denies convulsions Psychiatric: Psychiatric: Denies depression and Denies mood swings PMFSH Past Medical History Medical History Asthma Back pain Cardiac arrest Cellulitis, gluteal COVID-19 COVID-19 vaccine series completed Diabetes GERD (gastroesophageal reflux disease) High cholesterol HTN (hypertension) Hx of deep venous thrombosis Hx of hyperlipidemia Leg swelling Myocardial infarct, old Obesity PONV (postoperative nausea and vomiting) Septic shock Sleep apnea Surgical History Surgical History History of ankle surgery History of arthroscopy of both knees History of esophagogastroduodenoscopy (EGD) History of removal of laparoscopic gastric banding device History of umbilical hernia repair Hx of cholecystectomy Hx of colonoscopy Personal history of gastric banding Social History Social History Household Members: Family Household Members Other:: mother Housing: House Are you a primary home health care case manager to a significant other at home: Yes (for mother, sister also helps and will dos) Do you presently have visiting nurse or other home services: No Alcohol intake: never Patient Tobacco Use Status: Never used Tobacco Advance Directives Date on File: 11/20/20 service: No Current occupational status: retired Meds Allergies Allergy/AdvReac Type Severity Reaction Status Date / Time vancomycin [VANCOMYCIN] AdvReac Severe RENAL Verified 02/23/22 15:54 FAILURE, RASH Active Medications: Current Medications Pharmacy Consult (Consult Rx Perform Med Rec) 1 each MISCELLANE ONCE PRN PRN Reason: Consult order Home Medications Medication Instructions Recorded Confirmed Last Taken Type albuterol sulfate 90 mcg/actuation 2 puff inhalation QID PRN 11/20/20 09/15/22 07/17/21 History aerosol inhaler (Ventolin HFA) Shortness Of Breath Or Wheezing aspirin 81 mg tablet,delayed 81 mg PO DAILY 11/20/20 09/15/22 07/16/21 History release carvedilol 12.5 mg tablet 12.5 mg PO BID 11/20/20 09/15/22 07/16/21 History clopidogrel 75 mg tablet 75 mg PO DAILY 11/20/20 09/15/22 07/16/21 History insulin aspart U-100 100 unit/mL See Rx Instructions .Route .COMPLEX 11/20/20 09/15/22 07/16/21 History (3 mL) subcutaneous pen (Novolog Flexpen U-100 Insulin aspart) insulin glargine 100 unit/mL (3 50 unit subcut BEDTIME 11/20/20 09/15/22 07/16/21 History mL) subcutaneous pen (Basaglar KwikPen U-100 Insulin) morphine 30 mg tablet,extended 30 mg PO BID 11/20/20 09/15/22 07/16/21 History release oxycodone 15 mg tablet 15 mg PO Q4H PRN Pain 11/20/20 09/15/22 07/16/21 History pantoprazole 40 mg tablet,delayed 40 mg PO BID 11/20/20 09/15/22 07/16/21 History release simvastatin 40 mg tablet 40 mg PO BEDTIME 11/20/20 09/15/22 07/16/21 History nystatin 100,000 unit/gram topical 1 applic topical BID 09/15/22 09/15/22 Unknown History cream Physical Exam Vital Signs: Vital Signs: Last Vital Signs Temp 97.8 F 09/15/22 08:11 Pulse 100 09/15/22 08:11 Resp 20 09/15/22 08:11 BP 149/94 H 09/15/22 08:11 Pulse Ox 97 09/15/22 08:11 O2 Del Method 09/15/22 08:11 BMI result Body Mass Index 51.5 Const: Other: Morbidly obese, moves with difficulty General: comfortable and no acute distress Orientation/consciousness: patient oriented x3 Neck: Neck: Yes no lymphadenopathy Resp: Auscultation: clear to auscultation bilaterally Cardio: Rhythm: regular rhythm GI: Other: Rectal exam shows vague induration on the right perianal area at the gluteal prominence, no fluctuance no spreading cellulitis, no sinus, no discharge Palpation (GI): Soft to palpation, nontender and no guarding Neuro: General: patient oriented x3 Results Labs Result diagrams: 09/17/22 06:21 09/17/22 06:21 Labs: Abnormal lab results 09/15/22 09/15/22 09/15/22 Range/Units 12:54 12:54 12:54 WBC 16.0 H (4.8-10.8) X10*3/uL Hgb 13.6 L (14.0-18.0) g/dl MCH 26.1 L (27.0-33.0) pg [place] # (Auto) 1.4 H (0.1-1.2) X10*3/uL Abs Immat Gran (auto) 0.05 H (0.00-0.03) X10*3/uL Absolute Neuts (auto) 11.1 H (2.0-8.3) x10*3/uL ESR (0-15) MM/HR BUN 21 H (9-16) mg/dL Random Glucose 241 H (60-115) mg/dL Lactic Acid 2.2 H* (0.5-2.0) mmol/L C-Reactive Protein 21.43 H (< or = 0.50) mg/dL Albumin 3.4 L (3.5-5.0) g/dL 09/15/22 Range/Units 12:55 WBC (4.8-10.8) X10*3/uL Hgb (14.0-18.0) g/dl MCH (27.0-33.0) pg [place] # (Auto) (0.1-1.2) X10*3/uL Abs Immat Gran (auto) (0.00-0.03) X10*3/uL Absolute Neuts (auto) (2.0-8.3) x10*3/uL ESR 77 H (0-15) MM/HR BUN (9-16) mg/dL Random Glucose (60-115) mg/dL Lactic Acid (0.5-2.0) mmol/L C-Reactive Protein (< or = 0.50) mg/dL Albumin (3.5-5.0) g/dL Short CBC 09/15/22 Range/Units 12:54 WBC 16.0 H (4.8-10.8) X10*3/uL Hgb 13.6 L (14.0-18.0) g/dl Hct 43.4 (42.0-52.0) % Plt Count 295 (160-400) X10*3/uL BMP 09/15/22 12:54 Sodium 140 Potassium 4.2 D Chloride 103 Carbon Dioxide 26 BUN 21 H Creatinine 1.03 Calcium 8.7 Liver Function 09/15/22 Range/Units 12:54 Total Bilirubin 0.6 (0.0-1.0) mg/dL AST 19 (5-37) U/L ALT 16 (0-40) U/L Alkaline Phosphatase 113 (39-117) U/L Albumin 3.4 L (3.5-5.0) g/dL All other labs normal. Imaging Additional studies: Laboratory Results WBC 16.0 X10*3/uL (4.8-10.8) H 09/15/22 12:54 RBC 5.21 X10*6/uL (4.60-5.80) 09/15/22 12:54 Hgb 13.6 g/dl (14.0-18.0) L 09/15/22 12:54 Hct 43.4 % (42.0-52.0) 09/15/22 12:54 MCV 83.3 fL (80.0-98.0) 09/15/22 12:54 MCH 26.1 pg (27.0-33.0) L 09/15/22 12:54 MCHC 31.3 g/dl (31.0-36.0) 09/15/22 12:54 RDW 14.4 % (11.0-16.0) 09/15/22 12:54 Plt Count 295 X10*3/uL (160-400) 09/15/22 12:54 MPV 9.6 fL (9.4-12.4) 09/15/22 12:54 Immature Gran % (Auto) 0.3 % (0.0-0.4) 09/15/22 12:54 Neut % (Auto) 69.8 % (45-73) 09/15/22 12:54 Lymph % (Auto) 20.2 % (20-40) 09/15/22 12:54 [place] % (Auto) 8.8 % (2-11) 09/15/22 12:54 Eos % (Auto) 0.5 % (0-4) 09/15/22 12:54 Baso % (Auto) 0.4 % (0-2) 09/15/22 12:54 Lymph # (Auto) 3.2 X10*3/uL (1.2-4.9) 09/15/22 12:54 [place] # (Auto) 1.4 X10*3/uL (0.1-1.2) H 09/15/22 12:54 Eos # (Auto) 0.1 X10*3/uL (0.0-0.4) 09/15/22 12:54 Baso # (Auto) 0.1 X10*3/uL (0.0-0.2) 09/15/22 12:54 Abs Immat Gran (auto) 0.05 X10*3/uL (0.00-0.03) H 09/15/22 12:54 Absolute Neuts (auto) 11.1 x10*3/uL (2.0-8.3) H 09/15/22 12:54 Absolute Nucleated RBC 0.000 X10*3/uL (0.0-0.012) 09/15/22 12:54 Nucleated RBC % (auto) 0.0 /100WBC (0.0-0.2) 09/15/22 12:54 ESR 77 MM/HR (0-15) H 09/15/22 12:55 Sodium 140 mmol/L (135-145) 09/15/22 12:54 Potassium 4.2 mmol/L (3.3-5.1) D 09/15/22 12:54 Chloride 103 mmol/L (96-108) 09/15/22 12:54 Carbon Dioxide 26 mmol/L (22-29) 09/15/22 12:54 Anion Gap 15 (12-20) 09/15/22 12:54 BUN 21 mg/dL (9-16) H 09/15/22 12:54 Creatinine 1.03 mg/dL (0.5-1.4) 09/15/22 12:54 Estim Creat Clear Calc 119.9 09/15/22 12:54 Estimated GFR > 60 09/15/22 12:54 Random Glucose 241 mg/dL (60-115) H 09/15/22 12:54 Lactic Acid 2.2 mmol/L (0.5-2.0) H* 09/15/22 12:54 Calcium 8.7 mg/dL (8.4-10.2) 09/15/22 12:54 Total Bilirubin 0.6 mg/dL (0.0-1.0) 09/15/22 12:54 AST 19 U/L (5-37) 09/15/22 12:54 ALT 16 U/L (0-40) 09/15/22 12:54 Alkaline Phosphatase 113 U/L (39-117) 09/15/22 12:54 C-Reactive Protein 21.43 mg/dL (< or = 0.50) H 09/15/22 12:54 Total Protein 6.8 g/dL (6.5-8.0) 09/15/22 12:54 Albumin 3.4 g/dL (3.5-5.0) L 09/15/22 12:54 COVID-19 (SRIKANTH) Negative (Negative) 09/15/22 14:20 COVID-19 Clin Com See Note 09/15/22 14:[address] 09/15/22 13:55 IMPRESSION: Diffuse thickening and aeration of bilateral gluteal soft tissues along the intergluteal margin but no underlying air-fluid collection, free air to suspect any abscess. There is no fistulous connection to the anus or rectum seen either. Assessment and Plan (1) Cellulitis, gluteal: Status: Acute Examination shows induration on the right gluteal area near the anus, without any fluctuance or discharge. Reviewed his CAT scan. This shows inflammatory changes in the fat without any drainable abscess or any other fluid collection. At this time, I am recommending for him to be admitted for cellulitis because of his multiple comorbid conditions. He should be on IV antibiotics. I will follow along closely. He should hold off on his antiplatelet therapy for now in case he may require an I&D. I will follow along while he is in the hospital. I have discussed above with the ER staff. He does not appear septic at this time. Procedures Date of Service Date of Service: 09/15/22
[2022-09-15 16:11] VITALS: BP 125/59; PULSE 95; RESP 18; O2SAT 95
--- NOTE | 2022-09-15 16:30 | PC.NURSE ---
report called to ED overflow, JERO Vann
[2022-09-15] MEDS: 0.9 % Sodium Chloride 1,000 ML 999 ML IV (16:33)
--- NOTE | 2022-09-15 17:59 | PM.IMHP ---
History of Present Illness Date of Service: 09/15/22 Attending physician on admission: Marleny Michael Chief Complaint: perineum area cellulitis 62-year-old male with multiple medical problems including morbid obesity, diabetes, hypertension, obstructive sleep apnea,? cad on asa/plavix, obesity status post gastric band procedure 15 years, who came to the ER today because of pain in the area.? He says that this is mostly on the right side than on the left.? He says that he had noticed this starting about 4-5 days ago had persisted. He says that he had history of I&D in the past, this time he started warm compress and then started to draining from the perineum area in the right-sided. He was here in the hospital last July, because of an abdominal wall this an abscess which had previously been drained as well in [facility]. Denies any new complaint of chest pain or shortness of breath or abdominal pain or fever or chills or nausea or vomiting Denies any cough Denies any weakness or numbness. in ED: Patient was found to have leukocytosis of 16, mild tachycardia, lactic acidosis patient was given Zosyn and pain medication morphine - seen by surgery - CT scan abdomen/ pelvisreviewed by surgery : no new collections but has drainage somewhat and some erythema recommended IV antibiotic and surgery will follow. Review of Systems Review of Systems: as above. [facility] Medical History Asthma Back pain Cardiac arrest Cellulitis, gluteal COVID-19 COVID-19 vaccine series completed Diabetes GERD (gastroesophageal reflux disease) High cholesterol HTN (hypertension) Hx of deep venous thrombosis Hx of hyperlipidemia Leg swelling Myocardial infarct, old Obesity PONV (postoperative nausea and vomiting) Septic shock Sleep apnea Pertinent family history: brother has liver disease. Surgical History History of ankle surgery History of arthroscopy of both knees History of esophagogastroduodenoscopy (EGD) History of removal of laparoscopic gastric banding device History of umbilical hernia repair Hx of cholecystectomy Hx of colonoscopy Personal history of gastric banding Social History Household Members: Family Household Members Other:: mother Housing: House Are you a primary respiratory care technician to a significant other at home: Yes (for mother, sister also helps and will dos) Do you presently have visiting nurse or other home services: No Alcohol intake: never Patient Tobacco Use Status: Never used Tobacco Advance Directives: Yes Advance Directives on File: Yes Advance Directives Date on File: 11/20/20 service: No Current occupational status: retired Meds Allergies Allergy/AdvReac Type Severity Reaction Status Date / Time vancomycin [VANCOMYCIN] AdvReac Severe RENAL Verified 02/23/22 15:54 FAILURE, RASH Active Medications: Current Medications Albuterol Sulfate (Albuterol Sulfate 90 Mcg 8 Gm Inhaler) 2 puff INHALE QID PRN PRN Reason: Shortness Of Breath Or Wheezing Aspirin (Aspirin Enteric Coated 81 Mg Tablet.Dr) 81 mg PO DAILY [facility] Carvedilol (Carvedilol 12.5 Mg Tablet) 12.5 mg PO BID THADDEUS; Protocol Clopidogrel Bisulfate (Clopidogrel Bisulfate 75 Mg Tablet) 75 mg PO DAILY [facility] Enoxaparin Sodium (Enoxaparin Sodium 40 Mg/0.4 Ml Syringe) 40 mg SUBCUT Q24H [facility]AD[facility] Piperacillin Sod/Tazobactam (Sod 3.375 gm/ Sodium Chloride) 50 mls @ 100 mls/hr IV Q6H THAD[facility] Morphine Sulfate (Morphine Sulfate Er 30 Mg Tablet.Er) 30 mg PO BID [facility]AD[facility] Non-Formulary Medication (Pantoprazole) 40 mg PO BID [facility] Non-Formulary Medication (Simvastatin) 40 mg PO BEDTIME [facility] Nystatin (Nystatin Cream 15 Gm Tube) 1 appl TOPICAL BID THADDEUS; Protocol Pharmacy Consult (Consult Rx Perform Med Rec) 1 each MISCELLANE ONCE PRN PRN Reason: Consult order Sodium Chloride (0.9 % Sodium Chloride Flush 3 Ml Syringe) 3 ml IVFLUSH QSHIFT [facility] Home Medications Medication Instructions Recorded Confirmed Last Taken Type albuterol sulfate 90 mcg/actuation 2 puff inhalation QID PRN 11/20/20 09/15/22 07/17/21 History aerosol inhaler (Ventolin HFA) Shortness Of Breath Or Wheezing aspirin 81 mg tablet,delayed 81 mg PO DAILY 11/20/20 09/15/22 07/16/21 History release carvedilol 12.5 mg tablet 12.5 mg PO BID 11/20/20 09/15/22 07/16/21 History clopidogrel 75 mg tablet 75 mg PO DAILY 11/20/20 09/15/22 07/16/21 History insulin aspart U-100 100 unit/mL See Rx Instructions .Route .COMPLEX 11/20/20 09/15/22 07/16/21 History (3 mL) subcutaneous pen (Novolog Flexpen U-100 Insulin aspart) insulin glargine 100 unit/mL (3 50 unit subcut BEDTIME 11/20/20 09/15/22 07/16/21 History mL) subcutaneous pen (Basaglar KwikPen U-100 Insulin) morphine 30 mg tablet,extended 30 mg PO BID 11/20/20 09/15/22 07/16/21 History release oxycodone 15 mg tablet 15 mg PO Q4H PRN Pain 11/20/20 09/15/22 07/16/21 History pantoprazole 40 mg tablet,delayed 40 mg PO BID 11/20/20 09/15/22 07/16/21 History release simvastatin 40 mg tablet 40 mg PO BEDTIME 11/20/20 09/15/22 07/16/21 History nystatin 100,000 unit/gram topical 1 applic topical BID 09/15/22 09/15/22 Unknown History cream Physical Exam Vital Signs and Narrative: Vital Signs: Last Vital Signs Temp 97.8 F 09/15/22 08:11 Pulse 95 09/15/22 16:11 Resp 18 09/15/22 16:11 BP 125/59 L 09/15/22 16:11 Pulse Ox 95 09/15/22 16:11 O2 Del Method 09/15/22 16:11 BMI result Body Mass Index 51.5 Appearance: Alert.? Oriented X3.? not in distress.? Eyes: Pupils equal, round and reactive to light.? Sclera nonicteric.? ENT: Pharynx normal.? Moist mucous membranes. cvs: rrr, [id number] , no murmur res: clear to auscultation ,no rhonchii or wheezing abd: no rebound or guarding ,nt, bs present, buttock area medial cheeks are somewhat erythematous as well as there is small draining area also there. ext pulses present , no cyanosis . neuro: axo3 , nonfocal. Results Labs CBC and Chem 7: 09/15/22 12:54 09/15/22 12:54 Labs: Laboratory Results - last 24 hr 09/15/22 09/15/22 09/15/22 12:54 12:54 12:54 MCV 83.3 MCH 26.1 L MCHC 31.3 RDW 14.4 Plt Count 295 MPV 9.6 Immature Gran % (Auto) 0.3 Neut % (Auto) 69.8 Lymph % (Auto) 20.2 [place] % (Auto) 8.8 Eos % (Auto) 0.5 Baso % (Auto) 0.4 Lymph # (Auto) 3.2 [place] # (Auto) 1.4 H Eos # (Auto) 0.1 Baso # (Auto) 0.1 Abs Immat Gran (auto) 0.05 H Absolute Neuts (auto) 11.1 H Absolute Nucleated RBC 0.000 Nucleated RBC % (auto) 0.0 ESR Anion Gap 15 Estim Creat Clear Calc 119.9 Estimated GFR > 60 Random Glucose 241 H Lactic Acid 2.2 H* Calcium 8.7 Total Bilirubin 0.6 AST 19 ALT 16 Alkaline Phosphatase 113 C-Reactive Protein 21.43 H Total Protein 6.8 Albumin 3.4 L COVID-19 (SRIKANTH) COVID-19 [employer] 09/15/22 09/15/22 12:55 14:20 MCV MCH MCHC RDW Plt Count MPV Immature Gran % (Auto) Neut % (Auto) Lymph % (Auto) [place] % (Auto) Eos % (Auto) Baso % (Auto) Lymph # (Auto) [place] # (Auto) Eos # (Auto) Baso # (Auto) Abs Immat Gran (auto) Absolute Neuts (auto) Absolute Nucleated RBC Nucleated RBC % (auto) ESR 77 H Anion Gap Estim Creat Clear Calc Estimated GFR Random Glucose Lactic Acid Calcium Total Bilirubin AST ALT Alkaline Phosphatase C-Reactive Protein Total Protein Albumin COVID-19 (SRIKANTH) Negative COVID-19 Clin Com See Note Imaging Radiologist's Impressions: Impressions Pelvis CT 09/15/22 13:55 IMPRESSION: Diffuse thickening and aeration of bilateral gluteal soft tissues along the intergluteal margin but no underlying air-fluid collection, free air to suspect any abscess. There is no fistulous connection to the anus or rectum seen either. Assessment and Plan (1) Sepsis: Status: Acute (2) Cellulitis, gluteal: Status: Acute Plan 62-year-old male with multiple medical problems including morbid obesity, diabetes, hypertension, obstructive sleep apnea: 1. sepsis secondary to Gluteal area cellulitis right side >left: patient has WBC count of 16, mild tachycardia/lactic acid 2.2 - met the sepsis criteria. elevated crp Sepsis exam completed. Blood cultures sent repeat lactic acid. started on IV antibiotics, IV hydration, pain management. 2. Diabetes: Fingerstick with sliding scale coverage, continue Lantus and sliding scale coverage. 3.: Hypertension: Blood pressure stable, continue home Coreg. 4.?cad: Continue aspirin statin Plavix, beta-sam. 5. EPI: Continue CPAP at bedtime. 6. Morbid obesity: Encouraged to lose weight. DVT prophylaxis with subQ Lovenox above management discussed with the patient in detail length he understand and in agreement with above plan, time spent 70 minute, patient full code. Patient may benefit from 2 midnight stays- considering has sepsis and cellulitis and need IV antibiotic as well as may need surgical intervention including I&D if needed. Quality Stroke Does the patient have a stroke diagnosis?: No VTE Prior VTE?: No VTE Risk Level:: Medical - moderate - high VTE Device Contraindication: N/A - Device Ordered VTE Drug Contraindication: N/A - Med Ordered
[2022-09-15 18:59] LABS: Glucose, Whole Blood 214 mg/dL (60-115)
[2022-09-15 19:04] LABS: Lactic Acid 1.2 mmol/L (0.5-2.0)
[2022-09-15 20:49] VITALS: RESP 16
[2022-09-15 21:18] LABS: Glucose, Whole Blood 297 mg/dL (60-115)
[2022-09-15] MEDS: Enoxaparin Sodium 40 MG/0.4 ML SYRINGE SUBCUT (21:33)
[2022-09-15] MEDS: Insulin Glargine,Hum.rec.anlog 100 UNIT/ML 10 ML VIAL 40 UNIT SUBCUT (21:33)
[2022-09-15 21:38] VITALS: PULSE 98
[2022-09-15] MEDS: carvediloL 12.5 MG TABLET PO (21:39)
[2022-09-15] MEDS: Morphine Sulfate ER 30 MG TABLET.ER PO (22:59)
[2022-09-15] MEDS: Atorvastatin Calcium 20 MG TABLET PO (23:00)
[2022-09-15] MEDS: Insulin Lispro 100 UNIT/ML 3 ML VIAL SUBCUT (23:00)
[2022-09-15] MEDS: Lactated Ringers 1,000 ML 100 ML IVCONT (23:01)
--- NOTE | 2022-09-15 23:30 | PC.NURSE ---
pt a&ox3, medicated per provider order, pt reporting 10/10 generalized pain, pt requesting prn oxycodone - medication is in med rec but hasn't been ordered by provider, provider notified - pt aware.
[2022-09-16] VITALS (7 sets, daily range): BP systolic 98–139; BP diastolic 55–81; PULSE 65–89; RESP 18–20; TEMP 36.4–36.8; O2SAT 94–98
[2022-09-16] MEDS: Piperacillin Sodium/Tazobactam 3.375 GM in 0.9 % Sodium Chloride 50 ML IV ×4 (04:40→21:33)
[2022-09-16] MEDS: oxyCODONE HCl Immed Release 15 MG TABLET PO ×3 (05:03→16:58)
[2022-09-16] MEDS: Omeprazole 20 MG CAPSULE.DR PO ×2 (06:25→16:55)
[2022-09-16 07:05] LABS: MANUAL DIFF FLAG NO
[2022-09-16 07:11] LABS: Basophils Percent Auto 0.2 % (0-2); Eosinophils Absolute Auto 0.1 X10*3/uL (0.0-0.4); Eosinophils Percent Auto 1.3 % (0-4); Hematocrit 38.6 % (42.0-52.0); Hemoglobin 11.9 g/dl (14.0-18.0); Imm Gran Abs Auto 0.03 X10*3/uL (0.00-0.03); Imm Gran Pct Auto 0.3 % (0.0-0.4); Lymphocytes Absolute Auto 2.5 X10*3/uL (1.2-4.9); Lymphocytes Percent Auto 22.8 % (20-40); Mean Corpuscular HGB Conc 30.8 g/dl (31.0-36.0); Mean Corpuscular Hemoglobin 25.9 pg (27.0-33.0); Mean Corpuscular Volume 84.1 fL (80.0-98.0); Mean Platelet Volume 10.8 fL (9.4-12.4); Monocytes Absolute Auto 1.2 X10*3/uL (0.1-1.2); Monocytes Percent Auto 10.9 % (2-11); Neutrophils Absolute Auto 7.1 x10*3/uL (2.0-8.3); Neutrophils Percent Auto 64.5 % (45-73); Platelet Count 220 X10*3/uL (160-400); Red Blood Count 4.59 X10*6/uL (4.60-5.80); Red Cell Distribution Width 14.6 % (11.0-16.0); White Blood Count 11.1 X10*3/uL (4.8-10.8)
[2022-09-16 07:47] LABS: Anion Gap 17 (12-20); Blood Urea Nitrogen 19 mg/dL (9-16); Carbon Dioxide 22 mmol/L (22-29); Chloride 103 mmol/L (96-108); Creatinine Clr Calc Pharmacy 137.2; Estimated Glomerular Filt Rate > 60; Glucose Random 246 mg/dL (60-115); Potassium 4.5 mmol/L (3.3-5.1); Sodium 137 mmol/L (135-145)
[2022-09-16] MEDS: Aspirin Enteric Coated 81 MG TABLET.DR PO (09:23)
[2022-09-16] MEDS: carvediloL 12.5 MG TABLET PO (09:23)
[2022-09-16] MEDS: Morphine Sulfate ER 30 MG TABLET.ER PO ×2 (09:23→21:03)
[2022-09-16] MEDS: Clopidogrel Bisulfate 75 MG TABLET PO (09:23)
[2022-09-16] MEDS: Lactated Ringers 1,000 ML 100 ML IVCONT ×2 (09:24→21:35)
--- NOTE | 2022-09-16 10:06 | P.CDIC_ITS ---
CDI Concurrent Query Documentation Clarification: PHYSICIAN'S DOCUMENTATION REQUEST Date of Query: 09/16/22 1007 Patient Name: Mason Martin Admit Date: 09/15/22 Dear Doctor, A review of the medical record indicates additional documentation may be needed. Please review below and update the documentation accordingly. Clinical Indicators: Documentation includes the conditions of Gluteal Cellulitis and Diabetes Mellitus. Additional clinical indicators in the record include: Risk Factors/Clinical Indicators/Treatments Please clarify the relationship between these conditions: * Yes, Gluteal Cellulitis is related to / associated with / due to Diabetes Mellitus * No, Gluteal Cellulitis is not related to / associated with / due to Diabetes Mellitus * Unable to determine Use of terms such as suspected, likely, concern for, or probable (associated with a specific diagnosis that is being evaluated, monitored, or treated as if it exists) are acceptable and can be coded in the inpatient setting, when documented at the time of discharge. Thank you, Eva Cisse [insert CDI's credentials] Extension: [4-digit phone extension] Please use your independent medical judgment in providing your response. THIS QUERY IS PART OF THE PERMANENT MEDICAL RECORD Provider Response: Other Other Diagnosis: Gluteal Cellulitis is not related to / associated with / due to Diabetes Mellitus
--- NOTE | 2022-09-16 10:06 | P.PNGS_ITS ---
Subjective Subjective Date of Service: 09/16/22 Interval history: Feels better Says the gluteal area is softer today Has had spontaneous drainage as well Physical Exam Vital Signs: Vital Signs: Last Vital Signs Temp 97.8 F 09/16/22 07:04 Pulse 70 09/16/22 07:04 Resp 18 09/16/22 07:04 BP 109/55 L 09/16/22 07:04 Pulse Ox 97 09/16/22 07:04 O2 Del Method 09/16/22 07:04 BMI result Body Mass Index 51.5 Const: Other: Ambulating General: comfortable and no acute distress Resp: Effort & Inspection: normal respiratory effort Cardio: Rate: regular rate GI: Other: Gluteal area - some induration right side near the anus, with drainage more anteriorly, induration improved compared to yesterday, no fluctuance Palpation (GI): Soft to palpation Objective Data Active Medications Albuterol Sulfate (Albuterol Sulfate 90 Mcg 8 Gm Inhaler) 2 puff INHALE QID PRN PRN Reason: Shortness Of Breath Or Wheezing Aspirin (Aspirin Enteric Coated 81 Mg Tablet.) 81 mg PO DAILY [facility] Last Admin: 09/16/22 09:23 Dose: 81 mg Documented By: MONTY Atorvastatin Calcium (Atorvastatin Calcium 20 Mg Tablet) 20 mg PO BEDTIME [facility] Last Admin: 09/15/22 23:00 Dose: 20 mg Documented By: BALDEMAR Carvedilol (Carvedilol 12.5 Mg Tablet) 12.5 mg PO BID [facility]; Protocol Last Admin: 09/16/22 09:23 Dose: 12.5 mg Documented By: MONTY Clopidogrel Bisulfate (Clopidogrel Bisulfate 75 Mg Tablet) 75 mg PO DAILY [facility] Last Admin: 09/16/22 09:23 Dose: 75 mg Documented By: MONTY Dextrose (Dextrose 50 % 25 Gm/50 Ml Syringe) 25 gm IVPUSH Q15M PRN; Protocol PRN Reason: per Hypoglycemia Standing Ord. Enoxaparin Sodium (Enoxaparin Sodium 40 Mg/0.4 Ml Syringe) 40 mg SUBCUT Q24H [facility] Last Admin: 09/15/22 21:33 Dose: 40 mg Documented By: KATHLEEN-MURPE Glucose (Glucose Gel 15 Gm Gel..Gram.) 15 gm PO Q15M PRN; Protocol PRN Reason: per Hypoglycemia Standing Ord. Lactated Ringer's (Lr) 1,000 mls @ 100 mls/hr IVCONT .Q10H [facility] Last Admin: 09/16/22 09:24 Dose: 100 mls/hr Documented By: MONTY Piperacillin Sod/Tazobactam (Sod 3.375 gm/ Sodium Chloride) 50 mls @ 100 mls/hr IV Q6H [facility] Last Admin: 09/16/22 09:24 Dose: 100 mls/hr Documented By: MONTY Insulin Human Lispro (Insulin Lispro 100 Unit/Ml 3 Ml Vial) 0 unit SUBCUT QIDACHS [facility]; Protocol Last Admin: 09/16/22 07:53 Dose: Not Given Documented By: MONTY Non-Admin Reason: NPO Morphine Sulfate (Morphine Sulfate Er 30 Mg Tablet.Er) 30 mg PO BID [facility] Last Admin: 09/16/22 09:23 Dose: 30 mg Documented By: MONTY Nystatin (Nystatin Cream 15 Gm Tube) 1 appl TOPICAL BID [facility]; Protocol Last Admin: 09/16/22 09:29 Dose: Not Given Documented By: MONTY Non-Admin Reason: Med Not Available Omeprazole (Omeprazole 20 Mg Capsule.Dr) 20 mg PO BID@0630,1630 [facility] Last Admin: 09/16/22 06:25 Dose: 20 mg Documented By: BELLA Oxycodone HCl (Oxycodone Hcl Immed Release 15 Mg Tablet) 15 mg PO Q4H PRN PRN Reason: Pain, Severe (Pain Scale 7-10) Last Admin: 09/16/22 09:54 Dose: 15 mg Documented By: MONTY Pharmacy Consult (Consult Rx Perform Med Rec) 1 each MISCELLANE ONCE PRN PRN Reason: Consult order Sodium Chloride (0.9 % Sodium Chloride Flush 3 Ml Syringe) 3 ml IVFLUSH QSHIFT [facility] Last Admin: 09/16/22 07:05 Dose: Not Given Documented By: MONTY Non-Admin Reason: IV Running Labs CBC & Chem 7: 09/16/22 06:30 09/16/22 06:30 Labs: Laboratory Results - last 24 hr 09/15/22 09/15/22 09/15/22 12:54 12:54 12:54 MCV 83.3 MCH 26.1 L MCHC 31.3 RDW 14.4 Plt Count 295 MPV 9.6 Immature Gran % (Auto) 0.3 Neut % (Auto) 69.8 Lymph % (Auto) 20.2 [place] % (Auto) 8.8 Eos % (Auto) 0.5 Baso % (Auto) 0.4 Lymph # (Auto) 3.2 [place] # (Auto) 1.4 H Eos # (Auto) 0.1 Baso # (Auto) 0.1 Abs Immat Gran (auto) 0.05 H Absolute Neuts (auto) 11.1 H Absolute Nucleated RBC 0.000 Nucleated RBC % (auto) 0.0 ESR Anion Gap 15 Estim Creat Clear Calc 119.9 Estimated GFR > 60 POC Glucose Random Glucose 241 H Lactic Acid 2.2 H* Calcium 8.7 Total Bilirubin 0.6 AST 19 ALT 16 Alkaline Phosphatase 113 C-Reactive Protein 21.43 H Total Protein 6.8 Albumin 3.4 L COVID-19 ([facility]) COVID-[facility] 09/15/22 09/15/22 09/15/22 12:55 14:20 17:55 MCV MCH MCHC RDW Plt Count MPV Immature Gran % (Auto) Neut % (Auto) Lymph % (Auto) [place] % (Auto) Eos % (Auto) Baso % (Auto) Lymph # (Auto) [place] # (Auto) Eos # (Auto) Baso # (Auto) Abs Immat Gran (auto) Absolute Neuts (auto) Absolute Nucleated RBC Nucleated RBC % (auto) ESR 77 H Anion Gap Estim Creat Clear Calc Estimated GFR POC Glucose Random Glucose Lactic Acid 1.2 Calcium Total Bilirubin AST ALT Alkaline Phosphatase C-Reactive Protein Total Protein Albumin COVID-19 ([facility]) Negative COVID-19 Clin Com See Note 09/15/22 09/15/22 09/16/22 18:57 21:15 06:30 MCV 84.1 MCH 25.9 L MCHC 30.8 L RDW 14.6 Plt Count 220 D MPV 10.8 Immature Gran % (Auto) 0.3 Neut % (Auto) 64.5 Lymph % (Auto) 22.8 [place] % (Auto) 10.9 Eos % (Auto) 1.3 Baso % (Auto) 0.2 Lymph # (Auto) 2.5 [place] # (Auto) 1.2 Eos # (Auto) 0.1 Baso # (Auto) 0.0 Abs Immat Gran (auto) 0.03 Absolute Neuts (auto) 7.1 Absolute Nucleated RBC 0.000 Nucleated RBC % (auto) 0.0 ESR Anion Gap Estim Creat Clear Calc Estimated GFR POC Glucose 214 H 297 H Random Glucose Lactic Acid Calcium Total Bilirubin AST ALT Alkaline Phosphatase C-Reactive Protein Total Protein Albumin COVID-19 ([facility]) COVID-19 Clin Com 09/16/22 06:30 MCV MCH MCHC RDW Plt Count MPV Immature Gran % (Auto) Neut % (Auto) Lymph % (Auto) [place] % (Auto) Eos % (Auto) Baso % (Auto) Lymph # (Auto) [place] # (Auto) Eos # (Auto) Baso # (Auto) Abs Immat Gran (auto) Absolute Neuts (auto) Absolute Nucleated RBC Nucleated RBC % (auto) ESR Anion Gap 17 Estim Creat Clear Calc 137.2 Estimated GFR > 60 POC Glucose Random Glucose 246 H Lactic Acid Calcium 8.0 L D Total Bilirubin AST ALT Alkaline Phosphatase C-Reactive Protein Total Protein Albumin COVID-19 ([facility]) COVID-19 Clin Com Procedures Date of Service Date of Service: 09/16/22 Progress Note: A&P Assessment and plan (1) Cellulitis, gluteal: Status: Acute Assessment and Plan: There is spontaneous drainage, serosanguineous No fluctuance Induration is improved compared to yesterday Would not do I&D at this time Will continue to follow Okay to do warm compresses IV antibiotics Time Spent With Patient Time: Total time spent is greater than 50% in coordination of care (as documented) at patient's floor/unit and/or counseling patient: Quality Stroke Does the patient have a stroke diagnosis?: No VTE Prior VTE?: No VTE Risk Level:: Medical - moderate - high VTE Device Contraindication: N/A - Device Ordered VTE Drug Contraindication: N/A - Med Ordered
--- NOTE | 2022-09-16 10:23 | MHC.CM.PN ---
IMM DELIVERED CM MT WITH PT. 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 USES CANE AND HAS A C-PAP AT NIGHT ([facility], [place]) HAS HCP ON FILE, COVID VAX X 2. PCP DR. SIMPSON DP: HOME, NO SERVICES. FAMILY WILL TRANSPORT
[2022-09-16 12:20] LABS: Glucose, Whole Blood 212 mg/dL (60-115)
[2022-09-16] MEDS: Insulin Lispro 100 UNIT/ML 3 ML VIAL SUBCUT ×3 (12:24→21:05)
[2022-09-16 12:28] LABS: Glucose, Whole Blood 305 mg/dL (60-115)
[2022-09-16] MEDS: Docusate Sodium 100 MG CAPSULE PO (14:21)
[2022-09-16 17:01] LABS: Glucose, Whole Blood 270 mg/dL (60-115)
--- NOTE | 2022-09-16 17:34 | HO.PM.IMPN ---
Subjective Subjective Date of Service: 09/16/22 Interval History: Cellulitis, gluteal Review of Systems gluteal and perineum soreness improving, denies any fever or chills or cough or phlegm or nausea vomiting. Physical Exam Vital Signs: Vital Signs: Last Vital Signs Temp 97.9 F 09/16/22 16:00 Pulse 89 09/16/22 16:00 Resp 20 09/16/22 16:00 BP 139/66 09/16/22 16:00 Pulse Ox 98 09/16/22 16:00 O2 Del Method 09/16/22 16:00 BMI result Body Mass Index 51.5 Appearance: Alert.? Oriented X3.? not in distress.? cvs: rrr, [id number] , no murmur res: clear to auscultation ,no rhonchii or wheezing abd: no rebound or guarding ,nt, bs present, buttock area medial cheeks are somewhat erythematous as well as there is small draining area also there. ext pulses present , no cyanosis . neuro: axo3 , nonfocal.? Objective Data Active Medications Albuterol Sulfate (Albuterol Sulfate 90 Mcg 8 Gm Inhaler) 2 puff INHALE QID PRN PRN Reason: Shortness Of Breath Or Wheezing Aspirin (Aspirin Enteric Coated 81 Mg Tablet.) 81 mg PO DAILY [facility] Last Admin: 09/16/22 09:23 Dose: 81 mg Documented By: MONTY Atorvastatin Calcium (Atorvastatin Calcium 20 Mg Tablet) 20 mg PO BEDTIME [facility] Last Admin: 09/15/22 23:00 Dose: 20 mg Documented By: MADDENL Carvedilol (Carvedilol 12.5 Mg Tablet) 12.5 mg PO BID [facility]; Protocol Last Admin: 09/16/22 09:23 Dose: 12.5 mg Documented By: MONTY Clopidogrel Bisulfate (Clopidogrel Bisulfate 75 Mg Tablet) 75 mg PO DAILY [facility] Last Admin: 09/16/22 09:23 Dose: 75 mg Documented By: MONTY Dextrose (Dextrose 50 % 25 Gm/50 Ml Syringe) 25 gm IVPUSH Q15M PRN; Protocol PRN Reason: per Hypoglycemia Standing Ord. Docusate Sodium (Docusate Sodium 100 Mg Capsule) 100 mg PO BID PRN PRN Reason: Constipation Last Admin: 09/16/22 14:21 Dose: 100 mg Documented By: MONTY Enoxaparin Sodium (Enoxaparin Sodium 40 Mg/0.4 Ml Syringe) 40 mg SUBCUT Q24H [facility] Last Admin: 09/15/22 21:33 Dose: 40 mg Documented By: KATHLEEN-MELISSA Glucose (Glucose Gel 15 Gm Gel..Gram.) 15 gm PO Q15M PRN; Protocol PRN Reason: per Hypoglycemia Standing Ord. Lactated Ringer's (Lr) 1,000 mls @ 100 mls/hr IVCONT .Q10H [facility] Last Admin: 09/16/22 13:29 Dose: Not Given Documented By: MONTY Non-Admin Reason: IV Running Piperacillin Sod/Tazobactam (Sod 3.375 gm/ Sodium Chloride) 50 mls @ 100 mls/hr IV Q6H [facility] Last Admin: 09/16/22 16:56 Dose: 100 mls/hr Documented By: MARISA Insulin Human Lispro (Insulin Lispro 100 Unit/Ml 3 Ml Vial) 0 unit SUBCUT QIDACHS [facility]; Protocol Last Admin: 09/16/22 12:24 Dose: 8 unit Documented By: MONTY Comments: poc 305 Morphine Sulfate (Morphine Sulfate Er 30 Mg Tablet.Er) 30 mg PO BID [facility] Last Admin: 09/16/22 09:23 Dose: 30 mg Documented By: MONTY Nystatin (Nystatin Cream 15 Gm Tube) 1 appl TOPICAL BID [facility]; Protocol Last Admin: 09/16/22 09:29 Dose: Not Given Documented By: MONTY Non-Admin Reason: Med Not Available Omeprazole (Omeprazole 20 Mg Elizabeth.) 20 mg PO BID@0630,1630 [facility] Last Admin: 09/16/22 16:55 Dose: 20 mg Documented By: MARISA Oxycodone HCl (Oxycodone Hcl Immed Release 15 Mg Tablet) 15 mg PO Q4H PRN PRN Reason: Pain, Severe (Pain Scale 7-10) Last Admin: 09/16/22 16:58 Dose: 15 mg Documented By: MARISA Pharmacy Consult (Consult Rx Perform Med Rec) 1 each MISCELLANE ONCE PRN PRN Reason: Consult order Polyethylene Glycol (Polyethylene Glycol 3350 17 Gm Powd.Pack) 17 gm PO DAILY PRN PRN Reason: Constipation Sodium Chloride (0.9 % Sodium Chloride Flush 3 Ml Syringe) 3 ml IVFLUSH QSHIFT [facility] Last Admin: 09/16/22 16:49 Dose: Not Given Documented By: MARISA Non-Admin Reason: IV Running Labs CBC & Chem 7: 09/16/22 06:30 09/16/22 06:30 Labs: Laboratory Results - last 24 hr 09/15/22 09/15/22 09/15/22 17:55 18:57 21:15 MCV MCH MCHC RDW Plt Count MPV Immature Gran % (Auto) Neut % (Auto) Lymph % (Auto) [place] % (Auto) Eos % (Auto) Baso % (Auto) Lymph # (Auto) [place] # (Auto) Eos # (Auto) Baso # (Auto) Abs Immat Gran (auto) Absolute Neuts (auto) Absolute Nucleated RBC Nucleated RBC % (auto) Anion Gap Estim Creat Clear Calc Estimated GFR POC Glucose 214 H 297 H Random Glucose Lactic Acid 1.2 Calcium 09/16/22 09/16/22 09/16/22 06:30 06:30 06:59 MCV 84.1 MCH 25.9 L MCHC 30.8 L RDW 14.6 Plt Count 220 D MPV 10.8 Immature Gran % (Auto) 0.3 Neut % (Auto) 64.5 Lymph % (Auto) 22.8 [place] % (Auto) 10.9 Eos % (Auto) 1.3 Baso % (Auto) 0.2 Lymph # (Auto) 2.5 [place] # (Auto) 1.2 Eos # (Auto) 0.1 Baso # (Auto) 0.0 Abs Immat Gran (auto) 0.03 Absolute Neuts (auto) 7.1 Absolute Nucleated RBC 0.000 Nucleated RBC % (auto) 0.0 Anion Gap 17 Estim Creat Clear Calc 137.2 Estimated GFR > 60 POC Glucose 212 H Random Glucose 246 H Lactic Acid Calcium 8.0 L D 09/16/22 09/16/22 12:19 16:52 MCV MCH MCHC RDW Plt Count MPV Immature Gran % (Auto) Neut % (Auto) Lymph % (Auto) [place] % (Auto) Eos % (Auto) Baso % (Auto) Lymph # (Auto) [place] # (Auto) Eos # (Auto) Baso # (Auto) Abs Immat Gran (auto) Absolute Neuts (auto) Absolute Nucleated RBC Nucleated RBC % (auto) Anion Gap Estim Creat Clear Calc Estimated GFR POC Glucose 305 H 270 H Random Glucose Lactic Acid Calcium Microbiology Microbiology Results: Microbiology 09/15/22 12:54 Blood Culture - Preliminary Blood - Venous No growth after 24 hours. 09/15/22 12:54 Blood Culture - Preliminary Blood - Venous No growth after 24 hours. Assessment and Plan (1) Cellulitis, gluteal: Status: Acute (2) Sepsis: Status: Acute Plan 62-year-old male with multiple medical problems including morbid obesity, diabetes, hypertension, obstructive sleep apnea: 1. ? sepsis secondary to Gluteal? area cellulitis right side >left( unclear if related to dm) ?patient has WBC count of 16, mild tachycardia/lactic acid 2.2 - met the sepsis criteria. elevated crp ? Sepsis exam completed.? Blood cultures sent ? Lactic acidosis resolved. ?started on IV antibiotics, IV hydration, pain management. 2. ? Diabetes with hyperglycemia :fs runnin from 200-300 range ? Fingerstick with sliding scale coverage, continue Lantus and sliding scale coverage. 3.:? Hypertension:? Blood pressure stable, continue home Coreg. 4.?cad: ? Continue aspirin statin Plavix, beta-sam. 5.? EPI:? Continue CPAP at bedtime. 6.? Morbid obesity:? Encouraged to? lose weight. ? DVT prophylaxis with subQ Lovenox ?above management discussed with the patient in detail length he understand and in agreement with above plan, time spent 70 minute, patient full code. ? ongoing inpatient need - considering has sepsis and cellulitis and need IV antibiotic as well as may need surgical intervention including I&D if needed. Quality Stroke Does the patient have a stroke diagnosis?: No VTE Prior VTE?: No VTE Risk Level:: Medical - moderate - high VTE Device Contraindication: N/A - Device Ordered VTE Drug Contraindication: N/A - Med Ordered
[2022-09-16] MEDS: Enoxaparin Sodium 40 MG/0.4 ML SYRINGE SUBCUT (19:35)
[2022-09-16 20:57] LABS: Glucose, Whole Blood 229 mg/dL (60-115)
[2022-09-16] MEDS: Atorvastatin Calcium 20 MG TABLET PO (21:03)
[2022-09-16] MEDS: Insulin Glargine,Hum.rec.anlog 100 UNIT/ML 10 ML VIAL 50 UNIT SUBCUT (21:05)
[2022-09-17] MEDS: Nystatin Cream 15 GM TUBE 1 APPL TOPICAL ×3 (00:38→21:27)
[2022-09-17] MEDS: oxyCODONE HCl Immed Release 15 MG TABLET PO ×4 (01:05→21:19)
[2022-09-17 03:13] VITALS: BP 116/67; PULSE 70; RESP 18; TEMP 36.6; O2SAT 96
[2022-09-17] MEDS: Piperacillin Sodium/Tazobactam 3.375 GM in 0.9 % Sodium Chloride 50 ML IV ×4 (04:00→21:10)
[2022-09-17] MEDS: Omeprazole 20 MG CAPSULE.DR PO ×2 (05:46→16:43)
[2022-09-17 07:11] LABS: Hematocrit 37.6 % (42.0-52.0); Hemoglobin 11.9 g/dl (14.0-18.0); Mean Corpuscular HGB Conc 31.6 g/dl (31.0-36.0); Mean Corpuscular Hemoglobin 26.7 pg (27.0-33.0); Mean Corpuscular Volume 84.3 fL (80.0-98.0); Mean Platelet Volume 10.3 fL (9.4-12.4); Platelet Count 259 X10*3/uL (160-400); Red Blood Count 4.46 X10*6/uL (4.60-5.80); Red Cell Distribution Width 14.5 % (11.0-16.0)
[2022-09-17 07:34] LABS: Blood Urea Nitrogen 17 mg/dL (9-16); Calcium 8.1 mg/dL (8.4-10.2); Creatinine Clr Calc Pharmacy 131.4; Estimated Glomerular Filt Rate > 60; Glucose Random 245 mg/dL (60-115)
[2022-09-17 07:41] VITALS: BP 157/92; PULSE 74; RESP 18; TEMP 36.1; O2SAT 98
[2022-09-17 07:44] LABS: Anion Gap 13 (12-20); Carbon Dioxide 29 mmol/L (22-29); Chloride 104 mmol/L (96-108); Potassium 4.5 mmol/L (3.3-5.1); Sodium 141 mmol/L (135-145)
[2022-09-17 07:46] LABS: Glucose, Whole Blood 230 mg/dL (60-115)
[2022-09-17] MEDS: Aspirin Enteric Coated 81 MG TABLET.DR PO (08:02)
[2022-09-17] MEDS: Clopidogrel Bisulfate 75 MG TABLET PO (08:02)
[2022-09-17] MEDS: Morphine Sulfate ER 30 MG TABLET.ER PO ×2 (08:03→21:09)
[2022-09-17] MEDS: carvediloL 12.5 MG TABLET PO ×2 (08:03→21:20)
[2022-09-17] MEDS: Insulin Lispro 100 UNIT/ML 3 ML VIAL SUBCUT ×4 (08:04→21:10)
[2022-09-17 08:11] LABS: C Reactive Protein 7.76 mg/dL (< or = 0.50)
[2022-09-17] MEDS: Lactated Ringers 1,000 ML 100 ML IVCONT (08:11)
--- NOTE | 2022-09-17 09:09 | PM.PNGS ---
Subjective Subjective Date of Service: 09/17/22 Interval history: Right buttock continues to feel better Says he noticed this to have some spontaneous scanty drainage Less pain Physical Exam Vital Signs: Vital Signs: Last Vital Signs Temp 97.0 F 09/17/22 07:41 Pulse 74 09/17/22 07:41 Resp 18 09/17/22 07:41 BP 157/92 H 09/17/22 07:41 Pulse Ox 98 09/17/22 07:41 O2 Del Method 09/17/22 07:41 BMI result Body Mass Index 51.5 Const: General: comfortable and no acute distress Resp: Effort & Inspection: normal respiratory effort Cardio: Rate: regular rate GI: Palpation (GI): Soft to palpation Back/Spine/Pelvis: Other: Right buttock induration is much improved, softer, no cellulitis, sinus adjacent this with scanty drainage, no fluctuance Objective Data Active Medications Albuterol Sulfate (Albuterol Sulfate 90 Mcg 8 Gm Inhaler) 2 puff INHALE QID PRN PRN Reason: Shortness Of Breath Or Wheezing Aspirin (Aspirin Enteric Coated 81 Mg Tablet.) 81 mg PO DAILY [facility] Last Admin: 09/17/22 08:02 Dose: 81 mg Documented By: MARISA Atorvastatin Calcium (Atorvastatin Calcium 20 Mg Tablet) 20 mg PO BEDTIME [facility] Last Admin: 09/16/22 21:03 Dose: 20 mg Documented By: ANGELES Carvedilol (Carvedilol 12.5 Mg Tablet) 12.5 mg PO BID [facility]; Protocol Last Admin: 09/17/22 08:03 Dose: 12.5 mg Documented By: MARISA Clopidogrel Bisulfate (Clopidogrel Bisulfate 75 Mg Tablet) 75 mg PO DAILY [facility] Last Admin: 09/17/22 08:02 Dose: 75 mg Documented By: MARISA Dextrose (Dextrose 50 % 25 Gm/50 Ml Syringe) 25 gm IVPUSH Q15M PRN; Protocol PRN Reason: per Hypoglycemia Standing Ord. Docusate Sodium (Docusate Sodium 100 Mg Capsule) 100 mg PO BID PRN PRN Reason: Constipation Last Admin: 09/16/22 14:21 Dose: 100 mg Documented By: COOPEB Enoxaparin Sodium (Enoxaparin Sodium 40 Mg/0.4 Ml Syringe) 40 mg SUBCUT Q24H [facility] Last Admin: 09/16/22 19:35 Dose: 40 mg Documented By: ANGELES Glucose (Glucose Gel 15 Gm Gel..Gram.) 15 gm PO Q15M PRN; Protocol PRN Reason: per Hypoglycemia Standing Ord. Lactated Ringer's (Lr) 1,000 mls @ 100 mls/hr IVCONT .Q10H [facility] Last Admin: 09/17/22 08:11 Dose: 100 mls/hr Documented By: MARISA Piperacillin Sod/Tazobactam (Sod 3.375 gm/ Sodium Chloride) 50 mls @ 100 mls/hr IV Q6H [facility] Last Infusion: 09/17/22 04:46 Dose: 0 mls/hr Documented By: ANGELES Insulin Glargine (Insulin Glargine,Hum.Rec.Anlog 100 Unit/Ml 10 Ml Vial) 50 unit SUBCUT BEDTIME [facility] Last Admin: 09/16/22 21:05 Dose: 50 unit Documented By: ANGELES Insulin Human Lispro (Insulin Lispro 100 Unit/Ml 3 Ml Vial) 0 unit SUBCUT QIDACHS [facility]; Protocol Last Admin: 09/17/22 08:04 Dose: 4 unit Documented By: MARISA Morphine Sulfate (Morphine Sulfate Er 30 Mg Tablet.Er) 30 mg PO BID [facility] Last Admin: 09/17/22 08:03 Dose: 30 mg Documented By: MARISA Nystatin (Nystatin Cream 15 Gm Tube) 1 appl TOPICAL BID [facility]; Protocol Last Admin: 09/17/22 08:04 Dose: 1 appl Documented By: MARISA Omeprazole (Omeprazole 20 Mg Elizabeth.) 20 mg PO BID@0630,1630 [facility] Last Admin: 09/17/22 05:46 Dose: 20 mg Documented By: ANGELES Oxycodone HCl (Oxycodone Hcl Immed Release 15 Mg Tablet) 15 mg PO Q4H PRN PRN Reason: Pain, Severe (Pain Scale 7-10) Last Admin: 09/17/22 08:03 Dose: 15 mg Documented By: MARISA Pharmacy Consult (Consult Rx Perform Med Rec) 1 each MISCELLANE ONCE PRN PRN Reason: Consult order Polyethylene Glycol (Polyethylene Glycol 3350 17 Gm Powd.Pack) 17 gm PO DAILY PRN PRN Reason: Constipation Sodium Chloride (0.9 % Sodium Chloride Flush 3 Ml Syringe) 3 ml IVFLUSH QSHIFT [facility] Last Admin: 09/17/22 07:51 Dose: Not Given Documented By: MARISA Non-Admin Reason: IV Running Labs CBC & Chem 7: 09/17/22 06:21 09/17/22 06:21 Labs: Laboratory Results - last 24 hr 09/16/22 09/16/22 09/16/22 06:59 12:19 16:52 MCV MCH MCHC RDW Plt Count MPV Absolute Nucleated RBC Nucleated RBC % (auto) Anion Gap Estim Creat Clear Calc Estimated GFR POC Glucose 212 H 305 H 270 H Random Glucose Calcium C-Reactive Protein 09/16/22 09/17/22 09/17/22 20:27 06:21 06:21 MCV 84.3 MCH 26.7 L MCHC 31.6 RDW 14.5 Plt Count 259 MPV 10.3 Absolute Nucleated RBC 0.000 Nucleated RBC % (auto) 0.0 Anion Gap 13 Estim Creat Clear Calc 131.4 Estimated GFR > 60 POC Glucose 229 H Random Glucose 245 H Calcium 8.1 L C-Reactive Protein 7.76 H 09/17/22 07:39 MCV MCH MCHC RDW Plt Count MPV Absolute Nucleated RBC Nucleated RBC % (auto) Anion Gap Estim Creat Clear Calc Estimated GFR POC Glucose 230 H Random Glucose Calcium C-Reactive Protein Microbiology Microbiology Results: Microbiology 09/15/22 12:54 Blood Culture - Preliminary Blood - Venous No growth after 24 hours. 09/15/22 12:54 Blood Culture - Preliminary Blood - Venous No growth after 24 hours. Procedures Date of Service Date of Service: 09/17/22 Progress Note: A&P Assessment and plan (1) Cellulitis, gluteal: Status: Acute Assessment and Plan: Induration continues to improve Patient subjective feels better WBC normal Continue warm compresses IV antibiotics Likely to be ready for discharge tomorrow Time Spent With Patient Time: Total time spent is greater than 50% in coordination of care (as documented) at patient's floor/unit and/or counseling patient: Quality Stroke Does the patient have a stroke diagnosis?: No VTE Prior VTE?: No VTE Risk Level:: Medical - moderate - high VTE Device Contraindication: N/A - Device Ordered VTE Drug Contraindication: N/A - Med Ordered
[2022-09-17 09:21] LABS: Erythrocyte Sedimentation Rate 81 MM/HR (0-15)
[2022-09-17 11:15] VITALS: BP 117/71; PULSE 84; RESP 18; TEMP 36.7; O2SAT 95
[2022-09-17 11:22] LABS: Glucose, Whole Blood 268 mg/dL (60-115)
[2022-09-17] MEDS: Docusate Sodium 100 MG CAPSULE PO ×2 (11:43→21:15)
--- NOTE | 2022-09-17 11:47 | P.PNIM_ITS ---
Subjective Subjective Date of Service: 09/17/22 Interval History: Cellulitis, gluteal Review of Systems gluteal and perineum soreness improving, denies any fever or chills or cough or phlegm or nausea vomiting. Physical Exam Vital Signs: Vital Signs: Last Vital Signs Temp 98.1 F 09/17/22 11:15 Pulse 84 09/17/22 11:15 Resp 18 09/17/22 11:15 BP 117/71 09/17/22 11:15 Pulse Ox 95 09/17/22 11:15 O2 Del Method 09/17/22 11:15 BMI result Body Mass Index 51.5 Appearance: Alert.? Oriented X3.? not in distress.? cvs: rrr, [id number] , no murmur res: clear to auscultation ,no rhonchii or wheezing abd: no rebound or guarding ,nt, bs present, buttock area medial cheeks are somewhat erythematous as well as there is small draining area also there. please see Ed pictures for more information. ext pulses present , no cyanosis . neuro: axo3 , nonfocal.? Objective Data Active Medications Albuterol Sulfate (Albuterol Sulfate 90 Mcg 8 Gm Inhaler) 2 puff INHALE QID PRN PRN Reason: Shortness Of Breath Or Wheezing Aspirin (Aspirin Enteric Coated 81 Mg Tablet.) 81 mg PO DAILY [facility] Last Admin: 09/17/22 08:02 Dose: 81 mg Documented By: MARISA Atorvastatin Calcium (Atorvastatin Calcium 20 Mg Tablet) 20 mg PO BEDTIME [facility] Last Admin: 09/16/22 21:03 Dose: 20 mg Documented By: ANGELES Carvedilol (Carvedilol 12.5 Mg Tablet) 12.5 mg PO BID [facility]; Protocol Last Admin: 09/17/22 08:03 Dose: 12.5 mg Documented By: MARISA Clopidogrel Bisulfate (Clopidogrel Bisulfate 75 Mg Tablet) 75 mg PO DAILY [facility] Last Admin: 09/17/22 08:02 Dose: 75 mg Documented By: MARISA Dextrose (Dextrose 50 % 25 Gm/50 Ml Syringe) 25 gm IVPUSH Q15M PRN; Protocol PRN Reason: per Hypoglycemia Standing Ord. Docusate Sodium (Docusate Sodium 100 Mg Capsule) 100 mg PO BID PRN PRN Reason: Constipation Last Admin: 09/17/22 11:43 Dose: 100 mg Documented By: MARISA Enoxaparin Sodium (Enoxaparin Sodium 40 Mg/0.4 Ml Syringe) 40 mg SUBCUT Q24H [facility] Last Admin: 09/16/22 19:35 Dose: 40 mg Documented By: ANGELES Glucose (Glucose Gel 15 Gm Gel..Gram.) 15 gm PO Q15M PRN; Protocol PRN Reason: per Hypoglycemia Standing Ord. Lactated Ringer's (Lr) 1,000 mls @ 100 mls/hr IVCONT .Q10H [facility] Last Admin: 09/17/22 08:11 Dose: 100 mls/hr Documented By: MARISA Piperacillin Sod/Tazobactam (Sod 3.375 gm/ Sodium Chloride) 50 mls @ 100 mls/hr IV Q6H [facility] Last Admin: 09/17/22 11:17 Dose: 100 mls/hr Documented By: MARISA Insulin Glargine (Insulin Glargine,Hum.Rec.Anlog 100 Unit/Ml 10 Ml Vial) 50 unit SUBCUT BEDTIME [facility] Last Admin: 09/16/22 21:05 Dose: 50 unit Documented By: ANGELES Insulin Human Lispro (Insulin Lispro 100 Unit/Ml 3 Ml Vial) 0 unit SUBCUT QIDACHS [facility]; Protocol Last Admin: 09/17/22 11:41 Dose: 6 unit Documented By: MARISA Morphine Sulfate (Morphine Sulfate Er 30 Mg Tablet.Er) 30 mg PO BID [facility] Last Admin: 09/17/22 08:03 Dose: 30 mg Documented By: MARISA Nystatin (Nystatin Cream 15 Gm Tube) 1 appl TOPICAL BID [facility]; Protocol Last Admin: 09/17/22 08:04 Dose: 1 appl Documented By: MARISA Omeprazole (Omeprazole 20 Mg Capsule.Dr) 20 mg PO BID@0630,1630 [facility] Last Admin: 09/17/22 05:46 Dose: 20 mg Documented By: ANGELES Oxycodone HCl (Oxycodone Hcl Immed Release 15 Mg Tablet) 15 mg PO Q4H PRN PRN Reason: Pain, Severe (Pain Scale 7-10) Last Admin: 09/17/22 08:03 Dose: 15 mg Documented By: MARISA Pharmacy Consult (Consult Rx Perform Med Rec) 1 each MISCELLANE ONCE PRN PRN Reason: Consult order Polyethylene Glycol (Polyethylene Glycol 3350 17 Gm Powd.Pack) 17 gm PO DAILY PRN PRN Reason: Constipation Sodium Chloride (0.9 % Sodium Chloride Flush 3 Ml Syringe) 3 ml IVFLUSH QSHIFT [facility] Last Admin: 09/17/22 07:51 Dose: Not Given Documented By: MARISA Non-Admin Reason: IV Running Labs CBC & Chem 7: 09/17/22 06:21 09/17/22 06:21 Labs: Laboratory Results - last 24 hr 09/16/22 09/16/22 09/16/22 06:59 12:19 16:52 MCV MCH MCHC RDW Plt Count MPV Absolute Nucleated RBC Nucleated RBC % (auto) ESR Anion Gap Estim Creat Clear Calc Estimated GFR POC Glucose 212 H 305 H 270 H Random Glucose Calcium C-Reactive Protein 09/16/22 09/17/22 09/17/22 20:27 06:21 06:21 MCV 84.3 MCH 26.7 L MCHC 31.6 RDW 14.5 Plt Count 259 MPV 10.3 Absolute Nucleated RBC 0.000 Nucleated RBC % (auto) 0.0 ESR Anion Gap 13 Estim Creat Clear Calc 131.4 Estimated GFR > 60 POC Glucose 229 H Random Glucose 245 H Calcium 8.1 L C-Reactive Protein 7.76 H 09/17/22 09/17/22 09/17/22 06:21 07:39 11:15 MCV MCH MCHC RDW Plt Count MPV Absolute Nucleated RBC Nucleated RBC % (auto) ESR 81 H Anion Gap Estim Creat Clear Calc Estimated GFR POC Glucose 230 H 268 H Random Glucose Calcium C-Reactive Protein Microbiology Microbiology Results: Microbiology 09/15/22 12:54 Blood Culture - Preliminary Blood - Venous No growth after 24 hours. 09/15/22 12:54 Blood Culture - Preliminary Blood - Venous No growth after 24 hours. Assessment and Plan (1) Cellulitis, gluteal: Status: Acute (2) Sepsis: Status: Acute (3) Diabetes: Status: Acute (4) Morbid obesity: Status: Acute Plan 62-year-old male with multiple medical problems including morbid obesity, diabetes, hypertension, obstructive sleep apnea: 1. ? sepsis secondary to Gluteal? area cellulitis right side >left( unclear if related to dm) Leukocytosis and tachycardia improved, sepsis also seems to be improved. lactic resolved. elevated esr (still ), crp improvin gluteal drainge also improving Blood cultures neg@24hrs ?started on IV antibiotics, IV hydration, pain management. 2. ? Diabetes with hyperglycemia :fs runnin from 250;s range ? Fingerstick with sliding scale coverage, continue Lantus and adjuted sliding scale coverage. 3.:? Hypertension:? Blood pressure stable, continue home Coreg. 4.?cad: ? Continue aspirin statin Plavix, beta-sma. 5.? EPI:? Continue CPAP at bedtime. 6.? Morbid obesity:? Encouraged to? lose weight. ? DVT prophylaxis with subQ Lovenox ?above management discussed with the patient in detail length he understand and in agreement with above plan, time spent 70 minute, patient full code. ? ongoing inpatient need - cellulitis and need IV antibiotic as well as may need surgical intervention including I&D if needed. Quality Stroke Does the patient have a stroke diagnosis?: No VTE Prior VTE?: No VTE Risk Level:: Medical - moderate - high VTE Device Contraindication: N/A - Device Ordered VTE Drug Contraindication: N/A - Med Ordered
--- NOTE | 2022-09-17 14:32 | MHC.CM.PN ---
PATIENT TO REMAIN FOR IV ABX AND SURGICAL I&D. CASE MANAGEMENT FOLLOWINNG FOR DC NEEDS
[2022-09-17 16:00] VITALS: BP 142/62; PULSE 82; RESP 17; TEMP 36.3; O2SAT 93
[2022-09-17 16:13] LABS: Glucose, Whole Blood 277 mg/dL (60-115)
[2022-09-17] MEDS: 0.9 % Sodium Chloride Flush 3 ML SYRINGE IVFLUSH ×2 (16:44→21:20)
[2022-09-17 19:38] VITALS: BP 118/59; PULSE 73; RESP 16; TEMP 36.7; O2SAT 95
[2022-09-17 20:04] LABS: Glucose, Whole Blood 251 mg/dL (60-115)
[2022-09-17] MEDS: Atorvastatin Calcium 20 MG TABLET PO (21:09)
[2022-09-17] MEDS: Enoxaparin Sodium 40 MG/0.4 ML SYRINGE SUBCUT (21:10)
[2022-09-17] MEDS: Insulin Glargine,Hum.rec.anlog 100 UNIT/ML 10 ML VIAL 50 UNIT SUBCUT (21:10)
--- NOTE | 2022-09-17 22:53 | P.CNID_ITS ---
History of Present Illness Data of Consult Service Date: 09/16/22 Requesting physician: Marleny Michael Primary Care Provider: Ganga Stanford MD HPI Reason for consult: rectal abscess He presents with discomfort and redness in buttock area. He had no fever or chills. Symptoms present for five days Review of Systems Review of Systems: Yes all other systems are reviewed and are negative PMFSH Past Medical History Medical History Asthma Back pain Cardiac arrest Cellulitis, gluteal COVID-19 COVID-19 vaccine series completed Diabetes GERD (gastroesophageal reflux disease) High cholesterol HTN (hypertension) Hx of deep venous thrombosis Hx of hyperlipidemia Leg swelling Myocardial infarct, old Obesity PONV (postoperative nausea and vomiting) Septic shock Sleep apnea Family History Family history: reviewed and not pertinent Surgical History Surgical History History of ankle surgery History of arthroscopy of both knees History of esophagogastroduodenoscopy (EGD) History of removal of laparoscopic gastric banding device History of umbilical hernia repair Hx of cholecystectomy Hx of colonoscopy Personal history of gastric banding Social History Social History Household Members: Family Household Members Other:: mother Housing: House Are you a primary home care provider to a significant other at home: Yes (for mother, sister also helps and will dos) Do you presently have visiting nurse or other home services: No Alcohol intake: never Patient Tobacco Use Status: Never used Tobacco Advance Directives Date on File: 11/20/20 service: No Current occupational status: retired Meds Allergies Allergy/AdvReac Type Severity Reaction Status Date / Time vancomycin [VANCOMYCIN] AdvReac Severe RENAL Verified 02/23/22 15:54 FAILURE, RASH Active Medications: Current Medications Albuterol Sulfate (Albuterol Sulfate 90 Mcg 8 Gm Inhaler) 2 puff INHALE QID PRN PRN Reason: Shortness Of Breath Or Wheezing Aspirin (Aspirin Enteric Coated 81 Mg Tablet.) 81 mg PO DAILY [facility] Last Admin: 09/17/22 08:02 Dose: 81 mg Atorvastatin Calcium (Atorvastatin Calcium 20 Mg Tablet) 20 mg PO BEDTIME [facility] Last Admin: 09/17/22 21:09 Dose: 20 mg Carvedilol (Carvedilol 12.5 Mg Tablet) 12.5 mg PO BID [facility]; Protocol Last Admin: 09/17/22 21:20 Dose: 12.5 mg Clopidogrel Bisulfate (Clopidogrel Bisulfate 75 Mg Tablet) 75 mg PO DAILY [facility] Last Admin: 09/17/22 08:02 Dose: 75 mg Dextrose (Dextrose 50 % 25 Gm/50 Ml Syringe) 25 gm IVPUSH Q15M PRN; Protocol PRN Reason: per Hypoglycemia Standing Ord. Docusate Sodium (Docusate Sodium 100 Mg Capsule) 100 mg PO BID PRN PRN Reason: Constipation Last Admin: 09/17/22 21:15 Dose: 100 mg Enoxaparin Sodium (Enoxaparin Sodium 40 Mg/0.4 Ml Syringe) 40 mg SUBCUT Q24H [facility] Last Admin: 09/17/22 21:10 Dose: 40 mg Glucose (Glucose Gel 15 Gm Gel..Gram.) 15 gm PO Q15M PRN; Protocol PRN Reason: per Hypoglycemia Standing Ord. Piperacillin Sod/Tazobactam (Sod 3.375 gm/ Sodium Chloride) 50 mls @ 100 mls/hr IV Q6H [facility] Last Infusion: 09/17/22 22:02 Dose: Infused Insulin Glargine (Insulin Glargine,Hum.Rec.Anlog 100 Unit/Ml 10 Ml Vial) 50 unit SUBCUT BEDTIME [facility] Last Admin: 09/17/22 21:10 Dose: 50 unit Insulin Human Lispro (Insulin Lispro 100 Unit/Ml 3 Ml Vial) 0 unit SUBCUT QIDACHS [facility]; Protocol Last Admin: 09/17/22 21:10 Dose: 8 unit Morphine Sulfate (Morphine Sulfate Er 30 Mg Tablet.Er) 30 mg PO BID [facility] Last Admin: 09/17/22 21:09 Dose: 30 mg Nystatin (Nystatin Cream 15 Gm Tube) 1 appl TOPICAL BID [facility]; Protocol Last Admin: 09/17/22 21:27 Dose: 1 appl Omeprazole (Omeprazole 20 Mg Capsule.Dr) 20 mg PO BID@0630,1630 [facility] Last Admin: 09/17/22 16:43 Dose: 20 mg Oxycodone HCl (Oxycodone Hcl Immed Release 15 Mg Tablet) 15 mg PO Q4H PRN PRN Reason: Pain, Severe (Pain Scale 7-10) Last Admin: 09/17/22 21:19 Dose: 15 mg Pharmacy Consult (Consult Rx Perform Med Rec) 1 each MISCELLANE ONCE PRN PRN Reason: Consult order Polyethylene Glycol (Polyethylene Glycol 3350 17 Gm Powd.Pack) 17 gm PO DAILY PRN PRN Reason: Constipation Sodium Chloride (0.9 % Sodium Chloride Flush 3 Ml Syringe) 3 ml IVFLUSH QSHIFT [facility] Last Admin: 09/17/22 21:20 Dose: 3 ml Home Medications Medication Instructions Recorded Confirmed Last Taken Type albuterol sulfate 90 mcg/actuation 2 puff inhalation QID PRN 11/20/20 09/15/22 07/17/21 History aerosol inhaler (Ventolin HFA) Shortness Of Breath Or Wheezing aspirin 81 mg tablet,delayed 81 mg PO DAILY 11/20/20 09/15/22 07/16/21 History release carvedilol 12.5 mg tablet 12.5 mg PO BID 11/20/20 09/15/22 07/16/21 History clopidogrel 75 mg tablet 75 mg PO DAILY 11/20/20 09/15/22 07/16/21 History insulin aspart U-100 100 unit/mL See Rx Instructions .Route .COMPLEX 11/20/20 09/15/22 07/16/21 History (3 mL) subcutaneous pen (Novolog Flexpen U-100 Insulin aspart) insulin glargine 100 unit/mL (3 50 unit subcut BEDTIME 11/20/20 09/15/22 07/16/21 History mL) subcutaneous pen (Basaglar KwikPen U-100 Insulin) morphine 30 mg tablet,extended 30 mg PO BID 11/20/20 09/15/22 07/16/21 History release oxycodone 15 mg tablet 15 mg PO Q4H PRN Pain 11/20/20 09/15/22 07/16/21 History pantoprazole 40 mg tablet,delayed 40 mg PO BID 11/20/20 09/15/22 07/16/21 History release simvastatin 40 mg tablet 40 mg PO BEDTIME 11/20/20 09/15/22 07/16/21 History nystatin 100,000 unit/gram topical 1 applic topical BID 09/15/22 09/15/22 Unknown History cream Physical Exam Vital Signs: Vital Signs: Last Vital Signs Temp 98.1 F 09/17/22 19:38 Pulse 73 09/17/22 19:38 Resp 16 09/17/22 19:38 BP 118/59 L 09/17/22 19:38 Pulse Ox 95 09/17/22 19:38 O2 Del Method 09/17/22 19:38 BMI result Body Mass Index 51.5 Const: General: cooperative HEENT: Head: Yes normal to inspection Face and sinus: Yes normal facial exam Mouth: Normal oral and palatal mucosa present Teeth and gingiva: dentition normal Eyes: General: appearance normal, both eyes and all related structures Pupils: Equal, round and reactive pupils present Resp: Effort & Inspection: normal respiratory effort Cardio: Rate: regular rate Rhythm: regular rhythm GI: Palpation (GI): Soft to palpation and nontender : General: Yes no CVA tenderness Back/Spine/Pelvis: Back: no CVA tenderness Skin: General skin exam: no rashes or lesions noted Neuro: General: moves all extremities Cranial nerves: Yes Equal, round and reactive pupils present Extrem: General: Yes normal to inspection Psych: Appearance: grossly normal Results Labs CBC & Chem 7: 09/17/22 06:21 09/17/22 06:21 Labs: Short CBC 09/17/22 Range/Units 06:21 WBC 8.0 (4.8-10.8) X10*3/uL Hgb 11.9 L (14.0-18.0) g/dl Hct 37.6 L (42.0-52.0) % Plt Count 259 (160-400) X10*3/uL BMP 09/17/22 06:21 Sodium 141 Potassium 4.5 Chloride 104 Carbon Dioxide 29 BUN 17 H Creatinine 0.94 Calcium 8.1 L Microbiology Microbiology Results: Microbiology 09/15/22 12:54 Blood - Venous Blood Culture - Preliminary No growth after 48 hours. 09/15/22 12:54 Blood - Venous Blood Culture - Preliminary No growth after 48 hours. Assessment and Plan (1) Sepsis: Status: Acute (2) Cellulitis, gluteal: Status: Acute He has gluteal issue concerns He has possible gram negative and gram positive
[2022-09-18] VITALS: BP 114/57; PULSE 76; RESP 18; TEMP 36.5; O2SAT 95
[2022-09-18 01:07] VITALS: PULSE 91; RESP 18; O2SAT 94
[2022-09-18 03:16] VITALS: BP 119/58; PULSE 71; RESP 18; TEMP 36.6; O2SAT 93
[2022-09-18] MEDS: oxyCODONE HCl Immed Release 15 MG TABLET PO ×3 (03:22→13:13)
[2022-09-18] MEDS: Piperacillin Sodium/Tazobactam 3.375 GM in 0.9 % Sodium Chloride 50 ML IV ×2 (03:22→12:10)
[2022-09-18] MEDS: Omeprazole 20 MG CAPSULE.DR PO (03:22)
[2022-09-18 07:20] VITALS: BP 132/78; PULSE 76; RESP 18; TEMP 36.6; O2SAT 94
[2022-09-18 07:33] LABS: Glucose, Whole Blood 217 mg/dL (60-115)
[2022-09-18] MEDS: Clopidogrel Bisulfate 75 MG TABLET PO (08:25)
[2022-09-18] MEDS: Aspirin Enteric Coated 81 MG TABLET.DR PO (08:25)
[2022-09-18] MEDS: carvediloL 12.5 MG TABLET PO (08:25)
[2022-09-18] MEDS: Morphine Sulfate ER 30 MG TABLET.ER PO (08:25)
[2022-09-18] MEDS: 0.9 % Sodium Chloride Flush 3 ML SYRINGE IVFLUSH (08:26)
[2022-09-18] MEDS: Insulin Lispro 100 UNIT/ML 3 ML VIAL SUBCUT ×2 (08:26→12:10)
[2022-09-18] MEDS: Nystatin Cream 15 GM TUBE 1 APPL TOPICAL (08:37)
--- NOTE | 2022-09-18 08:38 | PM.PNGS ---
Subjective Subjective Date of Service: 09/18/22 Interval history: Feels better much less pain on right gluteal area no fever Physical Exam Vital Signs: Vital Signs: Last Vital Signs Temp 97.9 F 09/18/22 07:20 Pulse 76 09/18/22 07:20 Resp 18 09/18/22 07:20 BP 132/78 09/18/22 07:20 Pulse Ox 94 09/18/22 07:20 O2 Del Method 09/18/22 07:20 BMI result Body Mass Index 51.5 Const: General: comfortable and no acute distress Resp: Effort & Inspection: normal respiratory effort Cardio: Rate: regular rate Back/Spine/Pelvis: Other: right gluteal area - mild residual induration, no redness, no fluctuance Objective Data Active Medications Albuterol Sulfate (Albuterol Sulfate 90 Mcg 8 Gm Inhaler) 2 puff INHALE QID PRN PRN Reason: Shortness Of Breath Or Wheezing Aspirin (Aspirin Enteric Coated 81 Mg Tablet.Dr) 81 mg PO DAILY [facility] Last Admin: 09/18/22 08:25 Dose: 81 mg Documented By: JESUS Atorvastatin Calcium (Atorvastatin Calcium 20 Mg Tablet) 20 mg PO BEDTIME [facility] Last Admin: 09/17/22 21:09 Dose: 20 mg Documented By: JEROME Carvedilol (Carvedilol 12.5 Mg Tablet) 12.5 mg PO BID [facility]; Protocol Last Admin: 09/18/22 08:25 Dose: 12.5 mg Documented By: JESUS Clopidogrel Bisulfate (Clopidogrel Bisulfate 75 Mg Tablet) 75 mg PO DAILY [facility] Last Admin: 09/18/22 08:25 Dose: 75 mg Documented By: JESUS Dextrose (Dextrose 50 % 25 Gm/50 Ml Syringe) 25 gm IVPUSH Q15M PRN; Protocol PRN Reason: per Hypoglycemia Standing Ord. Docusate Sodium (Docusate Sodium 100 Mg Capsule) 100 mg PO BID PRN PRN Reason: Constipation Last Admin: 09/17/22 21:15 Dose: 100 mg Documented By: JEROME Enoxaparin Sodium (Enoxaparin Sodium 40 Mg/0.4 Ml Syringe) 40 mg SUBCUT Q24H [facility] Last Admin: 09/17/22 21:10 Dose: 40 mg Documented By: JEROME Glucose (Glucose Gel 15 Gm Gel..Gram.) 15 gm PO Q15M PRN; Protocol PRN Reason: per Hypoglycemia Standing Ord. Piperacillin Sod/Tazobactam (Sod 3.375 gm/ Sodium Chloride) 50 mls @ 100 mls/hr IV Q6H [facility] Last Infusion: 09/18/22 04:01 Dose: 100 mls/hr Documented By: AMBER Insulin Glargine (Insulin Glargine,Hum.Rec.Anlog 100 Unit/Ml 10 Ml Vial) 50 unit SUBCUT BEDTIME [facility] Last Admin: 09/17/22 21:10 Dose: 50 unit Documented By: JEROME Insulin Human Lispro (Insulin Lispro 100 Unit/Ml 3 Ml Vial) 0 unit SUBCUT QIDACHS [facility]; Protocol Last Admin: 09/18/22 08:26 Dose: 6 unit Documented By: JESUS Morphine Sulfate (Morphine Sulfate Er 30 Mg Tablet.Er) 30 mg PO BID [facility] Last Admin: 09/18/22 08:25 Dose: 30 mg Documented By: JESUS Nystatin (Nystatin Cream 15 Gm Tube) 1 appl TOPICAL BID [facility]; Protocol Last Admin: 09/18/22 08:37 Dose: 1 appl Documented By: JESUS Omeprazole (Omeprazole 20 Mg Capsule.Dr) 20 mg PO BID@0630,1630 [facility] Last Admin: 09/18/22 03:22 Dose: 20 mg Documented By: AMBER Oxycodone HCl (Oxycodone Hcl Immed Release 15 Mg Tablet) 15 mg PO Q4H PRN PRN Reason: Pain, Severe (Pain Scale 7-10) Last Admin: 09/18/22 08:32 Dose: 15 mg Documented By: JESUS Pharmacy Consult (Consult Rx Perform Med Rec) 1 each MISCELLANE ONCE PRN PRN Reason: Consult order Polyethylene Glycol (Polyethylene Glycol 3350 17 Gm Powd.Pack) 17 gm PO DAILY PRN PRN Reason: Constipation Sodium Chloride (0.9 % Sodium Chloride Flush 3 Ml Syringe) 3 ml IVFLUSH QSHIFT [facility] Last Admin: 09/18/22 08:26 Dose: 3 ml Documented By: JESUS Labs CBC & Chem 7: 09/17/22 06:21 09/17/22 06:21 Labs: Laboratory Results - last 24 hr 09/17/22 09/17/22 09/17/22 06:21 11:15 16:09 ESR 81 H POC Glucose 268 H 277 H 09/17/22 09/18/22 19:41 07:17 ESR POC Glucose 251 H 217 H Microbiology Microbiology Results: Microbiology 09/15/22 12:54 Blood Culture - Preliminary Blood - Venous No growth after 48 hours. 09/15/22 12:54 Blood Culture - Preliminary Blood - Venous No growth after 48 hours. Procedures Date of Service Date of Service: 09/18/22 Progress Note: A&P Assessment and plan (1) Cellulitis, gluteal: Status: Acute Assessment and Plan: much improved induration has decreased markedly no fluctuance okay to DC home on oral antibiotics warm compresses to the area 3 times a day at least he understands risk of recurrence Time Spent With Patient Time: Total time spent is greater than 50% in coordination of care (as documented) at patient's floor/unit and/or counseling patient: Quality Stroke Does the patient have a stroke diagnosis?: No VTE Prior VTE?: No VTE Risk Level:: Medical - moderate - high VTE Device Contraindication: N/A - Device Ordered VTE Drug Contraindication: N/A - Med Ordered
[2022-09-18 11:18] VITALS: BP 119/61; PULSE 70; RESP 18; TEMP 36.9; O2SAT 92
[2022-09-18 11:28] LABS: Glucose, Whole Blood 255 mg/dL (60-115)
--- NOTE | 2022-09-18 12:25 | PM.DS ---
DS: Providers Provider Date of Service: 09/18/22 Date of admission: 09/15/22 17:39 Primary care physician: Ganga Stanford MD Consults: 09/15/22 18:24 Consult to Infectious Diseases Routine Consulting Provider: Monica Acosta Reason for consultation: sepsis/celluitis Has provider been notified: No 09/16/22 15:10 Consult to General Surgery Routine Consulting Provider: Ganga Reardon Reason for consultation: cellulitis Has provider been notified: No DS: Diagnosis Discharge Diagnosis (1) Cellulitis, gluteal: Status: Acute (2) Sepsis: Status: Acute (3) Morbid obesity: Status: Acute DS: Summary Hospital Course Hospital Course: 62-year-old male with multiple medical problems including morbid obesity, diabetes, hypertension, obstructive sleep apnea,? cad on asa/plavix, obesity status post gastric band procedure 15 years, who came to the ER today because of pain in the area.? He says that this is mostly on the right side than on the left.? He says that he had noticed this starting about 4-5 days ago had persisted. ? He says that he had history of I&D in the past, this time he started warm compress and then started to draining from the perineum area in the right-sided. He was here in the hospital last July, because of an abdominal wall this an abscess which had previously been drained as well in [facility]. ? Denies any new complaint of chest pain or shortness of breath or abdominal pain or fever or chills or nausea or vomiting Denies any cough Denies any weakness or numbness. ?in ED:? Patient was found to have leukocytosis of 16, mild tachycardia, lactic acidosis ?patient was given Zosyn and pain medication morphine - seen by surgery - CT scan abdomen/ pelvisreviewed by surgery :? no new collections but has drainage somewhat and some erythema recommended IV antibiotic and surgery will follow. Hospital course: Patient admitted for sepsis /possible secondary togluteal cellulitis - started on IV antibiotics and surgery consulted, in addition blood cultures sent. Patient seems to improved with IV antibiotics, warm compresses, initially drained significantly from the cellulitis area now improved significantly. going home with p.o. antibiotics,warm compresses to the area 3 times a day at least,?he understands risk of recurrence. patient will go home with VNA and p.o. antibiotics. further management outpatient. Morbid Obesity: strongly advised to lose weight. Above management discussed with the patient in detail length he understand in agreement with the above plan, time spent 50 minute. Time Spent with Patient Time attestation: Total time spent providing and/or coordinating discharge services: Discharge coordination time: Greater than 30 minutes Quality: Safe Use of Opioids Does Pt have an Active Cancer Diagnosis on the Problem List?: No Quality: Stroke Does the patient have a stroke diagnosis?: No Physical Exam Vital Signs: Vital Signs: Last Vital Signs Temp 98.4 F 09/18/22 11:18 Pulse 70 09/18/22 11:18 Resp 18 09/18/22 11:18 BP 119/61 09/18/22 11:18 Pulse Ox 92 09/18/22 11:18 O2 Del Method 09/18/22 11:18 BMI result Body Mass Index 51.5 Appearance: Alert.? Oriented X3.? not in distress.? cvs: rrr, [id number] , no murmur res: clear to auscultation ,no rhonchii or wheezing abd: no rebound or guarding ,nt, bs present, right gluteal area -? mild residual induration, no redness, no fluctuance. ext pulses present , no cyanosis . neuro: axo3 , nonfocal.? DS: Data Data Completed and Pending Completed studies during hospitalization [Text1]: Procedures Removal of Extraluminal Device from Stomach, Percutaneous Endoscopic Approach (07/17/21) Labs on day of discharge: Laboratory Results - last 24 hr 09/17/22 09/17/22 09/18/22 16:09 19:41 07:17 POC Glucose 277 H 251 H 217 H 09/18/22 11:22 POC Glucose 255 H Preliminary micro results at discharge 09/15/22 12:54 Blood Culture - Preliminary Blood - Venous No growth after 48 hours. 09/15/22 12:54 Blood Culture - Preliminary Blood - Venous No growth after [address] scan - abdomen: Radiologist's impression: ITS Impressions Pelvis CT 09/15/22 13:55 IMPRESSION: Diffuse thickening and aeration of bilateral gluteal soft tissues along the intergluteal margin but no underlying air-fluid collection, free air to suspect any abscess. There is no fistulous connection to the anus or rectum seen either. Discharge Plan Discharge Anticipated Discharge Date/Time: 09/18/22 11:59 Patient Disposition: Home Health Service Discharge Diagnosis: gluteal cellulitis, sepsis. Referrals: Ganga Stanford MD [Primary Care Provider] - 1 Week Discharge Medications: New polyethylene glycol 3350 17 gram Powder In Packet 17 g PO DAILY PRN (Reason: Constipation) Qty: 30 0RF docusate sodium 100 mg Capsule 100 mg PO BID PRN (Reason: Constipation) Qty: 30 0RF Continued carvedilol 12.5 mg tablet 12.5 mg PO BID clopidogrel 75 mg tablet 75 mg PO DAILY morphine 30 mg tablet extended release 30 mg PO BID simvastatin 40 mg tablet 40 mg PO BEDTIME oxycodone 15 mg tablet 15 mg PO Q4H PRN (Reason: Pain) pantoprazole 40 mg tablet,delayed release (DR/EC) 40 mg PO BID albuterol sulfate [Ventolin HFA] 90 mcg/actuation HFA aerosol inhaler 2 puff inhalation QID PRN (Reason: Shortness Of Breath Or Wheezing) Rx Instructions: Taken today with EMT insulin aspart U-100 [Novolog Flexpen U-100 Insulin] 100 unit/mL (3 mL) insulin pen See Rx Instructions .ROUTE .COMPLEX Label Comments: patient reports low blood sugar at home. has not taken insulin since discharge Rx Instructions: Patient is on sliding scale three times a day before meals. For blood sugars: 150-200: 4units 201-250: 6units 251-300: 8units 301-350: 10units 351-400: 15units 401-450: 20units >450 call insulin glargine [Basaglar KwikPen U-100 Insulin] 100 unit/mL (3 mL) insulin pen 50 unit subcut BEDTIME aspirin 81 mg Tablet,Delayed Release (Dr/Ec) 81 mg PO DAILY nystatin 100,000 unit/gram cream 1 applic topical BID Discharge Orders: Discharge Order (Routine); Ordered 09/18/22 Ordered By: Marleny Michael Diet: Advance to usual diet Activity on Discharge: As tolerated Stand Alone Forms: Patient Portal Discharge page Care Plan Goals: Patient admitted for sepsis /possible secondary togluteal cellulitis - started on IV antibiotics and surgery consulted, in addition blood cultures sent. Patient seems to improved with IV antibiotics, warm compresses, initially drained significantly from the cellulitis area now improved significantly. going home with p.o. antibiotics,warm compresses to the area 3 times a day at least,?he understands risk of recurrence. patient will go home with VNA and p.o. antibiotics. further management outpatient. Health Concerns: As above. Plan of Treatment: As above. Assessment: As above. Patient Instructions: Cellulitis (DC), Sepsis (GEN)
--- NOTE | 2022-09-18 12:29 | P.F2F_ITS ---
Service Date Service Date: 09/18/22 Encounter Date of encounter: 09/18/22 Encounter: right gluteus cellulitis, sepsis Reasons for Services Signs and symptoms assessed: any new cellulitis or erythema or pain Reason for intermediate: wound care, medication management, medication treatment and teach disease management MD Overseeing Care: Ganga Stanford Homebound: Leaving the home is medically contraindicated at this time without the asist of a device and/or another person due th the listed conditions above and below. Reason homebound: weakness related to hospital stay Homebound supporting statement: patient generalized weak post hospitalization stay, in addition patient has multiple comorbidities including cellulitis with mild drainage in gluteal area, need help with appointments also. Certification: Based on the above findings, I certify that this patient is confined to the home and needs intermittent intermediate care, physical therapy and/or speech therapy, or continues to need occupational therapy. The patient is under my care, and I have initiated the establishment of the plan of care. The patient will be followed by a physician who will periodically review the plan of care.
[2022-09-18] MEDS: Amoxicillin/Potassium Clav 875 MG TABLET PO (14:02)
--- NOTE | 2022-09-18 14:19 | MHC.CM.PN ---
Addendum entered by Quita Hickey RN 09/18/22 14:50: ying vna offering with start of care 09/21-. Rn made aware Original Note: CASE MANAGEMENT ATTEMPTING TO SECURE VNA SERVICES WILL UPDATE THIS NOTE ONCE SUCCESSFUL
[2022-09-18 15:26] VITALS: BP 133/62; PULSE 75; RESP 16; TEMP 36.5; O2SAT 95
[2022-09-18 15:54] LABS: Glucose, Whole Blood 257 mg/dL (60-115)
== END 2022-09-18 16:36 | disposition home health service (06) | DRG 872 ==
LOC: HO.ED 16:39 → HO.EDOVER 18:06 → HO.S3 09-16 14:56
PROVIDERS: Physician Assistant Medical; Admitting Provider Internal Medicine; Emergency Provider Emergency Medicine Emergency Medical Services; PCP Internal Medicine; Visit Provider Internal Medicine
DX: A41.9 Sepsis, unspecified organism (principal); L03.317 Cellulitis of buttock; Z68.43 Body mass index [BMI] 50.0-59.9, adult; E66.01 Morbid (severe) obesity due to excess calories; G47.33 Obstructive sleep apnea (adult) (pediatric); E11.65 Type 2 diabetes mellitus with hyperglycemia; I25.10 Atherosclerotic heart disease of native coronary artery without angina pectoris; Z20.822 Contact with and (suspected) exposure to COVID-19; Z86.16 Personal history of COVID-19; Z86.718 Personal history of other venous thrombosis and embolism; Z88.1 Allergy status to other antibiotic agents; Z79.4 Long term (current) use of insulin; Z79.02 Long term (current) use of antithrombotics/antiplatelets; Z79.82 Long term (current) use of aspirin; Z79.899 Other long term (current) drug therapy
CPT/HCPCS: 36415; 72193; 80048; 80053; 82947; 83605; 85025; 85027; 85652; 86140; 87040; 87635; 94660; 99285; J1650; J2543; Q9967

== ENCOUNTER 2022-11-12 11:25 | Emergency (ER) | payer MEDICARE, SELFPAY ==
--- NOTE | ~2022-11-12 | XR_ITS ---
EXAMINATION: XR CHEST CLINICAL INFORMATION: Chest pain. COMPARISON: Most recent chest CT dated 08/20/2022. TECHNIQUE: 2 views of the chest were obtained. FINDINGS: Mild elevation the right hemidiaphragm, unchanged. No airspace consolidation. No pleural effusion or pneumothorax. Stable cardiomediastinal silhouette. XR/XR chest 2V IMPRESSION: No acute cardiopulmonary findings.
--- NOTE | 2022-11-12 11:26 | ED.SOB ---
HPI - SOB/Dyspnea General Chief Complaint: Dyspnea <Holly Dawn NP - Last Filed: 11/12/22 11:33> Stated Complaint: chest pain diff breathing <Holly Dawn NP - Last Filed: 11/12/22 11:33> Time Seen by Provider: 11/12/22 12:30 <Holly Dawn NP - Last Filed: 11/12/22 11:33> Source: patient <Precious Wood MD - Last Filed: 11/12/22 15:09> Mode of arrival: ambulatory <Precious Wood MD - Last Filed: 11/12/22 15:09> History of Present Illness HPI Narrative: This is a 62-year-old male who is currently on an opioid contract with his provider in comes in with severe, burning midsternal chest pain that is been ongoing for couple of days not associated with any dizziness/diaphoresis/fevers/chills and has completely resolved at this time. Patient also has complaints of pain throughout his chest wall and back as well as describing shortness of breath on exertion. Patient is a known diabetic and asthmatic. <Precious Wood MD - Last Filed: 11/12/22 15:09> Related Data Home Medications: Home Medications Medication Instructions Recorded Confirmed albuterol sulfate 90 mcg/actuation 2 puff inhalation QID PRN 11/20/20 09/15/22 aerosol inhaler (Ventolin HFA) Shortness Of Breath Or Wheezing aspirin 81 mg tablet,delayed 81 mg PO DAILY 11/20/20 09/15/22 release carvedilol 12.5 mg tablet 12.5 mg PO BID 11/20/20 09/15/22 clopidogrel 75 mg tablet 75 mg PO DAILY 11/20/20 09/15/22 insulin aspart U-100 100 unit/mL See Rx Instructions .Route .COMPLEX 11/20/20 09/15/22 (3 mL) subcutaneous pen (Novolog FlexPen U-100 Insulin aspart) insulin glargine 100 unit/mL (3 50 unit subcut BEDTIME 11/20/20 09/15/22 mL) subcutaneous pen (Basaglar KwikPen U-100 Insulin) morphine 30 mg tablet,extended 30 mg PO BID 11/20/20 09/15/22 release oxycodone 15 mg tablet 15 mg PO Q4H PRN Pain 11/20/20 09/15/22 pantoprazole 40 mg tablet,delayed 40 mg PO BID 11/20/20 09/15/22 release simvastatin 40 mg tablet 40 mg PO BEDTIME 11/20/20 09/15/22 nystatin 100,000 unit/gram topical 1 applic topical BID 09/15/22 09/15/22 cream Previous Rx's Medication Instructions Recorded amoxicillin 875 mg-potassium 1 tab PO BID #14 tabs 09/18/22 clavulanate 125 mg tablet docusate sodium 100 mg capsule 100 mg PO BID PRN Constipation #30 09/18/22 caps polyethylene glycol 3350 17 gram 17 g PO DAILY PRN Constipation #30 09/18/22 oral powder packet ea prednisone 50 mg tablet 50 mg PO DAILY 4 days #4 tabs 11/12/22 <Holly Dawn NP - Last Filed: 11/12/22 11:33> Allergies/Adverse Reactions: Allergies Allergy/AdvReac Type Severity Reaction Status Date / Time vancomycin [VANCOMYCIN] AdvReac Severe RENAL Verified 02/23/22 15:54 FAILURE, RASH <Holly Danw NP - Last Filed: 11/12/22 11:33> Review of Systems Review of Systems: Pertinent positives and negatives as stated in HPI <Precious Wood MD - Last Filed: 11/12/22 15:09> PMFSH Past Medical History Source: nursing notes reviewed <Precious Wood MD - Last Filed: 11/12/22 15:09> Medical History: Medical History Asthma Back pain Cardiac arrest Cellulitis, gluteal COVID-19 COVID-19 vaccine series completed Diabetes GERD (gastroesophageal reflux disease) High cholesterol HTN (hypertension) Hx of deep venous thrombosis Hx of hyperlipidemia Leg swelling Myocardial infarct, old Obesity PONV (postoperative nausea and vomiting) Septic shock Sleep apnea <Holly Dawn NP - Last Filed: 11/12/22 11:33> Surgical History: Surgical History History of ankle surgery History of arthroscopy of both knees History of esophagogastroduodenoscopy (EGD) History of removal of laparoscopic gastric banding device History of umbilical hernia repair Hx of cholecystectomy Hx of colonoscopy Personal history of gastric banding <Holly Dawn NP - Last Filed: 11/12/22 11:33> Social History Social History: Social History Household Members: Family Household Members Other:: mother Housing: House Are you a primary home care coordinator to a significant other at home: Yes (for mother, sister also helps and will dos) Do you presently have visiting nurse or other home services: No Alcohol intake: never Patient Tobacco Use Status: Never used Tobacco Advance Directives: Yes Advance Directives on File: Yes Advance Directives Date on File: 11/20/20 service: No Current occupational status: retired <Holly Dawn NP - Last Filed: 11/12/22 11:33> Physical Exam Vital Signs: Vital Signs: Last Vital Signs Temp 97.8 F 11/12/22 11:27 Pulse 85 11/12/22 13:44 Resp 13 11/12/22 13:44 BP 133/70 11/12/22 13:44 Pulse Ox 95 11/12/22 13:44 O2 Del Method 11/12/22 13:44 BMI result Body Mass Index 49.5 <Holly Dawn NP - Last Filed: 11/12/22 11:33> Vital Signs: Last Vital Signs Temp 97.8 F 11/12/22 11:27 Pulse 85 11/12/22 13:44 Resp 13 11/12/22 13:44 BP 133/70 11/12/22 13:44 Pulse Ox 95 11/12/22 13:44 O2 Del Method 11/12/22 13:44 BMI result Body Mass Index 49.5 VITAL SIGNS: Reviewed. GENERAL: Well developed, well nourished, in no acute distress. HEAD: Normocephalic/atraumatic EYES: PERRLA, EOMI EARS: Ext canals without abnormality, TMs non-bulging and non-erythematous NOSE: Nares patent bilateral OROPHARYNX: no oral lesions noted, posterior pharynx clear and non-erythematous without noted tonsillar enlargement/erythema/exudates NECK: Supple, no adenopathy LUNGS: Normal breath sounds, I do not notice any tachypnea/wheeze/rhonchi/rales. SpO2<95> CARDIOVASCULAR: Regular rate and rhythm without noted murmurs, no JVD or lower extremity edema. ABDOMEN: Soft, non-tender, non-distended with bowel sounds. MUSCULOSKELETAL: No tenderness, deformities, or effusions noted on gross inspection. EXTREMITIES: No cyanosis, clubbing or edema. SKIN: Inspection of the skin reveals no rashes NEUROLOGIC: Alert and oriented x 4. Strength and sensation to light touch were grossly intact x 4. <Precious Wood MD - Last Filed: 11/12/22 15:09> Course Course Course Narrative: This is rapid medical exam. 62 yo male with history of DM, HLD, asthma, HTN here complaints of several days of MAC, chest tightness. No cough, fever. VSS. Will check labs, EKG, CXR, testing for flu, covid, rsv. Will defer additional HPI, ROS, PE to primary provider. <Holly Dawn NP - Last Filed: 11/12/22 11:33> Medical Decision Making Medical Decision Making MDM Narrative: 62-year-old male who presents with complaints of atypical chest pain as well as shoulder girdle discomfort and is currently noted to be on a taper for his opioid use. I reviewed his workup and my interpretation is that although there is a mild leukocytosis this is likely stress/reactive in nature there is no corresponding left shift, patient is afebrile and there is no identified source. Chest x-ray/are negative for source and abdominal exam is benign. There is no obvious skin erythema to suggest a cellulitis male the patient initially was noted to be tachycardic, this has completely resolved. Suspect that patient has a combination of asthma/body habitus contribution to symptoms. There is no evidence of electrolyte/renal dysfunction. Although patient is noted to be hyperglycemic there is no evidence of DKA or HHS. Troponins in conjunction with BNP and EKG additionally argue against cardiac etiology. Will place patient on a short course of steroids and at this time will provide him with 10 units subcutaneous lispro. He is otherwise discharged home in stable condition with instructions to follow-up with his primary care provider. <Precious Wood MD - Last Filed: 11/12/22 15:09> Differential Diagnosis Differential Diagnoses: The differential diagnosis associated with the presentation includes <Precious Wood MD - Last Filed: 11/12/22 15:09> Please see the discussion above <Precious Wood MD - Last Filed: 11/12/22 15:09> Lab Data MDM Lab Attestation statement: I reviewed the patient's lab results. <Precious Wood MD - Last Filed: 11/12/22 15:09> Please see the discussion above <Precious Wood MD - Last Filed: 11/12/22 15:09> Result Diagrams: 11/12/22 11:45 11/12/22 11:45 <Holly Dawn NP - Last Filed: 11/12/22 11:33> Labs: Lab Results 11/12/22 11/12/22 11/12/22 Range/Units 11:39 11:44 11:44 WBC (4.8-10.8) X10*3/uL RBC (4.60-5.80) X10*6/uL Hgb (14.0-18.0) g/dl Hct (42.0-52.0) % MCV (80.0-98.0) fL MCH (27.0-33.0) pg MCHC (31.0-36.0) g/dl RDW (11.0-16.0) % Plt Count (160-400) X10*3/uL MPV (9.4-12.4) fL Immature Gran % (Auto) (0.0-0.4) % Neut % (Auto) (45-73) % Lymph % (Auto) (20-40) % Benson % (Auto) (2-11) % Eos % (Auto) (0-4) % Baso % (Auto) (0-2) % Lymph # (Auto) (1.2-4.9) X10*3/uL Benson # (Auto) (0.1-1.2) X10*3/uL Eos # (Auto) (0.0-0.4) X10*3/uL Baso # (Auto) (0.0-0.2) X10*3/uL Abs Immat Gran (auto) (0.00-0.03) X10*3/uL Absolute Neuts (auto) (2.0-8.3) x10*3/uL Absolute Nucleated RBC (0.0-0.012) X10*3/uL Nucleated RBC % (auto) (0.0-0.2) /100WBC PT (10.0-13.1) SEC INR (0.9-1.1) Sodium (135-145) mmol/L Potassium (3.3-5.1) mmol/L Chloride (96-108) mmol/L Carbon Dioxide (22-29) mmol/L Anion Gap (12-20) BUN (9-16) mg/dL Creatinine (0.5-1.4) mg/dL Estim Creat Clear Calc Estimated GFR Random Glucose (60-115) mg/dL Calcium (8.4-10.2) mg/dL Magnesium (1.6-2.6) mg/dL Total Bilirubin (0.0-1.0) mg/dL Direct Bilirubin (0.0-0.5) mg/dL AST (5-37) U/L ALT (0-40) U/L Alkaline Phosphatase (39-117) U/L Troponin I High Sens < 3.5 (<3.5-35.0) ng/L B-Natriuretic Peptide 13 (<100) pg/mL Total Protein (6.5-8.0) g/dL Albumin (3.5-5.0) g/dL Urine Color Urine Appearance Urine pH (5.0-9.0) Ur Specific [place] (1.005-1.025) Urine Protein (Neg-Trace) mg/dL Urine Glucose (UA) (Negative) mg/dL Urine Ketones (Negative) mg/dL Urine Blood (Negative) Urine Nitrite (Negative) Ur Leukocyte Esterase (Negative) Urine RBC (0-2) /HPF Urine WBC (0-5) /HPF Ur Squamous Epith Cells (0-2) /HPF Urine Bacteria (None Seen) Hyaline Casts (0-2) /LPF Influenza Type A (PCR) NEGATIVE (Negative) Influenza Type B (PCR) NEGATIVE (Negative) RSV RNA Qual (PCR) NEGATIVE (Negative) SARS-CoV-2 RNA (RT-PCR) NEGATIVE (Negative) 11/12/22 11/12/22 11/12/22 Range/Units 11:44 11:45 11:45 WBC 12.2 H (4.8-10.8) X10*3/uL RBC 5.08 (4.60-5.80) X10*6/uL Hgb 13.4 L (14.0-18.0) g/dl Hct 43.2 (42.0-52.0) % MCV 85.0 (80.0-98.0) fL MCH 26.4 L (27.0-33.0) pg MCHC 31.0 (31.0-36.0) g/dl RDW 14.1 (11.0-16.0) % Plt Count 242 (160-400) X10*3/uL MPV 9.7 (9.4-12.4) fL Immature Gran % (Auto) 0.2 (0.0-0.4) % Neut % (Auto) 69.3 (45-73) % Lymph % (Auto) 23.2 (20-40) % Benson % (Auto) 6.2 (2-11) % Eos % (Auto) 0.9 (0-4) % Baso % (Auto) 0.2 (0-2) % Lymph # (Auto) 2.8 (1.2-4.9) X10*3/uL Benson # (Auto) 0.8 (0.1-1.2) X10*3/uL Eos # (Auto) 0.1 (0.0-0.4) X10*3/uL Baso # (Auto) 0.0 (0.0-0.2) X10*3/uL Abs Immat Gran (auto) 0.03 (0.00-0.03) X10*3/uL Absolute Neuts (auto) 8.4 H (2.0-8.3) x10*3/uL Absolute Nucleated RBC 0.000 (0.0-0.012) X10*3/uL Nucleated RBC % (auto) 0.0 (0.0-0.2) /100WBC PT 11.1 (10.0-13.1) SEC INR 1.0 (0.9-1.1) Sodium 136 (135-145) mmol/L Potassium 4.6 (3.3-5.1) mmol/L Chloride 104 (96-108) mmol/L Carbon Dioxide 28 (22-29) mmol/L Anion Gap 9 L (12-20) BUN 23 H (9-16) mg/dL Creatinine 1.08 (0.5-1.4) mg/dL Estim Creat Clear Calc 105.3 Estimated GFR > 60 Random Glucose 432 H* (60-115) mg/dL Calcium 8.5 (8.4-10.2) mg/dL Magnesium 1.9 (1.6-2.6) mg/dL Total Bilirubin 0.4 (0.0-1.0) mg/dL Direct Bilirubin 0.2 (0.0-0.5) mg/dL AST 13 (5-37) U/L ALT 19 (0-40) U/L Alkaline Phosphatase 111 (39-117) U/L Troponin I High Sens (<3.5-35.0) ng/L B-Natriuretic Peptide (<100) pg/mL Total Protein 6.3 L (6.5-8.0) g/dL Albumin 3.4 L (3.5-5.0) g/dL Urine Color Urine Appearance Urine pH (5.0-9.0) Ur Specific [place] (1.005-1.025) Urine Protein (Neg-Trace) mg/dL Urine Glucose (UA) (Negative) mg/dL Urine Ketones (Negative) mg/dL Urine Blood (Negative) Urine Nitrite (Negative) Ur Leukocyte Esterase (Negative) Urine RBC (0-2) /HPF Urine WBC (0-5) /HPF Ur Squamous Epith Cells (0-2) /HPF Urine Bacteria (None Seen) Hyaline Casts (0-2) /LPF Influenza Type A (PCR) (Negative) Influenza Type B (PCR) (Negative) RSV RNA Qual (PCR) (Negative) SARS-CoV-2 RNA (RT-PCR) (Negative) 11/12/22 Range/Units 13:46 WBC (4.8-10.8) X10*3/uL RBC (4.60-5.80) X10*6/uL Hgb (14.0-18.0) g/dl Hct (42.0-52.0) % MCV (80.0-98.0) fL MCH (27.0-33.0) pg MCHC (31.0-36.0) g/dl RDW (11.0-16.0) % Plt Count (160-400) X10*3/uL MPV (9.4-12.4) fL Immature Gran % (Auto) (0.0-0.4) % Neut % (Auto) (45-73) % Lymph % (Auto) (20-40) % Benson % (Auto) (2-11) % Eos % (Auto) (0-4) % Baso % (Auto) (0-2) % Lymph # (Auto) (1.2-4.9) X10*3/uL Benson # (Auto) (0.1-1.2) X10*3/uL Eos # (Auto) (0.0-0.4) X10*3/uL Baso # (Auto) (0.0-0.2) X10*3/uL Abs Immat Gran (auto) (0.00-0.03) X10*3/uL Absolute Neuts (auto) (2.0-8.3) x10*3/uL Absolute Nucleated RBC (0.0-0.012) X10*3/uL Nucleated RBC % (auto) (0.0-0.2) /100WBC PT (10.0-13.1) SEC INR (0.9-1.1) Sodium (135-145) mmol/L Potassium (3.3-5.1) mmol/L Chloride (96-108) mmol/L Carbon Dioxide (22-29) mmol/L Anion Gap (12-20) BUN (9-16) mg/dL Creatinine (0.5-1.4) mg/dL Estim Creat Clear Calc Estimated GFR Random Glucose (60-115) mg/dL Calcium (8.4-10.2) mg/dL Magnesium (1.6-2.6) mg/dL Total Bilirubin (0.0-1.0) mg/dL Direct Bilirubin (0.0-0.5) mg/dL AST (5-37) U/L ALT (0-40) U/L Alkaline Phosphatase (39-117) U/L Troponin I High Sens (<3.5-35.0) ng/L B-Natriuretic Peptide (<100) pg/mL Total Protein (6.5-8.0) g/dL Albumin (3.5-5.0) g/dL Urine Color Yellow Urine Appearance Clear Urine pH 5.5 (5.0-9.0) Ur Specific [place] >= 1.030 H (1.005-1.025) Urine Protein Negative (Neg-Trace) mg/dL Urine Glucose (UA) >=1000 H (Negative) mg/dL Urine Ketones Negative (Negative) mg/dL Urine Blood Negative (Negative) Urine Nitrite Negative (Negative) Ur Leukocyte Esterase Negative (Negative) Urine RBC 0-2 (0-2) /HPF Urine WBC 0-5 (0-5) /HPF Ur Squamous Epith Cells 0-2 (0-2) /HPF Urine Bacteria None Seen (None Seen) Hyaline Casts 3-5 (0-2) /LPF Influenza Type A (PCR) (Negative) Influenza Type B (PCR) (Negative) RSV RNA Qual (PCR) (Negative) SARS-CoV-2 RNA (RT-PCR) (Negative) <Holly Dawn, JAZZ SINGER - Last Filed: 11/12/22 11:33> Lab Results 11/12/22 11/12/22 11/12/22 Range/Units 11:39 11:44 11:44 WBC (4.8-10.8) X10*3/uL RBC (4.60-5.80) X10*6/uL Hgb (14.0-18.0) g/dl Hct (42.0-52.0) % MCV (80.0-98.0) fL MCH (27.0-33.0) pg MCHC (31.0-36.0) g/dl RDW (11.0-16.0) % Plt Count (160-400) X10*3/uL MPV (9.4-12.4) fL Immature Gran % (Auto) (0.0-0.4) % Neut % (Auto) (45-73) % Lymph % (Auto) (20-40) % Benson % (Auto) (2-11) % Eos % (Auto) (0-4) % Baso % (Auto) (0-2) % Lymph # (Auto) (1.2-4.9) X10*3/uL Benson # (Auto) (0.1-1.2) X10*3/uL Eos # (Auto) (0.0-0.4) X10*3/uL Baso # (Auto) (0.0-0.2) X10*3/uL Abs Immat Gran (auto) (0.00-0.03) X10*3/uL Absolute Neuts (auto) (2.0-8.3) x10*3/uL Absolute Nucleated RBC (0.0-0.012) X10*3/uL Nucleated RBC % (auto) (0.0-0.2) /100WBC PT (10.0-13.1) SEC INR (0.9-1.1) Sodium (135-145) mmol/L Potassium (3.3-5.1) mmol/L Chloride (96-108) mmol/L Carbon Dioxide (22-29) mmol/L Anion Gap (12-20) BUN (9-16) mg/dL Creatinine (0.5-1.4) mg/dL Estim Creat Clear Calc Estimated GFR Random Glucose (60-115) mg/dL Calcium (8.4-10.2) mg/dL Magnesium (1.6-2.6) mg/dL Total Bilirubin (0.0-1.0) mg/dL Direct Bilirubin (0.0-0.5) mg/dL AST (5-37) U/L ALT (0-40) U/L Alkaline Phosphatase (39-117) U/L Troponin I High Sens < 3.5 (<3.5-35.0) ng/L B-Natriuretic Peptide 13 (<100) pg/mL Total Protein (6.5-8.0) g/dL Albumin (3.5-5.0) g/dL Urine Color Urine Appearance Urine pH (5.0-9.0) Ur Specific [place] (1.005-1.025) Urine Protein (Neg-Trace) mg/dL Urine Glucose (UA) (Negative) mg/dL Urine Ketones (Negative) mg/dL Urine Blood (Negative) Urine Nitrite (Negative) Ur Leukocyte Esterase (Negative) Urine RBC (0-2) /HPF Urine WBC (0-5) /HPF Ur Squamous Epith Cells (0-2) /HPF Urine Bacteria (None Seen) Hyaline Casts (0-2) /LPF Influenza Type A (PCR) NEGATIVE (Negative) Influenza Type B (PCR) NEGATIVE (Negative) RSV RNA Qual (PCR) NEGATIVE (Negative) SARS-CoV-2 RNA (RT-PCR) NEGATIVE (Negative) 11/12/22 11/12/22 11/12/22 Range/Units 11:44 11:45 11:45 WBC 12.2 H (4.8-10.8) X10*3/uL RBC 5.08 (4.60-5.80) X10*6/uL Hgb 13.4 L (14.0-18.0) g/dl Hct 43.2 (42.0-52.0) % MCV 85.0 (80.0-98.0) fL MCH 26.4 L (27.0-33.0) pg MCHC 31.0 (31.0-36.0) g/dl RDW 14.1 (11.0-16.0) % Plt Count 242 (160-400) X10*3/uL MPV 9.7 (9.4-12.4) fL Immature Gran % (Auto) 0.2 (0.0-0.4) % Neut % (Auto) 69.3 (45-73) % Lymph % (Auto) 23.2 (20-40) % Benson % (Auto) 6.2 (2-11) % Eos % (Auto) 0.9 (0-4) % Baso % (Auto) 0.2 (0-2) % Lymph # (Auto) 2.8 (1.2-4.9) X10*3/uL Benson # (Auto) 0.8 (0.1-1.2) X10*3/uL Eos # (Auto) 0.1 (0.0-0.4) X10*3/uL Baso # (Auto) 0.0 (0.0-0.2) X10*3/uL Abs Immat Gran (auto) 0.03 (0.00-0.03) X10*3/uL Absolute Neuts (auto) 8.4 H (2.0-8.3) x10*3/uL Absolute Nucleated RBC 0.000 (0.0-0.012) X10*3/uL Nucleated RBC % (auto) 0.0 (0.0-0.2) /100WBC PT 11.1 (10.0-13.1) SEC INR 1.0 (0.9-1.1) Sodium 136 (135-145) mmol/L Potassium 4.6 (3.3-5.1) mmol/L Chloride 104 (96-108) mmol/L Carbon Dioxide 28 (22-29) mmol/L Anion Gap 9 L (12-20) BUN 23 H (9-16) mg/dL Creatinine 1.08 (0.5-1.4) mg/dL Estim Creat Clear Calc 105.3 Estimated GFR > 60 Random Glucose 432 H* (60-115) mg/dL Calcium 8.5 (8.4-10.2) mg/dL Magnesium 1.9 (1.6-2.6) mg/dL Total Bilirubin 0.4 (0.0-1.0) mg/dL Direct Bilirubin 0.2 (0.0-0.5) mg/dL AST 13 (5-37) U/L ALT 19 (0-40) U/L Alkaline Phosphatase 111 (39-117) U/L Troponin I High Sens (<3.5-35.0) ng/L B-Natriuretic Peptide (<100) pg/mL Total Protein 6.3 L (6.5-8.0) g/dL Albumin 3.4 L (3.5-5.0) g/dL Urine Color Urine Appearance Urine pH (5.0-9.0) Ur Specific [place] (1.005-1.025) Urine Protein (Neg-Trace) mg/dL Urine Glucose (UA) (Negative) mg/dL Urine Ketones (Negative) mg/dL Urine Blood (Negative) Urine Nitrite (Negative) Ur Leukocyte Esterase (Negative) Urine RBC (0-2) /HPF Urine WBC (0-5) /HPF Ur Squamous Epith Cells (0-2) /HPF Urine Bacteria (None Seen) Hyaline Casts (0-2) /LPF Influenza Type A (PCR) (Negative) Influenza Type B (PCR) (Negative) RSV RNA Qual (PCR) (Negative) SARS-CoV-2 RNA (RT-PCR) (Negative) 11/12/22 Range/Units 13:46 WBC (4.8-10.8) X10*3/uL RBC (4.60-5.80) X10*6/uL Hgb (14.0-18.0) g/dl Hct (42.0-52.0) % MCV (80.0-98.0) fL MCH (27.0-33.0) pg MCHC (31.0-36.0) g/dl RDW (11.0-16.0) % Plt Count (160-400) X10*3/uL MPV (9.4-12.4) fL Immature Gran % (Auto) (0.0-0.4) % Neut % (Auto) (45-73) % Lymph % (Auto) (20-40) % [place] % (Auto) (2-11) % Eos % (Auto) (0-4) % Baso % (Auto) (0-2) % Lymph # (Auto) (1.2-4.9) X10*3/uL Benson # (Auto) (0.1-1.2) X10*3/uL Eos # (Auto) (0.0-0.4) X10*3/uL Baso # (Auto) (0.0-0.2) X10*3/uL Abs Immat Gran (auto) (0.00-0.03) X10*3/uL Absolute Neuts (auto) (2.0-8.3) x10*3/uL Absolute Nucleated RBC (0.0-0.012) X10*3/uL Nucleated RBC % (auto) (0.0-0.2) /100WBC PT (10.0-13.1) SEC INR (0.9-1.1) Sodium (135-145) mmol/L Potassium (3.3-5.1) mmol/L Chloride (96-108) mmol/L Carbon Dioxide (22-29) mmol/L Anion Gap (12-20) BUN (9-16) mg/dL Creatinine (0.5-1.4) mg/dL Estim Creat Clear Calc Estimated GFR Random Glucose (60-115) mg/dL Calcium (8.4-10.2) mg/dL Magnesium (1.6-2.6) mg/dL Total Bilirubin (0.0-1.0) mg/dL Direct Bilirubin (0.0-0.5) mg/dL AST (5-37) U/L ALT (0-40) U/L Alkaline Phosphatase (39-117) U/L Troponin I High Sens (<3.5-35.0) ng/L B-Natriuretic Peptide (<100) pg/mL Total Protein (6.5-8.0) g/dL Albumin (3.5-5.0) g/dL Urine Color Yellow Urine Appearance Clear Urine pH 5.5 (5.0-9.0) Ur Specific [place] >= 1.030 H (1.005-1.025) Urine Protein Negative (Neg-Trace) mg/dL Urine Glucose (UA) >=1000 H (Negative) mg/dL Urine Ketones Negative (Negative) mg/dL Urine Blood Negative (Negative) Urine Nitrite Negative (Negative) Ur Leukocyte Esterase Negative (Negative) Urine RBC 0-2 (0-2) /HPF Urine WBC 0-5 (0-5) /HPF Ur Squamous Epith Cells 0-2 (0-2) /HPF Urine Bacteria None Seen (None Seen) Hyaline Casts 3-5 (0-2) /LPF Influenza Type A (PCR) (Negative) Influenza Type B (PCR) (Negative) RSV RNA Qual (PCR) (Negative) SARS-CoV-2 RNA (RT-PCR) (Negative) <Precious Wood MD - Last Filed: 11/12/22 15:09> Independent Interpretation I performed an independent interpretation of an: EKG <Precious Wood MD - Last Filed: 11/12/22 15:09> Interpretation: Normal sinus rhythm, HR-90, no STEMI, TN/QRS/QTC is within normal limits. <Precious Wood MD - Last Filed: 11/12/22 15:09> Radiology Impression Radiologist Impression: Interpretation is in agreement with radiology's impression of imaging study. <Precious Wood MD - Last Filed: 11/12/22 15:09> External Record Review External record reviewed: Outpatient record and Prior outpatient labs <Precious Wood MD - Last Filed: 11/12/22 15:09> Chronic Conditions Patient?s care impacted by: Diabetes <Precious Wood MD - Last Filed: 11/12/22 15:09> Critical Care Time Critical Care Time Critical Care Time: Yes <Precious Wood MD - Last Filed: 11/12/22 15:09> Total Critical Care Time: 45 <Precious Wood MD - Last Filed: 11/12/22 15:09> Attestation: I personally attest to this time spent taking care of the patient. <Precious Wood MD - Last Filed: 11/12/22 15:09> Discharge Plan Discharge Clinical Impression: Asthma, Acid reflux <Holly Dawn NP - Last Filed: 11/12/22 11:33> Patient Disposition: Home, Self-Care <Holly Dawn NP - Last Filed: 11/12/22 11:33> Instructions: Asthma (ED), Diet for Stomach Ulcers and Gastritis (ED), Gastroesophageal Reflux Disease (ED) <Holly Dawn NP - Last Filed: 11/12/22 11:33> Additional Instructions: 1. Resume all home medications as prescribed. 2. Please complete the short course of steroids that you have been prescribed and in addition continue to use your albuterol inhaler. 3. Please follow-up with your primary care provider in the next 1-2 days for re-evaluation further outpatient management. Return to the ER for worsening symptoms. <Holly Dawn NP - Last Filed: 11/12/22 11:33> Prescriptions: New prednisone 50 mg tablet 50 mg PO DAILY 4 Days Qty: 4 0RF No Action carvedilol 12.5 mg tablet 12.5 mg PO BID clopidogrel 75 mg tablet 75 mg PO DAILY morphine 30 mg tablet extended release 30 mg PO BID simvastatin 40 mg tablet 40 mg PO BEDTIME oxycodone 15 mg tablet 15 mg PO Q4H PRN (Reason: Pain) pantoprazole 40 mg tablet,delayed release (DR/EC) 40 mg PO BID albuterol sulfate [Ventolin HFA] 90 mcg/actuation HFA aerosol inhaler 2 puff inhalation QID PRN (Reason: Shortness Of Breath Or Wheezing) Rx Instructions: Taken today with EMT insulin aspart U-100 [Novolog FlexPen U-100 Insulin] 100 unit/mL (3 mL) insulin pen See Rx Instructions .ROUTE .COMPLEX Label Comments: patient reports low blood sugar at home. has not taken insulin since discharge Rx Instructions: Patient is on sliding scale three times a day before meals. For blood sugars: 150-200: 4units 201-250: 6units 251-300: 8units 301-350: 10units 351-400: 15units 401-450: 20units >450 call insulin glargine [Basaglar KwikPen U-100 Insulin] 100 unit/mL (3 mL) insulin pen 50 unit subcut BEDTIME aspirin 81 mg Tablet,Delayed Release (Dr/Ec) 81 mg PO DAILY nystatin 100,000 unit/gram cream 1 applic topical BID polyethylene glycol 3350 17 gram Powder In Packet 17 g PO DAILY PRN (Reason: Constipation) Qty: 30 0RF docusate sodium 100 mg Capsule 100 mg PO BID PRN (Reason: Constipation) Qty: 30 0RF amoxicillin-pot clavulanate 875-125 mg tablet 1 tab PO BID Qty: 14 0RF <Holly Dawn NP - Last Filed: 11/12/22 11:33> Referrals: Ganga Stanford MD [Primary Care Provider] - <Holly Dawn NP - Last Filed: 11/12/22 11:33>
[2022-11-12 11:27] VITALS: BP 149/77; PULSE 112; RESP 20; TEMP 36.6; O2SAT 97; BMI 49.5
--- NOTE | 2022-11-12 11:28 | ECG_ITS ---
Test Reason : sob Blood Pressure : / mmHG Vent. Rate : 090 BPM Atrial Rate : 090 BPM P-R Int : 152 ms QRS Dur : 084 ms QT Int : 362 ms P-R-T Axes : 036 014 028 degrees QTc Int : 442 ms Normal sinus rhythm Cannot rule out Anterior infarct , age undetermined Abnormal ECG When compared with ECG of 17-JUL-2021 03:26, No significant change was found Referred By: Holly Dawn Electronically Signed By:Julio Grigsby
[2022-11-12 11:50] LABS: MANUAL DIFF FLAG NO
[2022-11-12 11:52] LABS: Basophils Percent Auto 0.2 % (0-2); Eosinophils Absolute Auto 0.1 X10*3/uL (0.0-0.4); Eosinophils Percent Auto 0.9 % (0-4); Hematocrit 43.2 % (42.0-52.0); Hemoglobin 13.4 g/dl (14.0-18.0); Imm Gran Abs Auto 0.03 X10*3/uL (0.00-0.03); Imm Gran Pct Auto 0.2 % (0.0-0.4); Lymphocytes Absolute Auto 2.8 X10*3/uL (1.2-4.9); Lymphocytes Percent Auto 23.2 % (20-40); Mean Corpuscular Hemoglobin 26.4 pg (27.0-33.0); Mean Platelet Volume 9.7 fL (9.4-12.4); Monocytes Absolute Auto 0.8 X10*3/uL (0.1-1.2); Monocytes Percent Auto 6.2 % (2-11); Neutrophils Absolute Auto 8.4 x10*3/uL (2.0-8.3); Neutrophils Percent Auto 69.3 % (45-73); Platelet Count 242 X10*3/uL (160-400); Red Blood Count 5.08 X10*6/uL (4.60-5.80); Red Cell Distribution Width 14.1 % (11.0-16.0); White Blood Count 12.2 X10*3/uL (4.8-10.8)
[2022-11-12 11:57] LABS: Prothrombin Time 11.1 SEC (10.0-13.1)
[2022-11-12 12:08] VITALS: BP 124/70; PULSE 92; RESP 14; O2SAT 92
[2022-11-12 12:22] LABS: B Type Natriuretic Peptide 13 pg/mL (<100)
[2022-11-12 12:25] LABS: Troponin-I High Sensitivity < 3.5 ng/L (<3.5-35.0)
[2022-11-12 12:28] LABS: Alanine Aminotransferase 19 U/L (0-40); Albumin Level 3.4 g/dL (3.5-5.0); Alkaline Phosphatase 111 U/L (39-117); Anion Gap 9 (12-20); Aspartate Amino Transferase 13 U/L (5-37); Bilirubin Direct 0.2 mg/dL (0.0-0.5); Bilirubin Total 0.4 mg/dL (0.0-1.0); Blood Urea Nitrogen 23 mg/dL (9-16); Calcium 8.5 mg/dL (8.4-10.2); Carbon Dioxide 28 mmol/L (22-29); Chloride 104 mmol/L (96-108); Creatinine Clr Calc Pharmacy 105.3; Estimated Glomerular Filt Rate > 60; Glucose Random 432 mg/dL (60-115); Magnesium 1.9 mg/dL (1.6-2.6); Potassium 4.6 mmol/L (3.3-5.1); Sodium 136 mmol/L (135-145); Total Protein 6.3 g/dL (6.5-8.0)
[2022-11-12 12:51] LABS: Influenza A PCR NEGATIVE (Negative); Influenza B PCR NEGATIVE (Negative); Resp Syncy Virus RNA Qual PCR NEGATIVE (Negative); SARS COV2 PCR INHOUSE NEGATIVE (Negative)
[2022-11-12 13:44] VITALS: BP 133/70; PULSE 85; RESP 13; O2SAT 95
[2022-11-12 14:03] LABS: Appearance Urine Clear; Color Urine Yellow; Glucose Urine UA >=1000 mg/dL (Negative); Leukocyte Esterase Urine Negative (Negative); Nitrite Urine Negative (Negative); PH 5.5 (5.0-9.0); Specific Gravity - Urine >= 1.030 (1.005-1.025); UMIC TRIGGER UACC YES; Urine Blood Negative (Negative); Urine Ketones Negative (Negative); Urine Protein Negative (Neg-Trace)
[2022-11-12 14:11] LABS: Bacteria Urine None Seen (None Seen); RBC Urine 0-2 /HPF (0-2); Squamous Epithelial Cell Urine 0-2 /HPF (0-2); WBC Urine 0-5 /HPF (0-5)
[2022-11-12] MEDS: predniSONE 10 MG TABLET 50 MG PO (15:28)
[2022-11-12] MEDS: Insulin Lispro 100 UNIT/ML 3 ML VIAL 10 UNIT SUBCUT (15:30)
[2022-11-12 15:53] VITALS: BP 133/70; PULSE 85; RESP 18; O2SAT 98
--- NOTE | 2022-11-12 15:54 | PC.NURSE ---
Patient a/ox4 . VSS . went over discharge instructions as ordered by provider . patient to follow up with primary care . patient to return to ED if symptoms worsen . no questions at this time .
== END 2022-11-12 15:55 | disposition home or self-care (01) ==
PROVIDERS: Nurse Practitioner Family; Emergency Provider Student in an Organized Health Care Education/Training Program; PCP Internal Medicine
DX: J45.909 Unspecified asthma, uncomplicated (principal); K21.9 Gastro-esophageal reflux disease without esophagitis; R06.02 Shortness of breath; Z20.822 Contact with and (suspected) exposure to COVID-19; Z20.828 Contact with and (suspected) exposure to other viral communicable diseases; I10 Essential (primary) hypertension; E11.9 Type 2 diabetes mellitus without complications; E78.00 Pure hypercholesterolemia, unspecified; E66.01 Morbid (severe) obesity due to excess calories; Z68.42 Body mass index [BMI] 45.0-49.9, adult; Z79.82 Long term (current) use of aspirin; Z79.4 Long term (current) use of insulin; Z79.02 Long term (current) use of antithrombotics/antiplatelets; Z79.899 Other long term (current) drug therapy
CPT/HCPCS: 0241U; 36415; 71046; 80048; 80076; 81001; 81003; 83735; 83880; 84484; 85025; 85610; 93005; 99283; 99284

== ENCOUNTER 2022-11-16 11:30 | Outpatient (REF) | payer MEDICARE, SELFPAY ==
[2022-11-16 13:32] LABS: MANUAL DIFF FLAG NO
[2022-11-16 13:43] LABS: Basophils Percent Auto 0.3 % (0-2); Eosinophils Absolute Auto 0.1 X10*3/uL (0.0-0.4); Hematocrit 41.8 % (42.0-52.0); Hemoglobin 13.3 g/dl (14.0-18.0); Imm Gran Abs Auto 0.05 X10*3/uL (0.00-0.03); Imm Gran Pct Auto 0.4 % (0.0-0.4); Lymphocytes Percent Auto 24.8 % (20-40); Mean Corpuscular HGB Conc 31.8 g/dl (31.0-36.0); Mean Corpuscular Hemoglobin 26.7 pg (27.0-33.0); Mean Corpuscular Volume 83.9 fL (80.0-98.0); Mean Platelet Volume 10.3 fL (9.4-12.4); Monocytes Percent Auto 8.5 % (2-11); Neutrophils Absolute Auto 7.8 x10*3/uL (2.0-8.3); Platelet Count 257 X10*3/uL (160-400); Red Blood Count 4.98 X10*6/uL (4.60-5.80)
[2022-11-16 14:01] LABS: Estimated Average Glucose 275 mg/dL; Hemoglobin A1c % 11.2 %
[2022-11-16 14:02] LABS: Alanine Aminotransferase 15 U/L (0-40); Albumin Level 3.4 g/dL (3.5-5.0); Alkaline Phosphatase 100 U/L (39-117); Anion Gap 12 (12-20); Aspartate Amino Transferase 14 U/L (5-37); Bilirubin Total 0.5 mg/dL (0.0-1.0); Blood Urea Nitrogen 16 mg/dL (9-16); C Reactive Protein 5.02 mg/dL (< or = 0.50); Calcium 8.9 mg/dL (8.4-10.2); Carbon Dioxide 29 mmol/L (22-29); Chloride 103 mmol/L (96-108); Estimated Glomerular Filt Rate > 60; Glucose Fasting 296 mg/dL (60-99); Sodium 139 mmol/L (135-145); Total Protein 6.4 g/dL (6.5-8.0)
== END 2022-11-16 11:31 | disposition home or self-care (01) ==
LOC: HO.10HDL 11:30
PROVIDERS: Visit Provider Internal Medicine
DX: E11.9 Type 2 diabetes mellitus without complications (principal); I10 Essential (primary) hypertension; L08.9 Local infection of the skin and subcutaneous tissue, unspecified
CPT/HCPCS: 36415; 80053; 83036; 85025; 86140

== ENCOUNTER → 2022-12-07 13:25 | Outpatient (BNVA) | payer MEDICARE, SELFPAY | PROVIDERS: PCP Internal Medicine; Visit Provider Hospitalist | DX: J45.909 Unspecified asthma, uncomplicated (principal); R91.1 Solitary pulmonary nodule; E66.01 Morbid (severe) obesity due to excess calories; Z68.43 Body mass index [BMI] 50.0-59.9, adult | CPT/HCPCS: 99212 ==

== ENCOUNTER 2023-03-04 12:12 | Outpatient (REF) | payer MEDICARE, SELFPAY ==
[2023-03-04 12:36] LABS: MANUAL DIFF FLAG NO
[2023-03-04 12:50] LABS: Basophils Percent Auto 0.3 % (0-2); Eosinophils Absolute Auto 0.1 X10*3/uL (0.0-0.4); Hemoglobin 13.4 g/dl (14.0-18.0); Imm Gran Abs Auto 0.03 X10*3/uL (0.00-0.03); Imm Gran Pct Auto 0.3 % (0.0-0.4); Lymphocytes Absolute Auto 3.1 X10*3/uL (1.2-4.9); Lymphocytes Percent Auto 28.2 % (20-40); Mean Corpuscular HGB Conc 31.2 g/dl (31.0-36.0); Mean Corpuscular Volume 83.5 fL (80.0-98.0); Mean Platelet Volume 9.9 fL (9.4-12.4); Monocytes Percent Auto 9.3 % (2-11); Neutrophils Absolute Auto 6.7 x10*3/uL (2.0-8.3); Neutrophils Percent Auto 60.9 % (45-73); Platelet Count 235 X10*3/uL (160-400); Red Blood Count 5.15 X10*6/uL (4.60-5.80); Red Cell Distribution Width 14.2 % (11.0-16.0)
[2023-03-04 12:59] LABS: Estimated Average Glucose 260 mg/dL; Hemoglobin A1c % 10.7 %
[2023-03-04 13:16] LABS: Alanine Aminotransferase 16 U/L (0-40); Albumin Level 3.6 g/dL (3.5-5.0); Alkaline Phosphatase 121 U/L (39-117); Anion Gap 12 (12-20); Aspartate Amino Transferase 12 U/L (5-37); Bilirubin Total 0.4 mg/dL (0.0-1.0); Blood Urea Nitrogen 14 mg/dL (9-16); Calcium 8.8 mg/dL (8.4-10.2); Carbon Dioxide 28 mmol/L (22-29); Chloride 106 mmol/L (96-108); Estimated Glomerular Filt Rate > 60; Glucose Random 225 mg/dL (60-115); Potassium 4.3 mmol/L (3.3-5.1); Sodium 142 mmol/L (135-145); Total Protein 6.6 g/dL (6.5-8.0)
[2023-03-04 13:52] LABS: Appearance Urine Clear; Color Urine Yellow; Glucose Urine UA >=1000 mg/dL (Negative); Leukocyte Esterase Urine Negative (Negative); Nitrite Urine Negative (Negative); PH 5.5 (5.0-9.0); Specific Gravity - Urine >= 1.030 (1.005-1.025); UMIC TRIGGER UA YES; Urine Blood Negative (Negative); Urine Ketones Trace mg/dL (Negative); Urine Protein Trace mg/dL (Neg-Trace)
[2023-03-04 14:22] LABS: Bacteria Urine None Seen (None Seen); Hyaline Casts Urine 0-2 /LPF (0-2); RBC Urine 0-2 /HPF (0-2); Squamous Epithelial Cell Urine 0-2 /HPF (0-2)
[2023-03-04 15:14] LABS: Creatinine Urine 180.19 mg/dL; Microalbum/Creatinine Ratio Ur 12.2 ug/mg cr
== END 2023-03-04 12:13 | disposition home or self-care (01) ==
LOC: HO.LAB 12:12
PROVIDERS: PCP Internal Medicine; Visit Provider Internal Medicine
DX: E11.9 Type 2 diabetes mellitus without complications (principal); G47.33 Obstructive sleep apnea (adult) (pediatric); R60.0 Localized edema; R82.90 Unspecified abnormal findings in urine
CPT/HCPCS: 36415; 80053; 81001; 82043; 83036; 85025; 87086

== ENCOUNTER 2023-06-21 14:39 | Outpatient (REF) | payer MEDICARE, SELFPAY ==
[2023-06-21 15:25] LABS: Influenza A PCR NEGATIVE (Negative); Influenza B PCR NEGATIVE (Negative); Resp Syncy Virus RNA Qual PCR NEGATIVE (Negative); SARS COV2 PCR INHOUSE NEGATIVE (Negative)
== END 2023-06-21 14:40 | disposition home or self-care (01) ==
LOC: HO.LNP 14:39
PROVIDERS: Visit Provider Internal Medicine
DX: Z20.822 Contact with and (suspected) exposure to COVID-19 (principal); R05.9 Cough, unspecified; R50.9 Fever, unspecified
CPT/HCPCS: 0241U

== ENCOUNTER 2023-08-06 | Outpatient (REF) | payer MEDICARE, SELFPAY | END 2023-08-06 00:01 | LOC: HO.LAB | PROVIDERS: PCP Internal Medicine; Visit Provider Physician Assistant Surgical | DX: E11.9 Type 2 diabetes mellitus without complications (principal); E66.01 Morbid (severe) obesity due to excess calories; Z68.43 Body mass index [BMI] 50.0-59.9, adult; Z79.899 Other long term (current) drug therapy | CPT/HCPCS: 36415; 82947; 83036; 99453 ==

== ENCOUNTER 2023-08-06 11:55 | Outpatient (AMB) | payer MEDICARE, SELFPAY ==
[2023-08-06 13:06] VITALS: BMI 58.0
--- NOTE | 2023-08-06 13:06 | HO.OFFWMMET ---
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 For blood sugars: 150-200: 4units 201-250: 6units 251-300: 8units 301-350: 10units 351-400: 15units 401-450: 20units >450 call MD insulin glargine (Basaglar KwikPen U-100 Insulin) 50 units subcut BEDTIME morphine ER 15 mg PO BID PRN nystatin 1 applic topical BID oxycodone 15 mg PO Q4H PRN pantoprazole 40 mg PO BID simvastatin 40 mg PO BEDTIME HPI HPI Comments History of Present Illness Details The patient is a pleasant 62-year-old male who presents to the office today for the metabolic clinic. He takes 2 diabetic medications and 1 blood pressure medication. Weight today was 387 lb with a BMI of 58 antibody fat percentage of 49.4. In he was present for the initial presentation as well as set up with the meal plan and exercise plan through the right [employer] [facility] Medical History Chronic back pain Chronic neck pain Chronic edema Pulmonary nodule Cellulitis, gluteal PONV (postoperative nausea and vomiting) COVID-19 vaccine series completed Leg swelling Hx of deep venous thrombosis Hx of hyperlipidemia HTN (hypertension) GERD (gastroesophageal reflux disease) Myocardial infarct, old Back pain Septic shock Cardiac arrest COVID-19 Asthma Obesity Sleep apnea High cholesterol Diabetes Surgical History History of removal of laparoscopic gastric banding device History of arthroscopy of both knees Hx of colonoscopy History of esophagogastroduodenoscopy (EGD) History of ankle surgery History of umbilical hernia repair Hx of cholecystectomy Personal history of gastric banding Social History Household Members: Family Household Members Other:: mother Housing: House 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 He was given a scale and instructions on how to set it up at home. He was given a meal plan and an exercise plan. He was given our cell phone number to increase communication via text. He will return to clinic next week. Coding Level of Care Code 14097 [facility] Diagnoses Morbid obesity E66.01
== END 2023-08-06 15:05 | disposition home or self-care (01) ==
LOC: HO.META 11:55
PROVIDERS: PCP Internal Medicine; Visit Provider Physician Assistant Surgical
DX: E66.01 Morbid (severe) obesity due to excess calories (principal)

== ENCOUNTER 2023-10-14 14:35 | Outpatient (REF) | payer MEDICARE, SELFPAY ==
[2023-10-14 16:46] LABS: Appearance Urine Clear; Color Urine Dark Yellow; Glucose Urine UA 100 mg/dL (Negative); Leukocyte Esterase Urine Trace (Negative); Nitrite Urine Negative (Negative); PH 5.5 (5.0-9.0); Specific Gravity - Urine 1.025 (1.005-1.025); UMIC TRIGGER UACC YES; Urine Blood Negative (Negative); Urine Ketones Trace mg/dL (Negative); Urine Protein Trace mg/dL (Neg-Trace)
[2023-10-14 16:46] LABS: Basophils Absolute Auto 0.1 X10*3/uL (0.0-0.2); Basophils Percent Auto 0.5 % (0-2); Hemoglobin 13.6 g/dl (14.0-18.0); Imm Gran Abs Auto 0.02 X10*3/uL (0.00-0.03); Imm Gran Pct Auto 0.2 % (0.0-0.4); MANUAL DIFF FLAG SCAN; Mean Corpuscular Volume 84.2 fL (80.0-98.0); PLT CLUMP 1; Red Cell Distribution Width 14.7 % (11.0-16.0); SCAN SMEAR FLAG 1
[2023-10-14 16:48] LABS: Eosinophils Absolute Auto 0.1 X10*3/uL (0.0-0.4); Eosinophils Percent Auto 1.2 % (0-4); Hematocrit 44.8 % (42.0-52.0); Lymphocytes Absolute Auto 2.9 X10*3/uL (1.2-4.9); Mean Corpuscular HGB Conc 30.4 g/dl (31.0-36.0); Mean Corpuscular Hemoglobin 25.6 pg (27.0-33.0); Mean Platelet Volume 11.8 fL (9.4-12.4); Monocytes Absolute Auto 0.9 X10*3/uL (0.1-1.2); Monocytes Percent Auto 9.6 % (2-11); Neutrophils Absolute Auto 5.6 x10*3/uL (2.0-8.3); Neutrophils Percent Auto 58.5 % (45-73); Red Blood Count 5.32 X10*6/uL (4.60-5.80)
[2023-10-14 16:59] LABS: Estimated Average Glucose 269 mg/dL
[2023-10-14 17:08] LABS: Alanine Aminotransferase 15 U/L (0-40); Albumin Level 3.6 g/dL (3.5-5.0); Alkaline Phosphatase 120 U/L (39-117); Anion Gap 11 (12-20); Aspartate Amino Transferase 16 U/L (5-37); Bilirubin Total 0.5 mg/dL (0.0-1.0); Blood Urea Nitrogen 16 mg/dL (9-16); Carbon Dioxide 27 mmol/L (22-29); Chloride 106 mmol/L (96-108); Cholesterol 120 mg/dL (<200); Estimated Glomerular Filt Rate > 60; Glucose Fasting 189 mg/dL (60-99); HDL Cholesterol 46 mg/dL (>40); LDL Cholesterol Calculated 62 mg/dL (<100); Potassium 4.3 mmol/L (3.3-5.1); Sodium 140 mmol/L (135-145); Total Protein 7.2 g/dL (6.5-8.0); Triglycerides 60 mg/dL (<150)
[2023-10-14 17:18] LABS: Prostate Specific Antigen Scr 0.17 ng/mL (<0.05-4.0)
[2023-10-14 17:18] LABS: Creatinine Urine 241.18 mg/dL; Microalbum/Creatinine Ratio Ur 12.4 ug/mg cr (<30)
[2023-10-14 17:32] LABS: White Blood Count 9.6 X10*3/uL (4.8-10.8)
[2023-10-14 17:35] LABS: Platelet Count 178 X10*3/uL (160-400)
[2023-10-14 17:36] LABS: SLIDE REVIEW VERIFIED
[2023-10-14 18:00] LABS: Bacteria Urine None Seen (None Seen); Hyaline Casts Urine 0-2 /LPF (0-2); RBC Urine 0-2 /HPF (0-2); WBC Urine 0-5 /HPF (0-5)
== END 2023-10-14 14:36 | disposition home or self-care (01) ==
LOC: HO.HMGCLDS 14:35
PROVIDERS: PCP Internal Medicine; Visit Provider Internal Medicine
DX: I10 Essential (primary) hypertension (principal); E78.00 Pure hypercholesterolemia, unspecified; E11.9 Type 2 diabetes mellitus without complications; R60.9 Edema, unspecified; Z12.5 Encounter for screening for malignant neoplasm of prostate; R31.9 Hematuria, unspecified
CPT/HCPCS: 36415; 80053; 80061; 81001; 81003; 82043; 82570; 83036; 84153; 85025; 87086

== ENCOUNTER 2023-11-30 15:30 | Outpatient (AMB) | payer MEDICARE, SELFPAY ==
--- NOTE | 2023-11-30 15:37 | A.OFFVIS_ITS ---
Intake Vital Signs 11/30/23 15:38 Height 5 ft 11 in Weight 390 lb BMI 54.4 Pulse 80 Pulse Source Pulse Oximeter Pulse Oximetry (%) 98 Oxygen Delivery Method Room Air Intake Visit Reasons: Obstructive sleep apnea Insurance Counselor Required: No Allergies vancomycin [VANCOMYCIN] Adverse Reaction (Severe, Verified 11/30/23 15:37) RENAL FAILURE, RASH HPI HPI Comments History of Present Illness Details The patient is a 63-year-old gentleman with a known history of diabetes apparently was in his usual state health until back in 2019 when he was found to have what appeared to be a masslike density in the right lower lobe. It was associated with some evidence of bronchiectatic airways. This area appears to be normal. Is been reported that looks like from the atelectasis. 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 However, I do not see any asbestos plaques. The patient does have a significant history of lung cancer in the family. Now more recently the patient had a repeat CT scan sometime in August 2022 that was also personally by me which demonstrated again the masslike density in the right lower lobe with bronchiectatic airways but now soon new subcentimeter pulmonary nodules in the lingula. Clinically the patient is feeling well. Denies any significant shortness of breath or weight loss or night sweats. Actually he has been having hard time with his weight gain. He is getting very discouraged because he is try to maintain a low caloric intake and still gaining weight. The patient will talk to his primary care doctor regarding non insulin injectables is a good option for him to hopefully to lose weight and decrease Insulin requirements. In view of his significant history of lung cancer and also because of the concerns of potential foreign body aspiration into the right lower lobe specially while having a gastric band it is reasonable to visualize this right lower lobe area with bronchoscopy at this time. 11/30/2023 the patient is here for pulmonary follow-up visit. The patient was lost to follow-up has not been seen more than a year. the patient had been scheduled for bronchoscopy because of a right lower lobe nodular density. However, then he developed severe COVID and was lost to follow-up afterwards. He is feeling better. He is still dealing with his weight. Significant knee pain. The patient also complains of difficulty swallowing. Sometimes he regurgitates. Moderate severity. We did look at a CT scan of the chest that he had back in 2021 demonstrating a masslike consolidation in the right lower lobe and also a dilated esophagus that is fluid filled. The patient did have a lap band at some point and then it was removed because of complications with the lap band. Likely that he resulted in some residual dysmotility after the lap band. Still based on his GI symptoms will go ahead and request a barium swallow as well. The patient will return after his barium swallow in his CT scan. In the meantime he continues uses CPAP. CPAP therapy continues to be affecting beneficial. he does try to use it more than 4 hours a night. [facility] Medical History (Updated 11/30/23 @ 22:35 by Saman Velez MD) EPI (obstructive sleep apnea) Dysphagia Chronic back pain Chronic neck pain Chronic edema Pulmonary nodule Cellulitis, gluteal PONV (postoperative nausea and vomiting) COVID-19 vaccine series completed Leg swelling Hx of deep venous thrombosis Hx of hyperlipidemia HTN (hypertension) GERD (gastroesophageal reflux disease) Myocardial infarct, old Back pain Septic shock Cardiac arrest COVID-19 Asthma Obesity Sleep apnea High cholesterol Diabetes Surgical History History of removal of laparoscopic gastric banding device History of arthroscopy of both knees Hx of colonoscopy History of esophagogastroduodenoscopy (EGD) History of ankle surgery History of umbilical hernia repair Hx of cholecystectomy Personal history of gastric banding Social History Household Members: Family Household Members Other:: mother Housing: House Are you a primary daytime caregiver to a significant other at home: Yes (for mother, sister also helps and will dos) Do you presently have visiting nurse or other home services: No Alcohol intake: never Comment: sleeping Patient Tobacco Use Status: Never used Tobacco Advance Directives Date on File: 11/20/20 service: No Current occupational status: retired Review of Systems Const Denies chills and Denies fever(s) Eyes Reports no additional complaints ENT Reports dysphagia and Reports nasal congestion Card Denies chest pain, Denies dyspnea and Reports dyspnea on exertion Resp Denies dyspnea, Reports dyspnea on exertion and Denies wheezing GI Reports as per HPI, Reports dysphagia and Reports nausea Musc Reports abnormal gait, Reports arthralgias, Reports joint swelling and Reports limited range of motion Skin/Breast Denies rash Neuro Reports abnormal gait Michele/Lymph Denies easy bruising Aller/Immun Denies wheezing Physical Exam Vital Signs: Last Vital Signs Pulse 80 11/30/23 15:38 Pulse Ox 98 11/30/23 15:38 Oxygen Delivery Method Room Air 11/30/23 15:38 BMI result Body Mass Index 54.4 Last Vital Signs Temp 98.1 F 09/17/22 19:38 Pulse 73 09/17/22 19:38 Resp 16 09/17/22 19:38 BP 118/59 L 09/17/22 19:38 Pulse Ox 95 09/17/22 19:38 O2 Del Method 09/17/22 19:38 BMI result Body Mass Index 51.5 Const General: cooperative HEENT Head: Yes normal to inspection Face and sinus: Yes normal facial exam Mouth: Normal oral and palatal mucosa present Teeth and gingiva: dentition normal Eyes General: appearance normal, both eyes and all related structures Pupils: Equal, round and reactive pupils present Neck Neck: Yes supple Chest Chest palpation & inspection: normal inspection of the chest Resp Effort & Inspection: normal respiratory effort Auscultation: diminished lung sounds Cardio Rate: regular rate Rhythm: regular rhythm Heart sounds: S1 normal heart sound present and S2 normal heart sound present GI Palpation (GI): Soft to palpation General: Yes no CVA tenderness Back/Spine/Pelvis Back: no CVA tenderness Skin General skin exam: no rashes or lesions noted Neuro General: moves all extremities Cranial nerves: Yes Equal, round and reactive pupils present Extrem General: Yes normal to inspection Psych Appearance: grossly normal Assessment & Plan Assessment & Plan (1) Asthma: Code(s): J45.909 - Unspecified asthma, uncomplicated Qualifiers: Asthma complication type: uncomplicated Asthma persistence: persistent Asthma severity: moderate Qualified Code(s): J45.40 - Moderate persistent asthma, uncomplicated (2) Pulmonary nodule: Code(s): R91.1 - Solitary pulmonary nodule (3) Morbid obesity: Code(s): E66.01 - Morbid (severe) obesity due to excess calories (4) Dysphagia: Code(s): R13.10 - Dysphagia, unspecified Qualifiers: Dysphagia type: unspecified Qualified Code(s): R13.10 - Dysphagia, unspecified (5) EPI (obstructive sleep apnea): Code(s): G47.33 - Obstructive sleep apnea (adult) (pediatric) Plan CT chest Barium swallow NOEMY as needed weight management CPAP, DME JL F/U 6-8 weeks Orders: Orders CT chest wo IV con Today R91.1 - Solitary pulmonary nodule FL barium swallow Today K21.9 - Gastro-esophageal reflux disease without esophagitis, R91.1 - Solitary pulmonary nodule Coding Level of Care Code Est Pt Level 4 (69436) Diagnoses Moderate persistent asthma without complication J45.40 Asthma complication type: uncomplicated Asthma persistence: persistent Asthma severity: moderate Pulmonary nodule R91.1 Morbid obesity E66.01 Dysphagia, unspecified type R13.10 Dysphagia type: unspecified EPI (obstructive sleep apnea) G47.33 Time Spent (min) 18
[2023-11-30 15:38] VITALS: PULSE 80; O2SAT 98; BMI 54.4
== END 2023-11-30 16:08 | disposition home or self-care (01) ==
PROVIDERS: PCP Internal Medicine; Visit Provider Hospitalist
DX: J45.40 Moderate persistent asthma, uncomplicated (principal); R91.1 Solitary pulmonary nodule; E66.01 Morbid (severe) obesity due to excess calories; R13.10 Dysphagia, unspecified; G47.33 Obstructive sleep apnea (adult) (pediatric)
CPT/HCPCS: 99214

== ENCOUNTER → 2023-11-30 15:30 | Outpatient (BNVA) | payer OTHER, MEDICARE, SELFPAY | PROVIDERS: PCP Internal Medicine; Visit Provider Hospitalist | DX: J45.40 Moderate persistent asthma, uncomplicated (principal); R91.1 Solitary pulmonary nodule; R13.10 Dysphagia, unspecified; G47.33 Obstructive sleep apnea (adult) (pediatric); E66.01 Morbid (severe) obesity due to excess calories; Z68.43 Body mass index [BMI] 50.0-59.9, adult | CPT/HCPCS: 99212 ==

== ENCOUNTER 2024-02-02 13:03 | Outpatient (REF) | payer MEDICARE, SELFPAY ==
[2024-02-02 16:07] LABS: MANUAL DIFF FLAG NO
[2024-02-02 16:16] LABS: Basophils Percent Auto 0.5 % (0-2); Eosinophils Absolute Auto 0.2 X10*3/uL (0.0-0.4); Eosinophils Percent Auto 2.2 % (0-4); Hematocrit 43.5 % (42.0-52.0); Hemoglobin 13.3 g/dl (14.0-18.0); Imm Gran Abs Auto 0.02 X10*3/uL (0.00-0.03); Imm Gran Pct Auto 0.2 % (0.0-0.4); Lymphocytes Percent Auto 35.6 % (20-40); Mean Corpuscular HGB Conc 30.6 g/dl (31.0-36.0); Mean Corpuscular Hemoglobin 25.4 pg (27.0-33.0); Mean Corpuscular Volume 83.2 fL (80.0-98.0); Mean Platelet Volume 11.2 fL (9.4-12.4); Monocytes Absolute Auto 0.9 X10*3/uL (0.1-1.2); Neutrophils Absolute Auto 4.4 x10*3/uL (2.0-8.3); Neutrophils Percent Auto 51.5 % (45-73); Platelet Count 209 X10*3/uL (160-400); Red Blood Count 5.23 X10*6/uL (4.60-5.80); Red Cell Distribution Width 14.7 % (11.0-16.0); White Blood Count 8.5 X10*3/uL (4.8-10.8)
[2024-02-02 16:18] LABS: B Type Natriuretic Peptide 21 pg/mL (<100)
[2024-02-02 16:23] LABS: Estimated Average Glucose 229 mg/dL; Hemoglobin A1c % 9.6 % (<6.0)
[2024-02-02 16:30] LABS: D Dimer High Sensitivity 512 NG/ML
[2024-02-02 16:43] LABS: Alanine Aminotransferase 19 U/L (0-40); Albumin Level 3.4 g/dL (3.5-5.0); Alkaline Phosphatase 123 U/L (39-117); Anion Gap 12 (12-20); Aspartate Amino Transferase 17 U/L (5-37); Bilirubin Total 0.3 mg/dL (0.0-1.0); Blood Urea Nitrogen 18 mg/dL (9-16); C Reactive Protein 1.21 mg/dL (< or = 0.50); Calcium 9.1 mg/dL (8.4-10.2); Carbon Dioxide 26 mmol/L (22-29); Chloride 108 mmol/L (96-108); Estimated Glomerular Filt Rate > 60; Glucose Random 167 mg/dL (60-115); Potassium 4.3 mmol/L (3.3-5.1); Sodium 142 mmol/L (135-145); Total Protein 7.1 g/dL (6.5-8.0)
[2024-02-02 16:56] LABS: Creatinine Urine 307.83 mg/dL; Microalbum/Creatinine Ratio Ur 6.8 ug/mg cr (<30)
== END 2024-02-02 13:04 | disposition home or self-care (01) ==
LOC: HO.HMGCLDS 13:03
PROVIDERS: PCP Internal Medicine; Visit Provider Internal Medicine
DX: R06.02 Shortness of breath (principal); G47.33 Obstructive sleep apnea (adult) (pediatric); F32.9 Major depressive disorder, single episode, unspecified
CPT/HCPCS: 36415; 80053; 82043; 82550; 82570; 83036; 83880; 85025; 85379; 86140

== ENCOUNTER 2024-02-18 11:04 | Outpatient (REF) | payer MEDICARE, SELFPAY ==
[2024-02-18 13:57] LABS: Appearance Urine Turbid; Color Urine Yellow; Glucose Urine UA Negative (Negative); Leukocyte Esterase Urine Small (1+) (Negative); Nitrite Urine Positive (Negative); Specific Gravity - Urine >= 1.030 (1.005-1.025); UMIC TRIGGER UACC YES; Urine Blood Moderate (2+) (Negative); Urine Ketones 15 mg/dL (Negative); Urine Protein 100 (2+) mg/dL (Neg-Trace)
[2024-02-18 14:00] LABS: Basophils Absolute Auto 0.1 X10*3/uL (0.0-0.2); Basophils Percent Auto 0.4 % (0-2); Eosinophils Absolute Auto 0.2 X10*3/uL (0.0-0.4); Hematocrit 44.7 % (42.0-52.0); Hemoglobin 14.1 g/dl (14.0-18.0); Imm Gran Abs Auto 0.08 X10*3/uL (0.00-0.03); Imm Gran Pct Auto 0.5 % (0.0-0.4); Lymphocytes Absolute Auto 3.7 X10*3/uL (1.2-4.9); Lymphocytes Percent Auto 23.3 % (20-40); MANUAL DIFF FLAG SCAN; Mean Corpuscular HGB Conc 31.5 g/dl (31.0-36.0); Mean Corpuscular Hemoglobin 25.5 pg (27.0-33.0); Mean Corpuscular Volume 80.8 fL (80.0-98.0); Mean Platelet Volume 10.7 fL (9.4-12.4); Monocytes Absolute Auto 1.5 X10*3/uL (0.1-1.2); Monocytes Percent Auto 9.6 % (2-11); Neutrophils Absolute Auto 10.4 x10*3/uL (2.0-8.3); Neutrophils Percent Auto 65.2 % (45-73); Platelet Count 300 X10*3/uL (160-400); Red Blood Count 5.53 X10*6/uL (4.60-5.80); Red Cell Distribution Width 14.4 % (11.0-16.0); SCAN SMEAR FLAG 1; White Blood Count 15.9 X10*3/uL (4.8-10.8)
[2024-02-18 14:10] LABS: Squamous Epithelial Cell Urine 0-2 /HPF (0-2); UACC Culture Trigger YES; WBC Urine >50 /HPF (0-5)
[2024-02-18 14:11] LABS: Bacteria Urine 2+ (None Seen); Hyaline Casts Urine 0-2 /LPF (0-2); Other Crystals Urine Present
[2024-02-18 14:21] LABS: SLIDE REVIEW VERIFIED
[2024-02-18 16:15] LABS: Anion Gap 11 (12-20); Blood Urea Nitrogen 17 mg/dL (9-16); Calcium 9.2 mg/dL (8.4-10.2); Carbon Dioxide 27 mmol/L (22-29); Chloride 105 mmol/L (96-108); Estimated Glomerular Filt Rate > 60; Glucose Random 163 mg/dL (60-115); Potassium 4.3 mmol/L (3.3-5.1); Sodium 139 mmol/L (135-145)
== END 2024-02-18 11:05 | disposition home or self-care (01) ==
LOC: HO.10HDL 11:04
PROVIDERS: Visit Provider Internal Medicine
DX: R30.0 Dysuria (principal)
CPT/HCPCS: 36415; 80048; 81001; 85025; 87086; 87088; 87186

== ENCOUNTER 2024-04-20 15:52 | Outpatient (REF) | payer MEDICARE, SELFPAY ==
[2024-04-20 18:07] LABS: Appearance Urine Cloudy; Color Urine Yellow; Glucose Urine UA >=1000 mg/dL (Negative); Leukocyte Esterase Urine Trace (Negative); Nitrite Urine Positive (Negative); Specific Gravity - Urine 1.025 (1.005-1.025); UMIC TRIGGER UA YES; Urine Blood Negative (Negative); Urine Ketones Negative (Negative); Urine Protein Negative (Neg-Trace)
[2024-04-20 18:12] LABS: Bacteria Urine 4+ (None Seen); Hyaline Casts Urine 0-2 /LPF (0-2); RBC Urine 0-2 /HPF (0-2); Squamous Epithelial Cell Urine 0-2 /HPF (0-2); WBC Urine 21-50 /HPF (0-5)
== END 2024-04-20 15:53 | disposition home or self-care (01) ==
LOC: HO.LAB 15:52
PROVIDERS: PCP Internal Medicine; Visit Provider Internal Medicine
DX: R30.0 Dysuria (principal)
CPT/HCPCS: 81001; 87086; 87088; 87186

== ENCOUNTER 2024-07-14 16:49 | Outpatient (REF) | payer MEDICARE, SELFPAY ==
[2024-07-14 17:08] LABS: MANUAL DIFF FLAG NO
[2024-07-14 17:41] LABS: Basophils Percent Auto 0.4 % (0-2); Eosinophils Absolute Auto 0.1 X10*3/uL (0.0-0.4); Eosinophils Percent Auto 1.3 % (0-4); Hematocrit 41.8 % (42.0-52.0); Hemoglobin 13.2 g/dl (14.0-18.0); Imm Gran Abs Auto 0.03 X10*3/uL (0.00-0.03); Imm Gran Pct Auto 0.3 % (0.0-0.4); Lymphocytes Absolute Auto 2.9 X10*3/uL (1.2-4.9); Lymphocytes Percent Auto 26.8 % (20-40); Mean Corpuscular HGB Conc 31.6 g/dl (31.0-36.0); Mean Corpuscular Hemoglobin 26.1 pg (27.0-33.0); Mean Corpuscular Volume 82.6 fL (80.0-98.0); Monocytes Absolute Auto 1.1 X10*3/uL (0.1-1.2); Neutrophils Absolute Auto 6.7 x10*3/uL (2.0-8.3); Neutrophils Percent Auto 61.2 % (45-73); Platelet Count 250 X10*3/uL (160-400); Red Blood Count 5.06 X10*6/uL (4.60-5.80); Red Cell Distribution Width 14.4 % (11.0-16.0); White Blood Count 10.9 X10*3/uL (4.8-10.8)
[2024-07-14 17:50] LABS: Alanine Aminotransferase 12 U/L (0-40); Albumin Level 3.5 g/dL (3.5-5.0); Alkaline Phosphatase 116 U/L (39-117); Anion Gap 13 (12-20); Aspartate Amino Transferase 11 U/L (5-37); Bilirubin Total 0.4 mg/dL (0.0-1.0); Blood Urea Nitrogen 17 mg/dL (9-16); C Reactive Protein 2.49 mg/dL (< or = 0.50); Calcium 9.5 mg/dL (8.4-10.2); Carbon Dioxide 26 mmol/L (22-29); Chloride 108 mmol/L (96-108); Estimated Glomerular Filt Rate > 60; Glucose Random 291 mg/dL (60-115); Potassium 5.2 mmol/L (3.3-5.1); Sodium 142 mmol/L (135-145); Total Protein 7.1 g/dL (6.5-8.0)
[2024-07-15 09:11] LABS: Estimated Average Glucose 249 mg/dL; Hemoglobin A1c % 10.3 % (<6.0)
== END 2024-07-14 16:50 | disposition home or self-care (01) ==
LOC: HO.LAB 16:49
PROVIDERS: PCP Internal Medicine; Visit Provider Internal Medicine
DX: E11.9 Type 2 diabetes mellitus without complications (principal); R30.0 Dysuria; M19.90 Unspecified osteoarthritis, unspecified site; K21.9 Gastro-esophageal reflux disease without esophagitis
CPT/HCPCS: 36415; 80053; 82550; 83036; 85025; 86140

== ENCOUNTER 2024-09-08 14:18 | Outpatient (REF) | payer MEDICARE, SELFPAY ==
--- NOTE | ~2024-09-08 | CT_ITS ---
EXAMINATION: CT HEAD WITHOUT CONTRAST CLINICAL INFORMATION: Head injury. COMPARISON: None available. TECHNIQUE: Contiguous axial imaging was performed from the skull base to vertex without intravenous administration of contrast. This CT examination was performed using dose optimization techniques as appropriate, variously including the following: *Automated exposure control *Adjustment of mA and/or kV according to patient size (this includes techniques or standardized protocols for targeted exams where dose is matched to indication/reason for exam; i.e. extremities or head) *Use of iterative reconstruction technique DLP: 870 mGy-cm FINDINGS: No acute intracranial hemorrhage. No mass effect or midline shift. No parenchymal lesion. The juan-white differentiation is maintained. No extra-axial fluid collection. The ventricles and sulci are unremarkable. The basal cisterns are patent. The calvarium is intact. The visualized paranasal sinuses and mastoid air cells are clear. CT/CT head/brain wo IV con IMPRESSION: No acute intracranial hemorrhage or mass effect. Electronically signed by: Javid Ortiz MD 09/08/2024 03:53 PM [facility]
== END 2024-09-08 14:19 | disposition home or self-care (01) ==
LOC: HO.CT 14:18
PROVIDERS: PCP Internal Medicine; Visit Provider Internal Medicine
DX: S09.90XA Unspecified injury of head, initial encounter (principal)
CPT/HCPCS: 70450

== ENCOUNTER 2024-11-30 14:59 | Outpatient (AMB) | payer MEDICARE, SELFPAY ==
[2024-11-30 15:00] VITALS: BMI 54.4
--- NOTE | 2024-11-30 15:00 | A.OFFVIS_ITS ---
Vital Signs 11/30/24 15:00 Height 5 ft 11 in Weight 389 lb 15.999 oz BMI 54.4 BP not taken reason Medical Reason Intake Visit Reasons: groin pain, spot near groin area Intake Note: This patient presents for groin pain. Pt c/; open wound right groin. 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 For blood sugars: 150-200: 4units 201-250: 6units 251-300: 8units 301-350: 10units 351-400: 15units 401-450: 20units >450 call insulin glargine (Basaglar KwikPen U-100 Insulin) 50 units subcut BEDTIME nystatin 1 applic topical BID oxycodone 15 mg PO Q4H PRN pantoprazole 40 mg PO BID simvastatin 40 mg PO BEDTIME HPI HPI groin pain, spot near groin area: Details: 64-year-old male here because of what she describes as a wound on his right groin area. He has had this for several weeks. He says that this actually seems to be getting better. He was worried that this may be infected He is uncertain as to how this started. He does have multiple medical problems. He has severe morbid obesity. He has obstructive sleep apnea, coronary artery disease, and a history of DVTs.. He has difficulty with ambulation and has chronic back pain. He also had multiple setons placed for a perianal infection in [facility] last month he says. [facility] Medical History (Updated 11/30/24 @ 15:25 by Ganga Reardon MD) Open wound EPI (obstructive sleep apnea) Dysphagia Chronic back pain Chronic neck pain Chronic edema Pulmonary nodule Cellulitis, gluteal PONV (postoperative nausea and vomiting) COVID-19 vaccine series completed Leg swelling Hx of deep venous thrombosis Hx of hyperlipidemia HTN (hypertension) GERD (gastroesophageal reflux disease) Myocardial infarct, old Back pain Septic shock Cardiac arrest COVID-19 Asthma Obesity Sleep apnea High cholesterol Diabetes Surgical History History of removal of laparoscopic gastric banding device History of arthroscopy of both knees Hx of colonoscopy History of esophagogastroduodenoscopy (EGD) History of ankle surgery History of umbilical hernia repair Hx of cholecystectomy Personal history of gastric banding Social History Household Members: Family Household Members Other:: mother Housing: House Are you a primary after school caregiver to a significant other at home: Yes (for mother, sister also helps and will dos) Do you presently have visiting nurse or other home services: No Alcohol intake: never Comment: sleeping Patient Tobacco Use Status: Never used Tobacco Advance Directives Date on File: 11/20/20 service: No Current occupational status: retired Review of Systems Const Denies chills and Denies fever(s) Card Denies chest pain, Reports dyspnea, Reports dyspnea on exertion and Reports orthopnea Resp Denies cough, Reports dyspnea and Reports dyspnea on exertion GI Denies hematochezia and Denies change in bowel habits Denies hematuria and Denies difficulty urinating Musc Reports abnormal gait, Reports back pain and Denies limited range of motion Neuro Reports abnormal gait, Denies focal weakness and Denies convulsions Psych Denies depression and Denies mood swings Physical Exam Vital Signs: BMI result Body Mass Index 54.4 Const Other: Morbidly obese, using a walker, frail looking General: comfortable Resp Effort & Inspection: normal respiratory effort Cardio Rate: regular rate GI Palpation (GI): Soft to palpation, not firm and nontender Skin Other: On the right groin area is note of a superficial ulcerating wound, about 1.5 cm in widest dimension, without cellulitic changes, no pus Assessment & Plan Assessment & Plan (1) Open wound: Code(s): T14.8XXA - Other injury of unspecified body region, initial encounter Category: Medical Plan: He has this superficial ulcerating open wound on the right groin as described above. The etiology is uncertain. This may be secondary to frequent rubbing of his skin folds. This does not appear to be infected at this time. There were no cellulitic changes. There is no pus. I told him that he would benefit from good wound care. I told him to keep the area clean and dry. He should watch this frequently and apply dry dressings. I did tell him that he should come back to the office for follow-up if he notices worsening or non improvement. He is comfortable with the plan. Coding Level of Care Code Est Pt Level 3 (93328) Diagnoses Open wound T14.8XXA
--- OUTSIDE RECORDS SUMMARY | 2024-11-30 18:52 | XMS_ITS | Continuity of Care Document ---
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 Cook who was available but who did not see the patient. HPI: Patient comes in for recheck of left knee pain. Has known osteoarthritis in the medial compartment of the knee(s). Been treated conservatively with cortisone injection to this point with 2 months relief of symptoms. No new injury or modalities. Past family, medical, social history and review of systems has been reviewed, updated and is located in the patient? s chart. Examination:The patient is well appearing and in no apparent distress. Alert and oriented x3. Vital signs per intake sheet. Examination of the left knee reveals Mild effusion. No erythema or warmth. Decreased range of motion. Slight varus deformity. Point tender over the medial joint line. Calf soft and nontender. 4+/5 strength of knee flexion extension. Impression: Osteoarthritis, left knee Plan: Nature of the diagnosis discussed with the patient today. Both surgical and nonsurgical options were reviewed. Conservative measures were discussed at length including but not limited to physical therapy, bracing, anti-inflammatori es and injection therapies. Please see the procedure note for documentation about the injection performed today. Follow-up with us in 3 months for discussion of continued conservative management versus surgical management. [email or web address] Not available 11/25/2024 11:52:58 Plan of Treatment Reminders Order Date Submit Date Provider Last Modified By Organization Details Last Modified Time Details Appointments INJECTION ONLY 15 2024 01:00P M Marbin Hernandez PA-C Not available Not available Not available INJECTION ONLY 2024 01:00P M Marbin Hernandez PA-C Not available Not available Not available INJECTION ONLY 2024 01:00P M Marbin Hernandez PA-C Not available Not available Not available Lab None recorded. Referral None recorded. Procedures None recorded. Surgeries None recorded. Imaging None recorded. Medication Orders None recorded. Patient TargetsNo targets recorded. Patient InstructionsNo instructions recorded. Reason for Referral None Reported. Problems Name Problem SNOMED Code Status Onset Date Resolution Date Notes Provider Name and Address Organization Details Recorded Time Trigger finger of right hand 736613235955677 01 Active 2023 Quita Ewing CNP [address], [place], [address], [facility] 4 12:51:28 Carpal tunnel syndrome 27116167 Active 2023 Quita Ewing CNP [address], [place], [address], [facility] 4 12:52:00 Problem Notes None recorded. Procedures Surgical History Date Name Laterality Status Provider Name and Address Organization Details Recorded Time 5 JZKNEE INJ completed Marbin Hernandez PA-C [address], [place], [address], [facility] 11/25/2024 07:55:54 5 JZKNEE INJ completed Marbin Hernandez PA-C [address], [place], [address], [facility] 11/15/2024 18:18:23 4 Sports Knee 4&1 completed Edwardo Holland PA-C [address], [place], [address], [facility] 08/18/2024 14:20:04 4 VISCO-3 Knee Injection completed Edwardo Holland PA-C [address], [place], [address], [facility] 08/17/2024 12:46:43 4 VISCO-3 Knee Injection completed Marbin Hernandez PA-C [address] [facility], [place], [address], [facility] 08/09/2024 20:21:46 4 VISCO-3 Knee Injection completed Edwardo Holland PA-C [address] [facility], [place], [address], [facility] 11/16/2024 07:36:01 4 Trigger Finger Kenalog Injection completed Quita Ewing CNP [address] [facility], [place], [address], [facility] 05/25/2024 12:51:14 4 Sports Knee 4&1 completed Edwardo Holland PA-C [address] [facility], [place], [address], [facility] 05/02/2024 12:44:22 4 Sports Knee 4&1 completed Edwardo Holland PA-C [address] [facility], [place], [address], [facility] 03/29/2024 12:33:39 4 Sports Knee 4&1 completed Edawrdo Holland PA-C [address] [facility], [place], [address], [facility] 02/07/2024 16:45:07 Imaging Results None recorded. Procedure Notes None recorded. Medical Equipment None Reported. Allergies Allergen ID Allergen Name Allergen Category Reaction Reaction Severity Criticality Documentation Date Start Date Code Code System Note Provider Name and Address Organization Details Recorded Time 763508 vancomyci n medicatio n Not available Not available Not available 02/07/2024 66364 RxNorm [facility] 15:58:40 Medications Name Sig Start Date Stop Date Status Note LastModified by Organization Details LastModified Time amoxicillin 500 mg capsule active Not Available Not Available Not Available carvedilol 12.5 mg tablet active Not Available Not Available Not Available hydromorpho ne 8 mg tablet active Not Available Not Available Not Available clopidogrel 75 mg tablet active Not Available Not Available Not Available simvastatin 40 mg tablet active Not Available Not Available Not Available oxycodone 15 mg tablet active Not Available Not Available Not Available oxycodone-a cetaminophe n 5 mg-325 mg tablet active Not Available Not Available No t Available amoxicillin 875 mg tablet active Not Available Not Available Not Available lorazepam 0.5 mg tablet active Not Available Not Available Not Available pantoprazol e 40 mg tablet,zoltan yed release active Not Available Not Available Not Available nystatin 100,000 unit/gram topical cream active Not Available Not Available Not Available docusate sodium 100 mg capsule active Not Available Not Available N ot Available morphine ER 15 mg tablet,exte nded release active Not Available Not Available Not Available nystatin 100,000 unit/gram topical powder active Not Available Not Available Not Available ibuprofen 600 mg tablet active Not Available Not Available Not Available cefuroxime axetil 500 mg tablet active Not Available Not Available No t Available doxycycline hyclate 100 mg tablet TAKE 1 TABLET BY MOUTH EVERY 12 HOURS FOR 10 DAYS. active Not Available Not Available No t Available diazepam 5 mg tablet active Not Available Not Available No t Available amoxicillin 875 mg-potassiu m clavulanate 125 mg tablet TAKE 1 TABLET BY MOUTH TWO TIMES A DAY FOR 10 DAYS active Not Available Not Available No t Available Ventolin HFA 90 mcg/actuati on aerosol inhaler active Not Available Not Available Not Available oxycodone 5 mg tablet active Not Available Not Available No t Available Novolog FlexPen U-100 Insulin aspart 100 unit/mL (3 mL) subcutaneou s active Not Available Not Available Not Available cyclobenzap rine 5 mg tablet active Not Available Not Available Not Available clindamycin HCl Clindamyc in HCl 150MG Capsule 04/16 completed Statu s: 'Disc ontin ued'; Not Available Not Available Not Available oxycodone 10 mg tablet TAKE 1 TABLET BY MOUTH EVERY 6 HOURS NEEDED FOR SEVERE PAIN. CAN TAKE IN ADDITION TO 15MG FROM HOME FOR UP TO 5 DAYS NEEDED FOR SEVERE PAIN. active Not Available Not Available No t Available oxycodone HCl-oxycodo ne-ASA oxyCODONE HCl 5MG Tablet 04/16 completed Statu s: 'Disc ontin ued'; Not Available Not Available Not Available UltiCare Pen Needle 32 gauge x active Not Available Not Available Not Available True Metrix Glucose Test Strip active Not Available Not Available N ot Available True Metrix Glucose Meter active Not Available Not Available Not Available Basaglar KwikPen U-100 Insulin 100 unit/mL (3 mL) subcutaneou s active Not Available Not Available Not Available Admelog SoloStar U-100 Insulin lispro 100 unit/mL subcutaneou s pen active Not Available Not Available Not Available Vitals Date Recorded Body height Body mass index (BMI) Body weight Provider Name and Address Organization Details Last Updated DateTime 11/25/2024 182.88 cm 52.1 kg/m2 825274.47 g REBECCA KIRAN [facility] 11/25/2024 11:00:44 Social History Question Answer Notes LastModified by Organizat ion Details LastModified Time Tobacco Smoking Status Smoker, Current Status Unknown JAM wolf [facility] 11/15/2024 17:28:08 What Is Your Relationship Status? Unknown snop Information not available 11/15/2024 Sex: Unknown Functional Status None recorded. Mental Status None recorded. Family History Nothing Reported. Medical History Condition Response Cholesterol Y Acid Reflux (GERD) Y Past Encounters Encounter ID Performer Location Encounter Start Date Encounter Closed Date Diagnosis/Indication Diagnosis SNOMED-CT Code Diagnosis ICD10 Code Diagnosis Note [id number] [facility] [address] [place] [address] 11/15/2024 16:59:17 11/27/2024 12:41:10 Osteoarthritis of right knee joint 6350086998 81809 M17.11 [id number] [facility] [address] [place] [place] [address] 11/25/2024 10:47:46 11/25/2024 11:53:16 Osteoarthritis of left knee joint 4861265453 91353 M17.12 Health Concerns Section Related Observation LastModified by Organization Cyndie baldwin LastModified Time None Recorded Concern Status LastModified by Organization Details LastModified Time None Recorded Payers Encounter Date Sequence Insurance Name Policy Number Policy Broderick Covered Member ID Broderick Member ID Guarantor Name 11/25/2024 2 [place] [id number] Mason Martin [id number] Mason Martin Sr 11/25/2024 1 [place] [facility]MENT [facility] Mason Martin Sr [id number] Mason Martin Sr
--- OUTSIDE RECORDS SUMMARY | 2024-11-30 18:52 | XMS_ITS | Continuity of Care Document ---
Author Organization [place] - [facility], RAJAT Bagley 1st Floor Address [address] [place] [address] Care Team Providers Care Station Gateman Name Role Phone BLANQUITASANDRA RENDON Primary Care Provider Assessment Encounter Date Assessment Date Assessment LastModified by Organization Details LastModified Time 11/15/2024 11/15/2024 I am seeing the patient today under the supervision of Dr. Reese who was available but who did not see the patient. HPI: Patient comes in for recheck of right knee pain. Has known osteoarthritis in the medial compartment of the knee(s). Been treated conservatively with cortisone injection to this point with 1 months relief of symptoms. No new injury or modalities. Past family, medical, social history and review of systems has been reviewed, updated and is located in the patient? s chart. Examination:The patient is well appearing and in no apparent distress. Alert and oriented x3. Vital signs per intake sheet. Examination of the right knee reveals Mild effusion. No erythema or warmth. Decreased range of motion. Varus deformity. Point tender over the medial joint line. Calf soft and nontender. 4+/5 strength of knee flexion extension. Impression: Osteoarthritis, right knee Plan: Nature of the diagnosis discussed with the patient today. Both surgical and nonsurgical options were reviewed. Conservative measures were discussed at length including but not limited to physical therapy, bracing, anti-inflammatori es and injection therapies. Please see the procedure note for documentation about the injection performed today. Follow-up with us as scheduled for discussion of continued conservative management versus surgical management. [email or web address] Not available 11/15/2024 18:19:00 Plan of Treatment Reminders Order Date Submit [...] Recorded Time Trigger finger of right hand 515854779856697 01 Active 2023 Quita Ewing CNP [address], [place], [address], [facility] 12:51:28 Carpal tunnel syndrome 23580028 Active 2023 Quita Ewing CNP [address], [place], [address], [facility] 12:52:00 Problem Notes None recorded. Procedures Surgical History Date Name Laterality Status Provider Name and Address Organization Details Recorded Time 5 JZKNEE INJ completed Marbin Hernandez PA-C [address] [facility], [place], [address], [facility] 11/25/2024 07:55:54 5 JZKNEE INJ completed Marbin Hernandez PA-C [address], [place], [address], [facility] 11/15/2024 18:18:23 4 Sports Knee 4&1 completed Edwardo Holland PA-C [address], [place], [address], [facility] 08/18/2024 14:20:04 4 VISCO-3 Knee Injection completed Edwardo Holland PA-C [address], [place], [address], [facility] 08/17/2024 12:46:43 4 VISCO-3 Knee Injection completed Marbin Hernandez PA-C [address], [place], [address], [facility] 08/09/2024 20:21:46 4 VISCO-3 Knee Injection completed Edwardo Holland PA-C [address] [facility], [place], [address], [facility] 11/16/2024 07:36:01 4 Trigger Finger Kenalog Injection completed Quita Ewing CNP [address] [facility], [place], [address], [facility] 05/25/2024 12:51:14 4 Sports Knee 4&1 completed Edwardo Holland PA-C [address] [facility], [place], [address], [facility] 05/02/2024 12:44:22 4 Sports Knee 4&1 completed Edwardo Holland PA-C [address] [facility], [place], [address], [facility] 03/29/2024 12:33:39 4 Sports Knee 4&1 completed Edwardo Holland PA-C [address] [facility], [place], [address], [facility] 02/07/2024 16:45:07 Imaging Results None recorded. Procedure Notes None recorded. Medical Equipment None Reported. Allergies Allergen ID Allergen Name Allergen Category Reaction Reaction Severity Criticality Documentation Date Start Date Code Code System Note Provider Name and Address Organization Details Recorded Time 492824 vancomyci n medicatio n Not available Not available Not available 02/07/2024 38509 RxNorm [facility] 15:58:40 Medications Name Sig Start Date [...] and Address Organization Details Last Updated DateTime 11/15/2024 182.88 cm 52.1 kg/m2 898240.47 g JAM GARCIA [facility] 11/15/2024 17:28:01 Social History Question Answer Notes LastModified by Organizat ion Details LastModified Time Tobacco Smoking Status Smoker, Current Status Unknown SREYPISEMahogany GARCIA null, [facility] 11/15/2024 17:28:08 What Is Your Relationship Status? Unknown snop Information not available 11/15/2024 Sex: Unknown Functional Status None recorded. Mental Status None recorded. Family History Nothing Reported. Medical History Condition Response Acid Reflux (GERD) Y Cholesterol Y Past Encounters Encounter ID Performer Location Encounter Start Date Encounter Closed Date Diagnosis/Indication Diagnosis SNOMED-CT Code Diagnosis ICD10 Code Diagnosis Note [id number] [facility] 1[address] [facility] [place] [address] 11/15/2024 16:59:17 11/27/2024 12:41:10 Osteoarthritis of right knee joint 8759179475 48449 M17.11 Health Concerns Section Related Observation LastModified by Organization Detai ls LastModified Time None Recorded Concern Status LastModified by Organization Details LastModified Time None Recorded Payers Encounter Date Sequence Insurance Name Policy Number Policy Broderick Covered Member ID Broderick Member ID Guarantor Name 11/15/2024 2 [place] [id number] Mason Martin [id number] Mason Martin Sr 11/15/2024 1 [place] [employer] [employer] Mason Martin Sr [id number] Mason Martin Sr
--- OUTSIDE RECORDS SUMMARY | 2024-11-30 18:53 | XMS_ITS | Data Portability ---
Author Organization [facility], [facility] Address [address] [place] [address] Care Team Providers Care Hvac Instructor Name Role Phone SANDRA SIMPSON Primary Care Provider [phone] Assessment Encounter Date Assessment Date Assessment LastModified by Organization Details LastModified Time 08/10/2024 08/10/2024 I am seeing the patient today under the supervision of Dr. Sol who was available but who did not see the patient. Please see procedure documentation for further information about the injection performed today. [email or web address] Not available 08/09/2024 20:22:01 11/15/2024 11/15/2024 I am seeing the patient [...] of continued conservative management versus surgical management. Not available 11/15/2024 18:19:00 11/25/2024 11/25/2024 I am seeing the patient [...] of continued conservative management versus surgical management. Not available 11/25/2024 11:52:58 Plan of Treatment Reminders Order Date Submit Date Provider Last Modified By Organization Details Last Modified Time Details Appointments INJECTION ONLY 2024 01:00P M Marbin Hernandez [...] None recorded. Patient TargetsNo targets recorded. Patient Instructions Encounter Date Encounter Id Patient Instructions Last Modified By Organization Details Last Modified Time 08/10/2024 [id number] You have been provided with a viscosupplementation injection in order to reduce the pain that you are experiencing from your arthritis. The injection consists of a lubricating injection called hyaluronic acid. Please note that not everyone will have a lasting response following the injection. PATIENT INSTRUCTIONS I recommend icing the affected area for 20 minutes 3-4 times per day. It is recommended that you refrain from any high level activities using the joint or limb that was injected for approximately 24-48 hours. Normal day-to-day activities are generally not a problem. POSSIBLE SIDE EFFECTS Individuals with dark complexions may experience some skin discoloration locally at the site of the injection. There is the possibility of an increase in discomfort within 48 hours following the injection. This is called a ? flare? . To help minimize the chances of this, please see the post-injection instructions above. There is a less than 1% chance of an infection. If you notice any signs of infection (redness, warmth, drainage, fever greater than 100 degrees) please call our office or contact us through the portal TIFFANIE. [email or web address] Not available 08/09/2024 20:22:06 Reason for Referral None Reported. Problems Name Problem SNOMED Code Status Onset Date Resolution Date Notes Provider Name and Address Organization Details Recorded Time Trigger finger of right hand 979752586624703 01 Active 2023 Quita Ewing CNP [address] [facility], [place], [address], [facility] 4 12:51:28 Carpal tunnel syndrome 43884806 Active 2023 Quita Ewing CNP [address], [place], [address], [facility] 4 12:52:00 Problem Notes None recorded. Procedures Surgical History Date Name Laterality Status Provider Name and Address Organization Details Recorded Time 5 JZKNEE INJ completed Marbin Hernandez PA-C [address] [facility], [place], [address], [facility] 11/25/2024 07:55:54 5 JZKNEE INJ completed Marbin Hernandez PA-C [address] [facility], [place], [address], [facility] 11/15/2024 18:18:23 4 Sports Knee 4&1 completed Edwardo Holland PA-C [address], [place], [address], [facility] 08/18/2024 14:20:04 4 VISCO-3 Knee Injection completed Edwardo Holland PA-C [address], [place], [address], [facility] 08/17/2024 12:46:43 4 VISCO-3 Knee Injection completed Marbin Hernandez PA-C [address], [place], [address], [facility] 08/09/2024 20:21:46 4 VISCO-3 Knee Injection completed Edwardo Holland PA-C [address], [place], [address], [facility] 11/16/2024 07:36:01 4 Trigger Finger Kenalog Injection completed Quita Ewing, BUSINESS UNIT LEADER [address], [place], [address], [facility] 05/25/2024 12:51:14 4 Sports Knee 4&1 completed Edwardo Holland PA-C [address], [place], [address], [facility] 05/02/2024 12:44:22 4 Sports Knee 4&1 completed Edwardo Holland PA-C [address], [place], [address], [facility] 03/29/2024 12:33:39 4 Sports Knee 4&1 completed Edwardo Holland PA-C [address], [place], [address], [facility] 02/07/2024 16:45:07 Imaging Results None recorded. Procedure Notes None recorded. Medical Equipment None Reported. Allergies Allergen ID Allergen Name Allergen Category Reaction Reaction Severity Criticality Documentation Date Start Date Code Code System Note Provider Name and Address Organization Details Recorded Time 507560 vancomyci n medicatio n Not available Not available Not available 02/07/2024 50423 RxNorm MARIO wolf [place] - [facility] 4 15:58:40 Medications Name Sig Start Date Stop [...] Available Not Available pantoprazol e 40 mg tablet,zotlan yed release active Not Available Not Available [...] Not Available Vitals Date Recorded Body height Provider Name an d Address Organization Details Last Updated DateTime 07/31/2024 182.88 cm TOMASA CORTEZ [facility] 07/31/2024 11:01:01 Date Recorded Body height Body mass index (BMI) Body weight Provider Name and Address Organization Details Last Updated DateTime 08/10/2024 182.88 cm 52.1 kg/m2 952546.47 g ADITHYA PAYAN [facility] 08/10/2024 17:47:16 Date Recorded Body height Body mass index (BMI) Body weight Provider Name and Address Organization Details Last Updated DateTime 08/17/2024 182.88 cm 52.1 kg/m2 067035.47 g Jovanni Reardon [facility] 08/17/2024 14:04:08 Date Recorded Body height Body mass index (BMI) Body weight Provider Name and Address Organization Details Last Updated DateTime 11/15/2024 182.88 cm 52.1 kg/m2 558203.47 g JAM GARCIA [facility] 11/15/2024 17:28:01 Date Recorded Body height Body mass index (BMI) Body weight Provider Name and Address Organization Details Last Updated DateTime 11/25/2024 182.88 cm 52.1 kg/m2 149237.47 g REBECCA VILLALBAZ [facility] 11/25/2024 11:00:44 Social History Question Answer Notes LastModified by Organizat ion Details LastModified Time Tobacco Smoking Status Smoker, Current Status Unknown HERIBERTOYPMELISSA wolf, [facility] 11/15/2024 17:28:08 What Is Your Relationship Status? Unknown snop Information not available 11/15/2024 Sex: Unknown Functional Status None recorded. Mental Status None recorded. Family History Nothing Reported. Medical History Condition Response Acid Reflux (GERD) Y Cholesterol Y Past Encounters Encounter ID Performer Location Encounter Start Date Encounter Closed Date Diagnosis/Indication Diagnosis SNOMED-CT Code Diagnosis ICD10 Code Diagnosis Note [id number] Edwardo Holland PA-C [facility] [address] [place] [address] 02/07/2024 15:36:12 02/28/2024 14:29:52 Osteoarthritis of right knee joint 6176278192 46103 M17.11 [id number] Edwardo Holland PA-C [facility] [address] [place] [address] 03/24/2024 13:41:55 04/12/2024 14:51:21 Osteoarthritis of left knee joint 3348638478 29148 M17.12 [id number] Edwardo Holland PA-C [facility] [address] [place] [address] 04/27/2024 13:53:28 05/24/2024 14:42:03 Osteoarthritis of right knee joint 3234884839 00104 M17.11 [id number] Quita Ewing, BUSINESS UNIT LEADER [facility] [address] [place] [address] 05/25/2024 10:08:43 06/13/2024 08:59:12 Carpal tunnel syndrome 33491950 G56.00 Trigger fi nger of right hand 8203767805 0674813 M65.30 [id number] [facility] [address] [place] [address] 07/31/2024 10:52:23 2024 09:46:04 Osteoarthritis of right knee joint 0410534959 98583 M17.11 Osteoarthr itis of left knee joint 6363253186 28705 M17.12 [id number] Marbin Hernandez PA-C [facility] [address] [place] [address] 08/10/2024 17:41:26 09/05/2024 13:02:02 Bilateral osteoarthritis of knees 3962977561 84096 M17.0 [id number] Edwardo Holland PA-C [address] [address] [place] [address] 08/17/2024 13:52:05 09/08/2024 11:32:48 Osteoarthritis of right knee joint 1831037106 72685 M17.11 Osteoarthr itis of left knee joint 6089742651 11588 M17.12 [id number] Marbin Hernandez PA-C [facility] [address] [place] [address] 11/15/2024 16:59:17 11/27/2024 12:41:10 Osteoarthritis of right knee joint 3792176819 13942 M17.11 [id number] Marbin Hernandez PA-C [facility] [address] [place] [address] 11/25/2024 10:47:46 11/25/2024 11:53:16 Osteoarthritis of left knee joint 5738001758 90969 M17.12 Health Concerns Section Related Observation LastModified by Organization Detai ls LastModified Time None Recorded Concern Status LastModified by Organization Details LastModified Time None Recorded Advance Directives Directive None Recorded Payers Encounter Date Sequence Insurance Name Policy Number Policy Broderick Covered Member ID Broderick Member ID Guarantor Name 07/31/2024 2 [place] [id number] Mason Martin [id number] Mason Martin Sr 07/31/2024 1 [place] [facility] Mason Martin Sr [id number] Mason Martin Sr 08/10/2024 2 [place] [id number] Mason Martin [id number] Mason Martin Sr 08/10/2024 1 [place] [employer] [place] Mason Martin Sr [id number] Mason Martin Sr 08/17/2024 2 [place] [id number] Mason Martin [id number] Mason Martin Sr 08/17/2024 1 [place] [employer] [place] Mason Martin Sr [id number] Mason Martin Sr 11/15/2024 2 [place] [id number] Mason Martin [id number] Mason Martin Sr 11/15/2024 1 [place] Mason Martin Sr [id number] 2 Mason Martin Sr 11/25/2024 2 [place] [id number] Mason Martin [id number] Mason Martin Sr 11/25/2024 1 [place] [place] Mason Martin Sr [id number] 2 Mason Martin Sr Notes Date Note Type Note Provider Name and Address Organization Details Recorded Time 07/31/2024 text/html I am seeing the patient today under the supervision of {{Trina Sol}} who was available but who did not see the patient. Reason For Visit Patient is here today for visco 3 injections #{{1* 2 3}} of {{bilateral* left ri ght}} knees. Patient reports no adverse reaction from previous injections. Physical Findings Evaluation of the knees reveal no evidence of infection, no significant joint effusion, no warmth, or erythema. The injection sites are benign. Calves are supple and nontender. 5/5 strength. Some discomfort with range of motion. Assessment ? ? Osteoarthritis of knee -{{left right bilate ral*}} knees Plan After meticulous sterile preparation, they were injected with #{{1* 2 3}}visco 3. Post-injection precautions were reviewed. I recommend ice, restriction of activities and re-evaluation next week for follow up injection. Edwardo Holland PA-C [address], [place], [address], [facility] 11/16/2024 07:36:10 08/17/2024 text/html I am seeing the patient today under the supervision of {{Wanda* Gregoria Sol}} who was available but who did not see the patient. Reason For VisitPatient is here today for Visco 3 injections #{{1 2 3*}} of {{bilateral* left ri ght}} knees. Patient reports no adverse reaction from previous injections. Physical Findings Evaluation of the knees reveal no evidence of infection, no significant joint effusion, no warmth, or erythema. The injection sites are benign. Calves are supple and nontender. 5/5 strength. Some discomfort with range of motion. Assessment? ? Osteoarthritis of knee -{{left right bilate ral*}} knees Plan After meticulous sterile preparation, the patient's right knee was injected with 1 cc of Kenalog 40 mg/cc 4 cc Marcaine and 1% then both of the knees they were injected with #{{1 2 3*}}pVisco 3. Post-injection precautions were reviewed. I recommend ice, restriction of activities and re-evaluation next week for follow up injection. Edwardo Holland PA-C [address], [place], [address], [facility] 08/18/2024 14:20:42
== END 2024-11-30 15:21 | disposition home or self-care (01) ==
PROVIDERS: PCP Internal Medicine; Visit Provider Surgery
DX: T14.8XXA Other injury of unspecified body region, initial encounter (principal)
CPT/HCPCS: 99213

== ENCOUNTER → 2024-11-30 14:59 | Outpatient (BNVA) | payer MEDICARE, SELFPAY | PROVIDERS: PCP Internal Medicine; Visit Provider Surgery | DX: L98.499 Non-pressure chronic ulcer of skin of other sites with unspecified severity (principal); E66.01 Morbid (severe) obesity due to excess calories; G47.33 Obstructive sleep apnea (adult) (pediatric); I25.10 Atherosclerotic heart disease of native coronary artery without angina pectoris; Z68.43 Body mass index [BMI] 50.0-59.9, adult; Z86.718 Personal history of other venous thrombosis and embolism | CPT/HCPCS: 99212 ==

== ENCOUNTER 2025-02-14 08:43 | Outpatient (AMB) | payer MEDICARE, SELFPAY ==
[2025-02-14 08:47] VITALS: BP 138/74; PULSE 94; TEMP 36.5; O2SAT 96; BMI 53.0
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
--- OUTSIDE RECORDS SUMMARY | 2025-02-14 09:05 | XMS_ITS | Continuity of Care Document ---
Author Organization [facility] Address [address] [facility] [address] [place] [id number] Phone [phone] Social History Type Date Description Comments Sex Unknown Medical Devices Description No Information Available Encounters Description No Information Available Assessments Description No Information Available Plan of Treatment No Information Available Functional Status Description No Information Available Mental Status Description No Information Available Referrals Description No Information Available
== END 2025-02-14 09:19 | disposition home or self-care (01) ==
LOC: HO.HMCHD 08:43
PROVIDERS: PCP Internal Medicine; Visit Provider Internal Medicine
DX: E11.9 Type 2 diabetes mellitus without complications (principal); E66.01 Morbid (severe) obesity due to excess calories; G89.29 Other chronic pain; S90.852A Superficial foreign body, left foot, initial encounter

== ENCOUNTER → 2025-02-14 08:43 | Outpatient (BNVA) | payer MEDICARE, SELFPAY | PROVIDERS: PCP Internal Medicine; Visit Provider Internal Medicine | DX: Z13.89 Encounter for screening for other disorder (principal) | CPT/HCPCS: 99202 ==

== ENCOUNTER 2025-02-14 09:23 | Outpatient (REF) | payer MEDICARE, SELFPAY ==
[2025-02-14 09:51] LABS: Appearance Urine Clear; Color Urine Yellow; Glucose Urine UA >=1000 mg/dL (Negative); Leukocyte Esterase Urine Negative (Negative); Nitrite Urine Negative (Negative); Specific Gravity - Urine >= 1.030 (1.005-1.025); UMIC TRIGGER UA YES; Urine Blood Negative (Negative); Urine Ketones Trace mg/dL (Negative); Urine Protein Trace mg/dL (Neg-Trace)
[2025-02-14 09:54] LABS: Hemoglobin 12.9 g/dl (14.0-18.0); Mean Corpuscular HGB Conc 31.5 g/dl (31.0-36.0); Mean Corpuscular Volume 82.7 fL (80.0-98.0); Mean Platelet Volume 10.1 fL (9.4-12.4); Platelet Count 234 X10*3/uL (160-400); Red Blood Count 4.96 X10*6/uL (4.60-5.80); Red Cell Distribution Width 14.6 % (11.0-16.0); White Blood Count 9.8 X10*3/uL (4.8-10.8)
[2025-02-14 09:55] LABS: Bacteria Urine None Seen (None Seen); Hyaline Casts Urine 0-2 /LPF (0-2); RBC Urine 0-2 /HPF (0-2); Squamous Epithelial Cell Urine 0-2 /HPF (0-2); WBC Urine 0-5 /HPF (0-5)
--- OUTSIDE RECORDS SUMMARY | 2025-02-14 10:20 | XMS_ITS | Continuity of Care Document ---
Author Organization [facility] Address [address] [facility] [address] [place] [id number] Phone [phone] Social History Type Date Description Comments Sex Unknown Medical Devices Description No Information Available Encounters Description No Information Available Assessments Description No Information Available Plan of Treatment No Information Available Functional Status Description No Information Available Mental Status Description No Information Available Referrals Description No Information Available
[2025-02-14 10:21] LABS: Alanine Aminotransferase 11 U/L (0-40); Albumin Level 3.5 g/dL (3.5-5.0); Alkaline Phosphatase 111 U/L (39-117); Anion Gap 10 (12-20); Aspartate Amino Transferase 16 U/L (5-37); Bilirubin Direct 0.2 mg/dL (0.0-0.5); Bilirubin Total 0.4 mg/dL (0.0-1.0); Blood Urea Nitrogen 15 mg/dL (9-16); Carbon Dioxide 28 mmol/L (22-29); Chloride 108 mmol/L (96-108); Cholesterol 131 mg/dL (<200); Estimated Glomerular Filt Rate > 60; Glucose Random 262 mg/dL (60-115); HDL Cholesterol 43 mg/dL (>40); LDL Cholesterol Calculated 70 mg/dL (<100); Potassium 4.9 mmol/L (3.3-5.1); Sodium 141 mmol/L (135-145); Total Protein 6.8 g/dL (6.5-8.0); Triglycerides 92 mg/dL (<150)
[2025-02-14 10:26] LABS: Thyroid Stimulating Hormone 1.48 uIU/mL (0.32-4.0)
[2025-02-14 12:13] LABS: Estimated Average Glucose 220 mg/dL; Hemoglobin A1C 273.3905 umol/L; Hemoglobin A1c % 9.3 % (<6.0)
[2025-02-14 13:36] LABS: Creatinine Urine 173.32 mg/dL; Microalbum/Creatinine Ratio Ur 9.8 ug/mg cr (<30)
== END 2025-02-14 09:24 | disposition home or self-care (01) ==
LOC: HO.10HDL 09:23
PROVIDERS: Visit Provider Internal Medicine
DX: E11.9 Type 2 diabetes mellitus without complications (principal); E66.01 Morbid (severe) obesity due to excess calories; G89.29 Other chronic pain; S90.852D Superficial foreign body, left foot, subsequent encounter
CPT/HCPCS: 36415; 80048; 80061; 80076; 81001; 82043; 82570; 83036; 84443; 85027; 99202

== ENCOUNTER 2025-05-21 14:51 | Outpatient (AMB) | payer MEDICARE, SELFPAY ==
--- OUTSIDE RECORDS SUMMARY | 2025-05-21 15:37 | XMS_ITS | Continuity of Care Document ---
Author Organization [facility] Address [address] [facility] [address] [place] [phone] Phone [phone] Social History Type Date Description Comments Sex Male Sex Unknown Medical Devices Description No Information Available Encounters Description No Information Available Assessments Description No Information Available Plan of Treatment No Information Available Functional Status Description No Information Available Mental Status Description No Information Available Referrals Description No Information Available
--- OUTSIDE RECORDS SUMMARY | 2025-05-21 15:38 | XMS_ITS | Clinical Summary ---
Author Organization [facility] Address [address] [facility] [address] [place] [phone] Phone Care Team Providers Care Statistical Typist Name Role Phone Ganga Stanford MD Primary Care Provider Social History Tobacco Use Types Packs/Day Years Used Date Smoking Tobacco: Never Assessed Education Answer Date Recorded Are you interested in more education? Not on jack e 02/27/2023 Are you concerned about learning? Not on file 02/27/2023 No 02/27/2023 No 02/27/2023 Digital Access Answer Date Recorded No 03/30/2023 No 03/30/2023 Reliable internet access at home? Not on file 03/30/2023 Device with a working camera? Not on file Sex and Gender Information Value Date Recorded Sex Assigned at Not on file Legal Sex Male 2:45 PM EST Gender Identity Not on file Sexual Orientation Not on file Plan of Treatment Health Maintenance Due Date Last Done Comments Adult Td,Tdap Booster 1959 LIPID PANEL 1959 DEPRESSION SCREENING 1971 SMOKING Hx and SMOKELESS TOB ACCO SCREENING 1972 HEPATITIS C SCREENING 1977 HIV ONE-TIME SCREENING (18-6 5 YEARS) 1977 COLOGUARD 2004 COLONOSCOPY 2004 COLORECTAL CANCER SCREENING 2004 FIT TEST 2004 FOBT 2004 SIGMOIDOSCOPY 2004 VIRTUAL COLONOSCOPY 2004 PNEUMOCOCCAL VACCINES (50+ y ears) (1 of 1 - PCV) 2009 ZOSTER VACCINES (1 of 2) 2009 COVID-19 VACCINE (2023-2 5 season) 2024 RSV VACCINE (1 - 1-dose 75+ series) 2034 HEPATITIS A VACCINES Aged Out No long er eligible based on patient's age to complete this topic HIB VACCINES Aged Out No longer eligi ble based on patient's age to complete this topic MENINGOCOCCAL VACCINES (ACWY) Aged Out No longer eligible based on patient's age to complete this topic MENINGOCOCCAL VACCINES (B) Aged Out N o longer eligible based on patient's age to complete this topic Medical Devices Not on file Insurance MEDICARE PART A & B [facility] MEDEX SUPPLEMENT MEDICARE PART A & B [employer] SUPPLEMENT MEDICARE PART A & B [employer] [place] [address] MEDICARE PART A & B [employer] MED[employer] SUPPLEMENT MEDICARE PART A & B [employer] MEDEX SUPPLEMENT MEDICARE PART A & B [employer]OSS MEDEX SUPPLEMENT Care Teams Statistical Typist Relationship Specialty Start Date End Date Ganga Stanford MD [address] [place] [address] [place] [id number] PCP - General Internal Medicine 09/19/22 Additional Source Comments The information contained in this document represents components of the legal health record. It is not the complete legal health record.[facility]
[2025-05-21 15:56] VITALS: BP 144/78; PULSE 88; TEMP 36.7; O2SAT 96; BMI 53.8
--- NOTE | 2025-05-21 15:56 | MHC.OFFWIV ---
Intake Vital Signs 05/21/25 15:56 Height 5 ft 11 in Weight 386 lb BMI 53.8 BP 144/78 H Blood Pressure Location Rt brachial Position Sitting Pulse 88 Temp 98.1 F Temp Source Oral Pulse Oximetry (%) 96 Oxygen Delivery Method Room Air Intake Visit Reasons: EP-SOB, lt arm swollen, ears ache Patient Tobacco Use Status: Never used Tobacco Pulley Mortiser Operator Required: No Allergies vancomycin (VANCOMYCIN) Adverse Reaction (Severe, Verified 05/21/25 16:04) RENAL FAILURE, RASH Do you need a note to return to daycare/school/sports/work: No HPI HPI Comments History of Present Illness Details History - The patient is a 64-year-old male presenting with ear pain and concerns of possible infection following self-treatment for cerumen impaction. - He initially consulted Dr. Shelton for ear wax buildup and was advised to seek further treatment. - Self-treatment with ear irrigation initially alleviated symptoms but led to recurrent pain. - Symptoms re-emerged approximately one week ago, with swelling and discomfort noted in the affected ear. - Additional symptoms include headaches and neck pain, associated with a prior neck injury. - He experiences shortness of breath, particularly upon exertion, and has had episodes of chest pain. - He states that he had to call someone to come evaluate him at home last week for the same thing and he was told that everything was ok. - He is concerned that his rectal tubes have something to do with him being SOB. - He denies cold symptoms, dizziness, fever, chills, sore throat, cough, sinus pain or pressure. Physical Exam General: Cooperative, healthy appearing, comfortable, no acute distress and well developed Head: Normal to inspection Ears: External ears normal bilaterally. No tragus or mastoid tenderness noted. Cerumen noted in the canal on the right and left. Canal is swollen on the left. TM's not visualized. Face and sinus: Normal facial exam. No TTP of the sinuses. Neck: Normal visual inspection. Full ROM. No lymphadenopathy noted. Respiratory: Normal respiratory effort and able to speak in complete sentences. Clear to auscultation bilaterally. No w/r/r noted. Cardiac: RRR, no m/r/g noted. Normal S1 and S2 noted. Patient reports previous chest pain. Skin: No rashes or lesions noted Neuro: Patient oriented x3 Patient was informed and verbally consented to the use of an ambient scribe for clinic note documentation during this visit. [facility] Medical History (Updated 02/14/25 @ 09:20 by Oli Anglin MD) Chronic pain Open wound EPI (obstructive sleep apnea) Dysphagia Chronic back pain Chronic neck pain Chronic edema Pulmonary nodule Cellulitis, gluteal PONV (postoperative nausea and vomiting) COVID-19 vaccine series completed Leg swelling Hx of deep venous thrombosis Hx of hyperlipidemia HTN (hypertension) GERD (gastroesophageal reflux disease) Myocardial infarct, old Back pain Septic shock Cardiac arrest COVID-19 Asthma Obesity Sleep apnea High cholesterol Diabetes Surgical History History of removal of laparoscopic gastric banding device History of arthroscopy of both knees Hx of colonoscopy (~03/06/22) History of esophagogastroduodenoscopy (EGD) History of ankle surgery History of umbilical hernia repair Hx of cholecystectomy Personal history of gastric banding Family History (Updated 02/14/25 @ 09:02 by Sue Ewing MA) Mother No problems noted. 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 healthcare market consultant to a significant other at home: Yes (for mother, sister also helps and will dos) Do you presently have visiting nurse or other home services: No Alcohol intake: never Comment: sleeping Patient Tobacco Use Status: Never used Tobacco e-Cigarette/Vaping Use: Never Used Advance Directives Date on File: 11/20/20 service: No Current occupational status: retired Cognitive needs: No Hearing needs: No Vision needs: Yes (reading glasses) Review of Systems Const All systems reviewed & are unremarkable except as noted in HPI and below Physical Exam Vital Signs: Last Vital Signs Temp 98.1 F 05/21/25 15:56 Pulse 88 05/21/25 15:56 BP 144/78 H 05/21/25 15:56 Pulse Ox 96 05/21/25 15:56 Oxygen Delivery Method Room Air 05/21/25 15:56 BMI result Body Mass Index 53.8 Assessment & Plan Assessment & Plan (1) Left ear pain: Code(s): H92.02 - Otalgia, left ear Plan: 1. Otitis Externa - Prescribed ear drops for treatment of the outer ear infection. - Avoid q-tips or putting anything in the ears - follow up with PCP (2) SOB (shortness of breath): Code(s): R06.02 - Shortness of breath Plan: Most likely due to obesity vs heat EKG in the office was normal sinus, No ST elevations Plan - Follow up with PCP on Wed - Advised the ER if increasing in SOB and CP Medications: New [id number] 3.5-10,000-1 mg/mL-unit/mL-% 4 drps otic (ears) Q8H 10 mL 0RF 7 days Coding Level of Care Code Est Pt Level 4 (47995) Diagnoses Left ear pain H92.02 SOB (shortness of breath) R06.02
== END 2025-05-21 17:00 | disposition home or self-care (01) ==
PROVIDERS: PCP Internal Medicine; Visit Provider Physician Assistant Medical
DX: H92.02 Otalgia, left ear (principal); R06.02 Shortness of breath

== ENCOUNTER → 2025-05-21 14:51 | Outpatient (BNVA) | payer MEDICARE, SELFPAY | PROVIDERS: PCP Internal Medicine | DX: H92.02 Otalgia, left ear (principal); R06.02 Shortness of breath | CPT/HCPCS: 99212 ==

== ENCOUNTER 2025-05-23 13:17 | Outpatient (AMB) | payer MEDICARE, SELFPAY ==
[2025-05-23 13:19] VITALS: BP 122/70; PULSE 93; TEMP 36.2; O2SAT 96; BMI 39.9
--- NOTE | 2025-05-23 13:19 | MHC.PC.OV ---
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 Operator Required: No Accompanied by: Self / Same As Patient Allergies vancomycin (VANCOMYCIN) Adverse Reaction (Severe, Verified 05/23/25 13:47) RENAL FAILURE, RASH Medication List - Last Reconciled 05/23/25 by Oli Anglin MD albuterol sulfate 90 mcg/actuation (Ventolin HFA) 2 puffs inhalation QID PRN aspirin 81 mg PO DAILY blood sugar diagnostic (True Metrix Glucose Test Strip) bid carvedilol 12.5 mg PO BID clopidogrel 75 mg PO DAILY [diabetic shoes with inserts As directed] insulin aspart U-100 (Novolog FlexPen U-100 Insulin aspart) 15 units (0.15 mL) subcut TID 90 days insulin glargine (Basaglar KwikPen U-100 Insulin) 60 units (0.6 mL) subcut BEDTIME 90 days pdutewyi-biifgcwsi-XL 3.5-10,000-1 mg/mL-unit/mL-% 4 drps otic (ears) Q8H 7 days nystatin 1 appl topical BID oxycodone 15 mg PO Q6H PRN pantoprazole 40 mg PO BID simvastatin 40 mg PO BEDTIME Tobacco use date assessed: 05/23/25 Fall risk assessment: No Falls in past year Last assessed Fall Risk: 05/23/25 Dental Screening Dental Screen Date: 05/23/25 Did you have a dental visit in the last 12 months?: Yes Did you have a dental problem in the last 6 months where you did not have access to dental care?: No PFSH Medical History Chronic pain Open wound EPI (obstructive sleep apnea) Dysphagia Chronic back pain Chronic neck pain Chronic edema Pulmonary nodule Cellulitis, gluteal PONV (postoperative nausea and vomiting) COVID-19 vaccine series completed Leg swelling Hx of deep venous thrombosis Hx of hyperlipidemia HTN (hypertension) GERD (gastroesophageal reflux disease) Myocardial infarct, old Back pain Septic shock Cardiac arrest COVID-19 Asthma Obesity Sleep apnea High cholesterol Diabetes Surgical History History of removal of laparoscopic gastric banding device History of arthroscopy of both knees Hx of colonoscopy (~03/06/22) History of esophagogastroduodenoscopy (EGD) History of ankle surgery History of umbilical hernia repair Hx of cholecystectomy Personal history of gastric banding Family History Mother No problems noted. 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 managed care coordinator to a significant other at home: Yes (for mother, sister also helps and will dos) Do you presently have visiting nurse or other home services: No Alcohol intake: never Comment: sleeping Patient Tobacco Use Status: Never used Tobacco e-Cigarette/Vaping Use: Never Used Advance Directives Date on File: 11/20/20 service: No Current occupational status: retired Cognitive needs: Yes (walker) Hearing needs: No Vision needs: Yes (reading glasses) Questionnaire PHQ-9 Over the last 2 weeks, how often have you been bothered by any of the following problems? 1. Little interest or pleasure in doing things: not at all 2. Feeling down, depressed, or hopeless: not at all 3. Trouble falling or staying asleep, or sleeping too much: not at all 4. Feeling tired or having little energy: not at all 5. Poor appetite or overeating: not at all 6. Feeling bad about yourself - or that you are a failure or have let yourself or your family down: not at all 7. Trouble concentrating on things, such as reading the newspaper or watching television: not at all 8. Moving or speaking so slowly that other people could have noticed. Or the opposite - being so fidgety or restless that you have been moving around a lot more than usual: not at all 9. Thoughts that you would be better off or of hurting yourself in some way: not at all Total score: 0 Source: Developed by Drs. Francois Gallegos, Nadia Tyshawn Gomez and colleagues, with an educational sy from [employer]. Thrive Questionnaire Date Thrive assessed: 05/23/25 I am a: Patient Within the past 12 months, did the food you bought not last and you didn't have the money to get more?: Never true Within the past 12 months, did you worry whether your food would run out before you got money to buy more?: Never true Do you have trouble paying for medicines?: No Do you have trouble getting transportation to medical appointments?: No Do you have trouble paying your heating and electricity bill?: No Do you have trouble taking care of your child, family member or friend?: No Do you have trouble with day-to-day activities such as bathing, preparing meals, shopping, managing finances, etc.?: No Are you currently unemployed and looking for a job?: No Are you interested in more education?: No THRIVE Score: 0 AUDIT C Alcohol Use Questionnaire (AUDIT-C) 1. How often do you have a drink containing alcohol?: Never 3. How often do you have six or more drinks on one occasion?: Never Total Score: 0 NADIR-7 AMB Questionnaire NADIR-7 Date NADIR - 7 assessed: 05/23/25 Feeling nervous, anxious, or on edge: 0 = Not at all Not being able to stop or control worryin = Not at all Worrying too much about different things: 0 = Not at all Trouble relaxin = Not at all Being so restless that it is hard to sit still: 0 = Not at all Becoming easily annoyed or irritable: 0 = Not at all Feeling afraid as if something awful might happen: 0 = Not at all Total NADIR-7 score (0-4 normal; 5-9 mild; 10-14 moderate; 15-21 severe): 0 Source: Developed by Drs. Francois Gallegos, Tyshawn Vogt and colleagues, with an educational sy from [employer]. Physical exam (Primary Care) Vital Signs: Last Vital Signs Temp 97.1 F 05/23/25 13:19 Pulse 93 05/23/25 13:19 BP 122/70 05/23/25 13:19 Pulse Ox 96 05/23/25 13:19 Oxygen Delivery Method Room Air 05/23/25 13:19 BMI result Body Mass Index 39.9 Tobacco/Smoking Status: Tobacco use Status Tobacco use date assessed 05/23/25 05/23/25 13:21 Patient Tobacco Use Status Never used Tobacco 05/23/25 13:19 e-Cigarette/Vaping Use Never Used 05/23/25 13:19 PHQ-9: PHQ-9 Score PHQ-9: Total score 0 05/23/25 13:21 Thrive Assessment: Date of Thrive Assessment Date Thrive assessed 05/23/25 05/23/25 13:21 Coding Level of Care Code Est Pt Level 4 (54597) Complex EM visit Add On G2211 Diagnoses Diabetes E11.9 Chronic pain G89.29 Assessment & Plan Assessment & Plan (1) Diabetes: Code(s): E11.9 - Type 2 diabetes mellitus without complications Category: Medical Plan: A1c ordered. Continue current meds. check sugars 120 minutes after meal. (2) Chronic pain: Code(s): G89.29 - Other chronic pain Category: Medical Plan: Oxycodone dose has been reduced to 15 mg Oxycodone 5 times a day Plan History of Present Illness - The patient is an 82-year-old female presenting with back pain. - She has a history of allergic rhinitis and a sinus cyst, which is being monitored by an ENT specialist. - The patient suffers from sciatica and arthritis, causing severe back pain that occasionally leads to immobility. - Pain management includes tramadol and Tylenol, with tramadol being effective when taken at night. - Cortisone injections were previously attempted without success, and she prefers non-invasive treatments like floor care specialist. - She receives B12 injections for vitamin B12 deficiency. Social History - The patient lives alone and manages her health with the help of her primary care provider and chiropractor. Review of Systems - Respiratory: Reports dyspnea, which improved with the use of an inhaler. - Musculoskeletal: Reports back pain due to arthritis and sciatica. - Neurological: Denies pain from the sinus cyst. Physical Exam General: Cooperative and healthy appearing Nutritional Appearance: Well nourished Orientation/consciousness: Patient oriented x3 Limitations: No limitations Head: Normal to inspection General: Appearance normal, both eyes and all related structures Neck: Normal visual inspection Chest: Normal palpation of entire chest wall Respiratory: Patient reports significant improvement in breathing after using an inhaler, no pain noted during examination. ormal respiratory effort Neurology: Patient oriented x3 Results Plan 1. Back Pain - Continue tramadol 50 mg once daily at night for pain management. - Use Tylenol as needed for additional pain relief. - Continue floor care specialist for symptomatic relief. 2. Vitamin B12 Deficiency - Administer B12 injections as per schedule. Discussion Notes I discussed with the patient the management of her back pain, emphasizing the importance of continuing tramadol at night and using Tylenol as needed. We also reviewed the benefits of floor care specialist and the necessity of regular B12 injections. Patient Instructions - Take tramadol 50 mg once daily at night for pain management. - Use Tylenol as needed for additional pain relief. - Continue with floor care specialist for back pain relief. - Ensure regular B12 injections are administered as scheduled. Medications: Changed From oxycodone 15 mg PO Q4H PRN 168 tabs 0RF Pain To oxycodone Not to take more than five pills a day 15 mg PO Q6H PRN 140 tabs 0RF Pain
--- OUTSIDE RECORDS SUMMARY | 2025-05-23 13:44 | XMS_ITS | Continuity of Care Document ---
Author Organization [facility] Address [address] [place] [id number] Phone [phone] Social History Type Date Description Comments Sex Male Sex Unknown Medical Devices Description No Information Available Encounters Description No Information Available Assessments Description No Information Available Plan of Treatment No Information Available Functional Status Description No Information Available Mental Status Description No Information Available Referrals Description No Information Available
--- OUTSIDE RECORDS SUMMARY | 2025-05-23 13:44 | XMS_ITS | Clinical Summary ---
Author Organization [facility] Address [address] [place] [phone] Phone Care Team Providers Care Child Guidance Counselor Name Role Phone Ganga Stanford MD Primary [...] file Insurance MEDICARE PART A & B [facility] MEDEX SUPPLEMENT MEDICARE PART A & B [employer] MEDEX SUPPLEMENT MEDICARE PART A & B [employer] [place] [address] MEDICARE PART A & B [employer] MED[employer] SUPPLEMENT MEDICARE PART A & B [employer] MED[employer] SUPPLEMENT MEDICARE PART A & B [employer] MEDEX SUPPLEMENT Care Teams Child Guidance Counselor Relationship Specialty Start Date End Date Ganga Stanford MD [address] [place] [address] [place] [phone] PCP - General Internal Medicine 09/19/22 Additional Source Comments The information contained in this document represents components of the legal health record. It is not the complete legal health record.[facility]
== END 2025-05-23 13:45 | disposition home or self-care (01) ==
LOC: HO.HMCHD 13:18
PROVIDERS: PCP Internal Medicine; Visit Provider Internal Medicine
DX: E11.9 Type 2 diabetes mellitus without complications (principal); G89.29 Other chronic pain

== ENCOUNTER → 2025-05-23 13:17 | Outpatient (BNVA) | payer MEDICARE, SELFPAY | PROVIDERS: PCP Internal Medicine; Visit Provider Internal Medicine | DX: E11.9 Type 2 diabetes mellitus without complications (principal); G89.29 Other chronic pain | CPT/HCPCS: 99212 ==

== ENCOUNTER → 2025-06-13 01:33 | Outpatient (BNV) | payer MEDICARE, SELFPAY | PROVIDERS: Emergency Provider Emergency Medicine; Visit Provider Radiology Diagnostic Radiology | DX: J98.11 Atelectasis (principal); R06.02 Shortness of breath | CPT/HCPCS: 71046 ==

== ENCOUNTER 2025-06-13 01:53 | Emergency (ER) | payer MEDICARE, SELFPAY ==
--- NOTE | ~2025-06-13 | CT_ITS ---
CLINICAL HISTORY: dyspnea, elevated d-dimer CT angiography chest with contrast. MIP postprocessing. Comparison: CR - XR CHEST 2V - 06/13/25 02:[address]/SR - CT CHEST WO IV CON - 08/20/22 13:33 EDT Findings: There is appropriate contrast opacification of the main, lobar, and segmental pulmonary arteries. No filling defects identified to suggest pulmonary embolism. Thoracic aorta is nonaneurysmal. Overall heart size within normal limits. Unchanged area of consolidation along the medial aspect of the right lower lobe. This area measures 4.4 x 3.7 cm in size. Associated pleural thickening within the right posterior pleura. Lungs are otherwise clear. No pleural effusion or pneumothorax. Wall thickening of the mid to distal esophagus with small hiatal hernia. No pathologically enlarged lymph nodes within the mediastinum or hilum. No free fluid or free air seen within the upper abdomen. Gallbladder is surgically absent. Partial visualization of an exophytic cyst off the left kidney measures 3.2 cm in size. No acute bony abnormality. IMPRESSION: 1. No pulmonary emboli. 2. Unchanged consolidation within the medial aspect of the right lower lobe. This long-term stability for nearly 3 years suggests a benign etiology such as round atelectasis. This document has been electronically signed by: Tej Gallardo MD on 06/13/2025 06:27:28
--- NOTE | ~2025-06-13 | XR_ITS ---
CLINICAL HISTORY: shortness of breath CHEST X-RAY FRONTAL AND LATERAL VIEWS COMPARISON: Chest x-ray 11/12/2022. CT chest 08/20/2022. FINDINGS: Frontal and lateral views of the chest were performed. Cardiac size is within normal limits. An opacity is noted within the medial aspect of the right lung base, partially obscured by the heart shadow and right hemidiaphragm. A similar finding was present on the prior chest x-ray study. This is thought to be located in the retrocardiac region on the lateral view. CT scan of the chest in the ER is advised for a more accurate assessment. No definite acute infiltrate or pleural effusion. No pneumothorax. IMPRESSION: 1. On the frontal view is an opacity within the medial aspect of the right lung base, partially obscured by the heart shadow and right hemidiaphragm. A similar finding was present on the prior chest x-ray study. A CT scan of the chest in the ER is advised for a more accurate assessment. 2. No definite acute infiltrate or pleural effusion. This document has been electronically signed by: Lopez Pepe M.D. on 06/13/2025 04:08:11
[2025-06-13 01:55] VITALS: BP 152/72; PULSE 93; RESP 20; TEMP 36.6; O2SAT 96; BMI 51.5
[2025-06-13 02:24] LABS: MANUAL DIFF FLAG NO
[2025-06-13 02:25] LABS: Hematocrit 43.4 % (42.0-52.0); Hemoglobin 13.9 g/dl (14.0-18.0); Imm Gran Abs Auto 0.02 X10*3/uL (0.00-0.03); Imm Gran Pct Auto 0.2 % (0.0-0.4); Lymphocytes Absolute Auto 2.7 X10*3/uL (1.2-4.9); Mean Corpuscular HGB Conc 32.0 g/dl (31.0-36.0); Mean Corpuscular Hemoglobin 25.6 pg (27.0-33.0); Mean Corpuscular Volume 80.1 fL (80.0-98.0); NRBC Abs Auto 0.000 X10*3/uL (0.0-0.012); NRBC Pct Auto 0.0 /100WBC (0.0-0.2); Platelet Count 243 X10*3/uL (160-400); Red Blood Count 5.42 X10*6/uL (4.60-5.80); White Blood Count 9.3 X10*3/uL (4.8-10.8)
[2025-06-13 02:27] VITALS: BP 152/72; PULSE 93; RESP 20; TEMP 36.6; O2SAT 96
[2025-06-13 02:43] LABS: Alanine Aminotransferase 11 U/L (0-40); Albumin Level 3.8 g/dL (3.5-5.0); Alkaline Phosphatase 119 U/L (39-117); Anion Gap 14 (12-20); Aspartate Amino Transferase 19 U/L (5-37); Blood Urea Nitrogen 17 mg/dL (9-16); Calcium 8.9 mg/dL (8.4-10.2); Carbon Dioxide 24 mmol/L (22-29); Chloride 107 mmol/L (96-108); Creatinine Clr Calc Pharmacy 136.7; Estimated Glomerular Filt Rate > 60; Magnesium 2.0 mg/dL (1.6-2.6); Potassium 4.5 mmol/L (3.3-5.1); Sodium 140 mmol/L (135-145); Total Protein 7.2 g/dL (6.5-8.0)
[2025-06-13 02:51] LABS: B Type Natriuretic Peptide 29 pg/mL (<100)
[2025-06-13 02:57] LABS: Troponin-I High Sensitivity < 2.7 ng/L (<3.5-35.0)
[2025-06-13 03:17] LABS: Resp Syncy Virus RNA Qual PCR NEGATIVE (Negative); SARS COV2 PCR INHOUSE NEGATIVE (Negative)
[2025-06-13 04:31] LABS: D Dimer High Sensitivity 451 NG/ML
[2025-06-13 05:24] VITALS: BP 137/79; PULSE 73; RESP 17; TEMP 37; O2SAT 94
[2025-06-13] MEDS: iohexoL 350 MG/ML 100 ML INFUS..BTL IV (05:50)
[2025-06-13 06:59] VITALS: BP 137/79
[2025-06-13] MEDS: Furosemide 40 MG/4 ML VIAL IVPUSH (06:59)
--- NOTE | 2025-06-13 07:34 | ED_ITS ---
HPI - SOB/Dyspnea General Chief Complaint: Dyspnea Stated Complaint: SOB Time Seen by Provider: 06/13/25 02:25 Source: patient Mode of arrival: ambulatory Limitations: no limitations History of Present Illness ED Provider: Dr. Gabrielle Quesada HPI Narrative: 64-year-old male with history of diabetes, asthma, BMI of 51, EPI presenting with shortness of breath that has been ongoing for the last several days, worsening tonight. Patient states that he has noticed that lying flat makes him more short of breath especially at night. Denies chest pain or shortness of breath with exertion. Went to urgent care last week but admits they only took an EKG. Did no blood work, chest x-ray or other workup. States he has been using his inhaler but does not feel as though he is getting a good breath. Has a chronic cough that is unchanged. No sputum production. Denies fevers or chills, nausea or vomiting, worsening lower extremity edema or pain, bowel changes or urinary complaints. No known sick contacts or travel. Has not spoken with his primary care doctor about this yet. He does use CPAP at night for sleep apnea and admits that he still felt short of breath even with the sleep apnea tonight. Related Data Home Medications ?Medication ?Instructions ?Recorded ?Confirmed albuterol sulfate 90 mcg/actuation 2 puff inhalation Q ID PRN 11/20/20 05/23/25 aerosol inhaler (Ventolin HFA) Shortness Of Breath Or Wheezing aspirin 81 mg tablet,delayed 81 mg PO DAILY 11/20/20 0 05/23/25 release carvedilol 12.5 mg tablet 12.5 mg PO BID 11/20/2005/02 clopidogrel 75 mg tablet 75 mg PO DAILY 11/20/2005/02 pantoprazole 40 mg tablet,delayed 40 mg PO BID 1 05/23/25 release simvastatin 40 mg tablet 40 mg PO BEDTIME 11/20/20 Previous Rx's ?Medication ?Instructions ?Recorded diabetic shoes with inserts #2 ea 02/14/25 nystatin 100,000 unit/gram topical 1 appl topical BID #30 grams 03/16/25 cream blood sugar diagnostic (True #100 ea 04/21/25 Metrix Glucose Test Strip) insulin aspart U-100 100 unit/mL 15 unit (0.15 mL) sub cut TID 90 04/21/25 (3 mL) subcutaneous pen (Novolog days #40.5 mL FlexPen U-100 Insulin aspart) insulin glargine 100 unit/mL (3 60 unit (0.6 mL) subcu t BEDTIME 90 04/21/25 mL) subcutaneous pen (Basaglar days #54 mL KwikPen U-100 Insulin) [id number] 3.5 4 drp otic (ears) Q8H 7 days #10 mL 05/21/25 mg-10,000 unit/mL-1 % ear drops,susp oxycodone 15 mg tablet 15 mg PO Q6H PRN Pain #140 t abs 05/23/25 pen needle, diabetic 32 gauge x #100 ea 06/07/25 (UltiCare Pen Needle) furosemide 20 mg tablet (Lasix) 20 mg PO DAILY #7 tabs 06/13/25 Allergies Allergy/AdvReac Type Severity Reaction Status Date / Time vancomycin (VANCOMYCIN) AdvReac Severe RENAL Verified 06/13/25 01:57 FAILURE, RASH Review of Systems 2 Review of Systems: As per HPI, full review of systems performed and negative but for the above mentioned pertinent positives and negatives. [facility] Past Medical History Attestation statement: The following information was validated with the patient. [facility] Narrative: EPI, diabetes, morbid obesity, nonsmoker, uses a walker Medical History Chronic pain Open wound EPI (obstructive sleep apnea) Dysphagia Chronic back pain Chronic neck pain Chronic edema Pulmonary nodule Cellulitis, gluteal PONV (postoperative nausea and vomiting) COVID-19 vaccine series completed Leg swelling Hx of deep venous thrombosis Hx of hyperlipidemia HTN (hypertension) GERD (gastroesophageal reflux disease) Myocardial infarct, old Back pain Septic shock Cardiac arrest COVID-19 Asthma Obesity Sleep apnea High cholesterol Diabetes Surgical History History of removal of laparoscopic gastric banding device History of arthroscopy of both knees Hx of colonoscopy (~03/06/22) History of esophagogastroduodenoscopy (EGD) History of ankle surgery History of umbilical hernia repair Hx of cholecystectomy Personal history of gastric banding Family History Family History Mother No problems noted. Father Lung cancer Social History Social History Household Members: Family Household Members Other:: mother Housing: House Are you a primary acute care physical therapist to a significant other at home: Yes (for mother, sister also helps and will dos) Do you presently have visiting nurse or other home services: No Alcohol intake: never Comment: sleeping Patient Tobacco Use Status: Never used Tobacco Smoked in Last 30 Days: No e-Cigarette/Vaping Use: Never Used Use of substances other than those prescribed or required for medical reasons: No Advance Directives: Yes Advance Directives on File: Yes Advance Directives Date on File: 11/20/20 Do you have a plan to hurt others: No Plan service: No Current occupational status: retired Cognitive needs: Yes (walker) Hearing needs: No Vision needs: Yes (reading glasses) Physical Exam 2 Exam: Exam: GENERAL: Chronically ill-appearing, mild respiratory distress. SKIN: Normal skin color for ethnicity, warm, dry, no rashes noted. HEENT: Normocephalic, atraumatic, no stridor, EOMI. NECK: Soft, supple, full ROM, midline structures nontender, no step-offs, no deformities, no lymphadenopathy. CHEST: Heart regular tachycardia, symmetric chest rise and fall. PULMONARY: Coarse lung sounds bilaterally, diminished at the bases, mild respiratory distress with poor air movement, no wheezes. ABDOMINAL: Soft, protuberant nontender, quiet bowel sounds in all quadrants. : Deferred. MUSCULOSKELETAL: Normal tone, full range of motion, no deformities, 2+ peripheral edema bilaterally. NEURO: Alert and oriented to person, CN II through XII intact, no focal neurologic deficits. PSYCHIATRIC: Anxious affect, appropriate demeanor. Vital Signs: Vital Signs: Last Vital Signs Temp 98.6 F 06/13/25 05:24 Pulse 73 06/13/25 05:24 Resp 17 06/13/25 05:24 BP 137/79 06/13/25 06:59 Pulse Ox 94 06/13/25 05:24 O2 Del Method Room Air 06/13/25 05:24 BMI result Body Mass Index 51.5 Medications Administered Discontinued Medications Generic Name Dose Route Start Last Admin Trade Name Freq PRN Reason Stop Dose Admin Furosemide 40 mg 06/13/25 06:51 06/13/25 06:59 Furosemide 40 Mg/4 Ml Vial IVPUSH 06/13/25 06:52 40 mg STAT STA Administration Protocol Iohexol 100 ml 06/13/25 05:50 06/13/25 05:50 Iohexol 350 Mg/Ml 100 Ml Infus..Btl IV 06/13/25 05:51 100 ml ONCE ONE Administration Medical Decision Making Medical Decision Making [facility] Narrative: Patient presents today with chief complaint of shortness of breath. Differential diagnosis includes, but is not limited to, upper respiratory infection, pneumonia, COPD exacerbation, asthma exacerbation, CHF, pneumothorax, pleural effusion, pulmonary embolism, ACS. Broad-based work-up will be initiated to evaluate for etiology of patient's symptoms. Patient has no wheeze on exam, we will hold off on breathing treatment at this time. D-dimer slightly elevated. Will add on a CTA. So far his workup has been reassuring with no evidence of volume overload, pneumonia, electrolyte abnormality or ACS. EKG is not ischemic. Chest x-ray is clear aside from a chronic spot on his right lung. CTA shows chronic round atelectasis of the right lung which is unchanged in the last 3 years. Patient reports he is feeling slightly improved now that he is sitting up and resting in the stretcher however, he admits to continued shortness of breath. Clinical picture is most consistent with worsening sleep apnea versus slight volume overload. Plan for a dose of Lasix to see if he can diurese a bit. Otherwise, I feel he is stable for discharge and follow up with his application design engineer. Discuss this at length with him. We will write him for 7 days of Lasix as well. Using shared decision making, plan for discharge home to follow-up with primary care and/or specialist. Patient understands and agrees with plan for discharge. Discharged home in stable condition. Differential Diagnosis Differential Diagnoses: The differential diagnosis associated with the presentation includes (As above) Admission/Observation Consideration of admission/observation: Escalation of care including admission/observation considered Lab Data [facility] Lab Attestation statement: I reviewed the patient's lab results. 06/13/25 02:17 06/13/25 02:17 Labs: Lab Results 06/13/25 06/13/25 06/13/25 Range/Units 02:17 02:38 04:12 WBC 9.3 (4.8-10.8) X10*3/uL RBC 5.42 (4.60-5.80) X10*6/uL Hgb 13.9 L (14.0-18.0) g/dl Hct 43.4 (42.0-52.0) % MCV 80.1 (80.0-98.0) fL MCH 25.6 L (27.0-33.0) pg MCHC 32.0 (31.0-36.0) g/dl RDW 14.0 (11.0-16.0) % Plt Count 243 (160-400) X10*3/uL MPV 9.4 (9.4-12.4) fL Immature Gran % (Auto) 0.2 (0.0-0.4) % Neut % (Auto) 63.5 (45-73) % Lymph % (Auto) 29.0 (20-40) % [place] % (Auto) 6.3 (2-11) % Eos % (Auto) 0.8 (0-4) % Baso % (Auto) 0.2 (0-2) % Lymph # (Auto) 2.7 (1.2-4.9) X10*3/uL [place] # (Auto) 0.6 (0.1-1.2) X10*3/uL Eos # (Auto) 0.1 (0.0-0.4) X10*3/uL Baso # (Auto) 0.0 (0.0-0.2) X10*3/uL Abs Immat Gran (auto) 0.02 (0.00-0.03) X10*3/uL Absolute Neuts (auto) 5.9 (2.0-8.3) x10*3/uL Absolute Nucleated RBC 0.000 (0.0-0.012) X10*3/uL Nucleated RBC % (auto) 0.0 (0.0-0.2) /100WBC D-Dimer High Sensitivty 451 NG/ML Sodium 140 (135-145) mmol/L Potassium 4.5 (3.3-5.1) mmol/L Chloride 107 (96-108) mmol/L Carbon Dioxide 24 (22-29) mmol/L Anion Gap 14 (12-20) BUN 17 H (9-16) mg/dL Creatinine 0.88 (0.5-1.4) mg/dL Estim Creat Clear Calc 136.7 Estimated GFR > 60 Random Glucose 178 H (60-115) mg/dL Calcium 8.9 (8.4-10.2) mg/dL Magnesium 2.0 (1.6-2.6) mg/dL Total Bilirubin 0.5 (0.0-1.0) mg/dL Direct Bilirubin 0.2 (0.0-0.5) mg/dL AST 19 (5-37) U/L ALT 11 (0-40) U/L Alkaline Phosphatase 119 H (39-117) U/L Troponin I High Sens < 2.7 (<3.5-35.0) ng/L B-Natriuretic Peptide 29 (<100) pg/mL Total Protein 7.2 (6.5-8.0) g/dL Albumin 3.8 (3.5-5.0) g/dL Influenza Type A (PCR) NEGATIVE (Negative) Influenza Type B (PCR) NEGATIVE (Negative) RSV RNA Qual (PCR) NEGATIVE (Negative) SARS-CoV-2 RNA (RT-PCR) NEGATIVE (Negative) Independent Interpretation I performed an independent interpretation of an: Plain X-Ray Interpretation: My independent interpretation of the chest x-ray reveals no consolidations, pulmonary edema, pleural effusion, pneumothorax, obvious bony abnormalities. Poor inspiratory effort Radiology Impression Discussion of test interpretation with radiology: I have reviewed the radiologist's reading. Radiologist Impression: CT angiography chest with contrast. MIP postprocessing. Comparison: CR - XR CHEST 2V - 06/13/25 02:[address]/SR - CT CHEST WO IV CON - 08/20/22 13:33 EDT Findings: There is appropriate contrast opacification of the main, lobar, and segmental pulmonary arteries. No filling defects identified to suggest pulmonary embolism. Thoracic aorta is nonaneurysmal. Overall heart size within normal limits. Unchanged area of consolidation along the medial aspect of the right lower lobe. This area measures 4.4 x 3.7 cm in size. Associated pleural thickening within the right posterior pleura. Lungs are otherwise clear. No pleural effusion or pneumothorax. Wall thickening of the mid to distal esophagus with small hiatal hernia. No pathologically enlarged lymph nodes within the mediastinum or hilum. No free fluid or free air seen within the upper abdomen. Gallbladder is surgically absent. Partial visualization of an exophytic cyst off the left kidney measures 3.2 cm in size. No acute bony abnormality. IMPRESSION: 1. No pulmonary emboli. 2. Unchanged consolidation within the medial aspect of the right lower lobe. This long-term stability for nearly 3 years suggests a benign etiology such as round atelectasis. This document has been electronically signed by: Tej Gallardo MD on 06/13/2025 06:27:28 Prescription Management I considered prescription management with: Other (Lasix) Chronic Conditions Patient?s care impacted by: Diabetes, Hypertension and Other (EPI, asthma) Discharge Plan Discharge Clinical Impression: Orthopnea, Obesity hypoventilation syndrome Patient Disposition: Home, Self-Care Instructions: Dyspnea (ED) Additional Instructions: Call your application design engineer in your primary care doctor today to follow-up regarding today's emergency department visit. Your shortness of breath may be related to volume overload and you can continue to take a water pill to help with this. I have given you 7 days of this medication sent to your pharmacy. If you develop any new or worsening symptoms you should return to the emergency department immediately. This includes: Worsening shortness of breath, fevers greater than 100?, changes in sputum production, severe chest pain, passing out, any new symptom that concerns you. Call 911 with any medical emergency. Prescriptions: New furosemide [Lasix] 20 mg tablet 20 mg PO DAILY Qty: 7 0RF No Action (DME) diabetic shoes with inserts See Rx Instructions .Route .MEDSUPPLY Qty: 2 0RF Rx Instructions: As directed nystatin 100,000 unit/gram cream 1 appl topical BID Qty: 30 1RF (DME) True Metrix Glucose Test Strip Strip See Rx Instructions .Route Qty: 100 1RF Rx Instructions: bid insulin aspart U-100 [Novolog FlexPen U-100 Insulin] 100 unit/mL (3 mL) insulin pen 15 unit subcut TID 90 Days Qty: 40.5 1RF insulin glargine [Basaglar KwikPen U-100 Insulin] 100 unit/mL (3 mL) insulin pen 60 unit subcut BEDTIME 90 Days Qty: 54 1RF (DME) pen needle, diabetic [UltiCare Pen Needle] 32 gauge x 5/32 needle See Rx Instructions .Route Qty: 100 1RF Rx Instructions: As directed carvedilol 12.5 mg tablet 12.5 mg PO BID clopidogrel 75 mg tablet 75 mg PO DAILY simvastatin 40 mg tablet 40 mg PO BEDTIME pantoprazole 40 mg tablet,delayed release (DR/EC) 40 mg PO BID albuterol sulfate [Ventolin HFA] 90 mcg/actuation HFA aerosol inhaler 2 puff inhalation QID PRN (Reason: Shortness Of Breath Or Wheezing) Rx Instructions: Taken today with EMT aspirin 81 mg Tablet,Delayed Release (Dr/Ec) 81 mg PO DAILY oxycodone 15 mg tablet 15 mg PO Q6H PRN (Reason: Pain) Qty: 140 0RF Rx Instructions: Not to take more than five pills a day [id number] 3.5-10,000-1 mg/mL-unit/mL-% drops,suspension 4 drp otic (ears) Q8H 7 Days Qty: 10 0RF Print Language: Chinese
[2025-06-13 08:09] VITALS: BP 144/81; PULSE 88; RESP 20; TEMP 36.9; O2SAT 96
== END 2025-06-13 08:48 | disposition home or self-care (01) ==
PROVIDERS: Emergency Provider Emergency Medicine
DX: R06.01 Orthopnea (principal); R06.02 Shortness of breath; E11.9 Type 2 diabetes mellitus without complications; Z79.899 Other long term (current) drug therapy; Z03.818 Encounter for observation for suspected exposure to other biological agents ruled out; Z79.4 Long term (current) use of insulin
CPT/HCPCS: 36415; 71046; 71275; 80048; 80076; 83735; 83880; 84484; 85025; 85379; 87637; 96374; 99284; J1938; Q9967

== ENCOUNTER 2025-06-20 13:52 | Outpatient (AMB) | payer MEDICARE, SELFPAY ==
--- NOTE | 2025-06-20 13:54 | A.OFFPC_ITS ---
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 Required: No Accompanied by: Self / Same As Patient Allergies vancomycin (VANCOMYCIN) Adverse Reaction (Severe, Verified 06/20/25 13:54) RENAL FAILURE, RASH Medication List - Last Reconciled 06/21/25 by HOMRA Redd albuterol sulfate 90 mcg/actuation (Ventolin HFA) 2 puffs inhalation QID PRN aspirin 81 mg PO DAILY blood sugar diagnostic (True Metrix Glucose Test Strip) bid carvedilol 12.5 mg PO BID clopidogrel 75 mg PO DAILY [diabetic shoes with inserts As directed] furosemide (Lasix) 20 mg PO DAILY insulin aspart U-100 (Novolog FlexPen U-100 Insulin aspart) 15 units (0.15 mL) subcut TID 90 days insulin glargine (Basaglar KwikPen U-100 Insulin) 60 units (0.6 mL) subcut BEDTIME 90 days zubtqcjc-ecjjdoqmd-OZ 3.5-10,000-1 mg/mL-unit/mL-% 4 drps otic (ears) Q8H 7 days nystatin 1 appl topical BID oxycodone 15 mg PO Q6H PRN pantoprazole 40 mg PO BID pen needle, diabetic (UltiCare Pen Needle) As directed simvastatin 40 mg PO BEDTIME tirzepatide (Mounjaro) 2.5 mg (0.5 mL) subcut QWEEK Tobacco use date assessed: 05/23/25 Dental Screening Dental Screen Date: 05/23/25 HPI HPI Comments History of Present Illness Details 64-year-old male with history of severe obstructive sleep apnea compliant with CPAP, type 2 diabetes, hyperlipidemia, asthma/COPD overlap, GERD, CAD, hypertension, morbid obesity with BMI 52.8 presents to the office today for post ER evaluation. He had presented to [facility] ED on 06/13 due to significant dyspnea ongoing for days and worsened that night. Describes symptoms consistent with orthopnea as well as dyspnea on exertion. No associat ed lightheadedness, palpitations, vision changes, headache, chest pain. He had been using his albuterol inhaler without relief. He does have a chronic cough but this was unchanged. Denies any wheezing. No known sick contacts or recent travel. While in the ED hematology studies without any significant abnormality. Renal function normal, electrolyte levels normal. BNP 29. Chest x-ray did not reveal any acute cardiopulmonary abnormality including infiltrate or effusions/edema. There was an opacity within the medial aspect of the right lung base seen seen on prior chest x-rays. Subsequent CTA of the chest negative for any pulmonary emboli but again showed unchanged consolidation within the medial aspect of the right lower lobe. He was given 40 mg IV Lasix Ms. Some diuresis. There was no evidence of COPD exacerbation so breathing treatments/steroids were not initiated. Given absence of significant volume overload, pneumonia, ACS, electrolyte abnormality, clinical picture was dumont ggestive of worsening sleep apnea with slight volume overload. On discharge, he was given 7 day supply of Lasix. Today he reports that he continues experiencing dyspnea, at rest somewhat as well as exertion such as going up the stairs. He does state while he is at rest, if he takes a big breath symptoms to improve. Again has been compliant with his CPAP. Reports the orthopnea reported is his baseline. He does follow with pulmonology but has not yet made an upcoming appointment. Again denies any chest pain, palpitations, lightheadedness. No syncope. Overall, symptoms have been ongoing for 4-5 weeks. He has not had any hypoxia. We did discuss that this is possibly related to worsening sleep apnea and pulmonology follow-up is very important. However, there is likely component of obesity hypoventilation syndrome given his symptoms do improve with deep breathing. He tells me that he had been making significant efforts towards weight loss, swimming at the local [place] for exercise but had to discontinue this as he developed anal fissures requiring surgical intervention. He does try to follow a healthy diet. Would be interested in referral to nutrition. ROS: General: No fevers, malaise, unintentional weight loss HEENT: No blurred vision, diplopia. No sore throat, nasal congestion, rhinorrhea, sinus pain, ear pain Cardiovascular: No chest pain, palpitations, or leg edema Respiratory: See HPI GI: No abdominal pain, nausea, vomiting, diarrhea, constipation, melena, hematochezia : No dysuria, hematuria, increased urinary frequency, decreased urinary output MSK: No myalgia, back pain Neuro: No headaches, weakness, paresthesias Skin: No rashes or lesions EXAM: Constitutional - Awake and Alert, No apparent distress Eyes - PERRL Cardiovascular - S1S2, RRR, No edema Respiratory - Normal lung expansion, Normal respiratory effort, No respiratory distress, CTA bilaterally but diminished lung bases Extremities - no calf tenderness bilaterally, no swelling Skin - Warm/Dry Neurological - Alert & oriented x3 Psychological - Appropriate affect [facility] Medical History (Updated 06/21/25 @ 15:04 by HOMAR Redd) Chronic pain Open wound EPI (obstructive sleep apnea) Dysphagia Chronic back pain Chronic neck pain Chronic edema Pulmonary nodule Cellulitis, gluteal PONV (postoperative nausea and vomiting) COVID-19 vaccine series completed Leg swelling Hx of deep venous thrombosis Hx of hyperlipidemia HTN (hypertension) GERD (gastroesophageal reflux disease) Myocardial infarct, old Back pain Septic shock Cardiac arrest COVID-19 Asthma Obesity Sleep apnea High cholesterol Diabetes Surgical History History of removal of laparoscopic gastric banding device History of arthroscopy of both knees Hx of colonoscopy (~03/06/22) History of esophagogastroduodenoscopy (EGD) History of ankle surgery History of umbilical hernia repair Hx of cholecystectomy Personal history of gastric banding Family History Mother No problems noted. 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 respiratory care specialist to a significant other at home: Yes (for mother, sister also helps and will dos) Do you presently have visiting nurse or other home services: No Alcohol intake: never Comment: sleeping Patient Tobacco Use Status: Never used Tobacco e-Cigarette/Vaping Use: Never Used Advance Directives Date on File: 11/20/20 service: No Current occupational status: retired Cognitive needs: Yes (walker) Hearing needs: No Vision needs: Yes (reading glasses) Questionnaire Thrive Questionnaire Date Thrive assessed: 05/23/25 AUDIT C Alcohol Use Questionnaire (AUDIT-C) 1. How often do you have a drink containing alcohol?: Never Total Score: 0 NADIR-7 AMB Questionnaire NADIR-7 Date NADIR - 7 assessed: 05/23/25 Source: Developed by Drs. Francois Gallegos, Nadia Dale, Tyshawn Gonzales and colleagues, with an educational sy from [employer]. Physical exam (Primary Care) Vital Signs: Last Vital Signs Temp 96.8 F 06/20/25 13:59 Pulse 84 06/20/25 13:59 Resp 18 06/20/25 13:59 BP 134/74 06/20/25 13:59 Pulse Ox 95 06/20/25 13:59 Oxygen Delivery Method Room Air 06/20/25 13:59 BMI result Body Mass Index 52.8 Tobacco/Smoking Status: Tobacco use Status Tobacco use date assessed 05/23/25 06/20/25 14:02 Patient Tobacco Use Status Never used Tobacco 06/20/25 14:02 e-Cigarette/Vaping Use Never Used 06/20/25 14:02 Thrive Assessment: Date of Thrive Assessment Date Thrive assessed 05/23/25 06/20/25 14:02 Coding Level of Care Code Est Pt Level 4 (69101) Complex EM visit Add On G2211 Diagnoses EPI (obstructive sleep apnea) G47.33 Dyspnea on exertion R06.09 Morbid obesity E66.01 Diabetes E11.9 Moderate persistent asthma without complication J45.40 Asthma severity: moderate Asthma persistence: persistent Asthma complication type: uncomplicated Assessment & Plan Assessment & Plan (1) EPI (obstructive sleep apnea): Code(s): G47.33 - Obstructive sleep apnea (adult) (pediatric) Category: Medical Plan: Likely worsening. Continue CPAP. Advised to schedule follow-up pulmonology soon (2) Dyspnea on exertion: Code(s): R06.09 - Other forms of dyspnea Category: Medical Plan: Likely multifactorial related to worsening EPI, obesity hypoventilation syndrome, and overall deconditioning. Can not exclude cardiac etiology. Echocardiogram ordered. Advised compliance with CPAP and pulmonology appointm ent as above. Recommend frequent use of incentive spirometer and taking deep breaths. (3) Morbid obesity: Code(s): E66.01 - Morbid (severe) obesity due to excess calories Category: Medical Plan: Recommend resuming exercise routine. Referred to dietitian (4) Diabetes: Code(s): E11.9 - Type 2 diabetes mellitus without complications Category: Medical Plan: Trial Sun given uncontrolled type 2 diabetes as well as EPI and morbid obesity. Counseled on side effects, no contraindications. Hemoglobin A1c ordered. He is referred to dietitian as above. Advised to follow-up in 1 month Continue with annual eye exams (5) Asthma: Code(s): J45.909 - Unspecified asthma, uncomplicated Category: Medical Qualifiers: Asthma severity: moderate Asthma persistence: persistent Asthma complication type: uncomplicated Qualified Code(s): J45.40 - Moderate persistent asthma, uncomplicated Plan: No acute exacerbation. Unlikely to be related to current symptoms. Continue inhalers as prescribed Plan A follow-up in 1 month with labs completed prior to visit Orders: Orders Hemoglobin A1c 06/20/25 E11.9 - Type 2 diabetes mellitus without complications, E66.01 - Morbid (severe) obesity due to excess calories, G47.33 - Obstructive sleep apnea (adult) (pediatric), I10 - Essential (primary) hypertension, J45.40 - Moderate persistent asthma, uncomplicated Lipid Panel 06/20/25 E11.9 - Type 2 diabetes mellitus without complications, E66.01 - Morbid (severe) obesity due to excess calories, G47.33 - Obstructive sleep apnea (adult) (pediatric), I10 - Essential (primary) hypertension, J45.40 - Moderate persistent asthma, uncomplicated Prostate Specific Antigen 06/20/25 E11.9 - Type 2 diabetes mellitus without complications, E66.01 - Morbid (severe) obesity due to excess calories, G47.33 - Obstructive sleep apnea (adult) (pediatric), I10 - Essential (primary) hypertension, J45.40 - Moderate persistent asthma, uncomplicated Basic Metabolic Panel 06/20/25 E11.9 - Type 2 diabetes mellitus without complications, E66.01 - Morbid (severe) obesity due to excess calories, G47.33 - Obstructive sleep apnea (adult) (pediatric), I10 - Essential (primary) hypertension, J45.40 - Moderate persistent asthma, uncomplicated Complete Blood Count Auto Diff 06/20/25 E11.9 - Type 2 diabetes mellitus without complications, E66.01 - Morbid (severe) obesity due to excess calories, G47.33 - Obstructive sleep apnea (adult) (pediatric), I10 - Essential (primary) hypertension, J45.40 - Moderate persistent asthma, uncomplicated Liver Panel 06/20/25 E11.9 - Type 2 diabetes mellitus without complications, E66.01 - Morbid (severe) obesity due to excess calories, G47.33 - Obstructive sleep apnea (adult) (pediatric), I10 - Essential (primary) hypertension, J45.40 - Moderate persistent asthma, uncomplicated Referrals Information Systems Administrator Nutrition Referral E11.9 - Type 2 diabetes mellitus without complications, E66.01 - Morbid (severe) obesity due to excess calories Medications: New tirzepatide (Mounjaro) for 4 weeks 2.5 mg (0.5 mL) subcut QWEEK 2 mL 0RF E11.9 - Type 2 diabetes mellitus without complications, E66.01 - Morbid (severe) obesity due to excess calories, G47.33 - Obstructive sleep apnea (adult) (pediatric) Refilled itfogies-iwkhnhdfi-LV 3.5-10,000-1 mg/mL-unit/mL-% 4 drps otic (ears) Q8H 10 mL 0RF 7 days Patient Instructions: Reschedule with pulmonology given Shortness of breath To be called for echo Continue lasix Use incentive spirometry Try to get back into the pool for exercise Trial Sun Follow up in one month
[2025-06-20 13:59] VITALS: BP 134/74; PULSE 84; RESP 18; TEMP 36; O2SAT 95; BMI 52.8
--- OUTSIDE RECORDS SUMMARY | 2025-06-20 14:52 | XMS_ITS | Clinical Summary ---
Author Organization [facility] Address [address] [place] [phone] Phone Care Team Providers Care Rides Attendant Name Role Phone Ganga Stanford MD Primary [...] file Insurance MEDICARE PART A & B [facility] MEDEX SUPPLEMENT MEDICARE PART A & B [employer] MEDEX SUPPLEMENT MEDICARE PART A & B Information Ass[place] [address] MEDICARE PART A & B Information Assurance MEDEX SUPPLEMENT MEDICARE PART A & B Information Assurance MEDEX SUPPLEMENT MEDICARE PART A & B [employer] MEDEX SUPPLEMENT Care Teams Rides Attendant Relationship Specialty Start Date End Date Ganga Stanford MD [address] [place] [address] [place] [id number] PCP - General Internal Medicine 09/19/22 Additional Source Comments The information contained in this document represents components of the legal health record. It is not the complete legal health record.[facility]
--- OUTSIDE RECORDS SUMMARY | 2025-06-20 14:52 | XMS_ITS | Continuity of Care Document ---
Author Organization [facility] Address [address] [place] [id number] Phone [phone] Social History Type Date Description Comments Sex Male Sex Unknown Medical Devices Description No Information Available Encounters Description No Information Available Assessments Description No Information Available Plan of Treatment No Information Available Functional Status Description No Information Available Mental Status Description No Information Available Referrals Description No Information Available
== END 2025-06-20 14:32 | disposition home or self-care (01) ==
LOC: HO.HMCHD 13:53
PROVIDERS: Visit Provider Physician Assistant
DX: G47.33 Obstructive sleep apnea (adult) (pediatric) (principal); R06.09 Other forms of dyspnea; E66.01 Morbid (severe) obesity due to excess calories; E11.9 Type 2 diabetes mellitus without complications; J45.40 Moderate persistent asthma, uncomplicated

== ENCOUNTER → 2025-06-20 13:52 | Outpatient (BNVA) | payer MEDICARE, SELFPAY | PROVIDERS: Visit Provider Physician Assistant | DX: R06.09 Other forms of dyspnea (principal); G47.33 Obstructive sleep apnea (adult) (pediatric); E11.9 Type 2 diabetes mellitus without complications; E78.5 Hyperlipidemia, unspecified; J45.40 Moderate persistent asthma, uncomplicated; I25.10 Atherosclerotic heart disease of native coronary artery without angina pectoris; I10 Essential (primary) hypertension; E66.01 Morbid (severe) obesity due to excess calories; Z68.43 Body mass index [BMI] 50.0-59.9, adult; Z99.89 Dependence on other enabling machines and devices | CPT/HCPCS: 99212 ==

== ENCOUNTER 2025-07-23 13:10 | Outpatient (AMB) | payer MEDICARE, SELFPAY ==
--- NOTE | 2025-07-23 13:15 | A.OFFPC_ITS ---
Vital Signs 07/23/25 13:29 07/23/25 13:46 Height 6 ft Weight 165.108 kg BMI 49.4 BP 142/80 H 138/80 Respiration 20 Pulse 78 Pulse Source Pulse Oximeter Temp 96.7 F L Temp Source Temporal Artery Scan Pulse Oximetry (%) 96 Oxygen Delivery Method Room Air Intake Visit Reasons: 1 Month F/U - see comments Lighthouse Keeper Required: No Accompanied by: Self / Same As Patient Allergies vancomycin (VANCOMYCIN) Adverse Reaction (Severe, Verified 07/23/25 13:16) RENAL FAILURE, RASH Medication List - Last Reconciled 07/23/25 by HOMAR Redd albuterol sulfate 90 mcg/actuation (Ventolin HFA) 2 puffs inhalation QID PRN aspirin 81 mg PO DAILY blood sugar diagnostic (True Metrix Glucose Test Strip) TEST BLOOD SUGAR TWICE DAILY carvedilol 12.5 mg PO BID clopidogrel 75 mg PO DAILY [diabetic shoes with inserts As directed] furosemide (Lasix) 20 mg PO DAILY insulin aspart U-100 (Novolog FlexPen U-100 Insulin aspart) 15 units (0.15 mL) subcut TID 90 days insulin glargine (Basaglar KwikPen U-100 Insulin) 60 units (0.6 mL) subcut BEDTIME 90 days nystatin 1 appl topical BID oxycodone 15 mg PO Q6H PRN pantoprazole 40 mg PO BID pen needle, diabetic (UltiCare Pen Needle) As directed simvastatin 40 mg PO BEDTIME tirzepatide (Mounjaro) 2.5 mg (0.5 mL) subcut QWEEK Tobacco use date assessed: 05/23/25 Dental Screening Dental Screen Date: 05/23/25 HPI HPI Comments History of Present Illness Details 64-year-old male with history of severe obstructive sleep apnea compliant with CPAP, type 2 diabetes, hyperlipidemia, asthma/COPD overlap, GERD, CAD, hypertension, morbid obesity with BMI 52.8 presents to the office today for follow-up. EPI-compliant with CPAP Type 2 diabetes-last A1c 9.3%, overdue for labs. Prescribed Mounjaro but did not receive prescription. On Basaglar 60 units as well as NovoLog 15 units t.i.d. Hyperlipidemia-at goal. Continue simvastatin Asthma/COPD overlap-only rare use of albuterol. Does still have dyspnea, has upcoming appointment with pulmonology CAD-on statin, aspirin/Plavix, carvedilol. No chest pains. S/p cardiac arrest 2015 Hypertension-on carvedilol 12.5 mg twice daily, Lasix. BP 138/80 Morbid obesity-BMI 49.4. Exercise limited due to dyspnea on exertion. Not always following a healthy diet. Previously was quite active swimming at the [facility] Osteoarthritis of multiple joints-on oxycodone 15 mg q.i.d., had been taking every 4 hours and reports pain is not well managed since dose was reduced Concerns: As above ROS: General: No fevers, malaise, unintentional weight loss HEENT: No blurred vision, diplopia. No sore throat, nasal congestion, rhinorrhea, sinus pain, ear pain Cardiovascular: No chest pain, palpitations, or leg edema Respiratory: No shortness of breath, wheezing, cough GI: No abdominal pain, nausea, vomiting, diarrhea, constipation, melena, hematochezia : No dysuria, hematuria, increased urinary frequency, decreased urinary output MSK: See HPI Neuro: No headaches, weakness, paresthesias Skin: No rashes or lesions EXAM: Constitutional - Awake and Alert, No apparent distress Eyes - PERRL Cardiovascular - S1S2, RRR, No edema Respiratory - Normal lung expansion, Normal respiratory effort, No respiratory distress, CTA bilaterally Extremities - no calf tenderness bilaterally, no swelling Skin - Warm/Dry Neurological - Alert & oriented x3 Psychological - [facility]ate [facility] Medical History (Updated 06/21/25 @ 15:04 by HOMAR Redd) Chronic pain Open wound EPI (obstructive sleep apnea) Dysphagia Chronic back pain Chronic neck pain Chronic edema Pulmonary nodule Cellulitis, gluteal PONV (postoperative nausea and vomiting) COVID-19 vaccine series completed Leg swelling Hx of deep venous thrombosis Hx of hyperlipidemia HTN (hypertension) GERD (gastroesophageal reflux disease) Myocardial infarct, old Back pain Septic shock Cardiac arrest COVID-19 Asthma Obesity Sleep apnea High cholesterol Diabetes Surgical History History of removal of laparoscopic gastric banding device History of arthroscopy of both knees Hx of colonoscopy (~03/06/22) History of esophagogastroduodenoscopy (EGD) History of ankle surgery History of umbilical hernia repair Hx of cholecystectomy Personal history of gastric banding Family History Mother No problems noted. 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 tree care foreman to a significant other at home: Yes (for mother, sister also helps and will dos) Do you presently have visiting nurse or other home services: No Alcohol intake: never Comment: sleeping Patient Tobacco Use Status: Never used Tobacco e-Cigarette/Vaping Use: Never Used Advance Directives Date on File: 11/20/20 service: No Current occupational status: retired Cognitive needs: Yes (walker) Hearing needs: No Vision needs: Yes (reading glasses) Questionnaire Thrive Questionnaire Date Thrive assessed: 05/23/25 NADIR-7 AMB Questionnaire NADIR-7 Date NADIR - 7 assessed: 05/23/25 Source: Developed by Drs. Francois Gallegos, Nadia Dale, Tyshawn Gonzales and colleagues, with an educational sy from [employer]. Physical exam (Primary Care) Vital Signs: Last Vital Signs Temp 96.7 F L 07/23/25 13:29 Pulse 78 07/23/25 13:29 Resp 20 07/23/25 13:29 BP 138/80 07/23/25 13:46 Pulse Ox 96 07/23/25 13:29 Oxygen Delivery Method Room Air 07/23/25 13:29 BMI result Body Mass Index 49.4 Tobacco/Smoking Status: Tobacco use Status Tobacco use date assessed 05/23/25 07/23/25 13:17 Patient Tobacco Use Status Never used Tobacco 07/23/25 13:17 e-Cigarette/Vaping Use Never Used 07/23/25 13:17 Thrive Assessment: Date of Thrive Assessment Date Thrive assessed 05/23/25 07/23/25 13:17 Coding Level of Care Code Est Pt Level 4 (41911) Complex EM visit Add On G2211 Diagnoses HTN (hypertension) I10 Diabetes E11.9 Moderate persistent asthma without complication J45.40 Asthma severity: moderate Asthma persistence: persistent Asthma complication type: uncomplicated EPI (obstructive sleep apnea) G47.33 Morbid obesity E66.01 Chronic pain G89.29 Assessment & Plan Assessment & Plan (1) HTN (hypertension): Code(s): I10 - Essential (primary) hypertension Category: Medical Plan: Controlled. Continue current therapies (2) Diabetes: Code(s): E11.9 - Type 2 diabetes mellitus without complications Category: Medical Plan: A1c ordered. Will reorder Mounjaro as this will help his glucose levels as well as weight loss. Continue Basaglar and NovoLog. Diabetic diet (3) Asthma: Code(s): J45.909 - Unspecified asthma, uncomplicated Category: Medical Qualifiers: Asthma severity: moderate Asthma persistence: persistent Asthma complication type: uncomplicated Qualified Code(s): J45.40 - Moderate persistent asthma, uncomplicated Plan: Still dyspneic. Discussed that this is likely multifactorial related to obesity hypoventilation, deconditioning, as well as his asthma. Follow-up with pulmonology as scheduled. Albuterol p.r.n. (4) EPI (obstructive sleep apnea): Code(s): G47.33 - Obstructive sleep apnea (adult) (pediatric) Category: Medical Plan: Continue CPAP (5) Morbid obesity: Code(s): E66.01 - Morbid (severe) obesity due to excess calories Category: Medical Plan: Continue with weight loss efforts. Counseled on diet. One 0 also was prescribed (6) Chronic pain: Code(s): G89.29 - Other chronic pain Category: Medical Plan: Continue oxycodone as ordered. Add Lyrica. Counseled on dosing and side effects Plan Follow-up in the office in 3 months. Labs to be completed today. He is given a note for jury duty exemption Medications: New pregabalin 75 mg PO BID 180 caps 0RF
[2025-07-23 13:29] VITALS: BP 142/80; PULSE 78; RESP 20; TEMP 35.9; O2SAT 96; BMI 49.4
[2025-07-23 13:46] VITALS: BP 138/80
--- OUTSIDE RECORDS SUMMARY | 2025-07-23 15:33 | XMS_ITS ---
Clinical Summary Created on: July 23, 2025 Mason Martin
== END 2025-07-23 13:57 | disposition home or self-care (01) ==
LOC: HO.HMCHD 13:11
PROVIDERS: Visit Provider Physician Assistant
DX: I10 Essential (primary) hypertension (principal); E11.9 Type 2 diabetes mellitus without complications; J45.40 Moderate persistent asthma, uncomplicated; G47.33 Obstructive sleep apnea (adult) (pediatric); E66.01 Morbid (severe) obesity due to excess calories; G89.29 Other chronic pain

== ENCOUNTER → 2025-07-23 13:10 | Outpatient (BNVA) | payer MEDICARE, SELFPAY | PROVIDERS: Visit Provider Physician Assistant | DX: I10 Essential (primary) hypertension (principal); E11.9 Type 2 diabetes mellitus without complications; J45.40 Moderate persistent asthma, uncomplicated; G47.33 Obstructive sleep apnea (adult) (pediatric); E66.01 Morbid (severe) obesity due to excess calories; Z68.42 Body mass index [BMI] 45.0-49.9, adult; G89.29 Other chronic pain; E78.5 Hyperlipidemia, unspecified; I25.10 Atherosclerotic heart disease of native coronary artery without angina pectoris; M15.9 Polyosteoarthritis, unspecified; Z79.02 Long term (current) use of antithrombotics/antiplatelets; Z79.4 Long term (current) use of insulin; Z79.82 Long term (current) use of aspirin; Z79.891 Long term (current) use of opiate analgesic; Z79.899 Other long term (current) drug therapy; Z99.89 Dependence on other enabling machines and devices | CPT/HCPCS: 99212 ==

== ENCOUNTER 2025-09-04 14:42 | Outpatient (AMB) | payer MEDICARE, SELFPAY ==
--- NOTE | 2025-09-04 12:36 | MHC.PC.OV ---
Vital Signs 09/04/25 14:48 Height 6 ft Weight 166.922 kg BMI 49.9 BP 132/74 Blood Pressure Location Lt brachial Position Sitting Respiration 20 Pulse 80 Pulse Source Pulse Oximeter Temp 97.3 F Temp Source Temporal Artery Scan Pulse Oximetry (%) 94 Oxygen Delivery Method Room Air Intake Visit Reasons: ED F/U Respiratory concern's Interlocking Tower Operator Required: No Accompanied by: Self / Same As Patient Allergies vancomycin (VANCOMYCIN) Adverse Reaction (Severe, Verified 09/04/25 12:37) RENAL FAILURE, RASH Tobacco use date assessed: 05/23/25 Dental Screening Dental Screen Date: 05/23/25 HPI HPI Comments History of Present Illness Details 64-year-old male with history of severe obstructive sleep apnea compliant with CPAP, type 2 diabetes, hyperlipidemia, asthma/COPD overlap, GERD, CAD, hypertension, morbid obesity with BMI 52.8 presents to the office today for follow-up. EPI-compliant with CPAP Type 2 diabetes-last A1c 9.3%, overdue for labs. Has not yet started Mounjaro as he was hospitalized. On Basaglar 60 units as well as NovoLog 15 units t.i.d. Hyperlipidemia-at goal. Continue simvastatin Asthma/COPD overlap-only rare use of albuterol. Does still have dyspnea, has upcoming appointment with pulmonology CAD-on statin, aspirin/Plavix, carvedilol. No chest pains. S/p cardiac arrest 2015 Hypertension-on carvedilol 12.5 mg twice daily, Lasix. BP 138/80 Morbid obesity-BMI 49.4. Exercise limited due to dyspnea on exertion. Not always following a healthy diet. Previously was quite active swimming at the [facility] Osteoarthritis of multiple joints-on oxycodone 15 mg q.i.d., had been taking every 4 hours and reports pain is not well managed since dose was reduced Cervical radiculopathy- saw a specialist in [place] and was deemed to be too high risk given history of blood clots so no surgery was performed. He remains in severe pain with radiculopathy into the arms. He is on oxycodone as above. Trialed gabapentin in the past which did not work. Also tried prescribing Lyrica but was declined Concerns: Recently admitted to [facility] from 08/15-08/24 due to increased pain in the perianal area at the recommendation of Colorectal surgery at [facility] for potential exploration under anesthesia. However, given patient's ongoing dyspnea primarily with exertion but both at rest and with exertion, cardiac evaluation was requested before undergoing anesthesia. Echocardiogram was performed at [facility] with poor visualization but did appear to have preserved left ventricular function and otherwise 1 able to assess wall motion abnormality or diastolic function. Therefore nuclear stress test was performed which showed a mild/small reversible perfusion defect in the apex of the heart as well as part of the mid to apical anterior wall suspicious for ischemia versus artifact. Ultimately Cardiology recommended IV diuresis and outpatient follow-up. He was also started on antibiotics while in the hospital with improvement in his pain as well as improvement on exam and ultimately the Colorectal Surgical team decided not to pursue UA and antibiotics were discontinued with ongoing monitoring. WBC remained stable during admission and his symptoms remained stable. He is therefore discharged with a prescription for Augmentin x7 days and was advised to follow-up outpatient with Colorectal surgery. Ultimately, the dyspnea was thought to be secondary to body habitus. CTA of the chest was negative. Echocardiogram as above. Nuclear stress test as noted. He was discharged on 20 mg of Lasix daily and advised to monitor weights. Use ice continue aspirin and statin as well as Coreg and recommended for outpatient follow up with Cardiology. He has had issues with orthopnea and dyspnea in the past, thought to be complicated by EPI though has been compliant with CPAP as well as obesity hypoventilation syndrome. He does have upcoming appointment with pulmonology on 09/20. He has not had any wheezing and has not required any use of his albuterol inhaler. He is also on high dose of oxycodone, 50 mg q.i.d. though was previously on 5 times daily. Patient reports that he was previously receiving 140 tabs as prior physician had ordered the prescription as q.i.d. with additional tabs provided to be used 5 times daily if needed. ROS: General: No fevers, malaise, unintentional weight loss HEENT: No blurred vision, diplopia. No sore throat, nasal congestion, rhinorrhea, sinus pain, ear pain Cardiovascular: No chest pain, palpitations, or leg edema Respiratory: See HPI GI: No abdominal pain, nausea, vomiting, diarrhea, constipation, melena, hematochezia : No dysuria, hematuria, increased urinary frequency, decreased urinary output MSK: See HPI Neuro: No headaches, weakness, paresthesias Skin: No rashes or lesions EXAM: Constitutional - Awake and Alert, No apparent distress Eyes - PERRL Cardiovascular - S1S2, RRR, No edema Respiratory - Normal lung expansion, Normal respiratory effort, No respiratory distress, CTA bilaterally Extremities - no calf tenderness bilaterally, no swelling Skin - Warm/Dry Neurological - Alert & oriented x3 Psychological - Appropriate affect PFSH Medical History (Updated 09/04/25 @ 15:42 by HOMAR Redd) Chronic pain Open wound EPI (obstructive sleep apnea) Dysphagia Chronic back pain Chronic neck pain Chronic edema Pulmonary nodule Cellulitis, gluteal PONV (postoperative nausea and vomiting) COVID-19 vaccine series completed Leg swelling Hx of deep venous thrombosis Hx of hyperlipidemia HTN (hypertension) GERD (gastroesophageal reflux disease) Myocardial infarct, old Back pain Septic shock Cardiac arrest COVID-19 Asthma Obesity Sleep apnea High cholesterol Diabetes Surgical History History of removal of laparoscopic gastric banding device History of arthroscopy of both knees Hx of colonoscopy (~03/06/22) History of esophagogastroduodenoscopy (EGD) History of ankle surgery History of umbilical hernia repair Hx of cholecystectomy Personal history of gastric banding Family History Mother No problems noted. 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 healthcare risk control consultant to a significant other at home: Yes (for mother, sister also helps and will dos) Do you presently have visiting nurse or other home services: No Alcohol intake: never Comment: sleeping Patient Tobacco Use Status: Never used Tobacco e-Cigarette/Vaping Use: Never Used Advance Directives Date on File: 11/20/20 service: No Current occupational status: retired Cognitive needs: Yes (walker) Hearing needs: No Vision needs: Yes (reading glasses) Questionnaire Thrive Questionnaire Date Thrive assessed: 05/23/25 ANDIR-7 AMB Questionnaire NADIR-7 Date NADIR - 7 assessed: 05/23/25 Source: Developed by Drs. Francois Gallegos, Nadia Dale, Tyshawn Gonzales and colleagues, with an educational sy from [employer]. Physical exam (Primary Care) Vital Signs: Last Vital Signs Temp 97.3 F 09/04/25 14:48 Pulse 80 09/04/25 14:48 Resp 20 09/04/25 14:48 BP 132/74 09/04/25 14:48 Pulse Ox 94 09/04/25 14:48 Oxygen Delivery Method Room Air 09/04/25 14:48 BMI result Body Mass Index 49.9 Tobacco/Smoking Status: Tobacco use Status Tobacco use date assessed 05/23/25 09/04/25 12:37 Patient Tobacco Use Status Never used Tobacco 09/04/25 12:37 e-Cigarette/Vaping Use Never Used 09/04/25 12:37 Thrive Assessment: Date of Thrive Assessment Date Thrive assessed 05/23/25 09/04/25 12:37 Coding Level of Care Code Est Pt Level 5 (66391) Complex EM visit Add On G2211 Diagnoses Hospital discharge follow-up Z09 EPI (obstructive sleep apnea) G47.33 Opioid dependence F11.20 HTN (hypertension) I10 Diabetes E11.9 Moderate persistent asthma without complication J45.40 Asthma severity: moderate Asthma persistence: persistent Asthma complication type: uncomplicated Cervical radiculopathy M54.12 Time Spent (min) 50 Comment Time spent reviewing documentation from [facility], interview and exam, and documentation Assessment & Plan Assessment & Plan (1) Hospital discharge follow-up: Code(s): Z09 - Encounter for follow-up examination after completed treatment for conditions other than malignant neoplasm Category: Medical Plan: [facility] H&P, discharge summary, labs, echocardiogram reviewed. Plan as below (2) EPI (obstructive sleep apnea): Code(s): G47.33 - Obstructive sleep apnea (adult) (pediatric) Category: Medical Plan: Suspect patient's dyspnea and orthopnea is related to obesity hypoventilation syndrome complicated by EPI. He has been working diligently at weight loss, has lost about 30 lb, and is encouraged to continue with weight loss efforts. Recommend diet lower in calories with emphasis on protein, fruits, vegetables and limiting refined sugars, simple carbohydrates and highly processed foods. Recommend moderate intensity exercise for at least 150 minutes weekly as he is able. Weight loss is likely to improve some of his pain. During hospitalization and historically in her hospital, respiratory rate has been normal. Can use incentive spirometry. Follow-up with pulmonology as scheduled on 09/20 (3) Opioid dependence: Code(s): F11.20 - Opioid dependence, uncomplicated Category: Medical Plan: Patient has limited quality of life without use of oxycodone. Change prescription back to prior. We will check testosterone level as well to see if testosterone replacement may helps her improve opioid tolerance/pain levels (4) HTN (hypertension): Code(s): I10 - Essential (primary) hypertension Category: Medical Plan: Controlled. Continue with Coreg, Lasix (5) Diabetes: Code(s): E11.9 - Type 2 diabetes mellitus without complications Category: Medical Plan: Hemoglobin A1c ordered. Continue Basaglar 60 units, NovoLog 15 units t.i.d. and initiate Mounjaro as ordered. Counseled on side effects. Diabetic diet as above. Continue with annual eye exams and foot exams. Testosterone levels ordered as above, if deficient, replacement may help with insulin resistance. (6) Asthma: Code(s): J45.909 - Unspecified asthma, uncomplicated Category: Medical Qualifiers: Asthma severity: moderate Asthma persistence: persistent Asthma complication type: uncomplicated Qualified Code(s): J45.40 - Moderate persistent asthma, uncomplicated Plan: No acute exacerbation. Dyspnea does not appear to be related to asthma. Can follow-up with pulmonology as scheduled. Albuterol PRN (7) Cervical radiculopathy: Code(s): M54.12 - Radiculopathy, cervical region Category: Medical Plan: Continue current medications. Referred to physical therapy. Plan Follow up in the office in 3 months, labs to be completed following visit today. Orders: Orders Hemoglobin A1c Today E11.9 - Type 2 diabetes mellitus without complications, E66.01 - Morbid (severe) obesity due to excess calories, G47.33 - Obstructive sleep apnea (adult) (pediatric), I10 - Essential (primary) hypertension Lipid Panel Today E11.9 - Type 2 diabetes mellitus without complications, E66.01 - Morbid (severe) obesity due to excess calories, G47.33 - Obstructive sleep apnea (adult) (pediatric), I10 - Essential (primary) hypertension Microalbumin, Random (w Creat) Today E11.9 - Type 2 diabetes mellitus without complications, E66.01 - Morbid (severe) obesity due to excess calories, G47.33 - Obstructive sleep apnea (adult) (pediatric), I10 - Essential (primary) hypertension PT Evaluation and Treatment Today M54.12 - Radiculopathy, cervical region Testosterone, Total Today E11.9 - Type 2 diabetes mellitus without complications, E66.01 - Morbid (severe) obesity due to excess calories, E88.81 - Metabolic syndrome and other insulin resistance, F11.20 - Opioid dependence, uncomplicated Basic Metabolic Panel Today E11.9 - Type 2 diabetes mellitus without complications, E66.01 - Morbid (severe) obesity due to excess calories, G47.33 - Obstructive sleep apnea (adult) (pediatric), I10 - Essential (primary) hypertension Liver Panel Today E11.9 - Type 2 diabetes mellitus without complications, E66.01 - Morbid (severe) obesity due to excess calories, G47.33 - Obstructive sleep apnea (adult) (pediatric), I10 - Essential (primary) hypertension
[2025-09-04 14:48] VITALS: BP 132/74; PULSE 80; RESP 20; TEMP 36.3; O2SAT 94; BMI 49.9
--- OUTSIDE RECORDS SUMMARY | 2025-09-04 17:46 | XMS_ITS | Continuity of Care Document ---
Author Organization [facility] Address [address] [facility] [address] [place] [id number] Phone [phone] Social History Type Date Description Comments Sex Male Sex Unknown Medical Devices Description No Information Available Encounters Description No Information Available Assessments Description No Information Available Plan of Treatment No Information Available Functional Status Description No Information Available Mental Status Description No Information Available Referrals Description No Information Available
--- OUTSIDE RECORDS SUMMARY | 2025-09-04 17:46 | XMS_ITS | Clinical Summary ---
Author Organization [facility] Address [address] [facility] [address] [place] [phone] Phone Care Team Providers Care [employer] Assistant Name Role Phone Ganga Stanford MD Primary [...] 2009 ZOSTER VACCINES (1 of 2) 2009 INFLUENZA VACCINE (#1) 2025 COVID-19 VACCINE ( - 2024-2 6 season) 2025 RSV VACCINE (1 - 1-dose 75+ series) [...] file Insurance MEDICARE PART A & B [employer] MEDEX SUPPLEMENT MEDICARE PART A & B [employer] MEDEX SUPPLEMENT MEDICARE PART A & B [employer] [place] [address] MEDICARE PART A & B [employer] MED[employer] SUPPLEMENT MEDICARE PART A & B [employer] MEDEX SUPPLEMENT MEDICARE PART A & B [employer] MEDEX SUPPLEMENT Care Teams [employer] Assistant Relationship Specialty Start Date End Date Ganga Stanford MD [address] [place] [address] [place] [id number] PCP - General Internal Medicine 09/19/22 Additional Source Comments The information contained in this document represents components of the legal health record. It is not the complete legal health record.[facility]
== END 2025-09-04 15:31 | disposition home or self-care (01) ==
LOC: HO.HMCHD 14:43
PROVIDERS: Visit Provider Physician Assistant
DX: G47.33 Obstructive sleep apnea (adult) (pediatric) (principal); F11.20 Opioid dependence, uncomplicated; I10 Essential (primary) hypertension; E11.9 Type 2 diabetes mellitus without complications; J45.40 Moderate persistent asthma, uncomplicated; M54.12 Radiculopathy, cervical region

== ENCOUNTER → 2025-09-04 14:42 | Outpatient (BNVA) | payer MEDICARE, SELFPAY | PROVIDERS: Visit Provider Physician Assistant | DX: Z09 Encounter for follow-up examination after completed treatment for conditions other than malignant neoplasm (principal); G47.33 Obstructive sleep apnea (adult) (pediatric); E11.9 Type 2 diabetes mellitus without complications; E78.5 Hyperlipidemia, unspecified; I25.10 Atherosclerotic heart disease of native coronary artery without angina pectoris; I10 Essential (primary) hypertension; E66.01 Morbid (severe) obesity due to excess calories; Z68.42 Body mass index [BMI] 45.0-49.9, adult; J44.9 Chronic obstructive pulmonary disease, unspecified; J45.40 Moderate persistent asthma, uncomplicated; M15.9 Polyosteoarthritis, unspecified; M54.12 Radiculopathy, cervical region; Z79.02 Long term (current) use of antithrombotics/antiplatelets; Z79.4 Long term (current) use of insulin; Z79.82 Long term (current) use of aspirin; Z79.891 Long term (current) use of opiate analgesic; Z79.899 Other long term (current) drug therapy; Z99.89 Dependence on other enabling machines and devices | CPT/HCPCS: 99212 ==

== ENCOUNTER 2025-09-20 13:53 | Outpatient (AMB) | payer MEDICARE, SELFPAY ==
--- OUTSIDE RECORDS SUMMARY | 2025-09-17 23:59 | XMS_ITS | Continuity of Care Document ---
Author Organization [facility] Address [address] [place] [address] [address] [place] [address]- Care Team Providers Care Reliner Name Role Phone Not on Staff, PCP Primary Care Physician Unavail able [place] [facility] [place]): 09/10/25 - 09/17/[address] [place] [address]- Encounter Diagnosis Wbgqjvc-[id number](Discharge Diagnosis) - 09/10/25 Attending Physician: Miesha Pineda NP Encounter Type: Office Visit Allergies, Adverse Reactions, Alerts Substance Criticality Severity Reaction Reaction Severity Status vancomycin rash Active Functional Status Functional Status Assessment Assessment Assessment Component Result Effecti ve Disability status [CUBS] I'm Safe - I rarely have acute or chronic symptoms affecting housing, employment, social interactions, etc. 09/10/25 Difficulty communica ting in usual language Unknown 09/10/25 Are you blind, or do you have serious difficulty seeing, even when wearing glasses Unknown 09/10/25 Difficulty Reading O r Writing Unknown 09/10/25 Because of a physica l, mental, or emotional condition, do you have serious difficulty concentrating, remembering, or making decisions Unknown 09/10/25 Do you have serious difficulty walking or climbing stairs Unknown 09/10/25 Do you need any herman tional assistance or accommodations during your visit Unknown 09/10/25 Do you have difficul ty dressing or bathing Unknown 09/10/25 Because of a physica l, mental, or emotional condition, do you have difficulty doing errands alone such as visiting a physician's office or shopping Unknown 11/10/25 Are you deaf, or do you have serious difficulty hearing Unknown 09/10/25 Immunizations Given and Recorded Vaccine Date Status Refusal Reason SARS-CoV-2 (COVID-19) mRNA BNT-162b2 vac 04/25/21 Recorded SARS-CoV-2 (COVID-19) mRNA BNT-162b2 vac 04/04/21 Recorded Medications Albuterol (Eqv-ProAir HFA) 90 mcg/inh inhalation aerosol See Instructions, PRN Wheezing/Shortness of Breath, 2 puffs Inhalation Every 6 hours, 0 Refills, Maintenance, 09/08/21 10:57:00 AM EST, Partial fill upon patient request if the prescription is for a schedule II opioid drug. Start Date: 09/08/21 Status: Ordered Medication Dispense Status: Completed Total Allowed Fills: 1 Fills Dispensed: 0 aspirin 81 mg oral capsule 1 capsule = 81 mg, By Mouth, Daily, 0 Refills, Maintenance, 09/08/21 10:54:00 AM EST, Partial fill upon patient request if the prescription is for a schedule II opioid drug. Start Date: 09/08/21 Status: Ordered Medication Dispense Status: Completed Total Allowed Fills: 1 Fills Dispensed: 0 Basaglar KwikPen = 60 units, Subcutaneous Injection, Daily at bedtime, 0 Refills, Maintenance, 09/08/21 10:53:00 AM EST, Partial fill upon patient request if the prescription is for a schedule II opioid drug. Start Date: 09/08/21 Stop Date: 05/25/22 Status: Ordered Medication Dispense Status: Completed Total Allowed Fills: 1 Fills Dispensed: 0 carvedilol 12.5 mg oral tablet 1 tablet, By Mouth, 2 times a day, # 60 tablet, 0 Refills, Maintenance, 12/09/10 11:11:32 AM EST, Tablet Start Date: 12/09/10 Status: Ordered Medication Dispense Status: Completed Quantity: 60.0 Unit: tablet Total Allowed Fills: 1 Fills Dispensed: 0 furosemide 20 mg oral tablet 20 mg, 1, tablet, By Mouth, Daily, Contact PCP if gain 3lbs in one day or 5lbs in one week, # 90 tablet, Refills 1, Tot. Refills 1, Maintenance, 08/23/25 10:25:00 AM EDT, Route to Pharmacy Electronically, [facility], Partial fill upon patient request if the prescription is for a schedule II opioid drug., 183, cm, 08/23/25 7:48:00 EDT, Height, 169, kg, 08/15/25 13:55:00 EDT, Dry Weight Start Date: 08/23/25 Status: Ordered Medication Dispense Status: Completed Quantity: 90.0 Unit: tablet Total Allowed Fills: 2 Fills Dispensed: 0 Insulin Aspart sliding scale Novalog, Subcutaneous Infusion, 3 times a day before meals, 0 Refills, Maintenance, 09/08/21 11:39:00 AM EST, Partial fill upon patient request if the prescription is for a schedule II opioid drug. Start Date: 09/08/21 Status: Ordered Medication Dispense Status: Completed Total Allowed Fills: 1 Fills Dispensed: 0 Narcan 4 mg/0.1 mL nasal spray = 4 mg, Naris, Left, Once, PRN Other, To reverse opioid overdose, may repeat every 2 to 3 minutes until patient responds, # 2 each, 0 Refills, Soft Stop, 01/15/24 9:14:00 AM EDT, [facility], Partial fill upon patient request if the prescription is for a schedule II opioid drug., 183, cm, 01/15/24 8:27:00 EDT, Height, 172.5, kg, 01/07/24 23:02:00 EST, Dry Weight Start Date: 01/15/24 Status: Ordered Medication Dispense Status: Completed Quantity: 2.0 Unit: each Total Allowed Fills: 1 Fills Dispensed: 0 oxyCODONE 15 mg oral tablet 1 tablet = 15 mg, By Mouth, Every 6 hours, PRN as needed for pain, 0 Refills, Maintenance, 11/09/24 3:05:00 PM EST, Tablet, Partial fill upon patient request if the prescription is for a schedule II opioid drug. Start Date: 11/09/24 Status: Ordered Medication Dispense Status: Completed Total Allowed Fills: 1 Fills Dispensed: 0 pantoprazole 40 mg oral enteric coated tablet 1 tablet, By Mouth, Daily, # 30 tablet, 0 Refills, Maintenance, 12/09/10 11:12:08 AM EST, EC Tablet Start Date: 12/09/10 Status: Ordered Medication Dispense Status: Completed Quantity: 30.0 Unit: tablet Total Allowed Fills: 1 Fills Dispensed: 0 Plavix 75 mg oral tablet By Mouth, Daily, 0 Refills Start Date: 04/22/06 Status: Ordered Medication Dispense Status: Completed Total Allowed Fills: 1 Fills Dispensed: 0 Senna 8.6 mg oral tablet 17.2 mg, 2, tablet, By Mouth, 2 times a day, Refills 0, Maintenance, 08/15/25 9:02:00 AM EDT, Partial fill upon patient request if the prescription is for a schedule II opioid drug. Start Date: 08/15/25 Status: Ordered Medication Dispense Status: Completed Total Allowed Fills: 1 Fills Dispensed: 0 simvastatin 40 mg oral tablet 1 tablet, By Mouth, Daily at bedtime, # 30 tablet, 0 Refills, Maintenance, 12/09/10 11:11:45 AM EST, Tablet Start Date: 12/09/10 Status: Ordered Medication Dispense Status: Completed Quantity: 30.0 Unit: tablet Total Allowed Fills: 1 Fills Dispensed: 0 Problem List Condition Confirmation Course Effective Dates Status H ealth Status Informant Znukorr-ux-eyu Confirmed Active Edema of extremity Confirmed Active Obesity Confirmed Active Severe obesity Confirmed Active Venous insufficiency NOS Confirmed Active Diagnosis Diagnosis Type Effective Dates Health Status inical Service Informant Vxjkesb-fl-wmd Discharge Diagnosis 09/10/25 Vital Signs Most recent to oldest [Reference Range]: 1 Height 183 cm (09/10/25 8:46 AM) Weight 167.6 kg (09/10/25 8:46 AM) Pulse Rate [55-90 bpm] 93 bpm *H* (09/10/25 8:46 AM) Body Mass Index [18.5-24.99 kg/m2] 50.05 kg/m2 *H* (09/10/25 8:46 AM) Blood Pressure [90-138/55-84 mm Hg] 134/ 77mm Hg (09/10/25 8:46 AM) Temperature [96.8-100.4 DegF] 96.6 DegF *L* (09/10/25 8:46 AM) Blood pressure sites Arm, left (09/10/25 8:46 AM) Temperature Route Temporal (09/10/25 8:46 AM) Social History Social History Type Response Smoking Status Never (less than 100 in lifetime) entered on: 07/06/25 Sex Sex Representation Male (finding) Note * Izabella Bravo: PERFORM Event Display: Patient Education/Instruction Authored Date: [id number] Ambulatory Adult Visit Summary [facility] [address] [place] [address] [place] [address] Name: KIRSTEN OG : 1960?? Visit: 09/10/2025 08:30?? Ambulatory Visit Instructions ?? Your Care Team Primary Care Provider Not on Staff, PCP?? This Visit Provider Miesha Pineda NP Your Diagnosis Vrjjfjo-at-uyo Vitals Signs Temperature:??96.6 DegF??Low Height: 183 cm Pulse Rate:??93 bpm??High Weight: 167.6 kg Systolic Blood Pressure: 134 mm Hg Body Mass Index:??50.05 kg/m2??High Diastolic Blood Pressure: 77 mm Hg Body surface area: 2.92 What to do next Scheduled Follow-Up Appointments Wednesday 8:20 AM EST ?? Type: Inpatient Follow Up With: Charlotte Kothari DO Where: [facility] [address] [place] [id number]- Status: Pending Wednesday2025 2:20 PM EST ?? Type: Return With: Susana MCGARRY, Trinity Fernandes Where: [address] [place] [address]- Status: Pending Medications The list below reflects the information in our records and provided by you today along with any changes made during this visit. Please continue your medications until treatment is completed or stopped by your provider. If this is different from the information you have or there are other questions,please contact the prescribing provider. What How Much When Instructions Unchanged Albuterol (Albuterol (Eqv-ProAir HFA) 90 mcg/ inh inhalation aerosol) See instructions Special Instructions: 2 puffs Inhalation Every 6 hours, As needed for Wheezing/ Shortness of Breath?? Unchanged Aspirin (aspirin 81 mg oral capsule) 1 capsule Oral Daily Unchanged Carvedilol (carvedilol 12.5 mg oral tablet) 1 tab(s) Oral Twice a day Unchanged Clopidogrel (Plavix 75 mg oral tablet) Oral Daily Unchanged Furosemide (furosemide 20 mg oral tablet) 1 tab(s) Oral Daily Special Instructions: Contact PCP if gain 3lbs in one day or 5lbs in one week Ordering Physician: Sacha Luna DO ?? Unchanged Insulin Aspart sliding scale Novalog Subcutaneous Infusion 3 times a day before meals Unchanged Insulin Glargine (Basaglar KwikPen) 60 unit(s) Subcutaneous Injection Daily at Bedtime Duration: 30 Days Unchanged nalOXONE (Narcan 4 mg/ 0.1 mL nasal spray) 4 Milligram Naris, Left Once as needed for Other Special Instructions: To reverse opioid overdose, may repeat every 2 to 3 minutes until patient responds Ordering Physician: Estevan Alicia MD ?? Unchanged Oxycodone (oxyCODONE 15 mg oral tablet) 1 tab(s) Oral Every 6 hours as needed for as needed for pain Unchanged Pantoprazole (pantoprazole 40 mg oral enteric coated tablet) 1 tab(s) Oral Daily Unchanged Senna (Senna 8.6 mg oral tablet) 2 tab(s) Oral Twice a day Ordering Physician: Frankie Corea MD Unchanged Simvastatin (simvastatin 40 mg oral tablet) 1 tab(s) Oral Daily at Bedtime Medications and Immunizations Administered Medications Given During Visit No medications given during this visit.?? Allergies (NKA means No Known Allergies) vancomycin??rash Common Emergency Awareness Tips IS IT A STROKE? Act FAST and Check for these signs: FACE Does the face look uneven? ARM Does one arm drift down? SPEECH Does their speech sound strange? TIME Call at any sign of stroke ?? Heart Attack Signs Chest discomfort: Most heart attacks involve discomfort in the center of the chest and lasts more than a few minutes, or goes away and comes back. It can feel like uncomfortable pressure, squeezing, fullness or pain. Discomfort in upper body: Symptoms can include pain or discomfort in one or both arms, back, neck, jaw or stomach. Shortness of breath: With or without discomfort. Other signs: Breaking out in a cold sweat, nausea, or lightheaded. Remember, MINUTES DO MATTER. If you experience any of these heart attack warning signs, call to get immediate medical attention! ?? Smoking can increase your chances of developing chronic health problems and can cause harmful effects to other family members in your house. If you smoke, you are strongly encouraged to quit. Please call [employer] [facility] at [phone] or 5-069-584-[employer] (1768) or log in to [email or web address] for referrals to smoking cessation programs. ?? The National Suicide Prevention Hotline is available 24/05 if you or someone you know needs to find a reason to keep living. By calling 7-879-755-[employer]al[employer].com (3172) you'll be connected to a skilled, trained counselor at a crisis center in your area. [facility] Portal You can view and manage your care through the patient portal or by using a health care gemma of your choosing. [employer]more is a website that allows you to securely view your medical information including your hospital discharge summary, office visit summaries, medications and follow-up visits. You can also request appointments, renew medications, and request access to your medical information using a health care gemma of your choosing, or just ask a question. You can enroll at [email or web address] or register during your next office visit. [facility], in keeping with [facility] guidance, no longer requires face masks for staff, patientsor visitors in most situations. Similiar to time spent indoors at other locations, there is the chance that you were exposed to repiratory viruses during your time with us (such as flu or COVID-19). If you develop symptoms concerning for a viral respiratory infection, please seek testing (and treatment if indicated) from your medical provider or home test kit. ?? Disclaimer: The information provided is of a general nature and is intended to be used in conjunction with the recommendations and advice of your health care practitioner. Every effort has been made to ensure that the information provided is accurate and complete at the time it is provided to you however, as your needs change, or, as new information becomes available, different or additional instructions may be required. ?? If you have questions, please consult with your primary care provider or pharmacist, as appropriate. This information is not intended to serve as substitution for assessment and evaluation by a qualified health care provider. If you do not have a primary care provider, you may find a [facility] provider by calling [facility] at [phone]. Patient Care team information Care Team Personnel Name: Sayda Valdez RN Position: S RN Member Role: Primary Care Nurse Name: Harper Garcia RN Position: [facility] RN Member Role: Primary Care Nurse Name: Jacy Mansfield RN Position: [facility] RN Member Role: Primary Care Nurse Name: Nnamdi Mclaughlin RN Position: [facility] RN Member Role: Primary Care Nurse Name: Carlitos Blackmon RN Position: [facility] RN Member Role: Primary Care Nurse Name: Not on Staff, PCP Position: [facility] Physician (General Medicine) Member Role: PCP Care Team Related Persons Name: DARREN BETANCURLENE Name: OGSERGIO Name: DEANN OG Insurance Providers Guarantor name: KIRSTEN OG [facility] [facility] Information #: 1 Payer: MEDICARE B Payer Identifier: Member Number: [id number] Group Number: Subscriber Identifier: [id number] Relationship to Subscriber: self Coverage Type: NA Coverage Verification Date: NA Telecom: NA Address: [facility] Plan Information #: 2 Payer: [employer] SECONDARY ONLY Payer Identifier: Member Number: [id number] Group Number: Subscriber Identifier: [id number] Relationship to Subscriber: self Coverage Type: Medicare Other Coverage Verification Date: NA Telecom: NA Address:
--- NOTE | 2025-09-20 14:03 | A.OFFVIS_ITS ---
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 It was associated with some evidence of bronchiectatic airways. This area appears to be normal. Is been reported that looks like from the atelectasis. 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 However, I do not see any asbestos plaques. The patient does have a significant history of lung cancer in the family. Now more recently the patient had a repeat CT scan sometime in August 2022 that was also personally by me which demonstrated again the masslike density in the right lower lobe with bronchiectatic airways but now soon new subcentimeter pulmonary nodules in the lingula. Clinically the patient is feeling well. Denies any significant shortness of breath or weight loss or night sweats. Actually he has been having hard time with his weight gain. He is getting very discouraged because he is try to maintain a low caloric intake and still gaining weight. The patient will talk to his primary care doctor regarding non insulin injectables is a good option for him to hopefully to lose weight and decrease Insulin requirements. In view of his significant history of lung cancer and also because of the concerns of potential foreign body aspiration into the right lower lobe specially while having a gastric band it is reasonable to visualize this right lower lobe area with bronchoscopy at this time. 11/30/2023 the patient is here for pulmonary follow-up visit. The patient was lost to follow-up has not been seen more than a year. the patient had been scheduled for bronchoscopy because of a right lower lobe nodular density. However, then he developed severe COVID and was lost to follow-up afterwards. He is feeling better. He is still dealing with his weight. Significant knee pain. The patient also complains of difficulty swallowing. Sometimes he regurgitates. Moderate severity. We did look at a CT scan of the chest that he had back in 2021 demonstrating a masslike consolidation in the right lower lobe and also a dilated esophagus that is fluid filled. The patient did have a lap band at some point and then it was removed because of complications with the lap band. Likely that he resulted in some residual dysmotility after the lap band. Still based on his GI symptoms will go ahead and request a barium swallow as well. The patient will return after his barium swallow in his CT scan. In the meantime he continues uses CPAP. CPAP therapy continues to be affecting beneficial. he does try to use it more than 4 hours a night. 09/20/2025 the patient is here for pulmonary follow-up visit. The patient overall has been doing okay. He was recently admitted to [facility] after developing significant shortness of breath and chest discomfort prior to a colonoscopy. Apparently he has been dealing with anal fissures causing him significant discomfort. He was going to have the colonoscopy for that. He was admitted to the hospital he did have a CT scan of the chest which I did personally review in August 2025. The patient does have rounded atelectasis at both bases but right more than left. That areas been there for many years in his appears to be stable. Likely secondary to pneumoconiosis. He has had been exposed to asbestos in the past and he does have some very mild asbestos looking plaques. Therefore likely pneumoconiosis related. The patient did have a CT scan in June of 2025 also demonstrating similar findings and also CTA negative for PE. The patient continues with respiratory therapy with good effect. He also continues with CPAP. CPAP therapy has been affecting beneficial. He will continue the CPAP for now he will bring up CPAP to the next visit to see if we have to adjusted off any to consider titration study. He will continue with the current respiratory therapy and will follow-up in 3-4 months. [facility] Medical History (Updated 09/04/25 @ 15:42 by HOMAR Redd) Chronic pain Open wound EPI (obstructive sleep apnea) Dysphagia Chronic back pain Chronic neck pain Chronic edema Pulmonary nodule Cellulitis, gluteal PONV (postoperative nausea and vomiting) COVID-19 vaccine series completed Leg swelling Hx of deep venous thrombosis Hx of hyperlipidemia HTN (hypertension) GERD (gastroesophageal reflux disease) Myocardial infarct, old Back pain Septic shock Cardiac arrest COVID-19 Asthma Obesity Sleep apnea High cholesterol Diabetes Surgical History History of removal of laparoscopic gastric banding device History of arthroscopy of both knees Hx of colonoscopy (~03/06/22) History of esophagogastroduodenoscopy (EGD) History of ankle surgery History of umbilical hernia repair Hx of cholecystectomy Personal history of gastric banding Family History Mother No problems noted. 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 other at home: Yes (for mother, sister also helps and will dos) Do you presently have visiting nurse or other home services: No Alcohol intake: never Comment: sleeping Patient Tobacco Use Status: Never used Tobacco e-Cigarette/Vaping Use: Never Used Advance Directives Date on File: 11/20/20 service: No Current occupational status: retired Cognitive needs: Yes (walker) Hearing needs: No Vision needs: Yes (reading glasses) Review of Systems Const Denies chills and Denies fever(s) Eyes Reports no additional complaints ENT Reports dysphagia and Reports nasal congestion Card Denies chest pain, Denies dyspnea and Reports dyspnea on exertion Resp Denies dyspnea, Reports dyspnea on exertion and Denies wheezing GI Reports as per HPI, Reports dysphagia and Reports nausea Musc Reports abnormal gait, Reports arthralgias, Reports joint swelling and Reports limited range of motion Skin/Breast Denies rash Neuro Reports abnormal gait Michele/Lymph Denies easy bruising Aller/Immun Denies wheezing Physical Exam Vital Signs: Last Vital Signs Pulse 82 09/20/25 14:04 BP 120/60 09/20/25 14:04 Pulse Ox 95 09/20/25 14:04 Oxygen Delivery Method Room Air 09/20/25 14:04 BMI result Body Mass Index 50.8 Last Vital Signs Temp 98.1 F 09/17/22 19:38 Pulse 73 09/17/22 19:38 Resp 16 09/17/22 19:38 BP 118/59 L 09/17/22 19:38 Pulse Ox 95 09/17/22 19:38 O2 Del Method 09/17/22 19:38 BMI result Body Mass Index 51.5 Const General: cooperative HEENT Head: Yes normal to inspection Face and sinus: Yes normal facial exam Mouth: Normal oral and palatal mucosa present Teeth and gingiva: dentition normal Eyes General: appearance normal, both eyes and all related structures Pupils: Equal, round and reactive pupils present Neck Neck: Yes supple Chest Chest palpation & inspection: normal inspection of the chest Resp Effort & Inspection: normal respiratory effort Auscultation: diminished lung sounds Cardio Rate: regular rate Rhythm: regular rhythm Heart sounds: S1 normal heart sound present and S2 normal heart sound present GI Palpation (GI): Soft to palpation General: Yes no CVA tenderness Back/Spine/Pelvis Back: no CVA tenderness Skin General skin exam: no rashes or lesions noted Neuro General: moves all extremities Cranial nerves: Yes Equal, round and reactive pupils present Extrem General: Yes normal to inspection Psych Appearance: grossly normal Office Procedures Flu Questionnaire Does the patient have a severe egg allergy?: No Does the patient have severe life threatening allergies?: No Does the patient have a fever or illness today?: No Has the patient ever had Guillain-Glenwood Syndrome?: No Has the patient ever had any past reaction to a flu shot?: No Immunizations Fluarix [id number] (PF) 45 mcg (15 mcg x 3)/0.5 mL IM syringe Performing Provider: Saman Velez MD Performing Location: [facility] [place] [facility] Administered by: Lashawn Abbott LPN on 09/20/25 14:48 Dose Route Admin Location Dispensed Lot Number Expiration Date [place] [employer] 0.5 mL IM Right Deltoid 0.5 mL [id number] 04/30/26 94311-485-11 [employer] [facility] TechnologiesK[employer] VIS Given Date VIS Provided VIS Publication Date 09/20/25 Single Vaccine 24 Eligibility Eligibility Date Funding Source Not [facility] Eligible 09/20/25 Private Assessment & Plan Assessment & Plan (1) Asthma: Code(s): J45.909 - Unspecified asthma, uncomplicated Category: Medical Qualifiers: Asthma complication type: uncomplicated Asthma persistence: persistent Asthma severity: moderate Qualified Code(s): J45.40 - Moderate persistent asthma, uncomplicated (2) Pulmonary nodule: Code(s): R91.1 - Solitary pulmonary nodule Category: Medical (3) Morbid obesity: Code(s): E66.01 - Morbid (severe) obesity due to excess calories Category: Medical (4) Dysphagia: Code(s): R13.10 - Dysphagia, unspecified Category: Medical Qualifiers: Dysphagia type: unspecified Qualified Code(s): R13.10 - Dysphagia, unspecified (5) EPI (obstructive sleep apnea): Code(s): G47.33 - Obstructive sleep apnea (adult) (pediatric) Category: Medical Plan start Bevespi NOEMY as needed weight management CPAP, DME JL. Need to assess PAP machine ?titration study F/U 3-4 months Orders: Orders Influenza [id number] Immunization Today J45.40 - Moderate persistent asthma, uncomplicated Medications: New glycopyrrolate-formoterol 9-4.8 mcg (Bevespi Aerosphere) 2 puffs inhalation Q12H 10.7 grams 11RF 30 days Coding Level of Care Code Complex visit Add On G2211 Diagnoses Moderate persistent asthma without complication J45.40 Asthma complication type: uncomplicated Asthma persistence: persistent Asthma severity: moderate Pulmonary nodule R91.1 Morbid obesity E66.01 Dysphagia, unspecified type R13.10 Dysphagia type: unspecified EPI (obstructive sleep apnea) G47.33 Time Spent (min) 18
[2025-09-20 14:04] VITALS: BP 120/60; PULSE 82; O2SAT 95; BMI 50.8
--- OUTSIDE RECORDS SUMMARY | 2025-09-20 19:20 | XMS_ITS | Continuity of Care Document ---
Author Organization [facility] Address [address] [facility] [address] [place] [id number] Phone [phone] Social History Type Date Description Comments Sex Male Sex Unknown Medical Devices Description No Information Available Encounters Description No Information Available Assessments Description No Information Available Plan of Treatment No Information Available Functional Status Description No Information Available Mental Status Description No Information Available Referrals Description No Information Available
--- OUTSIDE RECORDS SUMMARY | 2025-09-20 19:20 | XMS_ITS | Clinical Summary ---
Author Organization [facility] Address [address] [facility] [address] [facility] [address] [place] [phone] Phone Care Team Providers Care Culinary Specialist Name Role Phone Ganga Stanford MD Primary [...] ACCO SCREENING 1972 HEPATITIS C SCREENING 1977 COLOGUARD 2004 COLONOSCOPY 2004 COLORECTAL CANCER SCREENING 2004 FIT TEST 2004 FOBT 2004 SIGMOIDOSCOPY 2004 VIRTUAL COLONOSCOPY 2004 PNEUMOCOCCAL VACCINES (50+ y ears) (1 of 1 - PCV) 2009 ZOSTER VACCINES (1 of 2) 2009 INFLUENZA VACCINE (#1) 2025 COVID-19 VACCINE (2024-2 6 season) 2025 RSV VACCINE (1 - 1-dose 75+ series) 2034 HEPATITIS A VACCINES Aged Out No long er eligible based on patient's age to complete this topic HIB VACCINES Aged Out No longer eligi ble based on patient's age to complete this topic IPV VACCINES Aged Out No longer eligi ble based on patient's age to complete this topic MENINGOCOCCAL VACCINES (ACWY) Aged Out No longer eligible based on patient's age to complete this topic MENINGOCOCCAL VACCINES (B) Aged Out N o longer eligible based on patient's age to complete this topic Medical Devices Not on file Insurance MEDICARE PART A & B [facility] MEDEX SUPPLEMENT MEDICARE PART A & B [employer] MEDEX SUPPLEMENT MEDICARE PART A & B [email or web address] MEDEX SUPPLEMENT MEDICARE PART A & B [employer] MEDEX SUPPLEMENT MEDICARE PART A & B [email or web address] MEDEX SUPPLEMENT MEDICARE PART A & B [employer] MEDEX SUPPLEMENT Care Teams Culinary Specialist Relationship Specialty Start Date End Date Ganga Stanford MD [address] [place] [address] [place] [id number] PCP - General Internal Medicine 09/19/22 Additional Source Comments The information contained in this document represents components of the legal health record. It is not the complete legal health record.[facility]
== END 2025-09-20 14:43 | disposition home or self-care (01) ==
LOC: HO.HPS 13:53
PROVIDERS: Visit Provider Hospitalist
DX: J45.40 Moderate persistent asthma, uncomplicated (principal); R91.1 Solitary pulmonary nodule; E66.01 Morbid (severe) obesity due to excess calories; R13.10 Dysphagia, unspecified; G47.33 Obstructive sleep apnea (adult) (pediatric)
CPT/HCPCS: 99214; G2211

== ENCOUNTER → 2025-09-20 13:53 | Outpatient (BNVA) | payer MEDICARE, SELFPAY | PROVIDERS: Visit Provider Hospitalist | DX: J45.40 Moderate persistent asthma, uncomplicated (principal); R91.1 Solitary pulmonary nodule; E66.01 Morbid (severe) obesity due to excess calories; R13.10 Dysphagia, unspecified; G47.33 Obstructive sleep apnea (adult) (pediatric); Z99.89 Dependence on other enabling machines and devices; Z23 Encounter for immunization | CPT/HCPCS: 90471; 90656; 99212 ==

== ENCOUNTER 2025-10-06 18:01 | Emergency (ER) | payer MEDICARE, SELFPAY ==
--- NOTE | ~2025-10-06 | XR_ITS ---
CLINICAL HISTORY: short of breath 2 view chest x-ray Comparison: CT/SR - CT ANGIO CHEST PE PROTOCOL - 06/13/25 05:43 EDT CR - XR CHEST 2V - 06/13/25 02:33 EDT Findings: Lungs are well inflated. Cardiac silhouette is within normal limits. Unchanged area of increased density along the medial aspect of the right lung base. Please refer to the patient's prior chest CT report for full details. Lungs are otherwise clear. IMPRESSION: 1. No acute findings. This document has been electronically signed by: Tej Gallardo MD on 10/06/2025 19:10:55
[2025-10-06 18:05] VITALS: BP 139/74; PULSE 87; RESP 18; TEMP 36.1; O2SAT 94; BMI 51.5
--- NOTE | 2025-10-06 18:05 | ED.GENADULT ---
HPI - General Adult General Chief complaint: Upper Respiratory Symptoms Stated complaint: sob Time Seen by Provider: 10/06/25 23:29 Source: patient Mode of arrival: ambulatory Limitations: no limitations History of Present Illness ED Provider: Dr. Gabrielle Quesada HPI narrative: 65-year-old male with history of diabetes mellitus, asthma, obstructive sleep apnea, BMI 51 kg/m2, who presents from home (came to the ED early Wednesday morning) for 24 hours of worsening shortness of breath and episodic light-headedness. Symptoms began Wednesday night/Wednesday morning. He reports a mild, transient headache and periocular pain that resolved; ongoing light-headed ?full? sensation persists. He recently started a new twice-daily maintenance inhaler containing formoterol and glycopyrrolate; has used it ~3 times total, with last use preceding symptom onset by several hours. He also uses albuterol rescue inhaler, which provided some relief tonight. Patient reports fear of using new inhaler due to headache/lightheadedness after recent episode. No emergency breathing treatments were given prior to arrival. Denies fever or sick contacts. States leg swelling is at his usual baseline (?average?). Last dose of his prescribed diuretic (?water pill?) was ; pharmacy error has limited him to once-daily dosing instead of BID. Reports intermittent burning/heart-burn?type sensation in the lower chest/upper abdomen since decreasing pantoprazole from BID to daily; not clearly related to inhaler use or meals. Reports prior pulmonology comment of ?curling up at the left lower lung? after previous imaging; follow-up with pulmonology scheduled 12/18. Patient unable to locate incentive spirometer at home. Related Data Home Medications ?Medication ?Instructions ?Recorded ?Confirmed aspirin 81 mg tablet,delayed 81 mg PO DAILY 11/20/20 10/12/25 release pantoprazole 40 mg tablet,delayed 40 mg PO BID 11/20/20 10/12/25 release blood-glucose meter (True Metrix #1 ea 09/04/25 10/12/25 Glucose Meter) carvedilol 12.5 mg tablet 12.5 mg PO ONCE 09/04/25 10/12/25 Previous Rx's ?Medication ?Instructions ?Recorded diabetic shoes with inserts #2 ea 02/14/25 nystatin 100,000 unit/gram topical 1 appl topical BID #30 grams 03/16/25 cream insulin glargine 100 unit/mL (3 60 unit (0.6 mL) subcut BEDTIME 90 04/21/25 mL) subcutaneous pen (Basaglar days #54 mL KwikPen U-100 Insulin) blood sugar diagnostic (True #100 strips 07/03/25 Metrix Glucose Test Strip) tirzepatide 2.5 mg/0.5 mL 2.5 mg (0.5 mL) subcut QWEEK #2 mL 07/23/25 subcutaneous pen injector (Mounjaro) insulin aspart U-100 100 unit/mL 15 unit (0.15 mL) subcut TID 90 07/24/25 (3 mL) subcutaneous pen (Novo #40.5 mL FlexPen U-100 Insulin aspart) albuterol sulfate 90 mcg/actuation 2 puff inhalation QID PRN 08/07/25 aerosol inhaler (Ventolin HFA) Shortness Of Breath Or Wheezing #8.5 grams simvastatin 40 mg tablet 40 mg PO BEDTIME 90 days #90 tabs 08/07/25 clopidogrel 75 mg tablet 75 mg PO DAILY 90 days #90 tabs 08/10/25 pen needle, diabetic 32 gauge x #1,200 ea 08/29/25 (UltiCare Pen Needle) oxycodone 15 mg tablet 15 mg PO Q6H #140 tabs 09/19/25 glycopyrrolate 9 mcg-formoterol 2 puff inhalation Q12H 30 days 09/20/25 4.8 mcg HFA aerosol inhaler #10.7 grams (Bevespi Aerosphere) furosemide 20 mg tablet (Lasix) 20 mg PO DAILY #10 tabs 10/07/25 amoxicillin 875 mg-potassium 1 tab PO BID #20 tabs 10/09/25 clavulanate 125 mg tablet Allergies Allergy/AdvReac Type Severity Reaction Status Date / Time vancomycin (VANCOMYCIN) AdvReac Severe RENAL Verified 10/12/25 11:41 FAILURE, RASH Review of Systems Review of Systems: as per HPI, full review of systems performed and negative but for the above mentioned pertinent positives and negatives. [facility] Past Medical History Medical History Chronic pain Open wound EPI (obstructive sleep apnea) Dysphagia Chronic back pain Chronic neck pain Chronic edema Pulmonary nodule Cellulitis, gluteal PONV (postoperative nausea and vomiting) COVID-19 vaccine series completed Leg swelling Hx of deep venous thrombosis Hx of hyperlipidemia HTN (hypertension) GERD (gastroesophageal reflux disease) Myocardial infarct, old Back pain Septic shock Cardiac arrest COVID-19 Asthma Obesity Sleep apnea High cholesterol Diabetes Surgical History History of removal of laparoscopic gastric banding device History of arthroscopy of both knees Hx of colonoscopy (~03/06/22) History of esophagogastroduodenoscopy (EGD) History of ankle surgery History of umbilical hernia repair Hx of cholecystectomy Personal history of gastric banding Family History Family History Mother No problems noted. Father Lung cancer Social History Social History Household Members: Family Household Members Other:: mother Housing: House Are you a primary aged or disabled care worker to a significant other at home: Yes (for mother, sister also helps and will dos) Do you presently have visiting nurse or other home services: No Alcohol intake: never Comment: sleeping Patient Tobacco Use Status: Never used Tobacco e-Cigarette/Vaping Use: Never Used Advance Directives Date on File: 11/20/20 service: No Current occupational status: retired Cognitive needs: Yes (walker) Hearing needs: No Vision needs: Yes (reading glasses) Physical Exam ED Exam Exam: GENERAL: Chronically ill-appearing, no respiratory distress. SKIN: Normal skin color for ethnicity, warm, dry, no rashes noted. HEENT: Normocephalic, atraumatic, no stridor, EOMI. NECK: Soft, supple, full ROM, midline structures nontender, no step-offs, no deformities, no lymphadenopathy. CHEST: Heart regular tachycardia, symmetric chest rise and fall. PULMONARY: Coarse lung sounds bilaterally, diminished at the bases, no wheezes. ABDOMINAL: Soft, protuberant nontender, quiet bowel sounds in all quadrants. : Deferred. MUSCULOSKELETAL: Normal tone, full range of motion, no deformities, 3+ peripheral edema bilaterally, large fluctuant mass overlying the dorsal aspect of the left forearm without evidence of overlying cellulitis, no induration. NEURO: Alert and oriented to person, CN II through XII intact, no focal neurologic deficits. PSYCHIATRIC: Anxious affect, appropriate demeanor. Vital Signs: Vital Signs - 24 hr 10/06/25 18:05 10/06/25 22:02 10/07/25 00:56 Temperature 97 F 98.1 F Pulse Rate 87 74 Respiratory Rate 18 19 Blood Pressure 139/74 149/83 H Pulse Oximetry 94 94 95 Oxygen Delivery Method Room Air Room Air Room Air 10/07/25 00:56 10/07/25 01:25 Temperature 97.8 F 97.8 F Pulse Rate 75 75 Respiratory Rate 19 19 Blood Pressure 169/82 H 169/82 H Pulse Oximetry 95 95 Oxygen Delivery Method Room Air Room Air BMI result Body Mass Index 51.5 Course Course Course Narrative: This is a Rapid Medical Examination (RME) performed by Twin Mejia PA-C in triage. Full HPI, ROS, assessment and treatment plan per primary provider in the Main ED. Hx: 65 yo M hx of HTN, asthma, pulmonary nodules, EPI, DM, here for eval of sob and dizziness x24 hours. using inhaler at home w/o relief - last used this 1.5 hours ago. PE/vitals: lungs clear Plan: labs, ekg, cxr, viral swabs Medications Administered Discontinued Medications Generic Name Dose Route Start Last Admin Trade Name Freq PRN Reason Stop Dose Admin Lidocaine HCl 10 ml 10/07/25 02:01 10/07/25 04:13 Lidocaine Hcl 1 % 20 Ml Vial INFILTRATI 10/07/25 02:02 10 ml ONCE ONE Administration Procedures Abscess I/D Site: upper extremity (forearm dorsal aspect) Side (if applicable): left Sedation/analgesia: none Local Anesthetic: lidocaine 1% Amount of anesthesia used (mL): 2 Technique: incised with blade (11 blade) and ultrasound guided Amount of fluid expressed (mL): 30 Sent for culture/gram staining?: No Irrigation: No Packing used?: iodoform Medical Decision Making Medical Decision Making MDM Narrative: 65-year-old man with severe obesity, asthma, EPI, diabetes, and diuretic-dependent lower-extremity edema presenting with acute dyspnea and light-headedness. CXR clear, labs unremarkable, normal oxygen saturation and stable vital signs. Symptoms likely multifactorial: asthma exacerbation, possible mild volume overload, and anxiety regarding new maintenance inhaler. No evidence of infection. Problem #1: Acute dyspnea / Asthma exacerbation Assessment: Worsening shortness of breath over past 24 h. Using albuterol with relief; recently initiated formoterol/glycopyrrolate inhaler. CXR clear; oxygenation normal. Plan: - Discussed that formoterol / glycopyrrolate inhaler is likely beneficial for asthma maintenance; suggested patient give it another try, but acknowledged uncertainty about its role in recent symptoms. - Continue albuterol rescue inhaler as needed for acute symptoms. - Educated on importance of deep-breathing exercises and use of incentive spirometer (replacement to be obtained) to reduce risk of atelectasis/pneumonia. - Avoid mold exposure as feasible. - Return to ED for fever, discolored sputum, or worsening shortness of breath despite inhaler use. - Follow-up with pulmonology on 12/18 to clarify prior ?curling up? finding on CXR and further management. Problem #2: Light-headedness / Possible medication side effect Assessment: Episodic light-headedness temporally associated with inhaler use; etiology uncertain, possible panic attack, currently asymptomatic. Plan: - Discussed potential side effect profile; patient to monitor severity and timing in relation to inhaler use. - If light-headedness persists or worsens, instructed to return to ED or contact PCP. Problem #3: Lower-extremity edema / Diuretic management Assessment: History of peripheral edema responsive to loop diuretic; missed doses since due to pharmacy issue, may contribute to dyspnea/elevated home BP. Plan: - Single dose of diuretic to be given now; patient may take it home. - Prescription for short course of diuretic sent to [facility]. - Patient to contact PCP office Wednesday to address ongoing diuretic supply and dosing schedule. Problem #4: Gastroesophageal reflux / Heartburn Assessment: Intermittent burning sensation likely related to decreased pantoprazole dosing. No eivdence of ACS on workup today. Plan: - Discussed probable relation to reduced antacid therapy; advised patient to discuss resuming prior BID pantoprazole dosing with PCP. - Monitor symptoms; return if worsening or concerning features develop. Disposition / Follow-up: ? Call PCP office tomorrow to arrange refills for diuretic and antacid medications. ? Pulmonology follow-up 12/18/2025. ? Return to ED for fever, purulent sputum, progressive dyspnea, chest pain, syncope, or other worsening symptoms. Immediately prior to discharge, patient describes an area of swelling on his left forearm which he reports is new. No other signs or symptoms of infection. There are no skin changes overlying the swelling. It is fluctuant, large fluid sac. Bedside ultrasound performed to evaluate the mass further. There is purulent, heterogeneous, hypoechoic fluid within the sac which measures approximately 12 cm x 7 cm. Plan for incision and drainage, packing and close outpatient follow up. Lab Data 10/06/25 18:35 10/06/25 18:35 Labs: Lab Results 10/06/25 Range/Units 18:35 WBC 11.8 H (4.8-10.8) X10*3/uL RBC 5.35 (4.60-5.80) X10*6/uL Hgb 13.6 L (14.0-18.0) g/dl Hct 44.1 (42.0-52.0) % MCV 82.4 (80.0-98.0) fL MCH 25.4 L (27.0-33.0) pg MCHC 30.8 L (31.0-36.0) g/dl RDW 14.8 (11.0-16.0) % Plt Count 248 (160-400) X10*3/uL MPV 9.1 L (9.4-12.4) fL Immature Gran % (Auto) 0.3 (0.0-0.4) % Neut % (Auto) 69.7 (45-73) % Lymph % (Auto) 21.7 (20-40) % Benzie % (Auto) 7.2 (2-11) % Eos % (Auto) 0.8 (0-4) % Baso % (Auto) 0.3 (0-2) % Lymph # (Auto) 2.6 (1.2-4.9) X10*3/uL Benzie # (Auto) 0.9 (0.1-1.2) X10*3/uL Eos # (Auto) 0.1 (0.0-0.4) X10*3/uL Baso # (Auto) 0.0 (0.0-0.2) X10*3/uL Abs Immat Gran (auto) 0.04 H (0.00-0.03) X10*3/uL Absolute Neuts (auto) 8.2 (2.0-8.3) x10*3/uL Absolute Nucleated RBC 0.000 (0.0-0.012) X10*3/uL Nucleated RBC % (auto) 0.0 (0.0-0.2) /100WBC Sodium 141 (135-145) mmol/L Potassium 4.8 (3.3-5.1) mmol/L Chloride 107 (96-108) mmol/L Carbon Dioxide 27 (22-29) mmol/L Anion Gap 12 (12-20) BUN 19 H (9-16) mg/dL Creatinine 0.91 (0.5-1.4) mg/dL Estim Creat Clear Calc 130.4 Estimated GFR > 60 Random Glucose 213 H (60-115) mg/dL Calcium 8.7 (8.4-10.2) mg/dL Magnesium 2.1 (1.6-2.6) mg/dL Total Bilirubin 0.4 (0.0-1.0) mg/dL AST 17 (5-37) U/L ALT 10 (0-40) U/L Alkaline Phosphatase 106 (39-117) U/L Troponin I High Sens < 2.7 (<3.5-35.0) ng/L NT-Pro-B Natriuret Pep 154.9 (<300) pg/mL Total Protein 6.9 (6.5-8.0) g/dL Albumin 3.6 (3.5-5.0) g/dL Influenza Type A (PCR) NEGATIVE (Negative) Influenza Type B (PCR) NEGATIVE (Negative) RSV RNA Qual (PCR) NEGATIVE (Negative) SARS-CoV-2 RNA (RT-PCR) NEGATIVE (Negative) Discharge Plan Discharge Clinical Impression: Obesity hypoventilation syndrome, Asthma with acute exacerbation, Abscess of left forearm Patient Disposition: Home, Self-Care Instructions: Abscess Incision and Drainage (DC), Shortness of Breath (ED) Additional Instructions: Continue to use your inhalers as prescribed every day. Use the incentive spirometer to help with deep breathing and full lung expansion. Return to the emergency department immediately with any new or worsening symptoms including: Worsening shortness of breath, fevers greater than 100?, changes in sputum production, any new symptom that concerns you. Call 911 with any medical emergency. Have the packing from your wound removed in 48 hours. If you notice any redness that tracks away from your wound or if you develop a fever, you should return to the hospital immediately. You can have your packing removed at an urgent care center, your doctor's office or you can come back to the emergency department. Prescriptions: New furosemide [Lasix] 20 mg tablet 20 mg PO DAILY Qty: 10 0RF No Action (DME) diabetic shoes with inserts See Rx Instructions .Route .MEDSUPPLY Qty: 2 0RF Rx Instructions: As directed nystatin 100,000 unit/gram cream 1 appl topical BID Qty: 30 1RF insulin glargine [Basaglar KwikPen U-100 Insulin] 100 unit/mL (3 mL) insulin pen 60 unit subcut BEDTIME 90 Days Qty: 54 1RF (DME) True Metrix Glucose Test Strip Strip See Rx Instructions .ROUTE .COMPLEX Qty: 100 5RF Dose Instruction: TEST BLOOD SUGAR TWICE DAILY Rx Instructions: TEST BLOOD SUGAR TWICE DAILY insulin aspart U-100 [Novolog FlexPen U-100 Insulin] 100 unit/mL (3 mL) insulin pen 15 unit subcut TID 90 Days Qty: 40.5 1RF simvastatin 40 mg tablet 40 mg PO BEDTIME 90 Days Qty: 90 0RF albuterol sulfate [Ventolin HFA] 90 mcg/actuation HFA aerosol inhaler 2 puff inhalation QID PRN (Reason: Shortness Of Breath Or Wheezing) Qty: 8.5 1RF clopidogrel 75 mg tablet 75 mg PO DAILY 90 Days Qty: 90 0RF (DME) pen needle, diabetic [UltiCare Pen Needle] 32 gauge x 5/32 needle See Rx Instructions .ROUTE .COMPLEX Qty: 1200 1RF Dose Instruction: USE DIRECTED 4 TIMES A DAY Rx Instructions: USE DIRECTED 4 TIMES A DAY oxycodone 15 mg tablet 15 mg PO Q6H Qty: 140 0RF Rx Instructions: No more than 5 to be taken in 1 day pantoprazole 40 mg tablet,delayed release (DR/EC) 40 mg PO BID aspirin 81 mg Tablet,Delayed Release (Dr/Ec) 81 mg PO DAILY Mounjaro 2.5 mg/0.5 mL pen injector 2.5 mg subcut QWEEK Qty: 2 0RF Rx Instructions: for 4 weeks carvedilol 12.5 mg tablet 12.5 mg PO ONCE (DME) blood-glucose meter [True Metrix Glucose Meter] Misc See Rx Instructions .ROUTE .MEDSUPPLY Qty: 1 Rx Instructions: As directed Bevespi Aerosphere 9-4.8 mcg HFA aerosol inhaler 2 puff inhalation Q12H 30 Days Qty: 10.7 11RF amoxicillin-pot clavulanate 875-125 mg tablet 1 tab PO BID Qty: 20 0RF Interventions: ED Discharge Assessment Last Done: 10/07/25 04:12 Discharge Date/Time: 10/07/25 04:12 Print Language: Cymraes
--- NOTE | 2025-10-06 18:08 | ECG_ITS ---
Test Reason : SOB Blood Pressure : */* mmHG Vent. Rate : 85 BPM Atrial Rate : 85 BPM P-R Int : 124 ms QRS Dur : 86 ms QT Int : 364 ms P-R-T Axes : 31 -5 64 degrees QTcB Int : 433 ms Normal sinus rhythm Normal ECG When compared with ECG of 12-Nov-2022 11:31, No significant change was found Referred By: Amy Mejia Electronically Signed By: BUSHRA OCONNOR
[2025-10-06 18:46] LABS: Hematocrit 44.1 % (42.0-52.0); Hemoglobin 13.6 g/dl (14.0-18.0); Imm Gran Abs Auto 0.04 X10*3/uL (0.00-0.03); Imm Gran Pct Auto 0.3 % (0.0-0.4); Lymphocytes Absolute Auto 2.6 X10*3/uL (1.2-4.9); MANUAL DIFF FLAG NO; Mean Corpuscular HGB Conc 30.8 g/dl (31.0-36.0); Mean Corpuscular Hemoglobin 25.4 pg (27.0-33.0); Mean Corpuscular Volume 82.4 fL (80.0-98.0); NRBC Abs Auto 0.000 X10*3/uL (0.0-0.012); NRBC Pct Auto 0.0 /100WBC (0.0-0.2); Platelet Count 248 X10*3/uL (160-400); Red Blood Count 5.35 X10*6/uL (4.60-5.80); White Blood Count 11.8 X10*3/uL (4.8-10.8)
[2025-10-06 19:03] LABS: Alanine Aminotransferase 10 U/L (0-40); Albumin Level 3.6 g/dL (3.5-5.0); Alkaline Phosphatase 106 U/L (39-117); Anion Gap 12 (12-20); Aspartate Amino Transferase 17 U/L (5-37); Blood Urea Nitrogen 19 mg/dL (9-16); Calcium 8.7 mg/dL (8.4-10.2); Carbon Dioxide 27 mmol/L (22-29); Chloride 107 mmol/L (96-108); Creatinine Clr Calc Pharmacy 130.4; Estimated Glomerular Filt Rate > 60; Magnesium 2.1 mg/dL (1.6-2.6); Potassium 4.8 mmol/L (3.3-5.1); Sodium 141 mmol/L (135-145); Total Protein 6.9 g/dL (6.5-8.0)
[2025-10-06 19:06] LABS: Troponin-I High Sensitivity < 2.7 ng/L (<3.5-35.0)
[2025-10-06 19:22] LABS: Resp Syncy Virus RNA Qual PCR NEGATIVE (Negative); SARS COV2 PCR INHOUSE NEGATIVE (Negative)
[2025-10-06 22:02] VITALS: BP 149/83; PULSE 74; RESP 19; TEMP 36.7; O2SAT 94
--- OUTSIDE RECORDS SUMMARY | 2025-10-06 22:13 | XMS_ITS | Continuity of Care Document ---
Author Organization [facility] Address [address] [place] [id number] Phone [phone] Social History Type Date Description Comments Sex Male Sex Unknown Medical Devices Description No Information Available Encounters Description No Information Available Assessments Description No Information Available Plan of Treatment No Information Available Functional Status Description No Information Available Mental Status Description No Information Available Referrals Description No Information Available
--- OUTSIDE RECORDS SUMMARY | 2025-10-06 22:13 | XMS_ITS | Clinical Summary ---
Author Organization 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 Name Role Phone Ganga Stanford MD Primary [...] file Insurance MEDICARE PART A & B [facility] MEDEX SUPPLEMENT MEDICARE PART A & B [employer] invasive devices [employer] [place] [address] MEDICARE PART A & B [employer] [place] [address] MEDICARE PART A & B [employer] MEDEX SUPPLEMENT MEDICARE PART A & B [employer] MEDEX SUPPLEMENT MEDICARE PART A & B [employer]imally invasive devices [employer] MED[employer] SUPPLEMENT Care Teams [employer] Cutter [employer] Relationship Specialty Start Date End Date Ganga Stanford MD [address] [place] [address] [place] [id number] PCP - General Internal Medicine 09/19/22 Additional Source Comments The information contained in this document represents components of the legal health record. It is not the complete legal health record.[facility]
[2025-10-07 00:25] LABS: NT Pro B Type Natriuretic Pept 154.9 pg/mL (<300)
[2025-10-07 00:56] VITALS: BP 169/82; PULSE 75; RESP 19; TEMP 36.6; O2SAT 95
[2025-10-07 01:25] VITALS: BP 169/82; PULSE 75; RESP 19; TEMP 36.6; O2SAT 95
--- NOTE | 2025-10-07 02:12 | PC.NURSE ---
pt discharged, prior to pt leaving the ED he approached nurses station reporting that he forgot to ask MD about some swelling in his left forearm. MD assessed pts arm and decided to hold pt to further assess.
[2025-10-07 04:12] VITALS: BP 122/77; PULSE 77; RESP 12; TEMP 36.6; O2SAT 99
[2025-10-07] MEDS: Lidocaine HCl 1 % 20 ML VIAL 10 ML INFILTRATI (04:13)
== END 2025-10-07 04:12 | disposition home or self-care (01) ==
PROVIDERS: Physician Assistant Medical; Emergency Provider Emergency Medicine; PCP Internal Medicine
DX: E66.2 Morbid (severe) obesity with alveolar hypoventilation (principal); J45.901 Unspecified asthma with (acute) exacerbation; L02.414 Cutaneous abscess of left upper limb; R06.02 Shortness of breath; E11.9 Type 2 diabetes mellitus without complications; Z03.818 Encounter for observation for suspected exposure to other biological agents ruled out; Z71.3 Dietary counseling and surveillance
CPT/HCPCS: 10060; 71046; 80053; 83735; 83880; 84484; 85025; 87637; 93005; 99284; 99285; J2003

== ENCOUNTER → 2025-10-06 18:08 | Outpatient (BNV) | payer MEDICARE, SELFPAY | PROVIDERS: Visit Provider Radiology Diagnostic Radiology | DX: R06.02 Shortness of breath (principal) | CPT/HCPCS: 71046 ==

== ENCOUNTER → 2025-10-06 18:08 | Outpatient (BNV) | payer MEDICARE, SELFPAY | PROVIDERS: Emergency Provider Emergency Medicine; PCP Internal Medicine; Visit Provider Internal Medicine | DX: R06.02 Shortness of breath (principal) | CPT/HCPCS: 93010 ==

== ENCOUNTER 2025-10-09 13:46 | Outpatient (AMB) | payer MEDICARE, SELFPAY ==
--- NOTE | 2025-10-09 13:51 | A.OFFPC_ITS ---
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 Accompanied by: Self / Same As Patient Allergies vancomycin (VANCOMYCIN) Adverse Reaction (Severe, Verified 10/09/25 13:52) RENAL FAILURE, RASH Medication List - Last Reconciled 10/09/25 by HOMAR Redd albuterol sulfate 90 mcg/actuation (Ventolin HFA) 2 puffs inhalation QID PRN amoxicillin-pot clavulanate 875-125 mg 1 tab PO BID aspirin 81 mg PO DAILY blood sugar diagnostic (True Metrix Glucose Test Strip) TEST BLOOD SUGAR TWICE DAILY blood-glucose meter (True Metrix Glucose Meter) As directed carvedilol 12.5 mg PO ONCE clopidogrel 75 mg PO DAILY 90 days [diabetic shoes with inserts As directed] furosemide (Lasix) 20 mg PO DAILY glycopyrrolate-formoterol 9-4.8 mcg (Bevespi Aerosphere) 2 puffs inhalation Q12H 30 days insulin aspart U-100 (Novolog FlexPen U-100 Insulin aspart) 15 units (0.15 mL) subcut TID 90 days insulin glargine (Basaglar KwikPen U-100 Insulin) 60 units (0.6 mL) subcut BEDTIME 90 days nystatin 1 appl topical BID oxycodone 15 mg PO Q6H pantoprazole 40 mg PO BID pen needle, diabetic (UltiCare Pen Needle) USE DIRECTED 4 TIMES A DAY simvastatin 40 mg PO BEDTIME 90 days tirzepatide (Mounjaro) 2.5 mg (0.5 mL) subcut QWEEK Tobacco use date assessed: 05/23/25 Dental Screening Dental Screen Date: 05/23/25 HPI HPI Comments History of Present Illness Details 64-year-old male with history of severe obstructive sleep apnea compliant with CPAP, type 2 diabetes, hyperlipidemia, asthma/COPD overlap, GERD, CAD, hypertension, morbid obesity with BMI 52.8 presents to the office today for follow-up. EPI-compliant with CPAP Type 2 diabetes-last A1c 9.3%, overdue for labs. Has not yet started Mounjaro as he was hospitalized. On Basaglar 60 units as well as NovoLog 15 units t.i.d. Labs ordered but not yet performed Hyperlipidemia-at goal. Continue simvastatin Asthma/COPD overlap-only rare use of albuterol. Does still have dyspnea, has upcoming appointment with pulmonology CAD-on statin, aspirin/Plavix, carvedilol. No chest pains. S/p cardiac arrest 2015 Hypertension-on carvedilol 12.5 mg twice daily, Lasix. BP 130/68 Morbid obesity-BMI 49.4. Exercise limited due to dyspnea on exertion. Not always following a healthy diet. Previously was quite active swimming at the [facility] Osteoarthritis of multiple joints-on oxycodone 15 mg q.i.d., had been taking every 4 hours and reports pain is not well managed since dose was reduced Cervical radiculopathy- saw a specialist in [place] and was deemed to be too high risk given history of blood clots so no surgery was performed. He remains in severe pain with radiculopathy into the arms. He is on oxycodone as above. Trialed gabapentin in the past which did not work. Also tried prescribing Lyrica but was declined Concerns: Recently presented to the [facility] on 10/06 for evaluation of shortness of breath and lightheadedness ongoing for about 24 hours as well as an abscess of the left forearm. I&D was performed to the dorsum of the left upper extremity. Wound culture was not obtained. Packing was placed and advised to be removed in 48 hours. For the dyspnea, x-ray was negative for an acute cardiopulmonary abnormality. There was a mild leukocytosis of 11.8. Respiatory symptoms thought to be secondary to obesity hypoventilation syndrome and mild asthma exacerbation. He was given prescription for Lasix 20 mg daily and advised to use his albuterol inhaler as needed. No antibiotics prescribed. Regarding the mass on the left forearm, states that this started growing rapidly over 2 days. There was no injury noted. There was no pain, warmth, drainage. There was no involvement of the olecranon or wrist. Bedside US performed by Dr. Gabrielle Quesada. Note not completed at the time on my evaluation. Additional information obtained over Povio platform. Per her report: Bedside US- 12x7cm fluid filled pocket on the dorsal aspect of the forearm. It had a heterogeneous, hypoechoic fluid with a rim enhancing boarder. It was fluctuant, so I did an I&D. Large amount of serisangunous/dishwater fluid came out. I tried to pack it a bit since it was such a large cavity but I couldn?t get much packing into the space. The overlying skin was not cellulitic. Initially thought it might be a cyst, but he said it wasn?t there/was growing quickly so figured I didn?t want to send him out with a growing abscess. He reports it had improved slightly but then grew to the same size again. Packing fell out but has been keeping this covered. No erythema, warmth, ongoing drainage. Tender. States he did take several days of augmentin which he had at home. ROS: General: No fevers, malaise, unintentional weight loss HEENT: No blurred vision, diplopia. No sore throat, nasal congestion, rhinorrhea, sinus pain, ear pain Cardiovascular: No chest pain, palpitations, or leg edema Respiratory: See HPI GI: No abdominal pain, nausea, vomiting, diarrhea, constipation, melena, hematochezia : No dysuria, hematuria, increased urinary frequency, decreased urinary output MSK: See HPI Neuro: No headaches, weakness, paresthesias Skin: see hpi EXAM: Constitutional - Awake and Alert, No apparent distress Eyes - PERRL Cardiovascular - S1S2, RRR, No edema Respiratory - Normal lung expansion, Normal respiratory effort, No respiratory distress, CTA bilaterally Extremities - no calf tenderness bilaterally, no swelling. Left ventral forearm with a fluctuant 12cm x 7 cm x 3 cm mas with 2 cm clean, moist wound bed without drainage or surrounding erythema. Surrrounding skin is slightly hyperpigmented Skin - Warm/Dry Neurological - Alert & oriented x3 Psychological - Appropriate affect [facility] Medical History (Updated 10/10/25 @ 12:56 by HOMAR Redd) Chronic pain Open wound EPI (obstructive sleep apnea) Dysphagia Chronic back pain Chronic neck pain Chronic edema Pulmonary nodule Cellulitis, gluteal PONV (postoperative nausea and vomiting) COVID-19 vaccine series completed Leg swelling Hx of deep venous thrombosis Hx of hyperlipidemia HTN (hypertension) GERD (gastroesophageal reflux disease) Myocardial infarct, old Back pain Septic shock Cardiac arrest COVID-19 Asthma Obesity Sleep apnea High cholesterol Diabetes Surgical History History of removal of laparoscopic gastric banding device History of arthroscopy of both knees Hx of colonoscopy (~03/06/22) History of esophagogastroduodenoscopy (EGD) History of ankle surgery History of umbilical hernia repair Hx of cholecystectomy Personal history of gastric banding Family History Mother No problems noted. 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 to a significant other at home: Yes (for mother, sister also helps and will dos) Do you presently have visiting nurse or other home services: No Alcohol intake: never Comment: sleeping Patient Tobacco Use Status: Never used Tobacco e-Cigarette/Vaping Use: Never Used Advance Directives Date on File: 11/20/20 service: No Current occupational status: retired Cognitive needs: Yes (walker) Hearing needs: No Vision needs: Yes (reading glasses) Questionnaire Thrive Questionnaire Date Thrive assessed: 05/23/25 NADIR-7 AMB Questionnaire NADIR-7 Date NADIR - 7 assessed: 05/23/25 Source: Developed by Drs. Francois Gallegos, Nadia Dale, Tyshawn Gonzales and colleagues, with an educational sy from [employer]. Physical exam (Primary Care) Vital Signs: Last Vital Signs Temp 97.6 F 10/09/25 13:56 Pulse 92 10/09/25 13:56 BP 130/68 10/09/25 13:56 Pulse Ox 96 10/09/25 13:56 Oxygen Delivery Method Room Air 10/09/25 13:56 BMI result Body Mass Index 49.2 Tobacco/Smoking Status: Tobacco use Status Tobacco use date assessed 05/23/25 10/09/25 13:55 Patient Tobacco Use Status Never used Tobacco 10/09/25 13:55 e-Cigarette/Vaping Use Never Used 10/09/25 13:55 Thrive Assessment: Date of Thrive Assessment Date Thrive assessed 05/23/25 10/09/25 13:55 Coding Level of Care Code Est Pt Level 5 (94274) Add On Problem Visit Only Diagnoses Mass of left upper extremity R22.32 EPI (obstructive sleep apnea) G47.33 HTN (hypertension) I10 Diabetes E11.9 Morbid obesity E66.01 Time Spent (min) 60 Comment Revied all ER documentation and personally discussed findings with ER provider. Long discu Assessment & Plan Assessment & Plan (1) Mass of left upper extremity: Code(s): R22.32 - Localized swelling, mass and lump, left upper limb Category: Medical Plan: I and D performed in the ED did not reveal any purulent fluid, rather serious/dishwater fluid. No culture was obtained. Ultrasound showed a large fluid-filled pocket on the dorsum aspect of the forearm with heterogenous, hypoechoic fluid with a rim enhancing border. Infection unlikely, however patient has been taking his own course of Augmentin for several days. Given history of uncontrolled diabetes with open wound, will continue course of Augmentin x7 days. Educated on dosing and side effects. No abscess. Doubt hematoma given serous fluid drained during I&D. Doubt cystic lesion given rapid onset of mass. Possibly a seroma. Not overlying any joint, less likely bursitis. Referred to general surgery for further evaluation and management. Likely requires aspiration/biopsy to rule out any not urgent/concerning etiology In addition to completing a course of antibiotics (advised against taking antibiotics he has at home without medical evaluation) and using warm compresses over the area (2) EPI (obstructive sleep apnea): Code(s): G47.33 - Obstructive sleep apnea (adult) (pediatric) Category: Medical Plan: Counseled on weight loss. Advised to start taking the Mounjaro that was prescribed to help with weight loss. Discussed that his EPI in addition to obesity hypoventilation syndrome continue to be the most likely source of his dyspnea. Follow-up with pulmonology as scheduled. (3) HTN (hypertension): Code(s): I10 - Essential (primary) hypertension Category: Medical Plan: Controlled. Continue current therapies (4) Diabetes: Code(s): E11.9 - Type 2 diabetes mellitus without complications Category: Medical Plan: Labs have been ordered and are overdue. Encouraged to present to the lab. Last A1c was uncontrolled. For the time being, continue current regimen. He does report improvement with diabetic diet, encouraged to continue with this. (5) Morbid obesity: Code(s): E66.01 - Morbid (severe) obesity due to excess calories Category: Medical Plan: Encouraged to start the Mounjaro that was ordered. Recommend diet lower in calories with increased protein, fruits, vegetables and limiting refined sugars, simple carbohydrates, highly processed foods. Consistent with diabetic diet. Recommend weight-bearing exercise as tolerated given physical limitations Plan Follow-up in the office as scheduled. Please complete labs. Urinalysis is ordered due to frequency of urination. Discussed bedside ultrasound findings with ER provider. Formal ultrasound of the left upper extremity is ordered. Referred to General surgery as above. Orders: Orders UA CC w/rflx Micro + Cult 10/09/25 R35.0 - Frequency of micturition US Extremity Nonvas Limited LT 10/09/25 L02.419 - Cutaneous abscess of limb, unspecified, L03.119 - Cellulitis of unspecified part of limb, M79.89 - Other specified soft tissue disorders Referrals General Surgery Referral R22.32 - Localized swelling, mass and lump, left upper limb Medications: New amoxicillin-pot clavulanate 875-125 mg 1 tab PO BID 20 tabs 0RF
[2025-10-09 13:56] VITALS: BP 130/68; PULSE 92; TEMP 36.4; O2SAT 96; BMI 49.2
--- OUTSIDE RECORDS SUMMARY | 2025-10-09 19:52 | XMS_ITS | Clinical Summary ---
Author Organization [facility] Address [address] [facility] [address] [place] [phone] Phone Care Team Providers Care Dinkey Brakeman Name Role Phone Ganga Stanford MD Primary [...] file Insurance MEDICARE PART A & B [facility] MEDEX SUPPLEMENT MEDICARE PART A & B Member Subscriber Plan / Payer (Ef fective 2005-Present) Name:Mason Martin Member ID:[id number] Relation to Subscriber:Self Name:Mason Martin Subscriber ID:[id number] Payer ID:[id number] Group ID:Not on file Type:Medicare Address: [facility] [address] [place] [address] [employer] [place] [address] MEDICARE PART A & B Member Subscriber Plan / Payer ( fective 2005-Present) Name:Mason Martin Member ID:[id number] Relation to Subscriber:Self Name:Mason Martin Subscriber ID:[id number] Payer ID:[id number] Group ID:Not on file Type:Medicare Address: [facility] [address] [place] [id number] [employer] [place] [address] MEDICARE PART A & B [employer] MED[employer] SUPPLEMENT MEDICARE PART A & B [employer] MEDEX SUPPLEMENT MEDICARE PART A & B [employer] MEDEX SUPPLEMENT Care Teams Dinkey Brakeman Relationship Specialty Start Date End Date Ganga Stanford MD [address] [place] [address] [place] [phone] PCP - General Internal Medicine 09/19/22 Additional Source Comments The information contained in this document represents components of the legal health record. It is not the complete legal health record.[facility]
--- OUTSIDE RECORDS SUMMARY | 2025-10-09 19:52 | XMS_ITS | Continuity of Care Document ---
Author Organization [facility] Address [address] [facility] [address] [place] [phone] Phone [phone] Social History Type Date Description Comments Sex Male Sex Unknown Medical Devices Description No Information Available Encounters Description No Information Available Assessments Description No Information Available Plan of Treatment No Information Available Functional Status Description No Information Available Mental Status Description No Information Available Referrals Description No Information Available
== END 2025-10-09 15:10 | disposition home or self-care (01) ==
LOC: HO.HMCHD 13:47
PROVIDERS: PCP Physician Assistant; Visit Provider Physician Assistant
DX: E11.9 Type 2 diabetes mellitus without complications (principal); E66.01 Morbid (severe) obesity due to excess calories; Z68.42 Body mass index [BMI] 45.0-49.9, adult; R22.32 Localized swelling, mass and lump, left upper limb; G47.33 Obstructive sleep apnea (adult) (pediatric); I10 Essential (primary) hypertension

== ENCOUNTER → 2025-10-09 13:46 | Outpatient (BNVA) | payer MEDICARE, SELFPAY | PROVIDERS: PCP Physician Assistant; Visit Provider Physician Assistant | DX: Z09 Encounter for follow-up examination after completed treatment for conditions other than malignant neoplasm (principal); R22.32 Localized swelling, mass and lump, left upper limb; G47.33 Obstructive sleep apnea (adult) (pediatric); I10 Essential (primary) hypertension; E11.9 Type 2 diabetes mellitus without complications; E66.01 Morbid (severe) obesity due to excess calories; R35.0 Frequency of micturition | CPT/HCPCS: 99212 ==

== ENCOUNTER 2025-10-12 11:33 | Outpatient (AMB) | payer MEDICARE, SELFPAY ==
[2025-10-12 11:34] VITALS: BP 143/63; PULSE 80; BMI 49.2
--- NOTE | 2025-10-12 11:34 | A.OFFVIS_ITS ---
Vital Signs 10/12/25 11:34 Height 6 ft Weight 363 lb BMI 49.2 BP 143/63 H Blood Pressure Location Rt radial Position Sitting Pulse 80 Intake Visit Reasons: Localized swelling, mass and lump, left upper limb Intake Note: Patient referred by Rachel Cast PA-C for mass on Lt elbow. Patient c/o: painful, very little blood noticed on bandage. Currently on Augmentin course. Denies prior trauma. 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 Accompanied by: Self / Same As Patient Allergies vancomycin (VANCOMYCIN) Adverse Reaction (Severe, Verified 10/12/25 11:41) RENAL FAILURE, RASH Medication List - Last Reconciled 10/12/25 by Ed Espinal MD albuterol sulfate 90 mcg/actuation (Ventolin HFA) 2 puffs inhalation QID PRN amoxicillin-pot clavulanate 875-125 mg 1 tab PO BID aspirin 81 mg PO DAILY blood sugar diagnostic (True Metrix Glucose Test Strip) TEST BLOOD SUGAR TWICE DAILY blood-glucose meter (True Metrix Glucose Meter) As directed carvedilol 12.5 mg PO ONCE clopidogrel 75 mg PO DAILY 90 days [diabetic shoes with inserts As directed] furosemide (Lasix) 20 mg PO DAILY glycopyrrolate-formoterol 9-4.8 mcg (Bevespi Aerosphere) 2 puffs inhalation Q12H 30 days insulin aspart U-100 (Novolog FlexPen U-100 Insulin aspart) 15 units (0.15 mL) subcut TID 90 days insulin glargine (Basaglar KwikPen U-100 Insulin) 60 units (0.6 mL) subcut BEDTIME 90 days nystatin 1 appl topical BID oxycodone 15 mg PO Q6H pantoprazole 40 mg PO BID pen needle, diabetic (UltiCare Pen Needle) USE DIRECTED 4 TIMES A DAY simvastatin 40 mg PO BEDTIME 90 days tirzepatide (Mounjaro) 2.5 mg (0.5 mL) subcut QWEEK HPI Comments Details: 65-year-old male presents with a history of left elbow swelling status post some sort of drainage procedure in the ER. He comes in today for assessment in follow up. He goes on to say that his mass near his left elbow ?does not really hurt anymore?. He has been taking antibiotics for it. He denies any fevers chills nausea or vomiting. Other than the above he denies any instrumentation or trauma to the region. He has never had surgery specifically on his left arm before. [facility] Medical History Chronic pain Open wound EPI (obstructive sleep apnea) Dysphagia Chronic back pain Chronic neck pain Chronic edema Pulmonary nodule Cellulitis, gluteal PONV (postoperative nausea and vomiting) COVID-19 vaccine series completed Leg swelling Hx of deep venous thrombosis Hx of hyperlipidemia HTN (hypertension) GERD (gastroesophageal reflux disease) Myocardial infarct, old Back pain Septic shock Cardiac arrest COVID-19 Asthma Obesity Sleep apnea High cholesterol Diabetes Surgical History History of removal of laparoscopic gastric banding device History of arthroscopy of both knees Hx of colonoscopy (~03/06/22) History of esophagogastroduodenoscopy (EGD) History of ankle surgery History of umbilical hernia repair Hx of cholecystectomy Personal history of gastric banding Family History Mother No problems noted. 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 nurse wound care to a significant other at home: Yes (for mother, sister also helps and will dos) Do you presently have visiting nurse or other home services: No Alcohol intake: never Comment: sleeping Patient Tobacco Use Status: Never used Tobacco e-Cigarette/Vaping Use: Never Used Advance Directives Date on File: 11/20/20 service: No Current occupational status: retired Cognitive needs: Yes (walker) Hearing needs: No Vision needs: Yes (reading glasses) Review of Systems Const All systems reviewed & are unremarkable except as noted in HPI and below Physical Exam Vital Signs: Last Vital Signs Pulse 80 10/12/25 11:34 BP 143/63 H 10/12/25 11:34 BMI result Body Mass Index 49.2 Const Other: Super morbidly obese gentleman who is size makes ambulation and even simple movements and exhausting endeavor. He relies heavily on a walker for mobility. General: tired appearing Nutritional Appearance: obese morbidly obese Limitations: ambulation with walker HEENT Head: Yes normocephalic and Yes atraumatic Ears: hearing grossly normal bilaterally Face and sinus: Yes normal facial exam Eyes Pupils: Equal, round and reactive pupils present EOM: EOMs intact bilaterally Neck Neck: Yes normal visual inspection Chest Chest palpation & inspection: normal inspection of the chest Resp Effort & Inspection: normal respiratory effort and able to speak in complete sentences Cardio Rate: regular rate Rhythm: regular rhythm Neuro Cranial nerves: Yes Equal, round and reactive pupils present Extrem Other: 3 x 7 cm mobile soft tissue mass with a Band-Aid on it, at and just distal to the left olecranon bursa. Slightly tender to palpation no erythema edema or discharge. Range of motion of the left elbow appears to have no real effect in his only slightly uncomfortable. Assessment & Plan Assessment & Plan (1) Olecranon bursitis: Code(s): M70.20 - Olecranon bursitis, unspecified elbow Category: Medical Plan: I told the patient I felt he was presenting with a left olecranon cyst or bursitis. This is a fair bit outside of my typical clinical arena however I offered referral to orthopedics or hand services for consideration. He said ?0 yes that would be good. ? My assessment of his condition as well as the plans for his continuing care were described to him in detail and he indicated he understood and wished to proceed with the plan as it was outlined to him. Orders: Referrals Hand Surgery Referral M70.22 - Olecranon bursitis, left elbow Coding Level of Care Code New Pt Level 3 (48869) Diagnoses Olecranon bursitis M70.20 Time Spent (min) 30 Comment Patient visit record review and coordination of care
== END 2025-10-12 11:47 | disposition home or self-care (01) ==
LOC: HO.HGS 11:34
PROVIDERS: PCP Physician Assistant; Visit Provider Surgery
DX: M70.20 Olecranon bursitis, unspecified elbow (principal)
CPT/HCPCS: 99203

== ENCOUNTER → 2025-10-12 11:33 | Outpatient (BNVA) | payer MEDICARE, SELFPAY | PROVIDERS: PCP Physician Assistant; Visit Provider Surgery | DX: M70.22 Olecranon bursitis, left elbow (principal) | CPT/HCPCS: 99202 ==

== ENCOUNTER 2025-10-15 22:25 | Emergency (ER) | payer MEDICARE, SELFPAY ==
[2025-10-15 22:29] VITALS: BP 136/88; PULSE 83; RESP 20; TEMP 36.7; O2SAT 94; BMI 49.4
--- NOTE | 2025-10-15 22:44 | ED_ITS ---
HPI - Wound/Laceration General Chief Complaint: Wound/Laceration Stated Complaint: RIGHT LEG INJURY/ LACERATION Time Seen by Provider: 10/15/25 22:42 Source: patient and RN notes reviewed Mode of arrival: ambulatory Limitations: no limitations History of Present Illness ED Provider: Alissa Wallis PA-C HPI narrative: Mason is a 65-year-old male who sustained a laceration to his right upper leg earlier today when he turned to shut a door while a neighbor?s dog was barking. He reports that the edge/bottom of the door scraped his leg. He is chronically anticoagulated for a history of blood clots (not warfarin/Coumadin; specific agent name unknown). He denies bone pain at the injury site. He additionally notes a prior laceration/bursitis of the right elbow sustained last week that ?was getting bigger again.? No other acute complaints were voiced. Review of Systems: * General: No fever or chills mentioned. * Musculoskeletal/Integumentary: Positive for laceration to right upper leg; reports prior right elbow swelling/laceration enlarging again. Denies bone pain. Related Data Home Medications ?Medication ?Instructions ?Recorded ?Confirmed aspirin 81 mg tablet,delayed 81 mg PO DAILY 11/20/20 1 12/13/24 release pantoprazole 40 mg tablet,delayed 40 mg PO BID 1 10/12/25 release blood-glucose meter (True Metrix #1 ea 09/04/25 Glucose Meter) carvedilol 12.5 mg tablet 12.5 mg PO ONCE 09/04/2510/25 Previous Rx's ?Medication ?Instructions ?Recorded diabetic shoes with inserts #2 ea 02/14/25 nystatin 100,000 unit/gram topical 1 appl topical BID #30 grams 03/16/25 cream insulin glargine 100 unit/mL (3 60 unit (0.6 mL) subcu t BEDTIME 90 04/21/25 mL) subcutaneous pen (agl #54 mL KwikPen U-100 Insulin) blood sugar diagnostic (True #100 strips 07/03/25 Metrix Glucose Test Strip) tirzepatide 2.5 mg/0.5 mL 2.5 mg (0.5 mL) subcut QWEEK #2 mL 07/23/25 subcutaneous pen injector (Mounjaro) insulin aspart U-100 100 unit/mL 15 unit (0.15 mL) sub cut TID 90 07/24/25 (3 mL) subcutaneous pen (Novo #40.5 mL FlexPen U-100 Insulin aspart) albuterol sulfate 90 mcg/actuation 2 puff inhalation Q ID PRN 08/07/25 aerosol inhaler (Ventolin HFA) Shortness Of Breath Or Wheezing #8.5 grams simvastatin 40 mg tablet 40 mg PO BEDTIME 90 days #90 tabs 08/07/25 clopidogrel 75 mg tablet 75 mg PO DAILY 90 days #90 t abs 08/10/25 pen needle, diabetic 32 gauge x #1,200 ea 08/29/25 (UltiCare Pen Needle) glycopyrrolate 9 mcg-formoterol 2 puff inhalation Q12H 30 days 09/20/25 4.8 mcg HFA aerosol inhaler #10.7 grams (Bevespi Aerosphere) furosemide 20 mg tablet (Lasix) 20 mg PO DAILY #10 tab s 10/07/25 amoxicillin 875 mg-potassium 1 tab PO BID #20 tabs 07/26 clavulanate 125 mg tablet oxycodone 15 mg tablet 15 mg PO Q6H #140 tabs 10/23 doxycycline hyclate 100 mg capsule 100 mg PO BID #20 c aps 10/30/25 Allergies Allergy/AdvReac Type Severity Reaction Status Date / Time vancomycin (VANCOMYCIN) AdvReac Severe RENAL Verified 10/15/25 22:34 FAILURE, RASH Review of Systems Review of Systems: Yes all other systems are reviewed and are negative PMFSH Past Medical History Attestation statement: The following information was validated with the patient. Source: nursing notes reviewed Medical History Chronic pain Open wound EPI (obstructive sleep apnea) Dysphagia Chronic back pain Chronic neck pain Chronic edema Pulmonary nodule Cellulitis, gluteal PONV (postoperative nausea and vomiting) COVID-19 vaccine series completed Leg swelling Hx of deep venous thrombosis Hx of hyperlipidemia HTN (hypertension) GERD (gastroesophageal reflux disease) Myocardial infarct, old Back pain Septic shock Cardiac arrest COVID-19 Asthma Obesity Sleep apnea High cholesterol Diabetes Surgical History History of removal of laparoscopic gastric banding device History of arthroscopy of both knees Hx of colonoscopy (~03/06/22) History of esophagogastroduodenoscopy (EGD) History of ankle surgery History of umbilical hernia repair Hx of cholecystectomy Personal history of gastric banding Family History Family History Mother No problems noted. Father Lung cancer Social History Social History Household Members: Family Household Members Other:: mother Housing: House Are you a primary patient care assistant to a significant other at home: Yes (for mother, sister also helps and will dos) Do you presently have visiting nurse or other home services: No Alcohol intake: never Comment: sleeping Patient Tobacco Use Status: Never used Tobacco e-Cigarette/Vaping Use: Never Used Advance Directives Date on File: 11/20/20 service: No Current occupational status: retired Cognitive needs: Yes (walker) Hearing needs: No Vision needs: Yes (reading glasses) Physical Exam Exam: Exam: General: Appears in no acute distress, appears well nourished body habitus is obese, appears stated age. No septic or ill-appearing. Vitals reviewed normal, PMH/Social and Surgical hx reviewed including allergies and current medications Head: Normocephalic, no obvious trauma or skin lesions noted. Eyes: EOMI ENMT: moist oral mucosa Neck: trachea midline Cardiovascular: peripheral perfusion normal, Regular heart rate regular rhythm, distal pulses 2+ cap refill < 3 secs Respiratory: no respiratory distress Abdomen: nondistended Extremities: warm and moving without difficulty venous insufficiency with nonpitting 3+ edema b/l lower extremties, laceration noted: right lower leg: Irregular 7.0 cm laceration involving muscle layer, no evidence of bone involvement. Deep structures intact. No signs of infection. Psych: Cooperative Neuro: Alert and oriented. Vital Signs: Vital Signs: Last Vital Signs Temp 98.3 F 10/16/25 00:49 Pulse 81 10/16/25 00:49 Resp 20 10/16/25 00:49 BP 105/58 L 10/16/25 00:49 Pulse Ox 96 10/16/25 00:49 O2 Del Method Room Air 10/16/25 00:49 BMI result Body Mass Index 49.4 Medications Administered Discontinued Medications Generic Name Dose Route Start Last Admin Trade Name Freq PRN Reason Stop Dose Admin Diphtheria/Tetanus/Acell Pertussis 0.5 ml 10/15/25 22:43 10/15/25 23:07 Diphth,Pertus(Acell),Tet Adult 0.5 Ml Syringe IM 10/15/25 22:44 0.5 ml .ONCE ONE Administration Lidocaine/Epinephrine 5 ml 10/15/25 22:48 10/15/25 23:10 Lidocaine Hcl 2%/Epi 1:100,000 20 Ml Vial INFILTRATI 10/15/25 22:49 5 ml ONCE ONE Administration Medical Decision Making Medical Decision Making MDM Narrative: 65-year-old male with a 7.0 cm irregular laceration to the right upper leg while on chronic anticoagulation; tetanus immunization not up to date. Procedure: Laceration Repair * Site: Lower extremity, right side * Size: 7.0 cm irregular laceration involving muscle layer * Local Anesthetic: Lidocaine 1% with epinephrine, 5 mL * Wound preparation: Irrigated and explored; no deep structural injury * Closure: * Muscle layer?5-0 Vicryl, 5 simple interrupted/horizontal mattress sutures * Subcutaneous layer?5-0 Vicryl, 3 running sutures * Skin?5-0 Nylon, 3 simple interrupted sutures Problem #1: Laceration ? right upper leg Assessment: 7.0 cm laceration involving muscle layer in anticoagulated patient. Plan: * Repair completed as described * Monitor closely for bleeding due to anticoagulation * Provide wound care instructions * Arrange follow-up for wound check and suture removal * Problem #2: Chronic anticoagulation Assessment: On long-term non-warfarin anticoagulant for history of blood clots. DOAC, bw not indicated Plan: * Continue home anticoagulant therapy * Educate on signs of bleeding and when to seek care * Monitor for excessive bleeding post-procedure This is a 65-year-old male presenting with a right upper leg laceration sustained while closing a door, with a history of chronic anticoagulation for prior blood clots. The wound required layered closure, and special attention was paid to bleeding risk due to anticoagulation. TDaP immunization was updated during the visit. Prior right elbow bursitis was noted but not treated today. The complexity of this encounter is increased by the patient's anticoagulation status, which elevates bleeding risk and necessitates careful procedural management. Immunization status was addressed as part of p Differential Diagnosis Differential Diagnoses: The differential diagnosis associated with the presentation includes Admission/Observation Consideration of admission/observation: Escalation of care including ad mission/observation considered Tests considered The following testing was considered but not selected: xray, no bony tenderness, crush injury or concern for f/b, therefore deferred Prescription Management I considered prescription management with: Antibiotic Chronic Conditions Patient?s care impacted by: Other Social Determinants Patient?s care significantly limited by Social Determinants of Health including: Other Social Determinant of Health Procedures Laceration Laceration 1: Site: lower extremity Side (If applicable): right Size (cm): 7.0 Description: irregular Depth: involves muscle layer Local Anesthetic: lidocaine 1% and with epi Amount of anesthesia used (mL): 5.0 Pre-repair: wound explored, irrigated extensively and deep structures intact Skin layer closed with: nylon Size (cm): 5-0 Number of sutures: 3 Technique: simple, interrupted Subcutaneous layer closed with: vicryl Size: 5-0 Number of sutures: 3 Technique: running Muscle layer closed with: vicryl Size: 5-0 Number of sutures: 5 Technique: simple, interrupted and horizontal mattress Discharge Plan Discharge Clinical Impression: Laceration of leg, right, Chronic venous insufficiency Patient Disposition: Home, Self-Care Additional Instructions: You had 17 sutures placed. 5 are deep and absorbable. Due to underlying skin condition. I did a combination or running sutures, horizontal mattress and simple interrupted on the outside. DUe to skin tension I have also used absorbable on the outside. The black and blue stitch colors are the nonabsorbable and need to be removed in 12-14 days. You should follow up with wound care as I suspect this will require close management. Continue the antibiotic you are already on. You tetanus was updated today. Keep clean and dry for 24 hours. After this showering and washing is OK but no soaking in water until the sutures have been removed. Keep the area clean with gentle soap and water- do not put the wound directly under a high pressure stream of water.? Cover the wound with antibiotic ointment and a band-aid or sterile gauze dressing 2-3 times a day.? You will need your sutures removed in 10 days.? You may return to the clinic to have these removed. Return immediately or call your doctor for signs of infection that include the following:? Red streaks from wound or surrounding the wound, pus draining from the wound, increased pain, or fever > 100.4 degrees F.? The amount of scarring will take 6 months to a year to be determined.? To minimize the risk of scarring, avoid prolonged sunlight exposure (i.e., use sunscreen when the sutures are removed). Prescriptions: No Action (DME) diabetic shoes with inserts See Rx Instructions .Route .MEDSUPPLY Qty: 2 0RF Rx Instructions: As directed nystatin 100,000 unit/gram cream 1 appl topical BID Qty: 30 1RF insulin glargine [Basaglar KwikPen U-100 Insulin] 100 unit/mL (3 mL) insulin pen 60 unit subcut BEDTIME 90 Days Qty: 54 1RF (DME) True Metrix Glucose Test Strip Strip See Rx Instructions .ROUTE .COMPLEX Qty: 100 5RF Dose Instruction: TEST BLOOD SUGAR TWICE DAILY Rx Instructions: TEST BLOOD SUGAR TWICE DAILY insulin aspart U-100 [Novolog FlexPen U-100 Insulin] 100 unit/mL (3 mL) insulin pen 15 unit subcut TID 90 Days Qty: 40.5 1RF simvastatin 40 mg tablet 40 mg PO BEDTIME 90 Days Qty: 90 0RF albuterol sulfate [Ventolin HFA] 90 mcg/actuation HFA aerosol inhaler 2 puff inhalation QID PRN (Reason: Shortness Of Breath Or Wheezing) Qty: 8.5 1RF clopidogrel 75 mg tablet 75 mg PO DAILY 90 Days Qty: 90 0RF (DME) pen needle, diabetic [UltiCare Pen Needle] 32 gauge x 5/32 needle See Rx Instructions .ROUTE .COMPLEX Qty: 1200 1RF Dose Instruction: USE DIRECTED 4 TIMES A DAY Rx Instructions: USE DIRECTED 4 TIMES A DAY oxycodone 15 mg tablet 15 mg PO Q6H Qty: 140 0RF Rx Instructions: No more than 5 to be taken in 1 day pantoprazole 40 mg tablet,delayed release (DR/EC) 40 mg PO BID aspirin 81 mg Tablet,Delayed Release (Dr/Ec) 81 mg PO DAILY furosemide [Lasix] 20 mg tablet 20 mg PO DAILY Qty: 10 0RF Mounjaro 2.5 mg/0.5 mL pen injector 2.5 mg subcut QWEEK Qty: 2 0RF Rx Instructions: for 4 weeks carvedilol 12.5 mg tablet 12.5 mg PO ONCE (DME) blood-glucose meter [True Metrix Glucose Meter] Misc See Rx Instructions .ROUTE .MEDSUPPLY Qty: 1 Rx Instructions: As directed Bevespi Aerosphere 9-4.8 mcg HFA aerosol inhaler 2 puff inhalation Q12H 30 Days Qty: 10.7 11RF amoxicillin-pot clavulanate 875-125 mg tablet 1 tab PO BID Qty: 20 0RF doxycycline hyclate 100 mg capsule 100 mg PO BID Qty: 20 0RF Referrals: [facility] [[facility]] Clinical Impression: Laceration of leg, right Interventions: ED Discharge Assessment Last Done: 10/16/25 00:49 Discharge Date/Time: 10/16/25 01:02 Print Language: Monegasque
--- NOTE | 2025-10-15 22:58 | PC.NURSE ---
Called pharmacy, spoke with Juanjo regarding Lidocaine w/epinephrine. Pharmacy to bring to bedside for administration. HOMAR Wallis aware.
[2025-10-15] MEDS: Diphth,Pertus(ACell),Tet Adult 0.5 ML SYRINGE IM (23:07)
[2025-10-15] MEDS: Lidocaine HCl 2%/Epi 1:100,000 20 ML VIAL 5 ML INFILTRATI (23:10)
--- OUTSIDE RECORDS SUMMARY | 2025-10-16 00:25 | XMS_ITS | Clinical Summary ---
Author Organization [facility] Address [address] [place] [phone] Phone Care Team Providers Care Appellate Court Clerk Name Role Phone Ganga Stanford MD Primary [...] file Insurance MEDICARE PART A & B [facility] MEDEX SUPPLEMENT MEDICARE PART A & B [employer] [place] [address] MEDICARE PART A & B [employer] [place] [address] MEDICARE PART A & B Member Subscriber Plan / Payer ( fective 2005-) Name:Mason Martin Member ID:[id number] Relation to Subscriber:Self Name:Mason Martin Subscriber ID:[id number] Payer ID:[id number] Group ID:Not on file Type:Medicare Address: [facility] [employer] [facility] [address] [place] [phone] [employer] MEDEX SUPPLEMENT MEDICARE PART A & B [employer] MEDEX SUPPLEMENT MEDICARE PART A & B [employer] MEDEX SUPPLEMENT Care Teams Appellate Court Clerk Relationship Specialty Start Date End Date Ganga Stanford MD [address] [place] [address] [place] [id number] PCP - General Internal Medicine 09/19/22 Additional Source Comments The information contained in this document represents components of the legal health record. It is not the complete legal health record.[facility]
--- OUTSIDE RECORDS SUMMARY | 2025-10-16 00:25 | XMS_ITS | Continuity of Care Document ---
Author Organization [facility] Address [address] [facility] [address] [place] [id number] Phone [phone] Social History Type Date Description Comments Sex Male Sex Unknown Medical Devices Description No Information Available Encounters Description No Information Available Assessments Description No Information Available Plan of Treatment No Information Available Functional Status Description No Information Available Mental Status Description No Information Available Referrals Description No Information Available
[2025-10-16 00:41] VITALS: BP 105/58; PULSE 81; RESP 20; TEMP 36.8; O2SAT 96
[2025-10-16 00:49] VITALS: BP 105/58; PULSE 81; RESP 20; TEMP 36.8; O2SAT 96
== END 2025-10-16 01:02 | disposition home or self-care (01) ==
PROVIDERS: Emergency Provider Emergency Medicine; PCP Physician Assistant
DX: S71.111A Laceration without foreign body, right thigh, initial encounter (principal); W45.8XXA Other foreign body or object entering through skin, initial encounter; Y93.9 Activity, unspecified; Y92.9 Unspecified place or not applicable; Z23 Encounter for immunization
CPT/HCPCS: 12002; 90471; 90715; 99283; 99284; J2004

== ENCOUNTER 2025-10-19 09:20 | Outpatient (RCR) | payer MEDICARE, SELFPAY | END 2025-10-19 16:31 | disposition home or self-care (01) | LOC: HO.WCC 09:20 | PROVIDERS: Visit Provider Surgery Vascular Surgery | DX: E11.628 Type 2 diabetes mellitus with other skin complications (principal); S81.811A Laceration without foreign body, right lower leg, initial encounter; I87.321 Chronic venous hypertension (idiopathic) with inflammation of right lower extremity; L03.115 Cellulitis of right lower limb; I87.2 Venous insufficiency (chronic) (peripheral); I10 Essential (primary) hypertension; Z79.4 Long term (current) use of insulin | CPT/HCPCS: 99213 ==